=== PATIENT | female | born 1980 | race Caucasian/White ===

== ENCOUNTER 2024-02-21 19:31 | Inpatient (IN) | payer OTHER, SELFPAY ==
--- NOTE | 2024-02-21 | ECG_ITS ---
Test Reason : TACHYCARDIA Blood Pressure : / mmHG Vent. Rate : 113 BPM Atrial Rate : 113 BPM P-R Int : 142 ms QRS Dur : 086 ms QT Int : 328 ms P-R-T Axes : 050 -03 060 degrees QTc Int : 449 ms Sinus tachycardia Cannot rule out Anterior infarct , age undetermined Abnormal ECG When compared with ECG of 11-SEP-2006 12:32, No significant change was found Referred By: Generic ED Physician Electronically Signed By:OLIVA GAMBINO MD
--- NOTE | ~2024-02-21 | CT_ITS ---
EXAMINATION: CT PELVIS WITH CONTRAST CLINICAL INFORMATION: Vaginal swelling, concern for deep abscess. COMPARISON: None available. TECHNIQUE: Helical scanning was performed with submillimeter collimation through the pelvis with the use of oral contrast and during bolus intravenous injection of 85 mL of Omnipaque 350 intravenous contrast. Sagittal and coronal multiplanar 2-D reconstructions were obtained. This CT examination was performed using dose optimization techniques as appropriate, variously including the following: *Automated exposure control *Adjustment of mA and/or kV according to patient size (this includes techniques or standardized protocols for targeted exams where dose is matched to indication/reason for exam; i.e. extremities or head) *Use of iterative reconstruction technique DLP: 240 mGy-cm FINDINGS: Fat stranding is evident in the left inguinal region with extension into the left labia majora along the canal of Nuck. Small amount of fluid is also present within the left canal of Nuck with surrounding fat stranding suggesting an abscess. This measures 3 x 1.3 x 2.5 cm. No subcutaneous gas. Moderate volume of stool is present throughout the imaged portion of the colon. Small bowel and colon are normal in caliber. No intraperitoneal free fluid or free air. Uterus is unremarkable. No ovarian abnormalities are identified. Normal appearance of the bladder. No adenopathy. No acute osseous findings. Joints appear well-preserved. CT/CT pelvis w IV con IMPRESSION: Deep infection of the left labia majora with a small fluid collection within the canal of Nuck, most consistent with an abscess. No subcutaneous gas.
[2024-02-21 19:34] VITALS: BP 125/75; BP 142/88; PULSE 110; PULSE 115; RESP 20; TEMP 36.8; O2SAT 97; O2SAT 98; BMI 29.7
[2024-02-21 19:41] VITALS: BP 142/88; PULSE 115; RESP 16; TEMP 36.8; O2SAT 98
[2024-02-21 19:55] LABS: MANUAL DIFF FLAG NO
--- NOTE | 2024-02-21 19:55 | PC.NURSE ---
pt biba from home reporting multiple abscesses throughout body, main concern outer vaginal area and L. forearm. pt reports IVDA, last used cocaine 3 days ago. 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 pt denies si/hi and states she does not feel she needs detox services at this time. pt also reports frequent urination/dysuria. ua sample obtained and sent to lab. iv established to L. upper arm. labs drawn and sent to lab. pt is sinus tachy on monitor, ekg being obtained at this time. afebrile. vss. pt denies cp/sob/n/v/d. axox4. multiple abscesses to R. forearm pt reports is improving, no open wound/discharge noted. L. forearm has multiple abscesses without redness/drainage however abscess to L. wrist area appears red swollen painful. +pulses. awaiting primary eval by ed provider.
[2024-02-21 19:56] LABS: Basophils Absolute Auto 0.1 X10*3/uL (0.0-0.2); Basophils Percent Auto 0.7 % (0-2); Eosinophils Absolute Auto 0.2 X10*3/uL (0.0-0.4); Eosinophils Percent Auto 1.1 % (0-4); Hematocrit 39.3 % (37.0-47.0); Hemoglobin 13.7 g/dl (12.0-16.0); Imm Gran Abs Auto 0.59 X10*3/uL (0.00-0.03); Imm Gran Pct Auto 3.5 % (0.0-0.4); Lymphocytes Absolute Auto 3.5 X10*3/uL (1.2-4.9); Lymphocytes Percent Auto 20.6 % (20-40); Mean Corpuscular HGB Conc 34.9 g/dl (31.0-35.0); Mean Corpuscular Hemoglobin 27.6 pg (27.0-33.0); Mean Corpuscular Volume 79.1 fL (80.0-98.0); Monocytes Percent Auto 5.7 % (2-11); Neutrophils Absolute Auto 11.5 x10*3/uL (2.0-8.3); Neutrophils Percent Auto 68.4 % (45-73); Platelet Count 475 X10*3/uL (160-400); Red Blood Count 4.97 X10*6/uL (4.20-5.50); Red Cell Distribution Width 12.4 % (11.0-16.0); White Blood Count 16.8 X10*3/uL (4.8-10.8)
[2024-02-21 19:57] LABS: Appearance Urine Clear; Color Urine Yellow; Glucose Urine UA >=1000 mg/dL (Negative); Leukocyte Esterase Urine Negative (Negative); Nitrite Urine Negative (Negative); PH 6.5 (5.0-9.0); Specific Gravity - Urine >= 1.030 (1.005-1.025); UMIC TRIGGER UACC YES; Urine Blood Negative (Negative); Urine Ketones Negative (Negative); Urine Protein Negative (Neg-Trace)
[2024-02-21 20:04] LABS: Bacteria Urine None Seen (None Seen); Hyaline Casts Urine 0-2 /LPF (0-2); RBC Urine 0-2 /HPF (0-2); Squamous Epithelial Cell Urine 0-2 /HPF (0-2); UACC Culture Trigger YES
[2024-02-21 20:28] LABS: Alanine Aminotransferase 14 U/L (0-31); Albumin Level 3.5 g/dL (3.5-5.0); Alkaline Phosphatase 211 U/L (39-117); Anion Gap 20 (12-20); Aspartate Amino Transferase 12 U/L (5-31); Bilirubin Total 0.2 mg/dL (0.0-1.0); Blood Urea Nitrogen 14 mg/dL (9-16); Calcium 9.3 mg/dL (8.4-10.2); Carbon Dioxide 21 mmol/L (22-29); Chloride 93 mmol/L (96-108); Creatinine Clr Calc Pharmacy 79.5; Estimated Glomerular Filt Rate > 60; Glucose Random 685 mg/dL (60-115); Sodium 130 mmol/L (135-145); Total Protein 7.7 g/dL (6.5-8.0)
--- NOTE | 2024-02-21 20:30 | ED_ITS ---
HPI - General Adult General Chief complaint: Skin/Abscess/Foreign Body Stated complaint: OUTER VAGINAL ABCESS, USES COCAINE Time Seen by Provider: 02/21/24 20:30 Source: patient Mode of arrival: ambulatory Limitations: no limitations History of Present Illness ED Provider: Tatiana Ortiz PA-C HPI narrative: Patient is a 43 year old assigned female at with a history of DM and IV drug use presenting to the emergency department today with multiple abscesses. Patient states that her left arm and the left side of her vagina have been swollen and she has been using cocaine intravenously. Patient states that she has not been taking any of her diabetes medications. Patient denies any dizziness, lightheadedness, abdominal pain, nausea, vomiting, fever, chills, blurry vision, double vision, loss of vision, chest pain, difficulty breathing, shortness of breath, back pain, night sweats, pain with urination, increased urinary frequency, increased urinary urgency, blood in her urine or stool, syncope or a near syncopal episode, recent trauma or falls, bowel incontinence, bladder incontinence, or any other complaints at this time. Onset (ago): day(s) Relieving factors: none Exacerbating factors: none Associated symptoms: denies other symptoms Treatments prior to arrival: none Related Data Allergies Allergy/AdvReac Type Severity Reaction Status Date / Time divalproex sodium Allergy Severe ANAPHYLAXIS Unverified 05/17/20 15:04 [From Depakote] hydrocodone [HYDROCODONE] Allergy Severe HIVES Unverified 05/17/20 15:04 tramadol Allergy Unknown rash Verified 07/25/13 00:00 acetaminophen [From Vicodin] Allergy Anaphylaxis Verified 02/21/24 19:45 From Ultram Allergy Intermediate ITCHING Uncoded 05/17/20 15:04 PEANUT BUTTER Allergy Unknown ANAPHYLAXIS Uncoded 05/17/20 15:04 Review of Systems 2 Constitutional: Constitutional: Reports no additional constitutional complaints, Denies chills, Denies fever(s) and Denies night sweats Eyes: Eyes: Reports no additional eye complaints, Denies blurry vision, Denies change in vision, Denies diplopia, Denies eye discharge, Denies loss of vision and Denies eye pain ENT: Denies dizziness Cardiovascular: Cardiovascular: Reports no additional cardiovascular complaints, Denies chest pain, Denies lightheadedness, Denies Loss of Consciousness and Denies dyspnea Respiratory: Respiratory: Reports no additional respiratory complaints and Denies dyspnea Gastrointestinal: Gastrointestinal: Reports no additional gastrointestinal complaints, Denies abdominal pain, Denies melena, Denies hematochezia, Denies change in bowel habits and Denies change in stool character Genitourinary: Genitourinary: Denies hematuria, Denies urinary frequency, Denies dysuria, Denies urinary incontinence, Denies urinary hesitancy and Denies urinary urgency Comments: left sided vaginal abscess Musculoskeletal: Musculoskeletal: Reports no additional musculoskeletal complaints, Denies numbness and Denies tingling Comments: left arm abscess Neurologic: Denies dizziness, Denies loss of vision, Denies numbness and Denies tingling Psychiatric: Psychiatric: Reports no additional psychiatric complaints Endocrine: Endocrine: Reports no additional endocrine complaints Hematologic/Lymphatic: Hematologic/Lymphatic: Reports no additional hematologic/lymphatic complaints Allergic/Immunologic: Allergic/Immunologic: Reports no additional allergic/immunologic complaints PMFSH Past Medical History Attestation statement: The following information was validated with the patient. Source: old records reviewed and nursing notes reviewed Social History Social History Smoked in Last 30 Days: No Use of substances other than those prescribed or required for medical reasons: Yes Substance Use Type: Crack/Cocaine and IV Drugs Advance Directives: No Advance Directives Information Provided: No Physical Exam ED Vital Signs: Vital Signs - 24 hr 02/21/24 19:34 02/21/24 19:41 02/21/24 21:02 Temperature 98.3 F 98.3 F Pulse Rate 115 H 115 H 104 H Respiratory Rate 20 16 16 Blood Pressure 142/88 H 142/88 H 138/83 Pulse Oximetry 97 98 94 Oxygen Delivery Method Room Air Room Air 02/21/24 23:20 Temperature 98.5 F Pulse Rate 101 H Respiratory Rate 16 Blood Pressure 126/70 Pulse Oximetry 94 Oxygen Delivery Method Room Air BMI result Body Mass Index 29.7 Const General: cooperative, no acute distress, alert and awake Nutritional Appearance: well nourished Orientation/consciousness: patient oriented x3 Limitations: no limitations HENMT Head: Yes normal to inspection and Yes atraumatic Ears: hearing grossly normal bilaterally and external ears normal General nose exam: Normal external nose present, no nasal discharge noted and no epistaxis Face and sinus: Yes normal facial exam, No abrasion and No laceration Mouth: Normal oral and palatal mucosa present, no drooling and no muffled voice Eyes General: appearance normal, both eyes and all related structures Periorbital: periorbital findings normal Eyelids: Yes eyelids normal Conjunctivae: conjunctivae normal Pupils: Equal, round and reactive pupils present EOM: EOMs intact bilaterally Neck Neck: Yes normal visual inspection, Yes full ROM and Yes no lymphadenopathy Chest Chest palpation & inspection: normal inspection of the chest Resp Effort & Inspection: normal respiratory effort and able to speak in complete sentences GI Inspection: Yes normal to inspection Other: abscess present to the left labia majora with active draining of purulent discharge Skin Other: multiple abscesses present to the patient's extremities with the largest being on the left dorsal forearm Neuro General: patient oriented x3 and moves all extremities Cranial nerves: Yes Equal, round and reactive pupils present Cognition (Neuro): normal cognition Motor exam (neuro): 5/5 motor strength present throughout Sensory Exam: Normal double simultaneous stimulation for sensation Coordination: [id number] test normal Extrem General: Yes normal to inspection, Yes full ROM and Yes capillary refill normal Psych Appearance: grossly normal Mental Status: mental status grossly normal Affect: normal affect Attitude: cooperative Thought process: Normal thought process present Thought content: Normal thought content present Insight: Good insight present (Psych) Medications Administered Generic Name Dose Route Start Last Admin Trade Name Fidel PRN Reason Stop Dose Admin Insulin Human Regular 100 unit in 100 mls @ 8 mls/hr 02/21/24 20:45 02/21/24 23:01 Myxredlin IVCONT Not Given .[id number] LUIS ENRIQUE Protocol 8 UNIT/HR Discontinued Medications Generic Name Dose Route Start Last Admin Trade Name Fidel PRN Reason Stop Dose Admin Hydromorphone HCl 0.5 mg 02/21/24 20:38 02/21/24 20:54 Hydromorphone Hcl 0.5 Mg/0.5 Ml Syringe IVPUSH 02/21/24 20:39 0.5 mg ONCE ONE Administration Protocol Hydromorphone HCl 0.5 mg 02/21/24 22:24 02/21/24 22:34 Hydromorphone Hcl 0.5 Mg/0.5 Ml Syringe IVPUSH 02/21/24 22:25 0.5 mg ONCE ONE Administration Protocol Sodium Chloride 1,000 mls @ 999 mls/hr 02/21/24 20:30 02/21/24 22:35 Ns IV 02/21/24 21:30 Infused .Q1H1M LUIS ENRIQUE Infusion Piperacillin Sod/Tazobactam 50 mls @ 100 mls/hr 02/21/24 20:28 02/21/24 21:18 Sod 3.375 gm/ Sodium Chloride IV 02/21/24 20:57 Infused ONCE ONE Infusion Vancomycin HCl 2,000 mg in 500 mls @ 250 mls/hr 02/21/24 20:45 02/22/24 01:04 Vancomycin/Ns IV 02/21/24 22:44 Infused ONCE ONE Infusion Lactated Ringer's 1,000 mls @ 999 mls/hr 02/21/24 22:00 02/22/24 01:04 Lr IV 02/21/24 23:00 Infused .Q1H1M LUIS ENRIQUE Infusion Insulin Glargine 15 unit 02/21/24 23:34 02/22/24 00:21 Insulin Glargine,Hum.Rec.Anlog 100 Unit/Ml 10 Ml Vial SUBCUT 02/21/24 23:35 15 unit ONCE ONE Administration Insulin Human Regular 8 unit 02/21/24 21:00 02/21/24 21:16 Insulin Regular, Human 100 Unit/Ml 10 Ml Vial 0.1 unit/kg (8 unit) 02/21/24 21:01 8 unit IVPUSH Administration ONCE ONE Iohexol 85 ml 02/22/24 00:24 02/22/24 00:25 Iohexol 350 Mg/Ml 100 Ml Infus..Btl IV 02/22/24 00:25 85 ml ONCE ONE Administration Medical Decision Making Medical Decision Making MDM Narrative: Patient is a 43 year old assigned female at with a history of uncontrolled DM and IVDA presenting to the emergency department today with multiple abscesses and uncontrolled sugars. Patient's physical exam was as noted in the physical exam portion of this note. Patient's blood work showed an elevated WBC count of 16.8, an initial sugar of 685, gap of 20, and a beta-hydroxy of 0.28. Patient's urine showed no acute process. Patient's pelvis CT showed a deep infection of the left labia majoria with a small fluid collection within the canal of nuck most consistent with an abscess but no evidence of subcutaneous gas. Patient was given a liter of NS, a liter of LR, 8 units of insulin, and 15 units of lantus which appropriately addressed the patient's hyperglycemia. Patient's clinical presentation is consistent with cellulitis but not sepsis (@0015). I spoke to the hospitalist team who agreed to admission. I explained my physical exam findings as well as all test results to the patient. I answered all questions asked by the patient. Patient verbalized agreement and understanding with this treatment plan and admission. Differential Diagnosis Differential Diagnoses: The differential diagnosis associated with the presentation includes Cellulitis Abscesses Hyperglycemia Admission/Observation Consideration of admission/observation: Escalation of care including admission/observation considered Patient admitted Consult Healthcare Provider Management of the patient was discussed with: Hospitalist (agreed to admission as noted in the MDM Rationale portion of this note.) Lab Data [facility] Lab Attestation statement: I reviewed the patient's lab results. My interpretation of these results are in the MDM Rationale portion of this note. 02/21/24 19:50 02/21/24 19:50 Labs: Lab Results 02/21/24 02/21/24 02/21/24 Range/Units 19:50 20:42 20:47 WBC 16.8 H (4.8-10.8) X10*3/uL RBC 4.97 (4.20-5.50) X10*6/uL Hgb 13.7 (12.0-16.0) g/dl Hct 39.3 (37.0-47.0) % MCV 79.1 L (80.0-98.0) fL MCH 27.6 (27.0-33.0) pg MCHC 34.9 (31.0-35.0) g/dl RDW 12.4 (11.0-16.0) % Plt Count 475 H (160-400) X10*3/uL MPV 11.0 (9.4-12.3) fL Immature Gran % (Auto) 3.5 H (0.0-0.4) % Neut % (Auto) 68.4 (45-73) % Lymph % (Auto) 20.6 (20-40) % [place] % (Auto) 5.7 (2-11) % Eos % (Auto) 1.1 (0-4) % Baso % (Auto) 0.7 (0-2) % Lymph # (Auto) 3.5 (1.2-4.9) X10*3/uL [place] # (Auto) 1.0 (0.1-1.2) X10*3/uL Eos # (Auto) 0.2 (0.0-0.4) X10*3/uL Baso # (Auto) 0.1 (0.0-0.2) X10*3/uL Abs Immat Gran (auto) 0.59 H (0.00-0.03) X10*3/uL Absolute Neuts (auto) 11.5 H (2.0-8.3) x10*3/uL Absolute Nucleated RBC 0.000 (0.0-0.012) X10*3/uL Nucleated RBC % (auto) 0.0 (0.0-0.2) /100WBC Sodium 130 L (135-145) mmol/L Potassium 4.0 (3.3-5.1) mmol/L Chloride 93 L (96-108) mmol/L Carbon Dioxide 21 L (22-29) mmol/L Anion Gap 20 (12-20) BUN 14 (9-16) mg/dL Creatinine 0.90 (0.5-1.4) mg/dL Estim Creat Clear Calc 79.5 Estimated GFR > 60 POC Glucose 565 H* (60-115) mg/dL Random Glucose 685 H* (60-115) mg/dL Lactic Acid 1.3 (0.5-2.0) mmol/L Calcium 9.3 (8.4-10.2) mg/dL Total Bilirubin 0.2 (0.0-1.0) mg/dL AST 12 (5-31) U/L ALT 14 (0-31) U/L Alkaline Phosphatase 211 H (39-117) U/L Total Protein 7.7 (6.5-8.0) g/dL Albumin 3.5 (3.5-5.0) g/dL Beta-Hydroxybutyrate 0.28 H (0.02-0.27) mmol/L Beta HCG, Quant < 2 mIU/mL Urine Color Yellow Urine Appearance Clear Urine pH 6.5 (5.0-9.0) Ur Specific [place] >= 1.030 H (1.005-1.025) Urine Protein Negative (Neg-Trace) mg/dL Urine Glucose (UA) >=1000 H (Negative) mg/dL Urine Ketones Negative (Negative) mg/dL Urine Blood Negative (Negative) Urine Nitrite Negative (Negative) Ur Leukocyte Esterase Negative (Negative) Urine RBC 0-2 (0-2) /HPF Urine WBC 6-10 H (0-5) /HPF Ur Squamous Epith Cells 0-2 (0-2) /HPF Urine Bacteria None Seen (None Seen) Hyaline Casts 0-2 (0-2) /LPF 02/21/24 02/21/24 02/21/24 Range/Units 21:50 22:13 22:47 WBC (4.8-10.8) X10*3/uL RBC (4.20-5.50) X10*6/uL Hgb (12.0-16.0) g/dl Hct (37.0-47.0) % MCV (80.0-98.0) fL MCH (27.0-33.0) pg MCHC (31.0-35.0) g/dl RDW (11.0-16.0) % Plt Count (160-400) X10*3/uL MPV (9.4-12.3) fL Immature Gran % (Auto) (0.0-0.4) % Neut % (Auto) (45-73) % Lymph % (Auto) (20-40) % [place] % (Auto) (2-11) % Eos % (Auto) (0-4) % Baso % (Auto) (0-2) % Lymph # (Auto) (1.2-4.9) X10*3/uL [place] # (Auto) (0.1-1.2) X10*3/uL Eos # (Auto) (0.0-0.4) X10*3/uL Baso # (Auto) (0.0-0.2) X10*3/uL Abs Immat Gran (auto) (0.00-0.03) X10*3/uL Absolute Neuts (auto) (2.0-8.3) x10*3/uL Absolute Nucleated RBC (0.0-0.012) X10*3/uL Nucleated RBC % (auto) (0.0-0.2) /100WBC Sodium (135-145) mmol/L Potassium (3.3-5.1) mmol/L Chloride (96-108) mmol/L Carbon Dioxide (22-29) mmol/L Anion Gap (12-20) BUN (9-16) mg/dL Creatinine (0.5-1.4) mg/dL Estim Creat Clear Calc Estimated GFR POC Glucose 412 H* 398 H* 344 H (60-115) mg/dL Random Glucose (60-115) mg/dL Lactic Acid (0.5-2.0) mmol/L Calcium (8.4-10.2) mg/dL Total Bilirubin (0.0-1.0) mg/dL AST (5-31) U/L ALT (0-31) U/L Alkaline Phosphatase (39-117) U/L Total Protein (6.5-8.0) g/dL Albumin (3.5-5.0) g/dL Beta-Hydroxybutyrate (0.02-0.27) mmol/L Beta HCG, Quant mIU/mL Urine Color Urine Appearance Urine pH (5.0-9.0) Ur Specific [place] (1.005-1.025) Urine Protein (Neg-Trace) mg/dL Urine Glucose (UA) (Negative) mg/dL Urine Ketones (Negative) mg/dL Urine Blood (Negative) Urine Nitrite (Negative) Ur Leukocyte Esterase (Negative) Urine RBC (0-2) /HPF Urine WBC (0-5) /HPF Ur Squamous Epith Cells (0-2) /HPF Urine Bacteria (None Seen) Hyaline Casts (0-2) /LPF 02/21/24 02/21/24 02/22/24 Range/Units 23:18 23:49 00:18 WBC (4.8-10.8) X10*3/uL RBC (4.20-5.50) X10*6/uL Hgb (12.0-16.0) g/dl Hct (37.0-47.0) % MCV (80.0-98.0) fL MCH (27.0-33.0) pg MCHC (31.0-35.0) g/dl RDW (11.0-16.0) % Plt Count (160-400) X10*3/uL MPV (9.4-12.3) fL Immature Gran % (Auto) (0.0-0.4) % Neut % (Auto) (45-73) % Lymph % (Auto) (20-40) % [place] % (Auto) (2-11) % Eos % (Auto) (0-4) % Baso % (Auto) (0-2) % Lymph # (Auto) (1.2-4.9) X10*3/uL [place] # (Auto) (0.1-1.2) X10*3/uL Eos # (Auto) (0.0-0.4) X10*3/uL Baso # (Auto) (0.0-0.2) X10*3/uL Abs Immat Gran (auto) (0.00-0.03) X10*3/uL Absolute Neuts (auto) (2.0-8.3) x10*3/uL Absolute Nucleated RBC (0.0-0.012) X10*3/uL Nucleated RBC % (auto) (0.0-0.2) /100WBC Sodium (135-145) mmol/L Potassium (3.3-5.1) mmol/L Chloride (96-108) mmol/L Carbon Dioxide (22-29) mmol/L Anion Gap (12-20) BUN (9-16) mg/dL Creatinine (0.5-1.4) mg/dL Estim Creat Clear Calc Estimated GFR POC Glucose 372 H* 360 H* 307 H (60-115) mg/dL Random Glucose (60-115) mg/dL Lactic Acid (0.5-2.0) mmol/L Calcium (8.4-10.2) mg/dL Total Bilirubin (0.0-1.0) mg/dL AST (5-31) U/L ALT (0-31) U/L Alkaline Phosphatase (39-117) U/L Total Protein (6.5-8.0) g/dL Albumin (3.5-5.0) g/dL Beta-Hydroxybutyrate (0.02-0.27) mmol/L Beta HCG, Quant mIU/mL Urine Color Urine Appearance Urine pH (5.0-9.0) Ur Specific [place] (1.005-1.025) Urine Protein (Neg-Trace) mg/dL Urine Glucose (UA) (Negative) mg/dL Urine Ketones (Negative) mg/dL Urine Blood (Negative) Urine Nitrite (Negative) Ur Leukocyte Esterase (Negative) Urine RBC (0-2) /HPF Urine WBC (0-5) /HPF Ur Squamous Epith Cells (0-2) /HPF Urine Bacteria (None Seen) Hyaline Casts (0-2) /LPF Independent Interpretation I performed an independent interpretation of an: CT Scan Interpretation: My interpretation is in agreement with the radiologist's impression of this imaging study. - EXAMINATION: CT PELVIS WITH CONTRAST CLINICAL INFORMATION: Vaginal swelling, concern for deep abscess. COMPARISON: None available. TECHNIQUE: Helical scanning was performed with submillimeter collimation through the pelvis with the use of oral contrast and during bolus intravenous injection of 85 mL of Omnipaque 350 intravenous contrast. Sagittal and coronal multiplanar 2-D reconstructions were obtained. This CT examination was performed using dose optimization techniques as appropriate, variously including the following: *Automated exposure control *Adjustment of mA and/or kV according to patient size (this includes techniques or standardized protocols for targeted exams where dose is matched to indication/reason for exam; i.e. extremities or head) *Use of iterative reconstruction technique DLP: 240 mGy-cm FINDINGS: Fat stranding is evident in the left inguinal region with extension into the left labia majora along the canal of Nuck. Small amount of fluid is also present within the left canal of Nuck with surrounding fat stranding suggesting an abscess. This measures 3 x 1.3 x 2.5 cm. No subcutaneous gas. Moderate volume of stool is present throughout the imaged portion of the colon. Small bowel and colon are normal in caliber. No intraperitoneal free fluid or free air. Uterus is unremarkable. No ovarian abnormalities are identified. Normal appearance of the bladder. No adenopathy. No acute osseous findings. Joints appear well-preserved. CT/CT pelvis w IV con IMPRESSION: Deep infection of the left labia majora with a small fluid collection within the canal of Nuck, most consistent with an abscess. No subcutaneous gas. Dictated By: Gordy Mccall MD Signed By: Electronically signed by Gordy Mccall MD 02/22/24 0120 Independent Historian Clinical information obtained from an independent historian. History obtained from or confirmed by: EMS (EMS provided additional history and confirmed the history provided by the patient.) Chronic Conditions Patient?s care impacted by: Diabetes Critical Care Time Critical Care Time Critical Care Time: Yes Total Critical Care Time: 68 Attestation: I spent 68 minutes of Critical Care Time with this patient. This does not include time spent on separately reported billable procedures. Discharge Plan Discharge Clinical Impression: Cellulitis, Active intravenous drug use, Hyperglycemia Patient Disposition: Admitted As Inpatient Print Language: Macedonian
[2024-02-21 20:51] LABS: Glucose, Whole Blood 565 mg/dL (60-115)
[2024-02-21] MEDS: Piperacillin Sodium/Tazobactam 3.375 GM in 0.9 % Sodium Chloride 50 ML IV (20:54)
[2024-02-21] MEDS: 0.9 % Sodium Chloride 1,000 ML 999 ML IV (20:54)
[2024-02-21] MEDS: HYDROmorphone HCl 0.5 MG/0.5 ML SYRINGE IVPUSH ×2 (20:54→22:34)
--- NOTE | 2024-02-21 20:57 | PC.NURSE ---
Addendum entered by Danial Espinal 02/21/24 21:51: iv insulin given per mar. holding off on insulin drip at this time per PA. poc 412 at this time. Original Note: critical bgl from lab 685. poc 565 at this time. 2nd iv established. blood cultures/lactic drawn and sent to lab. ivf infusing per mar. abx infusing per mar. regular insulin not stocked in ed pyxis, pharmacy and PA aware. pt medicated per mar for pain. pt resting comfortably in stretcher at this time. call maza within reach.
[2024-02-21 21:01] LABS: Lactic Acid 1.3 mmol/L (0.5-2.0)
[2024-02-21 21:02] VITALS: BP 138/83; PULSE 104; RESP 16; O2SAT 94
[2024-02-21] MEDS: Insulin Regular, Human 100 UNIT/ML 10 ML VIAL 8 UNIT IVPUSH (21:16)
[2024-02-21 21:17] LABS: Beta-Hydroxybutyrate 0.28 mmol/L (0.02-0.27)
[2024-02-21] MEDS: vancomycin/NS 2,000 MG/500 ML PLAST..BAG 250 MG IV (21:18)
[2024-02-21 21:53] LABS: Glucose, Whole Blood 412 mg/dL (60-115)
[2024-02-21 22:16] LABS: Glucose, Whole Blood 398 mg/dL (60-115)
[2024-02-21] MEDS: Lactated Ringers 1,000 ML 999 ML IV (22:35)
[2024-02-21 22:51] LABS: Glucose, Whole Blood 344 mg/dL (60-115)
--- NOTE | 2024-02-21 23:02 | PC.NURSE ---
pt medicated per mar for pain. LR infusing per mar, to draw cmp after completion per PA. pt resting comfortably in stretcher at this time. call maza within reach.
[2024-02-21 23:20] VITALS: BP 126/70; PULSE 101; RESP 16; TEMP 36.9; O2SAT 94
[2024-02-21 23:25] LABS: Glucose, Whole Blood 372 mg/dL (60-115)
[2024-02-21 23:55] LABS: Glucose, Whole Blood 360 mg/dL (60-115)
[2024-02-21 23:59] LABS: HCG Quantitative < 2 mIU/mL
--- NOTE | 2024-02-22 00:18 | PC.NURSE ---
PA aware of poc 307, no further orders at this time. pt is requesting food. diabetic food provided per PA approval, pt tolerating po intake.
[2024-02-22] MEDS: Insulin Glargine,Hum.rec.anlog 100 UNIT/ML 10 ML VIAL 15 UNIT SUBCUT ×2 (00:21→19:59)
[2024-02-22 00:23] LABS: Glucose, Whole Blood 307 mg/dL (60-115)
[2024-02-22] MEDS: iohexoL 350 MG/ML 100 ML INFUS..BTL 85 ML IV (00:25)
--- NOTE | 2024-02-22 01:34 | PC.NURSE ---
Addendum entered by Danial Espinal 02/22/24 01:37: per next recheck poc 0330. Original Note: Dr. Tuan Jc at bedside for admission. approval for pt to eat as pt states she is hungry and does not want options offered as diabetic friendly. awaiting ct scan results for admission.
[2024-02-22 01:35] LABS: Alanine Aminotransferase 11 U/L (0-31); Alkaline Phosphatase 150 U/L (39-117); Anion Gap 14 (12-20); Aspartate Amino Transferase 11 U/L (5-31); Bilirubin Total 0.2 mg/dL (0.0-1.0); Blood Urea Nitrogen 10 mg/dL (9-16); Carbon Dioxide 21 mmol/L (22-29); Chloride 101 mmol/L (96-108); Creatinine Clr Calc Pharmacy 119.3; Estimated Glomerular Filt Rate > 60; Glucose Random 334 mg/dL (60-115); Potassium 3.7 mmol/L (3.3-5.1); Sodium 132 mmol/L (135-145); Total Protein 6.5 g/dL (6.5-8.0)
[2024-02-22 01:36] VITALS: BP 120/67; PULSE 100; RESP 16; TEMP 37.1; O2SAT 96
[2024-02-22 01:55] LABS: C Reactive Protein 5.23 mg/dL (< or = 0.50)
[2024-02-22] MEDS: 0.9 % Sodium Chloride 1,000 ML 150 ML IVCONT ×2 (02:04→09:28)
--- NOTE | 2024-02-22 02:09 | PM.IMHP ---
History of Present Illness Date of Service: 02/22/24 Attending physician on admission: Chloe Jc Chief Complaint: Left vulvar swelling November Devan is a 43 years old woman with past medical history significant for IVDU (cocaine), asthma, hyperlipidemia and type 2 diabetes mellitus (noncompliant with medications -Trulicity and metformin) presents to the emergency department complaining of one-week history of worsening left vulva swelling and pain. She also has a left arm abscess. She is ongoing IV drug user. Denies associated nausea, vomiting, dizziness, palpitation, headache or fever. Did not report pain with urination. She did not report any acute cardiopulmonary or gastrointestinal symptoms. Patient denied alcohol abuse. She said that she was recently treated for vaginal fungal infection with fluconazole. Denies history of STDs. In the ED, have mild tachycardia. There is no hypotension or fever reported. Oxygen saturation is normal on room air. Blood workup was remarkable for leukocytosis of 16.8. Hemoglobin and platelets are unremarkable. Initial blood glucose was 565 (most recent is 307) There are no electrolyte imbalances. Corrected sodium is 138. CRP is elevated at 5.23. LFTs and renal function are normal. UA showed marked glucosuria, elevated specific gravity and WBC of 6-10. There is no microscopic hematuria. Pelvis CT scan with IV contrast showed deep infection of the labia majora with a small fluid collection within the canal of Nuck, consistent with an abscess and without subcutaneous gas. ED tx: NS 1 L bolus, LR 1 L bolus, Dilaudid 0.5 mg IV, vancomycin 2 g IV, insulin R 8 units IV, IV contrast, Zosyn 3.375 g IV Review of Systems Review of Systems: All 12 systems were reviewed and normal except as noted in HPI. [facility] Medical History (Updated 02/22/24 @ 02:34 by Chloe Jc MD) Asthma Hyperlipidemia Type 2 diabetes mellitus Social History Smoked in Last 30 Days: No Use of substances other than those prescribed or required for medical reasons: Yes Substance Use Type: Crack/Cocaine and IV Drugs Advance Directives: No Advance Directives Information Provided: No Meds Allergies Allergy/AdvReac Type Severity Reaction Status Date / Time divalproex sodium Allergy Severe ANAPHYLAXIS Unverified 05/17/20 15:04 [From Depakote] hydrocodone [HYDROCODONE] Allergy Severe HIVES Unverified 05/17/20 15:04 tramadol Allergy Unknown rash Verified 07/25/13 00:00 acetaminophen [From Vicodin] Allergy Anaphylaxis Verified 02/21/24 19:45 From Ultram Allergy Intermediate ITCHING Uncoded 05/17/20 15:04 PEANUT BUTTER Allergy Unknown ANAPHYLAXIS Uncoded 05/17/20 15:04 Active Medications: Current Medications Acetaminophen (Acetaminophen 325 Mg Tablet) 650 mg PO Q6H PRN PRN Reason: Pain, Mild (Pain Scale 1-3), fever or headache Glucose (Glucose Gel 15 Gm Gel..Gram.) 15 gm PO Q15M PRN; Protocol PRN Reason: per Hypoglycemia Standing Ord. Heparin Sodium (Porcine) (Heparin Sodium,Porcine 5,000 Unit/Ml Vial) 5,000 unit SUBCUT Q8H [facility] Sodium Chloride (Ns) 1,000 mls @ 150 mls/hr IVCONT .Q6H40M [facility] Last Admin: 02/22/24 02:04 Dose: 150 mls/hr Dextrose (D10) 250 mls @ 750 mls/hr IV Q15M PRN; Protocol PRN Reason: per Hypoglycemia Standing Ord. Insulin Human Lispro (Insulin Lispro 100 Unit/Ml 3 Ml Vial) 0 unit SUBCUT QIDACHS [facility]; Protocol Ondansetron HCl (Ondansetron Hcl 4 Mg/2 Ml Vial) 4 mg IVPUSH Q8H PRN PRN Reason: Nausea and Vomiting Oxycodone HCl (Oxycodone Hcl Immed Release 5 Mg Tablet) 5 mg PO Q6H PRN PRN Reason: Pain, Severe (Pain Scale 7-10) Sodium Chloride (0.9 % Sodium Chloride Flush 3 Ml Syringe) 3 ml IVFLUSH QSHIFT [facility] Home Medications ?Medication ?Instructions ?Recorded ?Confirmed ?Last Taken ?Type albuterol sulfate 90 mcg/actuation 2 puff inhalation Q4-6H PRN 02/22/24 02/22/24 02/21/24 12:00 History aerosol inhaler Wheezing fluticasone furoate 100 1 ea inhalation DAILY 02/22/24 02/22/24 02/21/24 12:00 History mcg-vilanterol 25 mcg/dose inhalation powder (Breo Ellipta) tizanidine 4 mg tablet 4 mg PO TID PRN Back Pain 02/22/24 02/22/24 02/21/24 12:00 History Physical Exam Vital Signs and Narrative: Vital Signs: Last Vital Signs Temp 98.7 F 02/22/24 01:36 Pulse 100 02/22/24 01:36 Resp 16 02/22/24 01:36 BP 120/67 02/22/24 01:36 Pulse Ox 96 02/22/24 01:36 O2 Del Method Room Air 02/22/24 01:36 BMI result Body Mass Index 29.7 Constitutional - Awake and Alert, No apparent distress. Continuously asking for food. Afebrile. HEENT - PERRL, EOMI. Normal sclera. Heart - Tachycardia. No murmur. Lungs - Normal lung expansion, Normal respiratory effort, No respiratory distress, CTA bilaterally Abdomen - NT / ND; +BS; No rebound or guarding : Extremities - no calf tenderness bilaterally, no swelling Musculoskeletal - Normal inspection, normal ROM Skin - Warm/Dry Neurological - Alert & oriented x3. Normal speech. Psychological - Anxious affect Results Labs 02/21/24 19:50 02/22/24 01:08 Labs: Laboratory Results - last 24 hr 02/21/24 02/21/24 02/21/24 19:50 20:42 20:47 MCV 79.1 L MCH 27.6 MCHC 34.9 RDW 12.4 Plt Count 475 H MPV 11.0 Immature Gran % (Auto) 3.5 H Neut % (Auto) 68.4 Lymph % (Auto) 20.6 [place] % (Auto) 5.7 Eos % (Auto) 1.1 Baso % (Auto) 0.7 Lymph # (Auto) 3.5 [place] # (Auto) 1.0 Eos # (Auto) 0.2 Baso # (Auto) 0.1 Abs Immat Gran (auto) 0.59 H Absolute Neuts (auto) 11.5 H Absolute Nucleated RBC 0.000 Nucleated RBC % (auto) 0.0 Anion Gap 20 Estim Creat Clear Calc 79.5 Estimated GFR > 60 POC Glucose 565 H* Random Glucose 685 H* Lactic Acid 1.3 Calcium 9.3 Total Bilirubin 0.2 AST 12 ALT 14 Alkaline Phosphatase 211 H Total Creatine Kinase C-Reactive Protein Total Protein 7.7 Albumin 3.5 Beta-Hydroxybutyrate 0.28 H Beta HCG, Quant < 2 Urine Color Yellow Urine Appearance Clear Urine pH 6.5 Ur Specific [place] >= 1.030 H Urine Protein Negative Urine Glucose (UA) >=1000 H Urine Ketones Negative Urine Blood Negative Urine Nitrite Negative Ur Leukocyte Esterase Negative Urine RBC 0-2 Urine WBC 6-10 H Ur Squamous Epith Cells 0-2 Urine Bacteria None Seen Hyaline Casts 0-2 02/21/24 02/21/24 02/21/24 21:50 22:13 22:47 MCV MCH MCHC RDW Plt Count MPV Immature Gran % (Auto) Neut % (Auto) Lymph % (Auto) [place] % (Auto) Eos % (Auto) Baso % (Auto) Lymph # (Auto) [place] # (Auto) Eos # (Auto) Baso # (Auto) Abs Immat Gran (auto) Absolute Neuts (auto) Absolute Nucleated RBC Nucleated RBC % (auto) Anion Gap Estim Creat Clear Calc Estimated GFR POC Glucose 412 H* 398 H* 344 H Random Glucose Lactic Acid Calcium Total Bilirubin AST ALT Alkaline Phosphatase Total Creatine Kinase C-Reactive Protein Total Protein Albumin Beta-Hydroxybutyrate Beta HCG, Quant Urine Color Urine Appearance Urine pH Ur Specific [place] Urine Protein Urine Glucose (UA) Urine Ketones Urine Blood Urine Nitrite Ur Leukocyte Esterase Urine RBC Urine WBC Ur Squamous Epith Cells Urine Bacteria Hyaline Casts 02/21/24 02/21/24 02/22/24 23:18 23:49 00:18 MCV MCH MCHC RDW Plt Count MPV Immature Gran % (Auto) Neut % (Auto) Lymph % (Auto) [place] % (Auto) Eos % (Auto) Baso % (Auto) Lymph # (Auto) [place] # (Auto) Eos # (Auto) Baso # (Auto) Abs Immat Gran (auto) Absolute Neuts (auto) Absolute Nucleated RBC Nucleated RBC % (auto) Anion Gap Estim Creat Clear Calc Estimated GFR POC Glucose 372 H* 360 H* 307 H Random Glucose Lactic Acid Calcium Total Bilirubin AST ALT Alkaline Phosphatase Total Creatine Kinase C-Reactive Protein Total Protein Albumin Beta-Hydroxybutyrate Beta HCG, Quant Urine Color Urine Appearance Urine pH Ur Specific [place] Urine Protein Urine Glucose (UA) Urine Ketones Urine Blood Urine Nitrite Ur Leukocyte Esterase Urine RBC Urine WBC Ur Squamous Epith Cells Urine Bacteria Hyaline Casts 02/22/24 01:08 MCV MCH MCHC RDW Plt Count MPV Immature Gran % (Auto) Neut % (Auto) Lymph % (Auto) [place] % (Auto) Eos % (Auto) Baso % (Auto) Lymph # (Auto) [place] # (Auto) Eos # (Auto) Baso # (Auto) Abs Immat Gran (auto) Absolute Neuts (auto) Absolute Nucleated RBC Nucleated RBC % (auto) Anion Gap 14 Estim Creat Clear Calc 119.3 Estimated GFR > 60 POC Glucose Random Glucose 334 H Lactic Acid Calcium 8.0 L D Total Bilirubin 0.2 AST 11 ALT 11 Alkaline Phosphatase 150 H Total Creatine Kinase 22 L C-Reactive Protein 5.23 H Total Protein 6.5 Albumin 3.0 L Beta-Hydroxybutyrate Beta HCG, Quant Urine Color Urine Appearance Urine pH Ur Specific [place] Urine Protein Urine Glucose (UA) Urine Ketones Urine Blood Urine Nitrite Ur Leukocyte Esterase Urine RBC Urine WBC Ur Squamous Epith Cells Urine Bacteria Hyaline Casts Imaging Radiologist's Impressions: Impressions Pelvis CT 02/22/24 00:15 IMPRESSION: Deep infection of the left labia majora with a small fluid collection within the canal of Nuck, most consistent with an abscess. No subcutaneous gas. Assessment and Plan (1) Uncontrolled type 2 diabetes mellitus with hyperglycemia: Status: Acute (2) Abscess of labia majora: Status: Acute Plan Liss Hartman is a 43 y/o woman admitted with: Left labia majora abscess and cellulitis w/o subcutaneous gas. Admit to hospitalist service. Continue empiric IV antibiotic therapy with vancomycin and Zosyn. Blood cultures obtained -will follow results. Gynecology consult, Dr. Crowley contacted and will perform I&D in am. Left forearm abscess. Continue IV antibiotics. General surgeon consult. UTI. Continue Zosyn. UC obtained -will follow results. Uncontrolled type 2 diabetes, medical noncompliance. BG checks before meals at bedtime. Lantus 15 units subcu bedtime. Insulin sliding scale, resistant. IV fluids. Diabetic diet. Metformin on hold due to recent administration of IV contrast. Hyperlipidemia. Patient has not been taking her statin. Asthma. No in acute exacerbation. Continue Breo and albuterol inhalers. IV drug use: cocaine. Patient advised to stop using drugs. DVT prophylaxis: Heparin subcut Code status: Full Patient will need hospitalization for at least 2 midnights for vulvar infection and abscess treatment with IV antibiotics and incision and drainage by copier field service technician. Patient will also need monitoring of blood glucose and adequate control with insulin and proper diet. Quality Stroke Does the patient have a stroke diagnosis?: No VTE Prior VTE?: No VTE Risk Level:: Medical - moderate - high VTE Device Contraindication: Treatment Not Indicated VTE Drug Contraindication: N/A - Med Ordered
--- NOTE | 2024-02-22 02:11 | PC.NURSE ---
pt reports hasnt been taking diabetes medications or atorvastatin for >1 week d/t personally stopping them. pt reports takes gabapentin at home however this RN unable to verify as not on external pharmacy list, MD and pharmacy aware. pt confirms she uses inhalers and tizanidine as needed.
[2024-02-22] MEDS: oxyCODONE HCl Immed Release 5 MG TABLET PO ×3 (02:41→17:10)
[2024-02-22 03:22] LABS: Glucose, Whole Blood 395 mg/dL (60-115)
--- NOTE | 2024-02-22 03:28 | PC.NURSE ---
poc 395 notified, no further orders. to administer 10U subq lispro per mar sliding scale.
[2024-02-22] MEDS: Piperacillin Sodium/Tazobactam 3.375 GM in 0.9 % Sodium Chloride 50 ML IV ×4 (04:03→19:59)
[2024-02-22] MEDS: Insulin Lispro 100 UNIT/ML 3 ML VIAL SUBCUT ×5 (04:04→19:59)
[2024-02-22 04:42] LABS: MANUAL DIFF FLAG NO
[2024-02-22 04:43] LABS: Basophils Absolute Auto 0.1 X10*3/uL (0.0-0.2); Basophils Percent Auto 0.6 % (0-2); Eosinophils Absolute Auto 0.2 X10*3/uL (0.0-0.4); Eosinophils Percent Auto 1.1 % (0-4); Hematocrit 34.8 % (37.0-47.0); Hemoglobin 11.7 g/dl (12.0-16.0); Imm Gran Abs Auto 0.58 X10*3/uL (0.00-0.03); Imm Gran Pct Auto 3.6 % (0.0-0.4); Lymphocytes Absolute Auto 3.6 X10*3/uL (1.2-4.9); Lymphocytes Percent Auto 21.9 % (20-40); Mean Corpuscular HGB Conc 33.6 g/dl (31.0-35.0); Mean Corpuscular Hemoglobin 27.5 pg (27.0-33.0); Mean Corpuscular Volume 81.7 fL (80.0-98.0); Mean Platelet Volume 10.9 fL (9.4-12.3); Monocytes Absolute Auto 1.1 X10*3/uL (0.1-1.2); Monocytes Percent Auto 6.6 % (2-11); Neutrophils Absolute Auto 10.8 x10*3/uL (2.0-8.3); Neutrophils Percent Auto 66.2 % (45-73); Platelet Count 384 X10*3/uL (160-400); Red Blood Count 4.26 X10*6/uL (4.20-5.50); Red Cell Distribution Width 12.6 % (11.0-16.0); White Blood Count 16.3 X10*3/uL (4.8-10.8)
[2024-02-22 05:05] LABS: Anion Gap 15 (12-20); Blood Urea Nitrogen 11 mg/dL (9-16); Calcium 7.9 mg/dL (8.4-10.2); Carbon Dioxide 24 mmol/L (22-29); Chloride 97 mmol/L (96-108); Creatinine Clr Calc Pharmacy 108.5; Estimated Glomerular Filt Rate > 60; Glucose Random 414 mg/dL (60-115); Potassium 3.9 mmol/L (3.3-5.1); Sodium 132 mmol/L (135-145)
[2024-02-22 05:56] VITALS: BMI 30.7
[2024-02-22 06:04] VITALS: BP 110/67; PULSE 90; RESP 18; TEMP 36.4; O2SAT 95
[2024-02-22 06:07] LABS: Glucose, Whole Blood 286 mg/dL (60-115)
--- NOTE | 2024-02-22 06:22 | MHC.PIE ---
p; pt arrived from ed c/o pain 06/09 to abscess areas. note; prn oxy q6 given at 0240 i; dr dumont notified. give early dose oxy e; will cont to monitor
--- NOTE | 2024-02-22 06:37 | PHA.PROG ---
Admission Date/Time: February 22, 2024 02:04 Indication: skin + skin structure Weight in k.6 kg Adjusted body weight in Kg: Crane body weight in Kg: Obesity Dosing Indication % IBW: BMI 30.7 Serum Creatinine - Last 168 Hours 02/21/24 02/22/24 02/22/24 19:50 01:08 04:36 Creatinine 0.90 0.60 0.66 Estimated CrCl and GFR - Last 168 Hours 02/21/24 02/22/24 02/22/24 19:50 01:08 04:36 Estim Creat Clear Calc 79.5 119.3 108.5 Estimated GFR > 60 > 60 > 60 Vancomycin Loading Dose: 2000 x1 Current Vancomycin Dosing Regimen: 1250mg Q12H Vancomycin Monitoring using AUC goal of 400 - 600 range with trough as surrogate marker: 497 Date and Time for next Vancomycin Level to be drawn: 02/22 @0700 Pharmacist Comments on Vancomycin Plan: predicted trough 14.6 Vancomycin dosing will take advantage of [employer] as a clinical decision support tool that uses Bayesian modeling to calculate individual patient's pharmacokinetic parameters and forecast the patient's drug concentration time course with the target goal AUC 24 range of 400 - 600 mg/L/hr.
[2024-02-22 07:21] VITALS: BP 128/73; PULSE 92; RESP 16; TEMP 36; O2SAT 97
[2024-02-22 07:33] LABS: Estimated Average Glucose 346 mg/dL; Hemoglobin A1c % 13.7 % (<6.0)
[2024-02-22 07:37] LABS: Glucose, Whole Blood 263 mg/dL (60-115)
[2024-02-22] MEDS: 0.9 % Sodium Chloride Flush 3 ML SYRINGE IVFLUSH ×3 (07:49→20:00)
--- NOTE | 2024-02-22 09:00 | PM.EVENT ---
Event Note Date of Service: 02/22/24 Event Note: November Devan is a 43 y/o woman admitted with: Left labia majora and left forearm abscess with cellulitis w/o subcutaneous gas. Continue empiric IV antibiotic therapy with vancomycin and Zosyn. Blood cultures pending Gynecology consult, Dr. Crowley will perform I&D today to vulvar abscess Gen surg consult for forearm abscess UTI. Continue Zosyn. UC obtained -will follow results. Uncontrolled type 2 diabetes, medical noncompliance. ss, ada diet, Lantus Metformin on hold due to recent administration of IV contrast. Hyperlipidemia. Patient has not been taking her statin. Asthma. No in acute exacerbation. Continue Breo and albuterol inhalers. IV drug use: cocaine. Patient advised to stop using drugs. addiction team consult DVT prophylaxis: Heparin subcut Attending Dr. Knight Code status: Full Patient will need hospitalization for at least 2 midnights for vulvar infection and abscess treatment with IV antibiotics and incision and drainage by alcohol rubber. Patient will also need monitoring of blood glucose and adequate control with insulin and proper diet. Time Spent With Patient Time: Total time managing care of this patient today ____ minutes.
[2024-02-22] MEDS: vancomycin HCL 1,250 MG in 0.9 % Sodium Chloride 250 ML 166.67 MG IV ×2 (09:27→20:40)
--- NOTE | 2024-02-22 09:27 | PM.GYNCN ---
[employer] - CN: HPI Data of Consult Consult date: 02/22/24 Requesting Physician: Zulma Rao NP Primary Care Provider: Brent Vides DO, MD Consult Narrative Narrative: I was consulted on November who is a 43 year old female for left labial abscess. The patient went to urgent care a week ago with left labial tenderness and swelling was prescribed Bactrim which she started but her symptoms got worse started having more worse pain was unable to walk or sit down or lay down without any pain. The patient has history of IVDU (cocaine), asthma, hyperlipidemia and type 2 diabetes mellitus (noncompliant with medications -Trulicity and metformin) in addition the patient was diagnosed with left arm abscess. She is ongoing IV drug user. Denies associated nausea, vomiting, dizziness, palpitation, headache or fever. In the ED, have mild tachycardia. There is no hypotension or fever reported. Oxygen saturation is normal on room air. Blood workup was remarkable for leukocytosis of 16.8. Hemoglobin and platelets are unremarkable. Initial blood glucose was 565 (most recent is 307) There are no electrolyte imbalances. Corrected sodium is 138. CRP is elevated at 5.23. LFTs and renal function are normal. UA showed marked glucosuria, elevated specific gravity and WBC of 6-10. There is no microscopic hematuria. Pelvis CT scan with IV contrast showed deep infection of the labia majora with a small fluid collection within the canal of Nuck, consistent with an abscess and without subcutaneous gas. ED tx: NS 1 L bolus, LR 1 L bolus, Dilaudid 0.5 mg IV, vancomycin 2 g IV, insulin R 8 units IV, IV contrast, Zosyn 3.375 g IV The patient was admitted stays on vancomycin and piperacillin IV The patient is still complaining of left vulvar pain in addition to vulvovaginal itching since antibiotics were started cc:: CC: Zulma Rao NP [facility] Past Medical History Medical History Asthma Hyperlipidemia Type 2 diabetes mellitus Social History Social History Household Members: Family Housing: Apartment Patient Tobacco Use Status: Former Tobacco user Substance Use Type: Crack/Cocaine and IV Drugs Meds Allergies Allergy/AdvReac Type Severity Reaction Status Date / Time divalproex sodium Allergy Severe ANAPHYLAXIS Verified 02/22/24 03:28 [From Depakote] hydrocodone [HYDROCODONE] Allergy Severe HIVES Verified 02/22/24 03:28 tramadol Allergy Unknown rash Verified 02/22/24 03:28 acetaminophen [From Vicodin] Allergy Anaphylaxis Verified 02/22/24 03:28 From Ultram Allergy Intermediate ITCHING Uncoded 02/22/24 03:28 PEANUT BUTTER Allergy Unknown ANAPHYLAXIS Uncoded 02/22/24 03:28 Active Medications: Current Medications Acetaminophen (Acetaminophen 325 Mg Tablet) 650 mg PO Q6H PRN PRN Reason: Pain, Mild (Pain Scale 1-3), fever or headache Albuterol Sulfate (Albuterol Sulfate 90 Mcg 8 Gm Inhaler) 2 puff INHALE RQ4H PRN PRN Reason: Wheezing Fluticasone/Vilanterol (Fluticasone/Vilanterol 100/25 Blst.W.Dev) 1 puff INHALE RDAILY LUIS ENRIQUE Glucose (Glucose Gel 15 Gm Gel..Gram.) 15 gm PO Q15M PRN; Protocol PRN Reason: per Hypoglycemia Standing Ord. Heparin Sodium (Porcine) (Heparin Sodium,Porcine 5,000 Unit/Ml Vial) 5,000 unit SUBCUT Q8H [facility] Last Admin: 02/22/24 08:57 Dose: Not Given Sodium Chloride (Ns) 1,000 mls @ 150 mls/hr IVCONT .Q6H40M [facility] Last Infusion: 02/22/24 09:20 Dose: Infused Dextrose (D10) 250 mls @ 750 mls/hr IV Q15M PRN; Protocol PRN Reason: per Hypoglycemia Standing Ord. Piperacillin Sod/Tazobactam (Sod 3.375 gm/ Sodium Chloride) 50 mls @ 100 mls/hr IV Q6H [facility] Last Infusion: 02/22/24 08:19 Dose: Infused Vancomycin HCl 1,250 mg/ (Sodium Chloride) 250 mls @ 166.667 mls/hr IV Q12H [facility] Insulin Glargine (Insulin Glargine,Hum.Rec.Anlog 100 Unit/Ml 10 Ml Vial) 15 unit SUBCUT BEDTIME LUIS ENRIQUE Insulin Human Lispro (Insulin Lispro 100 Unit/Ml 3 Ml Vial) 0 unit SUBCUT QIDACHS [facility]; Protocol Last Admin: 02/22/24 07:48 Dose: 8 unit Ondansetron HCl (Ondansetron Hcl 4 Mg/2 Ml Vial) 4 mg IVPUSH Q8H PRN PRN Reason: Nausea and Vomiting Oxycodone HCl (Oxycodone Hcl Immed Release 5 Mg Tablet) 5 mg PO Q6H PRN PRN Reason: Pain, Severe (Pain Scale 7-10) Last Admin: 02/22/24 06:26 Dose: 5 mg Pharmacy Consult (Consult Rx Vancomycin Dosing) 1 each MISCELLANE DAILY PRN PRN Reason: Consult order Sodium Chloride (0.9 % Sodium Chloride Flush 3 Ml Syringe) 3 ml IVFLUSH QSHIFT [facility] Last Admin: 02/22/24 07:49 Dose: 3 ml Home Medications ?Medication ?Instructions ?Recorded ?Confirmed ?Last Taken ?Type albuterol sulfate 90 mcg/actuation 2 puff inhalation Q4-6H PRN 02/22/24 02/22/24 02/21/24 12:00 History aerosol inhaler Wheezing fluticasone furoate 100 1 ea inhalation DAILY 02/22/24 02/22/24 02/21/24 12:00 History mcg-vilanterol 25 mcg/dose inhalation powder (Breo Ellipta) tizanidine 4 mg tablet 4 mg PO TID PRN Back Pain 02/22/24 02/22/24 02/21/24 12:00 History [employer] Physical Exam Vitals Vital signs: Temp Pulse Resp BP Pulse Ox O2 Del Method 96.8 F 92 16 128/73 97 Room Air 02/22/24 07:21 02/22/24 07:21 02/22/24 07:21 02/22/24 07:21 02/22/24 07:21 02/22/24 07:21 BMI result Body Mass Index 30.7 Abdomen Auscultation/Inspection/Palpation: Soft and Non-distended Female Genitalia (Pelvic) Vagina: Nontender Cervix: Grossly normal Uterus: Normal size Adnexa/Parametria: Adnexal Tenderness: None, Adnexal Mass: None, Parametrial Tenderness: None and Parametrial Mass: None Additional Comments: Left labia majora abscess around 3-4 cm [employer] - Results Labs 02/22/24 04:36 02/22/24 04:36 Labs: Short CBC 06/23/24 06/24/24 Range/Units 19:50 04:36 WBC 16.8 H 16.3 H (4.8-10.8) X10*3/uL Hgb 13.7 11.7 L (12.0-16.0) g/dl Hct 39.3 34.8 L (37.0-47.0) % Plt Count 475 H 384 (160-400) X10*3/uL BMP 02/21/24 02/22/24 02/22/24 19:50 01:08 04:36 Sodium 130 L 132 L 132 L Potassium 4.0 3.7 3.9 Chloride 93 L 101 97 Carbon Dioxide 21 L 21 L 24 BUN 14 10 11 Creatinine 0.90 0.60 0.66 Calcium 9.3 8.0 L D 7.9 L Cardiac Enzymes 02/22/24 Range/Units 01:08 Total Creatine Kinase 22 L (26-140) U/L Liver Function 02/21/24 02/22/24 Range/Units 19:50 01:08 Total Bilirubin 0.2 0.2 (0.0-1.0) mg/dL AST 12 11 (5-31) U/L ALT 14 11 (0-31) U/L Alkaline Phosphatase 211 H 150 H (39-117) U/L Albumin 3.5 3.0 L (3.5-5.0) g/dL Urine 02/21/24 Range/Units 19:50 Urine Color Yellow Urine Appearance Clear Urine pH 6.5 (5.0-9.0) Ur Specific [place] >= 1.030 H (1.005-1.025) Urine Protein Negative (Neg-Trace) mg/dL Urine Glucose (UA) >=1000 H (Negative) mg/dL Assessment and Plan (1) Abscess of labia majora: Status: Acute GC/CT, BV panel and pus drainage culture sent. Discussed with the patient the finding on pelvic exam showing left labia majora abscess, recommended incision and drainage., see procedure note. Keep on IV antibiotics, check gram stain and culture and once the patient has improved clinically , consider switching to p.o. antibiotics using culture sensitivity for guidance. (2) Vulvovaginitis marcus albicans: Status: Acute GC/CT taken with BV panel, will treat with clotrimazole vaginally q.d. for 7 days. [employer] Procedures Abscess I/D Site: Labium Majus Side (if applicable): left Anesthetic: lidocaine 1% Comments: Before the procedure was started d/w patient the procedure, alternatives (do nothing, medical rx), & all the risks associated with the procedure ( bleeding , infection, vulvar scarring, painful intercourse, injury to vessels, possible need for transfusion with all its risks) then patient signed the consent. Preoperative diagnosis: Left labia majora Abscess. Operation: Left labia majora abscess I & D Post-operative diagnosis: Same Anesthesia: Lidocaine 1% 3cc used Procedure: The skin was prepped with Betadine, palpation was used for guidance, 11-blade was used to incise the skin contiguous with the abscess cavity. This yielded 10 cc of purulent fluid &substantially decompressed the swelling, a clean dressing was used at the end. The patient tolerated the procedure well. The patient was sent home in stable condition. Discharge Instructions: The patient was instructed to call if temp>100.4, abdominal pain, nausea/vomiting. This note was generated with a voice recognition program. Some errors may have been overlooked during the review of this note. Sometimes these errors may affect the content or meaning of a given sentence.
[2024-02-22] MEDS: Morphine Sulfate 2 MG/ML CARTRIDGE 1 MG IVPUSH ×2 (10:18→20:03)
--- NOTE | 2024-02-22 10:27 | PHA.MEDREC ---
Pharmacy Consult ? Medication Reconciliation Pharmacy has completed the medication reconciliation. Spoke to patient and confirmed medication list. Patient said she hasn't taken atorvastatin nor metformin in about a month, she takes trulicity 0.75 mg (due to the shortage of 1.5 mg) on thursday (last dose 02/13/24) and she takes gabapentin 300 mg daily.
[2024-02-22] MEDS: Morphine Sulfate 2 MG/ML CARTRIDGE IVPUSH (10:53)
[2024-02-22 11:14] LABS: Bacterial Vaginosis PCR NEGATIVE (Negative); Candida Group PCR NOT DETECTED (Not Detect); Candida glab krusei PCR NOT DETECTED (Not Detect); Trichomonas vaginalis PCR NOT DETECTED (Not Detect)
--- NOTE | 2024-02-22 11:15 | P.CONGS_ITS ---
History of Present Illness Consult details Consult date: 02/22/24 <Sarah Poe PA-C - Last Filed: 02/22/24 12:09> Reason for consult: other (forearm abscess) <FAISAL Obrien Last Filed: 02/22/24 12:09> Narrative: Liss Hartman is a 43 year old woman with past medical history significant for IVDU (cocaine), asthma, hyperlipidemia and type 2 diabetes mellitus, noncompliant, who presented to the ED complaining of one-week history of worsening left vulva swelling and pain. She was admitted to the medical service for further treatment of the labial abscess, hyperglycemia and uncontrolled diabetes. She was also found to have an abscess of the left arm abscess. General surgery was therefore consulted. She reports multiple areas of redness, pain and swelling at prior injection sites on both forearms. Denies associated nausea, vomiting, dizziness, palpitation, headache or fever. She reports she was clean for 9 years with a recent relapse. She stopped using 3 days ago. She just underwent an I&D of the vulvar abscess at bedside earlier today by [employer]. <FAISAL Obrien Last Filed: 02/22/24 12:09> Review of Systems 2 Constitutional: Constitutional: Denies chills and Denies fever(s) < FAISAL Obrien Last Filed: 02/22/24 12:09> ENT: Denies dizziness <FAISAL Obrien Last Filed: 02/22/24 12:09> Cardiovascular: Cardiovascular: Denies chest pain and Denies dyspnea < FAISAL Obrien Last Filed: 02/22/24 12:09> Respiratory: Respiratory: Denies dyspnea <FAISAL Obrien Last Filed: 02/22/24 12:09> Gastrointestinal: Gastrointestinal: Denies abdominal pain, Denies nausea and Denies vomiting <FAISAL Obrien Last Filed: 02/22/24 12:09> Integumentary/Breasts: Skin/Breast: Reports as per HPI, Reports erythema and Denies jaundice <FAISAL Obrien Filed: 02/22/24 12:09> Neurologic: Denies dizziness <Sarah Poe PA-C - Last Filed: 02/22/24 12:09> [facility] Past Medical History Medical History: Medical History Asthma Hyperlipidemia Type 2 diabetes mellitus <FAISAL Obrien Last Filed: 02/22/24 12:09> Social History Social History: Social History Household Members: Family Housing: Apartment Patient Tobacco Use Status: Former Tobacco user Substance Use Type: Crack/Cocaine and IV Drugs <FAISAL Obrien Last Filed: 02/22/24 12:09> Meds Allergies/Adverse reactions: Allergies Allergy/AdvReac Type Severity Reaction Status Date / Time divalproex sodium Allergy Severe ANAPHYLAXIS Verified 02/22/24 03:28 [From Depakote] hydrocodone [HYDROCODONE] Allergy Severe HIVES Verified 02/22/24 03:28 tramadol Allergy Unknown rash Verified 02/22/24 03:28 acetaminophen [From Vicodin] Allergy Anaphylaxis Verified 02/22/24 03:28 From Ultram Allergy Intermediate ITCHING Uncoded 02/22/24 03:28 PEANUT BUTTER Allergy Unknown ANAPHYLAXIS Uncoded 02/22/24 03:28 <Sarah Poe PA-C - Last Filed: 02/22/24 12:09> Active Medications: Current Medications Acetaminophen (Acetaminophen 325 Mg Tablet) 650 mg PO Q6H PRN PRN Reason: Pain, Mild (Pain Scale 1-3), fever or headache Albuterol Sulfate (Albuterol Sulfate 90 Mcg 8 Gm Inhaler) 2 puff INHALE RQ4H PRN PRN Reason: Wheezing Clotrimazole (Clotrimazole 1 % Vaginal Cream 45 Gm Tube) 1 appl VAGINAL BEDTIME [facility] Stop: 02/28/24 21:01 Fluticasone/Vilanterol (Fluticasone/Vilanterol 100/25 Blst.W.Dev) 1 puff INHALE RDAILY [facility] Glucose (Glucose Gel 15 Gm Gel..Gram.) 15 gm PO Q15M PRN; Protocol PRN Reason: per Hypoglycemia Standing Ord. Heparin Sodium (Porcine) (Heparin Sodium,Porcine 5,000 Unit/Ml Vial) 5,000 unit SUBCUT Q8H [facility] Last Admin: 02/22/24 08:57 Dose: Not Given Sodium Chloride (Ns) 1,000 mls @ 150 mls/hr IVCONT .Q6H40M [facility] Last Admin: 02/22/24 09:28 Dose: 150 mls/hr Dextrose (D10) 250 mls @ 750 mls/hr IV Q15M PRN; Protocol PRN Reason: per Hypoglycemia Standing Ord. Piperacillin Sod/Tazobactam (Sod 3.375 gm/ Sodium Chloride) 50 mls @ 100 mls/hr IV Q6H [facility] Last Infusion: 02/22/24 08:19 Dose: Infused Vancomycin HCl 1,250 mg/ (Sodium Chloride) 250 mls @ 166.667 mls/hr IV Q12H [facility] Last Admin: 02/22/24 09:27 Dose: 166.67 mls/hr Insulin Glargine (Insulin Glargine,Hum.Rec.Anlog 100 Unit/Ml 10 Ml Vial) 15 unit SUBCUT BEDTIME [facility] Insulin Human Lispro (Insulin Lispro 100 Unit/Ml 3 Ml Vial) 0 unit SUBCUT QIDACHS [facility]; Protocol Last Admin: 02/22/24 07:48 Dose: 8 unit Morphine Sulfate (Morphine Sulfate 2 Mg/Ml Cartridge) 1 mg IVPUSH Q4H PRN; Protocol PRN Reason: Pain, Severe (Pain Scale 7-10) Last Admin: 02/22/24 10:18 Dose: 1 mg Ondansetron HCl (Ondansetron Hcl 4 Mg/2 Ml Vial) 4 mg IVPUSH Q8H PRN PRN Reason: Nausea and Vomiting Oxycodone HCl (Oxycodone Hcl Immed Release 5 Mg Tablet) 5 mg PO Q6H PRN PRN Reason: Pain, Moderate(Pain Scale 4-6) Pharmacy Consult (Consult Rx Vancomycin Dosing) 1 each MISCELLANE DAILY PRN PRN Reason: Consult order Sodium Chloride (0.9 % Sodium Chloride Flush 3 Ml Syringe) 3 ml IVFLUSH QSHIFT [facility] Last Admin: 02/22/24 07:49 Dose: 3 ml <Sarah Poe PA-C - Last Filed: 02/22/24 12:09> Home medications: Home Medications ?Medication ?Instructions ?Recorded ?Confirmed ?Last Taken ?Type albuterol sulfate 90 mcg/actuation 2 puff inhalation Q4-6H PRN 02/22/24 02/22/24 02/21/24 12:00 History aerosol inhaler Wheezing doxycycline monohydrate 100 mg 100 mg PO BID 02/22/24 02/22/24 02/21/24 History capsule dulaglutide 0.75 mg/0.5 mL 0.75 mg subcut SA 02/22/24 02/22/24 02/13/24 History subcutaneous pen injector (Trulicity) fluticasone furoate 100 1 ea inhalation DAILY 02/22/24 02/22/24 02/21/24 12:00 History mcg-vilanterol 25 mcg/dose inhalation powder (Breo Ellipta) gabapentin 300 mg capsule 300 mg PO DAILY 02/22/24 02/22/24 02/21/24 History metronidazole 500 mg tablet 500 mg PO BID 02/22/24 02/22/24 02/21/24 History tizanidine 4 mg tablet 4 mg PO TID PRN Back Pain 02/22/24 02/22/24 02/21/24 12:00 History <FAISAL Obrien Last Filed: 02/22/24 12:09> Physical Exam 2 Vital Signs: Vital Signs: Last Vital Signs Temp 96.8 F 02/22/24 07:21 Pulse 92 02/22/24 07:21 Resp 16 02/22/24 07:21 BP 128/73 02/22/24 07:21 Pulse Ox 97 02/22/24 07:21 O2 Del Method Room Air 02/22/24 07:21 BMI result Body Mass Index 30.7 <FAISAL Obrien Last Filed: 02/22/24 12:09> Const: General: comfortable, no acute distress and alert <FAISAL Obrien Last Filed: 02/22/24 12:09> Nutritional Appearance: average body habitus <FAISAL Obrien Last Filed: 02/22/24 12:09> Orientation/consciousness: patient oriented x3 <FAISAL Obrien Last Filed: 02/22/24 12:09> Resp: Effort & Inspection: normal respiratory effort <FAISAL Obrien Last Filed: 02/22/24 12:09> Skin: Other: left UE, forearm with 3x3cm fluctuant area with deep erythema and warmth and smaller fluctuant, erythematous area about 2cm just distal to AC joint right UE, forearm with multiple very small erythematous areas, one at distal forearm with small area of fluctuance, more proximally there is an area of fluctuance without any overlying skin changes and area is non tender, no associated needle track, AC joint with erythema and induration at old injection sites <FAISAL Obrien Last Filed: 02/22/24 12:09> General skin exam: no jaundice <FAISAL Obrien Noel Filed: 02/22/24 12:09> Neuro: General: patient oriented x3 and moves all extremities <FAISAL Obrien Last Filed: 02/22/24 12:09> Results Labs Result diagrams: 02/22/24 04:36 02/22/24 04:36 <FAISAL Obrien Last Filed: 02/22/24 12:09> Labs: Abnormal lab results 02/21/24 02/21/24 02/21/24 Range/Units 19:50 20:47 21:50 WBC 16.8 H (4.8-10.8) X10*3/uL Hgb (12.0-16.0) g/dl Hct (37.0-47.0) % MCV 79.1 L (80.0-98.0) fL Plt Count 475 H (160-400) X10*3/uL Immature Gran % (Auto) 3.5 H (0.0-0.4) % Abs Immat Gran (auto) 0.59 H (0.00-0.03) X10*3/uL Absolute Neuts (auto) 11.5 H (2.0-8.3) x10*3/uL Sodium 130 L (135-145) mmol/L Chloride 93 L (96-108) mmol/L Carbon Dioxide 21 L (22-29) mmol/L POC Glucose 565 H* 412 H* (60-115) mg/dL Random Glucose 685 H* (60-115) mg/dL Hemoglobin A1c % (<6.0) % Calcium (8.4-10.2) mg/dL Alkaline Phosphatase 211 H (39-117) U/L Total Creatine Kinase (26-140) U/L C-Reactive Protein (< or = 0.50) mg/dL Albumin (3.5-5.0) g/dL Beta-Hydroxybutyrate 0.28 H (0.02-0.27) mmol/L Ur Specific Ashby >= 1.030 H (1.005-1.025) Urine Glucose (UA) >=1000 H (Negative) mg/dL Urine WBC 6-10 H (0-5) /HPF 02/21/24 02/21/24 02/21/24 Range/Units 22:13 22:47 23:18 WBC (4.8-10.8) X10*3/uL Hgb (12.0-16.0) g/dl Hct (37.0-47.0) % MCV (80.0-98.0) fL Plt Count (160-400) X10*3/uL Immature Gran % (Auto) (0.0-0.4) % Abs Immat Gran (auto) (0.00-0.03) X10*3/uL Absolute Neuts (auto) (2.0-8.3) x10*3/uL Sodium (135-145) mmol/L Chloride (96-108) mmol/L Carbon Dioxide (22-29) mmol/L POC Glucose 398 H* 344 H 372 H* (60-115) mg/dL Random Glucose (60-115) mg/dL Hemoglobin A1c % (<6.0) % Calcium (8.4-10.2) mg/dL Alkaline Phosphatase (39-117) U/L Total Creatine Kinase (26-140) U/L C-Reactive Protein (< or = 0.50) mg/dL Albumin (3.5-5.0) g/dL Beta-Hydroxybutyrate (0.02-0.27) mmol/L Ur Specific Ashby (1.005-1.025) Urine Glucose (UA) (Negative) mg/dL Urine WBC (0-5) /HPF 02/21/24 02/22/24 02/22/24 Range/Units 23:49 00:18 01:08 WBC (4.8-10.8) X10*3/uL Hgb (12.0-16.0) g/dl Hct (37.0-47.0) % MCV (80.0-98.0) fL Plt Count (160-400) X10*3/uL Immature Gran % (Auto) (0.0-0.4) % Abs Immat Gran (auto) (0.00-0.03) X10*3/uL Absolute Neuts (auto) (2.0-8.3) x10*3/uL Sodium 132 L (135-145) mmol/L Chloride (96-108) mmol/L Carbon Dioxide 21 L (22-29) mmol/L POC Glucose 360 H* 307 H (60-115) mg/dL Random Glucose 334 H (60-115) mg/dL Hemoglobin A1c % (<6.0) % Calcium 8.0 L D (8.4-10.2) mg/dL Alkaline Phosphatase 150 H (39-117) U/L Total Creatine Kinase 22 L (26-140) U/L C-Reactive Protein 5.23 H (< or = 0.50) mg/dL Albumin 3.0 L (3.5-5.0) g/dL Beta-Hydroxybutyrate (0.02-0.27) mmol/L Ur Specific Ashby (1.005-1.025) Urine Glucose (UA) (Negative) mg/dL Urine WBC (0-5) /HPF 02/22/24 02/22/24 02/22/24 Range/Units 03:17 04:36 05:58 WBC 16.3 H (4.8-10.8) X10*3/uL Hgb 11.7 L (12.0-16.0) g/dl Hct 34.8 L (37.0-47.0) % MCV (80.0-98.0) fL Plt Count (160-400) X10*3/uL Immature Gran % (Auto) 3.6 H (0.0-0.4) % Abs Immat Gran (auto) 0.58 H (0.00-0.03) X10*3/uL Absolute Neuts (auto) 10.8 H (2.0-8.3) x10*3/uL Sodium 132 L (135-145) mmol/L Chloride (96-108) mmol/L Carbon Dioxide (22-29) mmol/L POC Glucose 395 H* 286 H (60-115) mg/dL Random Glucose 414 H* (60-115) mg/dL Hemoglobin A1c % 13.7 H (<6.0) % Calcium 7.9 L (8.4-10.2) mg/dL Alkaline Phosphatase (39-117) U/L Total Creatine Kinase (26-140) U/L C-Reactive Protein (< or = 0.50) mg/dL Albumin (3.5-5.0) g/dL Beta-Hydroxybutyrate (0.02-0.27) mmol/L Ur Specific Ashby (1.005-1.025) Urine Glucose (UA) (Negative) mg/dL Urine WBC (0-5) /HPF 02/22/24 Range/Units 07:23 WBC (4.8-10.8) X10*3/uL Hgb (12.0-16.0) g/dl Hct (37.0-47.0) % MCV (80.0-98.0) fL Plt Count (160-400) X10*3/uL Immature Gran % (Auto) (0.0-0.4) % Abs Immat Gran (auto) (0.00-0.03) X10*3/uL Absolute Neuts (auto) (2.0-8.3) x10*3/uL Sodium (135-145) mmol/L Chloride (96-108) mmol/L Carbon Dioxide (22-29) mmol/L POC Glucose 263 H (60-115) mg/dL Random Glucose (60-115) mg/dL Hemoglobin A1c % (<6.0) % Calcium (8.4-10.2) mg/dL Alkaline Phosphatase (39-117) U/L Total Creatine Kinase (26-140) U/L C-Reactive Protein (< or = 0.50) mg/dL Albumin (3.5-5.0) g/dL Beta-Hydroxybutyrate (0.02-0.27) mmol/L Ur Specific Ashby (1.005-1.025) Urine Glucose (UA) (Negative) mg/dL Urine WBC (0-5) /HPF Short CBC 02/21/24 02/22/24 Range/Units 19:50 04:36 WBC 16.8 H 16.3 H (4.8-10.8) X10*3/uL Hgb 13.7 11.7 L (12.0-16.0) g/dl Hct 39.3 34.8 L (37.0-47.0) % Plt Count 475 H 384 (160-400) X10*3/uL BMP 02/21/24 02/22/24 02/22/24 19:50 01:08 04:36 Sodium 130 L 132 L 132 L Potassium 4.0 3.7 3.9 Chloride 93 L 101 97 Carbon Dioxide 21 L 21 L 24 BUN 14 10 11 Creatinine 0.90 0.60 0.66 Calcium 9.3 8.0 L D 7.9 L Cardiac Enzymes 02/22/24 Range/Units 01:08 Total Creatine Kinase 22 L (26-140) U/L Liver Function 02/21/24 02/22/24 Range/Units 19:50 01:08 Total Bilirubin 0.2 0.2 (0.0-1.0) mg/dL AST 12 11 (5-31) U/L ALT 14 11 (0-31) U/L Alkaline Phosphatase 211 H 150 H (39-117) U/L Albumin 3.5 3.0 L (3.5-5.0) g/dL Urine 02/21/24 Range/Units 19:50 Urine Color Yellow Urine Appearance Clear Urine pH 6.5 (5.0-9.0) Ur Specific Ashby >= 1.030 H (1.005-1.025) Urine Protein Negative (Neg-Trace) mg/dL Urine Glucose (UA) >=1000 H (Negative) mg/dL All other labs normal. <Sarah Poe PA-C - Last Filed: 02/22/24 12:09> Assessment and Plan (1) Abscess of forearm, left: Status: Acute <Sarah Poe PA-C - Last Filed: 02/22/24 12:09> (2) Abscess of forearm, right: Status: Acute <FAISAL Obrien Last Filed: 02/22/24 12:09> (3) Uncontrolled type 2 diabetes mellitus with hyperglycemia: Status: Acute <FAISAL Obrien Last Filed: 02/22/24 12:09> November Devan is a 43 year old woman with past medical history significant for IVDU (cocaine), asthma, hyperlipidemia and type 2 diabetes mellitus, noncompliant admitted for cellulitis and abscess of labia and forearms and hyperglycemia. She has multiple abscesses of both the right and left forearms. It was recommended to proceed with I&D of two on left and one abscess on the right forearm at bedside. She agreed. Patient was placed in supine position. The sites of procedure was confirmed by the patient. After assuring informed consent, the skin of all abscess sites was prepped with Betadine. 1% lidocone was then infiltrated over the central portion of the fluctuance of all three abscess sites. A large cruciate incision was made with an 11 blade at the large abscess on the left mid forearm and the right mid forearm and a small linear incisions measuring approximately 1 cm the same location where local was infiltrated. This was deepened into the subcutaneous tissue. A pocket was identified and a large amount of purulent fluid was evacuated from the left mid forearm and smaller amounts of purulence from the more proximal left abscess and right abscess. A culture was obtained. The area was then probed with a qtip to ensure any loculations were broken up and the entire collection was drained. No further fluctuance was appreciated. Pressure was held with sterile gauze until hemostasis ensured. The patient tolerated the procedure very well. <Sarah Poe PA-C - Last Filed: 02/22/24 12:09> Procedures Date of Service Date of Service: 02/22/24 <Sarah Poe PA-C - Last Filed: 02/22/24 12:09> 02/22/24 <Jorge Luis Farrell MD - Last Filed: 02/22/24 13:50> Abscess I/D Consent for Procedure: Elective - informed consent obtained <FAISAL Obrien Last Filed: 02/22/24 12:09> Site: upper extremity (left forearm x2 and right forearm x1 ) <Sarah Poe PA-C - Last Filed: 02/22/24 12:09> Side (if applicable): left and right <Sarah Poe PA-C - Last Filed: 02/22/24 12:09> Sedation/analgesia: none <FAISAL Obrien Last Filed: 02/22/24 12:09> Anesthetic used: lidocaine 1% (20cc) <FAISAL Obrien Last Filed: 02/22/24 12:09> Technique: incised with #11 blade <FAISAL Obrien Last Filed: 02/22/24 12:09> Irrigation: Yes <FAISAL Obrien Last Filed: 02/22/24 12:09> Packing used?: none <FAISAL Obrien Last Filed: 02/22/24 12:09>
[2024-02-22 11:41] LABS: Glucose, Whole Blood 289 mg/dL (60-115)
[2024-02-22 11:42] LABS: CT PCR NOT DETECTED (Not Detect.); NG PCR NOT DETECTED (Not Detect.)
--- NOTE | 2024-02-22 12:07 | PC.NURSE ---
Addendum entered by Maritza Llamas RN 02/22/24 12:21: PA at the bedside at 12:21 to redress left arm wound. Pt tolerated well. Original Note: BO Poe at bedside this AM at approximately 11:00. BO preformed I&D at the bedside to bilateral forearm abcesses, pt tolerated well with IV Morphine 1x dose. At 11:58 PA made aware via tiger text pt dressing on left arm is staining through current dressing and leaking onto bed, dressing reinforced with abd and gauze wrap, arm elevated, no new orders at this time.
--- NOTE | 2024-02-22 13:59 | HO.WOUND ---
Wound Consult: Initial 43yr old?female admitted to [facility] on 02/22/24 - See progress notes and H&P for detailed history.? Wound consult placed for Labia and Left arm wound care recommendations. Chart review reveals both wounds are treated and followed by General surgery for theleft arm s/p I&D and RN CASE MGR for the labia s/p I&D today 02/22/24. Will defer topical recommendations to covering teams. No topical recommendations needed at this time buy inpatient wound care nurse. D/C Consult provider aware. Direct care team will place new consult if topical interventions are needed if surgical teams sign off.
[2024-02-22 15:26] VITALS: BP 113/57; PULSE 83; RESP 20; TEMP 36.1; O2SAT 94
--- NOTE | 2024-02-22 16:05 | MHC.CM.PN ---
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
[2024-02-22 16:34] LABS: Glucose, Whole Blood 377 mg/dL (60-115)
[2024-02-22 17:39] LABS: Amphetamine Screen Urine Not Detected (Not Detect); Barbiturates, Urine Not Detected (Not Detect); Benzodiazepines Screen Urine Not Detected (Not Detect); Buprenorphine Scr Not Detected (Not Detect); Cannabinoid Screen Urine Not Detected (Not Detect); Cocaine Screen Urine Not Detected (Not Detect); Fentanyl, urine Not Detected (Not Detect); Methadone Screen, Urine Not Detected (Not Detect); Opiate Screen Urine Not Detected (Not Detect); Oxycodone Screen Urine Not Detected (Not Detect); Phencyclidine Screen Urine Not Detected (Not Detect)
[2024-02-22 19:22] VITALS: BP 117/63; PULSE 99; RESP 18; TEMP 36.2; O2SAT 97
[2024-02-22 19:50] LABS: Glucose, Whole Blood 375 mg/dL (60-115)
[2024-02-22] MEDS: Clotrimazole 1 % Vaginal Cream 45 GM TUBE 1 APPL VAGINAL (19:58)
[2024-02-22] MEDS: Gabapentin 300 MG CAPSULE PO (20:36)
[2024-02-22] MEDS: TiZANidine HCL 4 MG TABLET PO (20:36)
[2024-02-22] MEDS: Heparin Sodium,Porcine 5,000 UNIT/ML VIAL 5000 UNIT SUBCUT (20:37)
[2024-02-23 01:47] LABS: Glucose, Whole Blood 362 mg/dL (60-115)
[2024-02-23] MEDS: Piperacillin Sodium/Tazobactam 3.375 GM in 0.9 % Sodium Chloride 50 ML IV ×4 (03:17→22:03)
[2024-02-23 03:21] VITALS: BP 105/66; PULSE 85; RESP 18; TEMP 36.6; O2SAT 96
[2024-02-23] MEDS: Morphine Sulfate 2 MG/ML CARTRIDGE 1 MG IVPUSH ×2 (04:40→19:28)
[2024-02-23] MEDS: Heparin Sodium,Porcine 5,000 UNIT/ML VIAL 5000 UNIT SUBCUT ×3 (04:41→21:55)
--- NOTE | 2024-02-23 05:46 | PC.NURSE ---
Pt's evening blood sugar on 02/21 was 375, pt received 12 units of Lispro and 15 units of Lantus, Dr. Dickerson aware. Pt's blood sugar at 0143 on 02/[address] Tuan bullard.
--- NOTE | 2024-02-23 07:07 | HO.PM.IMPN ---
Subjective Subjective Date of Service: 02/23/24 Review of Systems Follow up vulvar and bilateral forearm abscess s/p I&D, feeling better Physical Exam Vital Signs: Vital Signs: Last Vital Signs Temp 97.8 F 02/23/24 03:21 Pulse 85 02/23/24 03:21 Resp 18 02/23/24 03:21 BP 105/66 02/23/24 03:21 Pulse Ox 96 02/23/24 03:21 O2 Del Method Room Air 02/23/24 03:21 BMI result Body Mass Index 30.7 Appearing in no acute distress lung sounds are clear to auscultation heart regular rate rhythm, clear S1, S2 positive bowel sounds, abdomen is soft, nontender neuro patient is alert x3, no focal deficits Objective Data Active Medications Acetaminophen (Acetaminophen 325 Mg Tablet) 650 mg PO Q6H PRN PRN Reason: Pain, Mild (Pain Scale 1-3), fever or headache Albuterol Sulfate (Albuterol Sulfate 90 Mcg 8 Gm Inhaler) 2 puff INHALE RQ4H PRN PRN Reason: Wheezing Clotrimazole (Clotrimazole 1 % Vaginal Cream 45 Gm Tube) 1 appl VAGINAL BEDTIME [facility] Stop: 02/28/24 21:01 Last Admin: 02/22/24 19:58 Dose: 1 appl Documented By: FABI Fluticasone/Vilanterol (Fluticasone/Vilanterol 100/25 Blst.W.Dev) 1 puff INHALE RDAILY [facility] Last Admin: 02/22/24 12:02 Dose: Not Given Documented By: JENARO Non-Admin Reason: See Note Gabapentin (Gabapentin 300 Mg Capsule) 300 mg PO DAILY [facility] Last Admin: 02/22/24 20:36 Dose: 300 mg Documented By: FABI Glucose (Glucose Gel 15 Gm Gel..Gram.) 15 gm PO Q15M PRN; Protocol PRN Reason: per Hypoglycemia Standing Ord. Heparin Sodium (Porcine) (Heparin Sodium,Porcine 5,000 Unit/Ml Vial) 5,000 unit SUBCUT Q8H [facility] Last Admin: 02/23/24 04:41 Dose: 5,000 unit Documented By: FABI Dextrose (D10) 250 mls @ 750 mls/hr IV Q15M PRN; Protocol PRN Reason: per Hypoglycemia Standing Ord. Piperacillin Sod/Tazobactam (Sod 3.375 gm/ Sodium Chloride) 50 mls @ 100 mls/hr IV Q6H [facility] Last Infusion: 02/23/24 03:50 Dose: Infused Documented By: FABI Vancomycin HCl 1,250 mg/ (Sodium Chloride) 250 mls @ 166.667 mls/hr IV Q12H [facility] Last Infusion: 02/22/24 22:16 Dose: Infused Documented By: FABI Insulin Glargine (Insulin Glargine,Hum.Rec.Anlog 100 Unit/Ml 10 Ml Vial) 15 unit SUBCUT BEDTIME [facility] Last Admin: 02/22/24 19:59 Dose: 15 unit Documented By: FABI Insulin Human Lispro (Insulin Lispro 100 Unit/Ml 3 Ml Vial) 0 unit SUBCUT QIDACHS [facility]; Protocol Last Admin: 02/22/24 19:59 Dose: 12 unit Documented By: FABI Morphine Sulfate (Morphine Sulfate 2 Mg/Ml Cartridge) 1 mg IVPUSH Q4H PRN; Protocol PRN Reason: Pain, Severe (Pain Scale 7-10) Last Admin: 02/23/24 04:40 Dose: 1 mg Documented By: FABI Ondansetron HCl (Ondansetron Hcl 4 Mg/2 Ml Vial) 4 mg IVPUSH Q8H PRN PRN Reason: Nausea and Vomiting Oxycodone HCl (Oxycodone Hcl Immed Release 5 Mg Tablet) 5 mg PO Q6H PRN PRN Reason: Pain, Moderate(Pain Scale 4-6) Last Admin: 02/22/24 17:10 Dose: 5 mg Documented By: PANTERA Pharmacy Consult (Consult Rx Vancomycin Dosing) 1 each MISCELLANE DAILY PRN PRN Reason: Consult order Sodium Chloride (0.9 % Sodium Chloride Flush 3 Ml Syringe) 3 ml IVFLUSH [facility] Last Admin: 02/22/24 20:00 Dose: 3 ml Documented By: FABI Tizanidine HCl (Tizanidine Hcl 4 Mg Tablet) 4 mg PO TID PRN PRN Reason: Back Pain Last Admin: 02/22/24 20:36 Dose: 4 mg Documented By: FABI Labs 02/22/24 04:36 02/23/24 07:04 Labs: Laboratory Results - last 24 hr 02/22/24 02/22/24 02/22/24 04:36 07:23 09:39 POC Glucose 263 H Estimat Average Glucose 346 Hemoglobin A1c % 13.7 H Urine Opiates Screen Ur Buprenorphine Scrn Ur Oxycodone Screen Urine Methadone Screen Urine Fentanyl Screen Ur Barbiturates Screen Ur Phencyclidine Scrn Ur Amphetamines Screen U Benzodiazepines Scrn Urine Cocaine Screen U Marijuana (THC) Screen Chlam trachomat DNA PCR NOT DETECTED N.gonorrhoeae DNA (PCR) NOT DETECTED T. vaginalis (PCR) NOT DETECTED Bact Vaginosis (PCR) NEGATIVE C. krusei/glabrata (PCR) NOT DETECTED Marcus group (PCR) NOT DETECTED 02/22/24 02/22/24 02/22/24 11:32 16:22 17:16 POC Glucose 289 H 377 H* Estimat Average Glucose Hemoglobin A1c % Urine Opiates Screen Not Detected Ur Buprenorphine Scrn Not Detected Ur Oxycodone Screen Not Detected Urine Methadone Screen Not Detected Urine Fentanyl Screen Not Detected Ur Barbiturates Screen Not Detected Ur Phencyclidine Scrn Not Detected Ur Amphetamines Screen Not Detected U Benzodiazepines Scrn Not Detected Urine Cocaine Screen Not Detected U Marijuana (THC) Screen Not Detected Chlam trachomat DNA PCR N.gonorrhoeae DNA (PCR) T. vaginalis (PCR) Bact Vaginosis (PCR) C. krusei/glabrata (PCR) Marcus group (PCR) 02/22/24 02/23/24 19:47 01:43 POC Glucose 375 H* 362 H* Estimat Average Glucose Hemoglobin A1c % Urine Opiates Screen Ur Buprenorphine Scrn Ur Oxycodone Screen Urine Methadone Screen Urine Fentanyl Screen Ur Barbiturates Screen Ur Phencyclidine Scrn Ur Amphetamines Screen U Benzodiazepines Scrn Urine Cocaine Screen U Marijuana (THC) Screen Chlam trachomat DNA PCR N.gonorrhoeae DNA (PCR) T. vaginalis (PCR) Bact Vaginosis (PCR) C. krusei/glabrata (PCR) Marcus group (PCR) Microbiology Microbiology Results: Microbiology 02/21/24 20:42 Blood Culture - Preliminary Blood - Venous No growth after 24 hours. 02/21/24 20:42 Blood Culture - Preliminary Blood - Venous No growth after 24 hours. 02/22/24 09:39 Gram Stain - Final Vulva 02/22/24 11:00 Gram Stain - Final Arm Right 02/21/24 19:50 Urine Culture - Preliminary Urine clean catch - Urine downs top No growth to date. Assessment and Plan (1) Abscess of forearm, right: Status: Acute (2) Abscess of forearm, left: Status: Acute (3) Vulvovaginitis marcus albicans: Status: Acute Plan November Devan is a 43 y/o woman admitted with: Left labia majora and left forearm abscess with cellulitis w/o subcutaneous gas. Continue empiric IV antibiotic therapy with vancomycin and Zosyn. Blood cultures neg after 24hrs Gynecology consult, Dr. Crowley >s/p I&D of vulvar abscess 02/22/24 Gen surg>s/p I&D of abscess to left forearm x2 and right forearm x1 cultures for both are pending warm compress to vulvar abscess UTI. UC obtained>no growth Uncontrolled type 2 diabetes, medical noncompliance. ss, ada diet, Lantus Metformin on hold due to recent administration of IV contrast. Hyperlipidemia. Patient has not been taking her statin. Asthma. No in acute exacerbation. Continue Breo and albuterol inhalers. IV drug use: cocaine. Patient advised to stop using drugs. addiction team consult DVT prophylaxis: Heparin subcut Attending Dr. Knight Code status: Full continue hospital stay for vulvar infection and abscess treatment with IV antibiotics and incision and drainage by glass sagger. Patient will also need monitoring of blood glucose and adequate control with insulin and proper diet. Quality Stroke Does the patient have a stroke diagnosis?: No VTE Prior VTE?: No VTE Risk Level:: Medical - moderate - high VTE Device Contraindication: Treatment Not Indicated VTE Drug Contraindication: N/A - Med Ordered
[2024-02-23 07:09] VITALS: BP 112/63; PULSE 82; RESP 14; TEMP 36.6; O2SAT 99
[2024-02-23 07:16] LABS: Glucose, Whole Blood 312 mg/dL (60-115)
[2024-02-23] MEDS: Gabapentin 300 MG CAPSULE PO (07:33)
[2024-02-23] MEDS: TiZANidine HCL 4 MG TABLET PO ×3 (07:33→21:54)
[2024-02-23] MEDS: Insulin Lispro 100 UNIT/ML 3 ML VIAL SUBCUT ×4 (07:33→21:56)
[2024-02-23] MEDS: oxyCODONE HCl Immed Release 5 MG TABLET PO ×2 (07:33→14:29)
[2024-02-23] MEDS: 0.9 % Sodium Chloride Flush 3 ML SYRINGE IVFLUSH ×3 (07:35→22:02)
[2024-02-23] MEDS: Fluticasone/Vilanterol 100/25 BLST.W.DEV 1 PUFF INHALE (07:51)
[2024-02-23 07:52] VITALS: PULSE 82; RESP 15; O2SAT 98
[2024-02-23 07:52] LABS: Creatinine Clr Calc Pharmacy 119.3; Estimated Glomerular Filt Rate > 60
[2024-02-23 07:54] LABS: Vancomycin Random 5.1 mcg/mL (15-20)
--- NOTE | 2024-02-23 08:12 | HE.PHANOTE ---
Re Vanco Trough on 02/22 was 5.1. Increasing dose to 1250mg q8h for a predicted AUC of 431mg/L and trough of 9.5mg/L. Next trough to be drawn on 02/23 @0700.
[2024-02-23] MEDS: vancomycin HCL 1,250 MG in 0.9 % Sodium Chloride 250 ML 166.67 MG IV ×2 (08:38→17:00)
--- NOTE | 2024-02-23 10:00 | P.PNGS_ITS ---
Subjective Subjective Date of Service: 02/23/24 Interval history: Some mild pain at left forearm but otherwise feels improved. Physical Exam 2 Vital Signs: Vital Signs: Last Vital Signs Temp 97.8 F 02/23/24 07:09 Pulse 82 02/23/24 07:52 Resp 15 02/23/24 07:52 BP 112/63 02/23/24 07:09 Pulse Ox 99 02/23/24 07:09 O2 Del Method Room Air 02/23/24 07:09 BMI result Body Mass Index 30.7 Const: General: comfortable, no acute distress and alert O rientation/consciousness: patient oriented x3 Resp: Effort & Inspection: normal respiratory effort Neuro: General: patient oriented x3 Extrem: Other: left forearm- distal I&D site with some residual erythema and edema, some purulent drainage noted this morning on expressing of wound; more proximal left I&D site and right forearm I&D site without significant drainage, very little erythema remaining; induration and erythema of right AC improved, small fluctuance of more proximal aspect of right forearm continues to be nontender without overlying skin changes Objective Data Active Medications Acetaminophen (Acetaminophen 325 Mg Tablet) 650 mg PO Q6H PRN PRN Reason: Pain, Mild (Pain Scale 1-3), fever or headache Albuterol Sulfate (Albuterol Sulfate 90 Mcg 8 Gm Inhaler) 2 puff INHALE RQ4H PRN PRN Reason: Wheezing Clotrimazole (Clotrimazole 1 % Vaginal Cream 45 Gm Tube) 1 appl VAGINAL BEDTIME [facility] Stop: 02/28/24 21:01 Last Admin: 02/22/24 19:58 Dose: 1 appl Documented By: FABI Fluticasone/Vilanterol (Fluticasone/Vilanterol 100/25 Blst.W.Dev) 1 puff INHALE RDAILY [facility] Last Admin: 02/23/24 07:51 Dose: 1 puff Documented By: JULIEN Gabapentin (Gabapentin 300 Mg Capsule) 300 mg PO DAILY [facility] Last Admin: 02/23/24 07:33 Dose: 300 mg Documented By: HOWARD Glucose (Glucose Gel 15 Gm Gel..Gram.) 15 gm PO Q15M PRN; Protocol PRN Reason: per Hypoglycemia Standing Ord. Heparin Sodium (Porcine) (Heparin Sodium,Porcine 5,000 Unit/Ml Vial) 5,000 unit SUBCUT Q8H [facility] Last Admin: 02/23/24 04:41 Dose: 5,000 unit Documented By: FABI Dextrose (D10) 250 mls @ 750 mls/hr IV Q15M PRN; Protocol PRN Reason: per Hypoglycemia Standing Ord. Piperacillin Sod/Tazobactam (Sod 3.375 gm/ Sodium Chloride) 50 mls @ 100 mls/hr IV Q6H [facility] Last Infusion: 02/23/24 08:14 Dose: Infused Documented By: HOWARD Vancomycin HCl 1,250 mg/ (Sodium Chloride) 250 mls @ 166.667 mls/hr IV Q8H [facility] Last Admin: 02/23/24 08:38 Dose: 166.67 mls/hr Documented By: IRENE Insulin Glargine (Insulin Glargine,Hum.Rec.Anlog 100 Unit/Ml 10 Ml Vial) 15 unit SUBCUT BEDTIME [facility] Last Admin: 02/22/24 19:59 Dose: 15 unit Documented By: FABI Insulin Human Lispro (Insulin Lispro 100 Unit/Ml 3 Ml Vial) 0 unit SUBCUT QIDACHS [facility]; Protocol Last Admin: 02/23/24 07:33 Dose: 10 unit Documented By: HOWARD Morphine Sulfate (Morphine Sulfate 2 Mg/Ml Cartridge) 1 mg IVPUSH Q4H PRN; Protocol PRN Reason: Pain, Severe (Pain Scale 7-10) Last Admin: 02/23/24 04:40 Dose: 1 mg Documented By: FABI Ondansetron HCl (Ondansetron Hcl 4 Mg/2 Ml Vial) 4 mg IVPUSH Q8H PRN PRN Reason: Nausea and Vomiting Oxycodone HCl (Oxycodone Hcl Immed Release 5 Mg Tablet) 5 mg PO Q6H PRN PRN Reason: Pain, Moderate(Pain Scale 4-6) Last Admin: 02/23/24 07:33 Dose: 5 mg Documented By: HOWARD Pharmacy Consult (Consult Rx Vancomycin Dosing) 1 each MISCELLANE DAILY PRN PRN Reason: Consult order Sodium Chloride (0.9 % Sodium Chloride Flush 3 Ml Syringe) 3 ml IVFLUSH QSHI Last Admin: 02/23/24 07:35 Dose: 3 ml Documented By: HOWARD Tizanidine HCl (Tizanidine Hcl 4 Mg Tablet) 4 mg PO TID PRN PRN Reason: Back Pain Last Admin: 02/23/24 07:33 Dose: 4 mg Documented By: HOWARD Labs 02/22/24 04:36 02/23/24 07:04 Labs: Laboratory Results - last 24 hr 02/22/24 02/22/24 02/22/24 09:39 11:32 16:22 Estim Creat Clear Calc Estimated GFR POC Glucose 289 H 377 H* Random Vancomycin Urine Opiates Screen Ur Buprenorphine Scrn Ur Oxycodone Screen Urine Methadone Screen Urine Fentanyl Screen Ur Barbiturates Screen Ur Phencyclidine Scrn Ur Amphetamines Screen U Benzodiazepines Scrn Urine Cocaine Screen U Marijuana (THC) Screen Chlam trachomat DNA PCR NOT DETECTED N.gonorrhoeae DNA (PCR) NOT DETECTED T. vaginalis (PCR) NOT DETECTED Bact Vaginosis (PCR) NEGATIVE C. krusei/glabrata (PCR) NOT DETECTED Jing group (PCR) NOT DETECTED 02/22/24 02/22/24 02/23/24 17:16 19:47 01:43 Estim Creat Clear Calc Estimated GFR POC Glucose 375 H* 362 H* Random Vancomycin Urine Opiates Screen Not Detected Ur Buprenorphine Scrn Not Detected Ur Oxycodone Screen Not Detected Urine Methadone Screen Not Detected Urine Fentanyl Screen Not Detected Ur Barbiturates Screen Not Detected Ur Phencyclidine Scrn Not Detected Ur Amphetamines Screen Not Detected U Benzodiazepines Scrn Not Detected Urine Cocaine Screen Not Detected U Marijuana (THC) Screen Not Detected Chlam trachomat DNA PCR N.gonorrhoeae DNA (PCR) T. vaginalis (PCR) Bact Vaginosis (PCR) C. krusei/glabrata (PCR) Jing group (PCR) 02/23/24 02/23/24 07:04 07:12 Estim Creat Clear Calc 119.3 Estimated GFR > 60 POC Glucose 312 H Random Vancomycin 5.1 L Urine Opiates Screen Ur Buprenorphine Scrn Ur Oxycodone Screen Urine Methadone Screen Urine Fentanyl Screen Ur Barbiturates Screen Ur Phencyclidine Scrn Ur Amphetamines Screen U Benzodiazepines Scrn Urine Cocaine Screen U Marijuana (THC) Screen Chlam trachomat DNA PCR N.gonorrhoeae DNA (PCR) T. vaginalis (PCR) Bact Vaginosis (PCR) C. krusei/glabrata (PCR) Jing group (PCR) Microbiology Microbiology Results: Microbiology 02/21/24 19:50 Urine Culture - Final Urine clean catch - Urine downs top Lactobacillus species 02/22/24 11:00 Gram Stain - Final Arm Right Routine Culture - Preliminary Culture in progress. 02/22/24 09:39 Gram Stain - Final Vulva Routine Culture - Preliminary Culture in progress. 02/21/24 20:42 Blood Culture - Preliminary Blood - Venous No growth after 24 hours. 02/21/24 20:42 Blood Culture - Preliminary Blood - Venous No growth after 24 hours. Procedures Date of Service Date of Service: 02/23/24 Progress Note: A&P Assessment and plan (1) Abscess of forearm, right: Status: Acute (2) Abscess of forearm, left: Status: Acute (3) Uncontrolled type 2 diabetes mellitus with hyperglycemia: Status: Acute Plan S/p I&D of b/l forearm abscesses yesterday. Surrounding cellulitis improved. Large abscess of distal left forearm still with moderate amount of erythema and edema and some remaining purulent drainage. Rec another day of IV abx. Daily dressing changes to I&D sites. Can apply warm compresses to sites of induration like right AC. She does have 1 area of fluctuance that is nontender without overlying skin changes so doubt this is an abscess, ?cyst. Can continue to observe. Time Spent With Patient Time: Total time managing care of this patient today ____ minutes. Quality Stroke Does the patient have a stroke diagnosis?: No VTE Prior VTE?: No VTE Risk Level:: Medical - moderate - high VTE Device Contraindication: Treatment Not Indicated VTE Drug Contraindication: N/A - Med Ordered
--- NOTE | 2024-02-23 10:59 | MHC.RECOVRN ---
Attempted to meet with pt after Addiction Medicine consult received for substance use. Pt had presented to the ED with multiple abscesses, including forearm and labia majora, and subsequently admitted for treatment of those as well as uncontrolled type 2 diabetes mellitus with hyperglycemia. Pt awake, alert, visiting with father and requesting t/w return at a later time. Plan to return this afternoon.
[2024-02-23 11:23] LABS: Glucose, Whole Blood 398 mg/dL (60-115)
[2024-02-23] MEDS: Docusate Sodium 100 MG CAPSULE PO ×2 (13:16→21:55)
[2024-02-23] MEDS: polyethylene glycoL 3350 17 GM POWD.PACK PO (13:17)
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
[2024-02-23 15:36] VITALS: BP 108/65; PULSE 88; RESP 20; TEMP 36.4; O2SAT 98
[2024-02-23 16:34] LABS: Glucose, Whole Blood 332 mg/dL (60-115)
[2024-02-23 19:25] VITALS: BP 101/59; PULSE 85; RESP 18; TEMP 36.2; O2SAT 96
[2024-02-23 20:52] LABS: Glucose, Whole Blood 347 mg/dL (60-115)
[2024-02-23] MEDS: Insulin Glargine,Hum.rec.anlog 100 UNIT/ML 10 ML VIAL 15 UNIT SUBCUT (21:56)
[2024-02-23] MEDS: Clotrimazole 1 % Vaginal Cream 45 GM TUBE 1 APPL VAGINAL (21:59)
[2024-02-24] MEDS: vancomycin HCL 1,250 MG in 0.9 % Sodium Chloride 250 ML 166.67 MG IV ×3 (00:38→16:22)
[2024-02-24] MEDS: oxyCODONE HCl Immed Release 5 MG TABLET PO ×3 (02:09→21:00)
[2024-02-24] MEDS: Piperacillin Sodium/Tazobactam 3.375 GM in 0.9 % Sodium Chloride 50 ML IV ×4 (03:57→21:13)
[2024-02-24 03:58] VITALS: BP 118/55; PULSE 85; RESP 16; TEMP 36.2; O2SAT 97
[2024-02-24] MEDS: Heparin Sodium,Porcine 5,000 UNIT/ML VIAL 5000 UNIT SUBCUT ×3 (06:21→21:03)
[2024-02-24] MEDS: Morphine Sulfate 2 MG/ML CARTRIDGE 1 MG IVPUSH (06:31)
[2024-02-24 07:22] VITALS: BP 115/59; PULSE 88; RESP 14; TEMP 36.1; O2SAT 95
[2024-02-24 07:32] LABS: Glucose, Whole Blood 382 mg/dL (60-115)
[2024-02-24 07:37] LABS: Vancomycin Random 12.3 mcg/mL (15-20)
[2024-02-24 07:38] LABS: Estimated Glomerular Filt Rate > 60
[2024-02-24 07:53] LABS: Hematocrit 33.9 % (37.0-47.0); Hemoglobin 11.3 g/dl (12.0-16.0); Mean Corpuscular HGB Conc 33.3 g/dl (31.0-35.0); Mean Corpuscular Hemoglobin 27.7 pg (27.0-33.0); Mean Corpuscular Volume 83.1 fL (80.0-98.0); Mean Platelet Volume 11.1 fL (9.4-12.3); Platelet Count 376 X10*3/uL (160-400); Red Blood Count 4.08 X10*6/uL (4.20-5.50); Red Cell Distribution Width 12.8 % (11.0-16.0); White Blood Count 10.1 X10*3/uL (4.8-10.8)
--- NOTE | 2024-02-24 07:53 | HE.PHANOTE ---
RE: VANCO DOSING Random came back as 12.3. Continue with dose of 1250 mg q8h, next random is scheduled for 02/25/24 @0700.
[2024-02-24 07:54] LABS: Anion Gap 12 (12-20)
[2024-02-24] MEDS: Insulin Lispro 100 UNIT/ML 3 ML VIAL SUBCUT ×8 (08:06→21:05)
[2024-02-24] MEDS: 0.9 % Sodium Chloride Flush 3 ML SYRINGE IVFLUSH ×3 (08:07→21:08)
[2024-02-24 08:08] LABS: Blood Urea Nitrogen 13 mg/dL (9-16); Calcium 8.6 mg/dL (8.4-10.2); Carbon Dioxide 24 mmol/L (22-29); Chloride 101 mmol/L (96-108); Glucose Random 438 mg/dL (60-115); Potassium 4.3 mmol/L (3.3-5.1); Sodium 133 mmol/L (135-145)
[2024-02-24] MEDS: Docusate Sodium 100 MG CAPSULE PO ×2 (08:08→20:59)
[2024-02-24] MEDS: polyethylene glycoL 3350 17 GM POWD.PACK PO (08:08)
[2024-02-24 08:18] LABS: Band Neutrophils Percent 7 % (3-5); Eosinophils Absolute Manual 0.3 X10*3/uL (0.0-0.4); Eosinophils Percent Manual 3 % (0-4); Lymphocytes Absolute Manual 3.1 X10*3/uL (1.2-4.9); Lymphocytes Percent Manual 31 % (20-40); Metamyelocytes Absolute 0.2 X10*3/uL; Metamyelocytes Percent 2 %; Monocytes Absolute Manual 0.2 X10*3/uL (0.1-1.2); Monocytes Percent Manual 2 % (2-11); Neutrophils Absolute Manual 6.3 X10*3/uL (2.0-8.3); Neutrophils Percent Manual 55 % (45-73)
[2024-02-24 08:19] LABS: Platelet Estimate NORMAL (NORMAL); Platelet Morphology Comment NORMAL; RBC Morphology NORMAL
[2024-02-24] MEDS: Fluticasone/Vilanterol 100/25 BLST.W.DEV 1 PUFF INHALE (08:34)
[2024-02-24 08:35] VITALS: PULSE 88; RESP 14; O2SAT 95
[2024-02-24] MEDS: TiZANidine HCL 4 MG TABLET PO ×2 (09:24→21:02)
--- NOTE | 2024-02-24 10:00 | PM.GYNPNOP ---
ORGANIZATIONAL CONSULTANT - Subjective Subjective Date of Service: 02/24/24 Interval history: Doing well, left labial pain has 50% improved according to the patient preop On vancomycin and piperacillin Preliminary Culture from the in incision and drainage grew lactobacillus otherwise negative Subjective Findings: Ambulating well: Reports and Ambulating w/ difficulty: Reports POLYMERIZATION SUPERVISOR Physical Exam Vitals Vital signs: Temp Pulse Resp BP Pulse Ox O2 Del Method 96.9 F 88 14 115/59 L 95 Room Air 02/24/24 07:22 02/24/24 08:35 02/24/24 08:35 02/24/24 07:22 02/24/24 07:22 02/24/24 07:22 BMI result Body Mass Index 30.7 Additional Comments: Left months pubis induration, left labia majora induration improved, no evidence of cellulitis, purulent discharge present ORGANIZATIONAL CONSULTANT - Prog Note: Results Labs 02/24/24 07:08 02/24/24 07:08 Labs: Laboratory Results - last 24 hr 02/23/24 02/23/24 02/23/24 11:19 16:06 20:30 WBC RBC Hgb Hct MCV MCH MCHC RDW Plt Count MPV Immature Gran % (Auto) Neut % (Auto) Lymph % (Auto) [place] % (Auto) Eos % (Auto) Baso % (Auto) Lymph # (Auto) [place] # (Auto) Eos # (Auto) Baso # (Auto) Abs Immat Gran (auto) Absolute Neuts (auto) Absolute Nucleated RBC Nucleated RBC % (auto) Neutrophils % (Manual) Band Neutrophils % Lymphocytes % (Manual) Monocytes % (Manual) Eosinophils % (Manual) Metamyelocytes % Abs Neuts (Manual) Lymphocytes # (Manual) Monocytes # (Manual) Eosinophils # (Manual) Metamyelocytes # Platelet Estimate Plt Morphology Comment RBC Morphology Hold Purple Top Sodium Potassium Chloride Carbon Dioxide Anion Gap BUN Creatinine Estim Creat Clear Calc Estimated GFR POC Glucose 398 H* 332 H 347 H Random Glucose Calcium Random Vancomycin 02/24/24 02/24/24 07:08 07:27 WBC 10.1 RBC 4.08 L Hgb 11.3 L Hct 33.9 L MCV 83.1 MCH 27.7 MCHC 33.3 RDW 12.8 Plt Count 376 MPV 11.1 Immature Gran % (Auto) Cancelled Neut % (Auto) Cancelled Lymph % (Auto) Cancelled [place] % (Auto) Cancelled Eos % (Auto) Cancelled Baso % (Auto) Cancelled Lymph # (Auto) Cancelled [place] # (Auto) Cancelled Eos # (Auto) Cancelled Baso # (Auto) Cancelled Abs Immat Gran (auto) Cancelled Absolute Neuts (auto) Cancelled Absolute Nucleated RBC 0.000 Nucleated RBC % (auto) 0.0 Neutrophils % (Manual) 55 Band Neutrophils % 7 H Lymphocytes % (Manual) 31 Monocytes % (Manual) 2 Eosinophils % (Manual) 3 Metamyelocytes % 2 Abs Neuts (Manual) 6.3 Lymphocytes # (Manual) 3.1 Monocytes # (Manual) 0.2 Eosinophils # (Manual) 0.3 Metamyelocytes # 0.2 Platelet Estimate NORMAL Plt Morphology Comment NORMAL RBC Morphology NORMAL Hold Purple Top SEE NOTE Sodium 133 L Potassium 4.3 Chloride 101 Carbon Dioxide 24 Anion Gap 12 BUN 13 Creatinine 0.72 Estim Creat Clear Calc 101.0 Estimated GFR > 60 POC Glucose 382 H* Random Glucose 438 H* Calcium 8.6 D Random Vancomycin 12.3 L ORGANIZATIONAL CONSULTANT - A/P (1) Abscess of labia majora: Status: Acute Assessment and Plan: Recommended to keep on p.o. antibiotics for 14 days and follow up in the office if induration persists will order perineal ultrasound to locate persistent abscess treat accordingly. Instructions given to patient to call or go to emergency room after discharge in case of worsening of the pain, fever over 100.4, discoloration of the perineal area, nausea or vomiting. Time Spent With Patient Time: Total time managing care of this patient today ____ minutes. Quality Measures - POLYMERIZATION SUPERVISOR H&P VTE Prior VTE?: No VTE Risk Level:: Medical - moderate - high VTE Device Contraindication: Treatment Not Indicated VTE Drug Contraindication: N/A - Med Ordered
--- NOTE | 2024-02-24 10:04 | P.PNGS_ITS ---
Subjective Subjective Date of Service: 02/24/24 Interval history: Feels better overall. Physical Exam 2 Vital Signs: Vital Signs: Last Vital Signs Temp 96.9 F 02/24/24 07:22 Pulse 88 02/24/24 08:35 Resp 14 02/24/24 08:35 BP 115/59 L 02/24/24 07:22 Pulse Ox 95 02/24/24 07:22 O2 Del Method Room Air 02/24/24 07:22 BMI result Body Mass Index 30.7 Const: General: comfortable, no acute distress and alert Resp: Effort & Inspection: normal respiratory effort Skin: Other: overall I&D sites with improved; left distal forearm site with some remaining erythema and induration and scant purulent drainage Objective Data Active Medications Acetaminophen (Acetaminophen 325 Mg Tablet) 650 mg PO Q6H PRN PRN Reason: Pain, Mild (Pain Scale 1-3), fever or headache Albuterol Sulfate (Albuterol Sulfate 90 Mcg 8 Gm Inhaler) 2 puff INHALE RQ4H PRN PRN Reason: Wheezing Bisacodyl (Bisacodyl 10 Mg Supp.Rect) 10 mg AL DAILY PRN PRN Reason: Constipation Clotrimazole (Clotrimazole 1 % Vaginal Cream 45 Gm Tube) 1 appl VAGINAL BEDTIME [facility] Stop: 02/28/24 21:01 Last Admin: 02/23/24 21:59 Dose: 1 appl Documented By: LAYLA Docusate Sodium (Docusate Sodium 100 Mg Capsule) 100 mg PO BID [facility] Last Admin: 02/24/24 08:08 Dose: 100 mg Documented By: HOWARD Fluticasone/Vilanterol (Fluticasone/Vilanterol 100/25 Blst.W.Dev) 1 puff INHALE RDAILY [facility] Last Admin: 02/24/24 08:34 Dose: 1 puff Documented By: GENO Gabapentin (Gabapentin 300 Mg Capsule) 300 mg PO DAILY [facility] Last Admin: 02/24/24 08:08 Dose: Not Given Documented By: HOWARD Non-Admin Reason: pt takes at night Glucose (Glucose Gel 15 Gm Gel..Gram.) 15 gm PO Q15M PRN; Protocol PRN Reason: per Hypoglycemia Standing Ord. Heparin Sodium (Porcine) (Heparin Sodium,Porcine 5,000 Unit/Ml Vial) 5,000 unit SUBCUT Q8H [facility] Last Admin: 02/24/24 06:21 Dose: 5,000 unit Documented By: LAYLA Dextrose (D10) 250 mls @ 750 mls/hr IV Q15M PRN; Protocol PRN Reason: per Hypoglycemia Standing Ord. Piperacillin Sod/Tazobactam (Sod 3.375 gm/ Sodium Chloride) 50 mls @ 100 mls/hr IV Q6H [facility] Last Infusion: 02/24/24 09:17 Dose: Infused Documented By: HOWARD Vancomycin HCl 1,250 mg/ (Sodium Chloride) 250 mls @ 166.667 mls/hr IV Q8H [facility] Last Admin: 02/24/24 09:23 Dose: 166.67 mls/hr Documented By: HOWARD Insulin Glargine (Insulin Glargine,Hum.Rec.Anlog 100 Unit/Ml 10 Ml Vial) 15 unit SUBCUT BEDTIME [facility] Last Admin: 02/23/24 21:56 Dose: 15 unit Documented By: LAYLA Insulin Human Lispro (Insulin Lispro 100 Unit/Ml 3 Ml Vial) 0 unit SUBCUT QIDACHS [facility]; Protocol Last Admin: 02/24/24 08:06 Dose: 12 unit Documented By: HOWARD Morphine Sulfate (Morphine Sulfate 2 Mg/Ml Cartridge) 1 mg IVPUSH Q4H PRN; Protocol PRN Reason: Pain, Severe (Pain Scale 7-10) Last Admin: 02/24/24 06:31 Dose: 1 mg Documented By: LAYLA Ondansetron HCl (Ondansetron Hcl 4 Mg/2 Ml Vial) 4 mg IVPUSH Q8H PRN PRN Reason: Nausea and Vomiting Oxycodone HCl (Oxycodone Hcl Immed Release 5 Mg Tablet) 5 mg PO Q6H PRN PRN Reason: Pain, Moderate(Pain Scale 4-6) Last Admin: 02/24/24 09:24 Dose: 5 mg Documented By: HOWARD Pharmacy Consult (Consult Rx Vancomycin Dosing) 1 each MISCELLANE DAILY PRN PRN Reason: Consult order Polyethylene Glycol (Polyethylene Glycol 3350 17 Gm Powd.Pack) 17 gm PO DAILY [facility] Last Admin: 02/24/24 08:08 Dose: 17 gm Documented By: HOWARD Sodium Chloride (0.9 % Sodium Chloride Flush 3 Ml Syringe) 3 ml IVFLUSH QSHIFT [facility] Last Admin: 02/24/24 08:07 Dose: 3 ml Documented By: HOWARD Tizanidine HCl (Tizanidine Hcl 4 Mg Tablet) 4 mg PO TID PRN PRN Reason: Back Pain Last Admin: 02/24/24 09:24 Dose: 4 mg Documented By: HOWARD Labs 02/24/24 07:08 02/24/24 07:08 Labs: Laboratory Results - last 24 hr 02/23/24 02/23/24 02/23/24 11:19 16:06 20:30 MCV MCH MCHC RDW Plt Count MPV Immature Gran % (Auto) Neut % (Auto) Lymph % (Auto) [place] % (Auto) Eos % (Auto) Baso % (Auto) Lymph # (Auto) [place] # (Auto) Eos # (Auto) Baso # (Auto) Abs Immat Gran (auto) Absolute Neuts (auto) Absolute Nucleated RBC Nucleated RBC % (auto) Neutrophils % (Manual) Band Neutrophils % Lymphocytes % (Manual) Monocytes % (Manual) Eosinophils % (Manual) Metamyelocytes % Abs Neuts (Manual) Lymphocytes # (Manual) Monocytes # (Manual) Eosinophils # (Manual) Metamyelocytes # Platelet Estimate Plt Morphology Comment RBC Morphology Hold Purple Top Anion Gap Estim Creat Clear Calc Estimated GFR POC Glucose 398 H* 332 H 347 H Random Glucose Calcium Random Vancomycin 02/24/24 02/24/24 07:08 07:27 MCV 83.1 MCH 27.7 MCHC 33.3 RDW 12.8 Plt Count 376 MPV 11.1 Immature Gran % (Auto) Cancelled Neut % (Auto) Cancelled Lymph % (Auto) Cancelled [place] % (Auto) Cancelled Eos % (Auto) Cancelled Baso % (Auto) Cancelled Lymph # (Auto) Cancelled [place] # (Auto) Cancelled Eos # (Auto) Cancelled Baso # (Auto) Cancelled Abs Immat Gran (auto) Cancelled Absolute Neuts (auto) Cancelled Absolute Nucleated RBC 0.000 Nucleated RBC % (auto) 0.0 Neutrophils % (Manual) 55 Band Neutrophils % 7 H Lymphocytes % (Manual) 31 Monocytes % (Manual) 2 Eosinophils % (Manual) 3 Metamyelocytes % 2 Abs Neuts (Manual) 6.3 Lymphocytes # (Manual) 3.1 Monocytes # (Manual) 0.2 Eosinophils # (Manual) 0.3 Metamyelocytes # 0.2 Platelet Estimate NORMAL Plt Morphology Comment NORMAL RBC Morphology NORMAL Hold Purple Top SEE NOTE Anion Gap 12 Estim Creat Clear Calc 101.0 Estimated GFR > 60 POC Glucose 382 H* Random Glucose 438 H* Calcium 8.6 D Random Vancomycin 12.3 L Microbiology Microbiology Results: Microbiology 02/22/24 11:00 Gram Stain - Final Arm Right Routine Culture - Final 02/22/24 09:39 Gram Stain - Final Vulva Routine Culture - Preliminary Lactobacillus species 02/21/24 20:42 Blood Culture - Preliminary Blood - Venous No growth after 48 hours. 02/21/24 20:42 Blood Culture - Preliminary Blood - Venous No growth after 48 hours. 02/21/24 19:50 Urine Culture - Final Urine clean catch - Urine downs top Lactobacillus species Procedures Date of Service Date of Service: 02/24/24 Progress Note: A&P Assessment and plan (1) Abscess of forearm, right: Status: Acute (2) Abscess of forearm, left: Status: Acute Plan S/p I&D of b/l forearm abscesses 02/21. Surrounding cellulitis significantly improved. Large abscess of distal left forearm with a little remaining erythema and induration, scant purulent drainage. Daily dressing changes to I&D sites while remain open and draining. Can apply warm compresses to sites of induration to help resolve. Stable for dc from surgical standpoint. Can f/u in office in 1 week. Time Spent With Patient Time: Total time managing care of this patient today ____ minutes. Quality Stroke Does the patient have a stroke diagnosis?: No VTE Prior VTE?: No VTE Risk Level:: Medical - moderate - high VTE Device Contraindication: Treatment Not Indicated VTE Drug Contraindication: N/A - Med Ordered
--- NOTE | 2024-02-24 10:39 | PM.DS ---
DS: Providers Provider Date of Service: 02/24/24 Date of admission: 02/22/24 02:04 Date of discharge: 02/24/24 Primary care physician: Brent Vides DO, MD Consults: 02/22/24 02:07 Consult to Obstetrics / Gynecology Routine Consulting Provider: Cortez Crowley Reason for consultation: Left labia majora abscess Has provider been notified: Yes 02/22/24 02:09 Consult to General Surgery Routine Consulting Provider: [facility] Reason for consultation: Left forearm abscess Has provider been notified: No 02/22/24 09:08 Addiction Medicine Routine Consulting Provider: Addiction Covering Reason for consultation: drug use Attending physician on discharge: Ernesto Chung Discharging clinician: Neisha Garcia DS: Diagnosis Discharge Diagnosis (1) Abscess of forearm, right: Status: Acute (2) Abscess of forearm, left: Status: Acute (3) Uncontrolled type 2 diabetes mellitus with hyperglycemia: Status: Acute DS: Summary Hospital Course Hospital Course: From H&P on the day of admission November Devan is a 43 years old woman with past medical history significant for IVDU (cocaine), asthma, hyperlipidemia and type 2 diabetes mellitus (noncompliant with medications -Trulicity and metformin) presents to the emergency department complaining of one-week history of worsening left vulva swelling and pain. She also has a left arm abscess. She is ongoing IV drug user. Denies associated nausea, vomiting, dizziness, palpitation, headache or fever. Did not report pain with urination. She did not report any acute cardiopulmonary or gastrointestinal symptoms. Patient denied alcohol abuse. She said that she was recently treated for vaginal fungal infection with fluconazole. Denies history of STDs. In the ED, have mild tachycardia. There is no hypotension or fever reported. Oxygen saturation is normal on room air. Blood workup was remarkable for leukocytosis of 16.8. Hemoglobin and platelets are unremarkable. Initial blood glucose was 565 (most recent is 307) There are no electrolyte imbalances. Corrected sodium is 138. CRP is elevated at 5.23. LFTs and renal function are normal. UA showed marked glucosuria, elevated specific gravity and WBC of 6-10. There is no microscopic hematuria. Pelvis CT scan with IV contrast showed deep infection of the labia majora with a small fluid collection within the canal of Nuck, consistent with an abscess and without subcutaneous gas. ED tx: NS 1 L bolus, LR 1 L bolus, Dilaudid 0.5 mg IV, vancomycin 2 g IV, insulin R 8 units IV, IV contrast, Zosyn 3.375 g IV Left labia majora and left forearm abscess with cellulitis w/o subcutaneous gas. Initially treated with IV vancomycin and Zosyn. Blood cultures neg to date Gynecology consult, Dr. Crowley >s/p I&D of vulvar abscess 02/22/24. Recommends a total of 2 weeks of antibiotics and she has a outpatient follow-up appointment scheduled at which time he will re-evaluate her for any further need for drainage. Gen surg>s/p I&D of abscess to left forearm x2 and right forearm x1. No further drainage needed. Outpatient follow-up with surgery in 1 week. warm compress to vulvar abscess Vulvovaginitis Jing albicans. Per mobile application tester treat with clotrimazole vaginally daily for total of 7 days UTI. UC obtained>no growth Uncontrolled type 2 diabetes, medical noncompliance. HbA1c 13.7, was treated with Lantus and sliding scale during hospitalization. Patient has been on insulin in the past. Will be discharged with Lantus and sliding scale. She feels comfortable administering insulin. Recommend close outpatient follow-up with PCP for likely titration. IV drug use Patient advised to stop using drugs. She was seen by addiction Medicine team, felt that she had good outpatient support and was motivated to stop using. Time Attestation Discharge Coordination Time (in mins): 40 Quality: Safe Use of Opioids Does Pt have an Active Cancer Diagnosis on the Problem List?: No Quality: Stroke Does the patient have a stroke diagnosis?: No Physical Exam Vital Signs: Vital Signs: Last Vital Signs Temp 96.9 F 02/24/24 07:22 Pulse 88 02/24/24 08:35 Resp 14 02/24/24 08:35 BP 115/59 L 02/24/24 07:22 Pulse Ox 95 02/24/24 07:22 O2 Del Method Room Air 02/24/24 07:22 BMI result Body Mass Index 30.7 Const: General: cooperative, comfortable, no acute distress, alert and awake Nutritional Appearance: average body habitus Orientation/consciousness: patient oriented x3 Resp: Effort & Inspection: normal respiratory effort, able to speak in complete sentences, no respiratory distress and no use of accessory muscles Cardio: Rate: regular rate GI: Inspection: No distended Palpation (GI): Soft to palpation and nontender Skin: Other: b/l forearms wrapped c/d/i bandage Neuro: General: patient oriented x3, moves all extremities and CN's II-XI intact bilaterally DS: Data Data Completed and Pending Labs on day of discharge: Laboratory Results - last 24 hr 02/23/24 02/23/24 02/23/24 11:19 16:06 20:30 WBC RBC Hgb Hct MCV MCH MCHC RDW Plt Count MPV Immature Gran % (Auto) Neut % (Auto) Lymph % (Auto) [place] % (Auto) Eos % (Auto) Baso % (Auto) Lymph # (Auto) [place] # (Auto) Eos # (Auto) Baso # (Auto) Abs Immat Gran (auto) Absolute Neuts (auto) Absolute Nucleated RBC Nucleated RBC % (auto) Neutrophils % (Manual) Band Neutrophils % Lymphocytes % (Manual) Monocytes % (Manual) Eosinophils % (Manual) Metamyelocytes % Abs Neuts (Manual) Lymphocytes # (Manual) Monocytes # (Manual) Eosinophils # (Manual) Metamyelocytes # Platelet Estimate Plt Morphology Comment RBC Morphology Hold Purple Top Sodium Potassium Chloride Carbon Dioxide Anion Gap BUN Creatinine Estim Creat Clear Calc Estimated GFR POC Glucose 398 H* 332 H 347 H Random Glucose Calcium Random Vancomycin 02/24/24 02/24/24 07:08 07:27 WBC 10.1 RBC 4.08 L Hgb 11.3 L Hct 33.9 L MCV 83.1 MCH 27.7 MCHC 33.3 RDW 12.8 Plt Count 376 MPV 11.1 Immature Gran % (Auto) Cancelled Neut % (Auto) Cancelled Lymph % (Auto) Cancelled [place] % (Auto) Cancelled Eos % (Auto) Cancelled Baso % (Auto) Cancelled Lymph # (Auto) Cancelled [place] # (Auto) Cancelled Eos # (Auto) Cancelled Baso # (Auto) Cancelled Abs Immat Gran (auto) Cancelled Absolute Neuts (auto) Cancelled Absolute Nucleated RBC 0.000 Nucleated RBC % (auto) 0.0 Neutrophils % (Manual) 55 Band Neutrophils % 7 H Lymphocytes % (Manual) 31 Monocytes % (Manual) 2 Eosinophils % (Manual) 3 Metamyelocytes % 2 Abs Neuts (Manual) 6.3 Lymphocytes # (Manual) 3.1 Monocytes # (Manual) 0.2 Eosinophils # (Manual) 0.3 Metamyelocytes # 0.2 Platelet Estimate NORMAL Plt Morphology Comment NORMAL RBC Morphology NORMAL Hold Purple Top SEE NOTE Sodium 133 L Potassium 4.3 Chloride 101 Carbon Dioxide 24 Anion Gap 12 BUN 13 Creatinine 0.72 Estim Creat Clear Calc 101.0 Estimated GFR > 60 POC Glucose 382 H* Random Glucose 438 H* Calcium 8.6 D Random Vancomycin 12.3 L Preliminary micro results at discharge 02/22/24 09:39 Routine Culture - Preliminary Vulva Lactobacillus species 02/21/24 20:42 Blood Culture - Preliminary Blood - Venous No growth after 48 hours. 02/21/24 20:42 Blood Culture - Preliminary Blood - Venous No growth after 48 hours. Discharge Plan Discharge Anticipated Discharge Date/Time: 02/24/24 10:57 Patient Disposition: Home, Self-Care Discharge Diagnosis: b/l forearm abscess uncontrolled DM Referrals: Brent Vides DO, MD [Primary Care Provider] - 1 Week Jorge Luis Farrell MD [Physician] - 1 Week Cortez Crowley MD [Physician] - 2 Weeks Discharge Medications: New oxycodone 5 mg Tablet 5 mg PO Q8H PRN (Reason: pain, severe) Qty: 15 0RF Rx Instructions: Partial Fill upon patient request. clotrimazole 1 % Cream 1 appl vaginal BEDTIME 5 Days Qty: 45 0RF doxycycline monohydrate 100 mg tablet 100 mg PO BID 12 Days Qty: 24 0RF amoxicillin-pot clavulanate 875-125 mg tablet 1 tab PO Q12H 12 Days Qty: 24 0RF (DME) FreeStyle Lite Strips Strip Qty: 100 0RF Rx Instructions: Test four times a day or as directed. (DME) blood-glucose meter [FreeStyle Lite Meter] Kit Qty: 1 0RF Rx Instructions: As Directed alcohol swabs Pads, Medicated 1 pad TOPICAL QIDACHS Qty: 100 0RF Rx Instructions: Use four times a day or as directed. insulin lispro [Humalog KwikPen Insulin] 100 unit/mL insulin pen 1 sliding scale dose SUBCUT QIDACHS MDD 40Units Qty: 15 0RF Rx Instructions: Blood Sugar: <150 - 0 units 151-200 - 2 units 201-250 - 4 units 251-300 - 6 units 301-350 - 8 units >350 - 10 units insulin glargine [Lantus Solostar U-100 Insulin] 100 unit/mL (3 mL) insulin pen 15 unit SUBCUT DAILY Qty: 15 0RF (DME) pen needle, diabetic 32 gauge x 1/4 needle Qty: 100 0RF Rx Instructions: Use four times a day or as directed. (DME) lancets [FreeStyle Lancets] 28 gauge misc Qty: 100 0RF Rx Instructions: Test four times a day or as directed. Continued tizanidine 4 mg tablet 4 mg PO TID PRN (Reason: Back Pain) albuterol sulfate 90 mcg/actuation HFA aerosol inhaler 2 puff inhalation Q4-6H PRN (Reason: Wheezing) fluticasone furoate-vilanterol [Breo Ellipta] 100-25 mcg/dose blister with device 1 ea inhalation DAILY gabapentin 300 mg capsule 300 mg PO DAILY Discontinued metronidazole 500 mg tablet 500 mg PO BID doxycycline monohydrate 100 mg capsule 100 mg PO BID Trulicity 0.75 mg/0.5 mL pen injector 0.75 mg subcut SA Discharge Orders: Discharge Order (Routine); Ordered 02/24/24 Ordered By: Neisha Garcia Activity on Discharge: As tolerated Stand Alone Forms: Patient Portal Discharge page Print Language: Czech Activity Restrictions/Additional Instructions: Ok to shower. Apply dry sterile dressing to I&D sites while they remain open and draining. Care Plan Goals: see Below Health Concerns: Bilateral forearm abscess Vulvovaginitis Abscess of labia majora Uncontrolled type 2 diabetes with hyperglycemia Plan of Treatment: Complete course of antibiotics as prescribed Dressing changes as above Outpatient follow-up with Dr. Crowley as scheduled Outpatient follow-up with General surgery in 1 week Check blood sugar before meals and at bedtime. Start taking Lantus and short-acting insulin by sliding scale. Stop taking Trulicity. Call to schedule follow-up appointment with PCP for close monitoring of blood sugar and adjustment to medications as needed call or go to emergency room after discharge in case of worsening of the pain, fever over 100.4, discoloration of the perineal area, nausea or vomiting. Assessment: See discharge summary
--- NOTE | 2024-02-24 11:05 | MHC.CM.PN ---
Addendum entered by Zeina Huber RN 02/24/24 12:06: DC CANCELLED Addendum entered by Zeina Huber RN 02/24/24 11:47: PT MEDICALLY CLEARED FOR DC HOME SELF-CARE, PT TO ARRANGE TRANSPORT Original Note: EMR REVIEWED, PT REMAINS ON IV ABX, PER HOSPITALIST ANTIC ONE MORE NIGHT AND PT WILL BE MEDICALLY CLEARED FOR DC TOMORROW 02/23, CM WILL CONT TO FOLLOW DC NEEDS.
[2024-02-24 11:19] LABS: Glucose, Whole Blood 454 mg/dL (60-115)
--- NOTE | 2024-02-24 11:50 | PC.NURSE ---
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 pt states she ate a burrito her boyfriend brought her . will cont to hector
--- NOTE | 2024-02-24 14:27 | P.PNIM_ITS ---
Subjective Subjective Date of Service: 02/24/24 Interval History: Seen and examined this morning Follow-up for bilateral forearm abscess, abscess of labia Denies fever, chills Overall improving but blood sugar continues to be uncontrolled Review of Systems Review of Systems: Yes all other systems are reviewed and are negative Constitutional Constitutional: Denies chills and Denies fever(s) Physical Exam 2 Vital Signs: Vital Signs: Last Vital Signs Temp 96.9 F 02/24/24 07:22 Pulse 88 02/24/24 08:35 Resp 14 02/24/24 08:35 BP 115/59 L 02/24/24 07:22 Pulse Ox 95 02/24/24 07:22 O2 Del Method Room Air 02/24/24 07:22 BMI result Body Mass Index 30.7 Const: General: cooperative, comfortable, no acute distress, alert and awake Nutritional Appearance: average body habitus Orientation/consciousness: p atient oriented x3 Resp: Effort & Inspection: normal respiratory effort and able to speak in complete sentences Cardio: Rate: regular rate GI: Inspection: No distended Palpation (GI): Soft to palpation : Other: left side mons pubis and left labia majora with significant induration but no erythema Skin: Other: Bilateral forearm wrapped in clean/dry/intact dressings surrounding erythema Neuro: General: patient oriented x3, moves all extremities and CN's II-XI intact bilaterally Objective Data Active Medications Acetaminophen (Acetaminophen 325 Mg Tablet) 650 mg PO Q6H PRN PRN Reason: Pain, Mild (Pain Scale 1-3), fever or headache Albuterol Sulfate (Albuterol Sulfate 90 Mcg 8 Gm Inhaler) 2 puff INHALE RQ4H PRN PRN Reason: Wheezing Bisacodyl (Bisacodyl 10 Mg Supp.Rect) 10 mg MD DAILY PRN PRN Reason: Constipation Clotrimazole (Clotrimazole 1 % Vaginal Cream 45 Gm Tube) 1 appl VAGINAL BEDTIME [facility] Stop: 02/28/24 21:01 Last Admin: 02/23/24 21:59 Dose: 1 appl Documented By: LAYLA Docusate Sodium (Docusate Sodium 100 Mg Capsule) 100 mg PO BID [facility] Last Admin: 02/24/24 08:08 Dose: 100 mg Documented By: HOWARD Fluticasone/Vilanterol (Fluticasone/Vilanterol 100/25 Blst.W.Dev) 1 puff INHALE RDAILY [facility] Last Admin: 02/24/24 08:34 Dose: 1 puff Documented By: GENO Gabapentin (Gabapentin 300 Mg Capsule) 300 mg PO DAILY [facility] Last Admin: 02/24/24 08:08 Dose: Not Given Documented By: HOWARD Non-Admin Reason: pt takes at night Glucose (Glucose Gel 15 Gm Gel..Gram.) 15 gm PO Q15M PRN; Protocol PRN Reason: per Hypoglycemia Standing Ord. Heparin Sodium (Porcine) (Heparin Sodium,Porcine 5,000 Unit/Ml Vial) 5,000 unit SUBCUT Q8H [facility] Last Admin: 02/24/24 06:21 Dose: 5,000 unit Documented By: LAYLA Dextrose (D10) 250 mls @ 750 mls/hr IV Q15M PRN; Protocol PRN Reason: per Hypoglycemia Standing Ord. Piperacillin Sod/Tazobactam (Sod 3.375 gm/ Sodium Chloride) 50 mls @ 100 mls/hr IV Q6H [facility] Last Infusion: 02/24/24 09:17 Dose: Infused Documented By: HOWARD Vancomycin HCl 1,250 mg/ (Sodium Chloride) 250 mls @ 166.667 mls/hr IV Q8H [facility] Last Infusion: 02/24/24 11:40 Dose: Infused Documented By: HOWARD Insulin Glargine (Insulin Glargine,Hum.Rec.Anlog 100 Unit/Ml 10 Ml Vial) 18 unit SUBCUT BEDTIME [facility] Insulin Human Lispro (Insulin Lispro 100 Unit/Ml 3 Ml Vial) 0 unit SUBCUT QIDACHS [facility]; Protocol Last Admin: 02/24/24 11:47 Dose: 12 unit Documented By: HOWARD Insulin Human Lispro (Insulin Lispro 100 Unit/Ml 3 Ml Vial) 5 unit SUBCUT QIDACHS [facility] Last Admin: 02/24/24 11:47 Dose: 5 unit Documented By: HOWARD Morphine Sulfate (Morphine Sulfate 2 Mg/Ml Cartridge) 1 mg IVPUSH Q4H PRN; Protocol PRN Reason: Pain, Severe (Pain Scale 7-10) Last Admin: 02/24/24 06:31 Dose: 1 mg Documented By: LAYLA Ondansetron HCl (Ondansetron Hcl 4 Mg/2 Ml Vial) 4 mg IVPUSH Q8H PRN PRN Reason: Nausea and Vomiting Oxycodone HCl (Oxycodone Hcl Immed Release 5 Mg Tablet) 5 mg PO Q6H PRN PRN Reason: Pain, Moderate(Pain Scale 4-6) Last Admin: 02/24/24 09:24 Dose: 5 mg Documented By: HOWARD Pharmacy Consult (Consult Rx Vancomycin Dosing) 1 each MISCELLANE DAILY PRN PRN Reason: Consult order Polyethylene Glycol (Polyethylene Glycol 3350 17 Gm Powd.Pack) 17 gm PO DAILY [facility] Last Admin: 02/24/24 08:08 Dose: 17 gm Documented By: HOWARD Sodium Chloride (0.9 % Sodium Chloride Flush 3 Ml Syringe) 3 ml IVFLUSH QSHIFT [facility] Last Admin: 02/24/24 08:07 Dose: 3 ml Documented By: HOWARD Tizanidine HCl (Tizanidine Hcl 4 Mg Tablet) 4 mg PO TID PRN PRN Reason: Back Pain Last Admin: 02/24/24 09:24 Dose: 4 mg Documented By: HOWARD Labs 02/24/24 07:08 02/24/24 07:08 Labs: Laboratory Results - last 24 hr 02/23/24 02/23/24 02/24/24 16:06 20:30 07:08 MCV 83.1 MCH 27.7 MCHC 33.3 RDW 12.8 Plt Count 376 MPV 11.1 Immature Gran % (Auto) Cancelled Neut % (Auto) Cancelled Lymph % (Auto) Cancelled [place] % (Auto) Cancelled Eos % (Auto) Cancelled Baso % (Auto) Cancelled Lymph # (Auto) Cancelled [place] # (Auto) Cancelled Eos # (Auto) Cancelled Baso # (Auto) Cancelled Abs Immat Gran (auto) Cancelled Absolute Neuts (auto) Cancelled Absolute Nucleated RBC 0.000 Nucleated RBC % (auto) 0.0 Neutrophils % (Manual) 55 Band Neutrophils % 7 H Lymphocytes % (Manual) 31 Monocytes % (Manual) 2 Eosinophils % (Manual) 3 Metamyelocytes % 2 Abs Neuts (Manual) 6.3 Lymphocytes # (Manual) 3.1 Monocytes # (Manual) 0.2 Eosinophils # (Manual) 0.3 Metamyelocytes # 0.2 Platelet Estimate NORMAL Plt Morphology Comment NORMAL RBC Morphology NORMAL Hold Purple Top SEE NOTE Anion Gap 12 Estim Creat Clear Calc 101.0 Estimated GFR > 60 POC Glucose 332 H 347 H Random Glucose 438 H* Calcium 8.6 D Random Vancomycin 12.3 L 02/24/24 02/24/24 07:27 11:11 MCV MCH MCHC RDW Plt Count MPV Immature Gran % (Auto) Neut % (Auto) Lymph % (Auto) [place] % (Auto) Eos % (Auto) Baso % (Auto) Lymph # (Auto) [place] # (Auto) Eos # (Auto) Baso # (Auto) Abs Immat Gran (auto) Absolute Neuts (auto) Absolute Nucleated RBC Nucleated RBC % (auto) Neutrophils % (Manual) Band Neutrophils % Lymphocytes % (Manual) Monocytes % (Manual) Eosinophils % (Manual) Metamyelocytes % Abs Neuts (Manual) Lymphocytes # (Manual) Monocytes # (Manual) Eosinophils # (Manual) Metamyelocytes # Platelet Estimate Plt Morphology Comment RBC Morphology Hold Purple Top Anion Gap Estim Creat Clear Calc Estimated GFR POC Glucose 382 H* 454 H* Random Glucose Calcium Random Vancomycin Microbiology Microbiology Results: Microbiology 02/22/24 11:00 Gram Stain - Final Arm Right Routine Culture - Final 02/22/24 09:39 Gram Stain - Final Vulva Routine Culture - Preliminary Lactobacillus species 02/21/24 20:42 Blood Culture - Preliminary Blood - Venous No growth after 48 hours. 02/21/24 20:42 Blood Culture - Preliminary Blood - Venous No growth after 48 hours. Assessment and Plan (1) Abscess of forearm, right: Status: Acute (2) Abscess of forearm, left: Status: Acute (3) Vulvovaginitis marcus albicans: Status: Acute (4) Abscess of labia majora: Status: Acute (5) Uncontrolled type 2 diabetes mellitus with hyperglycemia: Status: Acute Plan Liss Hartman is a 43 y/o woman admitted with: Left labia majora and left forearm abscess with cellulitis w/o subcutaneous gas. Continue empiric IV antibiotic therapy with vancomycin and Zosyn. Blood cultures neg to date Gynecology consult, Dr. Crowley >s/p I&D of vulvar abscess 02/22/24, recommends 2 weeks of oral antibiotics upon discharge and outpatient follow-up in the office Gen surg>s/p I&D of abscess to left forearm x2 and right forearm x1, no further inpatient surgical intervention required. Outpatient follow-up in 1 week warm compress to vulvar abscess UTI. UC obtained>no growth Uncontrolled type 2 diabetes, medical noncompliance. Hemoglobin A1c 13.7, only on Trulicity at baseline ss, ada diet Will increase Lantus. Patient has been on Lantus in the past and is comfortable with being discharged home on Lantus and sliding scale Start premeal insulin Not on metformin at baseline Pseudo hyponatremia Due to hyperglycemia Will improve as blood sugar improves Hyperlipidemia. Patient has not been taking her statin. Asthma. No in acute exacerbation. Continue Breo and albuterol inhalers. IV drug use: cocaine. Patient advised to stop using drugs. 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 Patient will also need monitoring of blood glucose and adequate control with insulin and proper diet. Quality Stroke Does the patient have a stroke diagnosis?: No VTE Prior VTE?: No VTE Risk Level:: Medical - moderate - high VTE Device Contraindication: Treatment Not Indicated VTE Drug Contraindication: N/A - Med Ordered
[2024-02-24 15:32] VITALS: BP 121/58; PULSE 93; RESP 18; TEMP 36.6; O2SAT 100
[2024-02-24 16:00] LABS: Glucose, Whole Blood 333 mg/dL (60-115)
[2024-02-24 19:06] VITALS: BP 131/79; PULSE 100; RESP 16; TEMP 36; O2SAT 98
[2024-02-24 20:28] LABS: Glucose, Whole Blood 308 mg/dL (60-115)
[2024-02-24] MEDS: Gabapentin 300 MG CAPSULE PO (21:02)
[2024-02-24] MEDS: Insulin Glargine,Hum.rec.anlog 100 UNIT/ML 10 ML VIAL 18 UNIT SUBCUT (21:04)
[2024-02-24] MEDS: Clotrimazole 1 % Vaginal Cream 45 GM TUBE 1 APPL VAGINAL (21:07)
[2024-02-25] MEDS: vancomycin HCL 1,250 MG in 0.9 % Sodium Chloride 250 ML 166.67 MG IV ×2 (00:50→09:28)
[2024-02-25] MEDS: Piperacillin Sodium/Tazobactam 3.375 GM in 0.9 % Sodium Chloride 50 ML IV ×2 (03:20→08:17)
[2024-02-25 04:00] VITALS: BP 111/57; PULSE 88; RESP 16; TEMP 36.6; O2SAT 96
[2024-02-25] MEDS: Heparin Sodium,Porcine 5,000 UNIT/ML VIAL 5000 UNIT SUBCUT (06:15)
[2024-02-25] MEDS: TiZANidine HCL 4 MG TABLET PO (06:50)
[2024-02-25] MEDS: oxyCODONE HCl Immed Release 5 MG TABLET PO (06:50)
[2024-02-25] MEDS: 0.9 % Sodium Chloride Flush 3 ML SYRINGE IVFLUSH (06:51)
[2024-02-25 07:19] VITALS: BP 126/66; PULSE 77; RESP 12; TEMP 36.5; O2SAT 96
[2024-02-25] MEDS: Insulin Lispro 100 UNIT/ML 3 ML VIAL SUBCUT ×2 (07:30→07:31)
[2024-02-25] MEDS: polyethylene glycoL 3350 17 GM POWD.PACK PO (07:31)
[2024-02-25] MEDS: Docusate Sodium 100 MG CAPSULE PO (07:31)
[2024-02-25] MEDS: Fluticasone/Vilanterol 100/25 BLST.W.DEV 1 PUFF INHALE (07:51)
[2024-02-25 07:52] VITALS: PULSE 77; RESP 12; O2SAT 96
[2024-02-25 08:38] LABS: Creatinine Clr Calc Pharmacy 106.9; Estimated Glomerular Filt Rate > 60
[2024-02-25 08:40] LABS: Vancomycin Random 10.6 mcg/mL (15-20)
--- NOTE | 2024-02-25 08:48 | HE.PHANOTE ---
Re: Fish Renal function has improved. Trough returned at 10.6, patient is therapeutic. Continue current dose of 1250 mg q8h, with predicted AUC 450 mg/L hr, and predicted trough 9.9 mg/L. Next trough to be drawn 02/25 @ 0700.
[2024-02-25 08:56] LABS: Glucose, Whole Blood 368 mg/dL (60-115)
--- NOTE | 2024-02-25 09:51 | MHC.CM.PN ---
Patient medically cleared for dc home self care. Friend at bedside to transport. Patient manages dressing changes independently and will be sent home w/ supplies per RN. IMM delivered.
== END 2024-02-25 11:38 | disposition home or self-care (01) | DRG 758 ==
LOC: HO.ED 23:38 → HO.EDOVER 02-22 02:10 → HO.S3 02-22 04:55
PROVIDERS: Nurse Practitioner Acute Care; Nurse Practitioner Psychiatric/Mental Health; Obstetrics & Gynecology; Physician Assistant Medical; Admitting Provider Internal Medicine; Emergency Provider Internal Medicine; PCP Internal Medicine; Visit Provider Physician Assistant Medical
DX: N76.4 Abscess of vulva (principal); L02.413 Cutaneous abscess of right upper limb; L02.414 Cutaneous abscess of left upper limb; L03.114 Cellulitis of left upper limb; L03.113 Cellulitis of right upper limb; B37.31 Acute candidiasis of vulva and vagina; N76.2 Acute vulvitis; E11.65 Type 2 diabetes mellitus with hyperglycemia; F14.90 Cocaine use, unspecified, uncomplicated; J45.909 Unspecified asthma, uncomplicated; E78.5 Hyperlipidemia, unspecified; Z91.148 Patient's other noncompliance with medication regimen for other reason; Z87.891 Personal history of nicotine dependence; Z79.51 Long term (current) use of inhaled steroids; Z79.899 Other long term (current) drug therapy
CPT/HCPCS: 0352U; 0353U; 36415; 72193; 80048; 80053; 80202; 80307; 81001; 82010; 82550; 82565; 82947; 83036; 83605; 84702; 85007; 85025; 85027; 86140; 87040; 87070; 87086; 87205; 93005; 94640; 99285; J1170; J1644; J2270; J2543; J3370; J3371; J7120; Q9967

== ENCOUNTER → 2024-02-21 19:53 | Outpatient (BNV) | payer OTHER, SELFPAY | PROVIDERS: Admitting Provider Internal Medicine; Emergency Provider Internal Medicine; PCP Internal Medicine; Visit Provider Internal Medicine Cardiovascular Disease | DX: R94.31 Abnormal electrocardiogram [ECG] [EKG] (principal) | CPT/HCPCS: 93010 ==

== ENCOUNTER → 2024-02-22 02:04 | Outpatient (BNV) | payer OTHER, SELFPAY | PROVIDERS: Admitting Provider Internal Medicine; Emergency Provider Internal Medicine; PCP Internal Medicine; Visit Provider Obstetrics & Gynecology | DX: N76.4 Abscess of vulva (principal) | CPT/HCPCS: 56405; 99024; 99222 ==

== ENCOUNTER → 2024-02-22 02:04 | Outpatient (BNV) | payer OTHER, SELFPAY | PROVIDERS: Admitting Provider Internal Medicine; Emergency Provider Internal Medicine; PCP Internal Medicine; Visit Provider Internal Medicine | DX: L02.413 Cutaneous abscess of right upper limb (principal); L02.414 Cutaneous abscess of left upper limb; B37.31 Acute candidiasis of vulva and vagina; N76.4 Abscess of vulva; E11.65 Type 2 diabetes mellitus with hyperglycemia | CPT/HCPCS: 99223; 99232; 99233; 99239; 99499 ==

== ENCOUNTER → 2024-02-22 02:04 | Outpatient (BNV) | payer OTHER, SELFPAY | PROVIDERS: Admitting Provider Internal Medicine; Emergency Provider Internal Medicine; PCP Internal Medicine; Visit Provider Physician Assistant Surgical | DX: L02.413 Cutaneous abscess of right upper limb (principal); L02.414 Cutaneous abscess of left upper limb | CPT/HCPCS: 10061; 99024; 99222 ==

== ENCOUNTER 2024-03-01 11:41 | Outpatient (AMB) | payer OTHER, SELFPAY ==
--- NOTE | 2024-03-01 11:50 | MHC.OFFVIS ---
Vital Signs 03/01/24 11:54 Height 5 ft 4 in Weight 173 lb BMI 29.7 BP 123/78 Blood Pressure Location Rt brachial Position Sitting Pulse 116 H Intake Visit Reasons: post op check Intake Note: Patient referred after ER visit for wound on Lt wrist. Has bandage on. Almost done with amoxicillin and doxycyline course. Patient c/o: pain, oozing yellowish discharge. States there's an infection there. ER: 02-21-2024. 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 She has marked improvement of her left forearm abscess wound symptoms. She states it is almost completely healed. [facility] Medical History Asthma Hyperlipidemia Type 2 diabetes mellitus Social History Household Members: Family Housing: Apartment Patient Tobacco Use Status: Former Tobacco user Substance Use Type: Crack/Cocaine and IV Drugs service: No Physical Exam Vital Signs: Last Vital Signs Pulse 116 H 03/01/24 11:54 BP 123/78 03/01/24 11:54 BMI result Body Mass Index 29.7 Extrem Other: Left forearm wound has granulated almost completely. No evidence of any residual infection. Dressing applied. Assessment & Plan Assessment & Plan (1) Abscess of forearm, left: Code(s): L02.414 - Cutaneous abscess of left upper limb Category: Surgical Plan Patient has been given local instructions, and will follow-up p.r.n.. All questions answered. Coding Level of Care Code Global (52718) Diagnoses Abscess of forearm, left L02.414
[2024-03-01 11:54] VITALS: BP 123/78; PULSE 116; BMI 29.7
== END 2024-03-01 11:59 | disposition home or self-care (01) ==
PROVIDERS: PCP Internal Medicine; Visit Provider Surgery
DX: L02.414 Cutaneous abscess of left upper limb (principal)
CPT/HCPCS: 99024

== ENCOUNTER → 2024-03-01 11:41 | Outpatient (BNVA) | payer OTHER, SELFPAY | PROVIDERS: PCP Internal Medicine; Visit Provider Surgery | DX: Z09 Encounter for follow-up examination after completed treatment for conditions other than malignant neoplasm (principal); L02.414 Cutaneous abscess of left upper limb | CPT/HCPCS: 99212 ==

== ENCOUNTER 2024-03-11 12:35 | Inpatient (IN) | payer OTHER, SELFPAY ==
--- NOTE | 2024-03-11 | ECG_ITS ---
Test Reason : MED CLEAR Blood Pressure : / mmHG Vent. Rate : 080 BPM Atrial Rate : 080 BPM P-R Int : 164 ms QRS Dur : 092 ms QT Int : 392 ms P-R-T Axes : 054 025 058 degrees QTc Int : 452 ms Normal sinus rhythm Normal ECG When compared with ECG of 21-FEB-2024 19:53, No significant change was found Referred By: Jadiel Hinson Electronically Signed By:Nicolas Carvajal
--- NOTE | ~2024-03-11 | CT_ITS ---
EXAMINATION: CT HEAD WITHOUT CONTRAST CLINICAL INFORMATION: Altered mental status COMPARISON: None available. TECHNIQUE: Contiguous axial imaging was performed from the skull base to vertex without intravenous administration of contrast. This CT examination was performed using dose optimization techniques as appropriate, variously including the following: *Automated exposure control *Adjustment of mA and/or kV according to patient size (this includes techniques or standardized protocols for targeted exams where dose is matched to indication/reason for exam; i.e. extremities or head) *Use of iterative reconstruction technique DLP: 694 mGy-cm FINDINGS: There is no mass hemorrhage or cerebral edema. The ventricles and basilar cisterns are normal. Osseous structures: No fracture. Scalp/soft tissues: Normal. Mastoid air cells: Clear. Sinuses: Clear. CT/CT head/brain wo IV con IMPRESSION: No acute intracranial pathology.
[2024-03-11 12:56] VITALS: BP 111/63; PULSE 97; RESP 18; TEMP 36.6; O2SAT 98; BMI 30.1
--- NOTE | 2024-03-11 13:07 | MHC.EDTECH ---
pt refusing bloodwork at this time, RN aware
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
[2024-03-11 14:27] VITALS: BP 101/63; PULSE 79; RESP 19; TEMP 36.6; O2SAT 96
--- NOTE | 2024-03-11 15:26 | PC.NURSE ---
PT HAS BEEN MOVED TO [facility] FROM [facility]. PT CONTINUES TO REFUSE TO HAVE BLOODWORK DRAWN/GIVE URINE SPECIMEN, YOU PEOPLE JUST DON'T BELIEVE ME WHEN I SAY THE PROBLEM IS THE MITES , QUITE ADVERSARIAL AND DIFFICULT TO REDIRECT OR NEGOTIATE WITH. SPEECH IS RAPID, PRESSURED. PT NOW SLEEPING SOUNDLY. CARE TEAM AWARE OF HER REFUSALS AND MANIC STATE.
--- NOTE | 2024-03-11 15:59 | MHC.CARE ---
gave patient leslie alex, informed her that she needs to provide urine/ give blood in order to be assessed. She seems to believe that she has to stay for 24 hours regardless, attempted to educate her / inform her that the sooner she can provide blood/ urine the sooner she can be seen/ a plan created that may or may not include discharge. Seemed minimally receptive but accepted leslie johnson.
--- NOTE | 2024-03-11 16:05 | MHC.EDTECH ---
Hourly rounds and vitals completed, patient refusing to give urine sample, and refused blood work at this moment.
[2024-03-11 18:49] LABS: MANUAL DIFF FLAG NO
[2024-03-11 18:57] LABS: Basophils Percent Auto 0.5 % (0-2); Eosinophils Absolute Auto 0.2 X10*3/uL (0.0-0.4); Eosinophils Percent Auto 2.4 % (0-4); Hematocrit 36.7 % (37.0-47.0); Hemoglobin 12.2 g/dl (12.0-16.0); Imm Gran Abs Auto 0.04 X10*3/uL (0.00-0.03); Imm Gran Pct Auto 0.5 % (0.0-0.4); Lymphocytes Absolute Auto 2.9 X10*3/uL (1.2-4.9); Lymphocytes Percent Auto 36.8 % (20-40); Mean Corpuscular HGB Conc 33.2 g/dl (31.0-35.0); Mean Corpuscular Hemoglobin 27.6 pg (27.0-33.0); Mean Platelet Volume 10.3 fL (9.4-12.3); Monocytes Absolute Auto 0.7 X10*3/uL (0.1-1.2); Monocytes Percent Auto 8.2 % (2-11); Neutrophils Absolute Auto 4.1 x10*3/uL (2.0-8.3); Neutrophils Percent Auto 51.6 % (45-73); Platelet Count 365 X10*3/uL (160-400); Red Blood Count 4.42 X10*6/uL (4.20-5.50); Red Cell Distribution Width 14.1 % (11.0-16.0)
[2024-03-11 19:09] LABS: Alanine Aminotransferase 15 U/L (0-31); Alkaline Phosphatase 94 U/L (39-117); Anion Gap 13 (12-20); Aspartate Amino Transferase 10 U/L (5-31); Bilirubin Total 0.3 mg/dL (0.0-1.0); Blood Urea Nitrogen 15 mg/dL (9-16); Calcium 9.7 mg/dL (8.4-10.2); Carbon Dioxide 22 mmol/L (22-29); Chloride 106 mmol/L (96-108); Creatinine Clr Calc Pharmacy 110.8; Estimated Glomerular Filt Rate > 60; Ethanol < 10 mg/dL; Glucose Random 281 mg/dL (60-115); Lipase 29 U/L (8-78); Magnesium 2.1 mg/dL (1.6-2.6); Potassium 4.3 mmol/L (3.3-5.1); Sodium 137 mmol/L (135-145); Total Protein 7.1 g/dL (6.5-8.0)
[2024-03-11 19:21] LABS: Appearance Urine Clear; Color Urine Yellow; Glucose Urine UA >=1000 mg/dL (Negative); Leukocyte Esterase Urine Negative (Negative); Nitrite Urine Negative (Negative); Specific Gravity - Urine >= 1.030 (1.005-1.025); UMIC TRIGGER UACC YES; Urine Blood Negative (Negative); Urine Ketones Negative (Negative); Urine Protein Negative (Neg-Trace)
[2024-03-11 19:30] LABS: Amphetamine Screen Urine Not Detected (Not Detect); Barbiturates, Urine Not Detected (Not Detect); Benzodiazepines Screen Urine Not Detected (Not Detect); Buprenorphine Scr Not Detected (Not Detect); Cannabinoid Screen Urine POSITIVE (Not Detect); Cocaine Screen Urine POSITIVE (Not Detect); Fentanyl, urine Not Detected (Not Detect); Methadone Screen, Urine Not Detected (Not Detect); Opiate Screen Urine Not Detected (Not Detect); Oxycodone Screen Urine Not Detected (Not Detect); Phencyclidine Screen Urine Not Detected (Not Detect)
[2024-03-11 19:38] LABS: Bacteria Urine None Seen (None Seen); Hyaline Casts Urine 0-2 /LPF (0-2); RBC Urine 0-2 /HPF (0-2); Squamous Epithelial Cell Urine 0-2 /HPF (0-2); WBC Urine 0-5 /HPF (0-5)
[2024-03-11 20:28] LABS: Glucose, Whole Blood 402 mg/dL (60-115)
[2024-03-11 20:44] LABS: Acetaminophen LAB < 3 mcg/mL (<30); Salicylate < 5.0 mg/dL (15-30)
[2024-03-11] MEDS: Insulin Lispro 100 UNIT/ML 3 ML VIAL 7 UNIT SUBCUT (22:00)
[2024-03-11 22:44] VITALS: BP 107/69; PULSE 69; RESP 16; TEMP 37; O2SAT 100
[2024-03-12 00:52] LABS: Glucose, Whole Blood 184 mg/dL (60-115)
[2024-03-12] MEDS: TiZANidine HCL 4 MG TABLET PO ×2 (03:48→12:10)
[2024-03-12 06:15] VITALS: RESP 16
--- NOTE | 2024-03-12 07:16 | PC.NURSE ---
Resumed care of pt at 0700. Pt up in bed eating breakfast, respirations even and unlabored, 1:1 sitter at bedside for safety, pt aware of ongoing plan of care, all needs met at this time.
[2024-03-12] MEDS: Insulin Glargine,Hum.rec.anlog 100 UNIT/ML 10 ML VIAL 40 UNIT SUBCUT (07:25)
[2024-03-12] MEDS: Gabapentin 300 MG CAPSULE PO ×2 (07:25→21:18)
[2024-03-12] MEDS: Insulin Lispro 100 UNIT/ML 3 ML VIAL SUBCUT ×4 (07:26→21:31)
[2024-03-12 07:28] VITALS: RESP 18
--- NOTE | 2024-03-12 08:20 | PC.NURSE ---
Late Entry- Pt requesting morning meds before scheduled time. Resting in bed quietly, call maza within reach.
[2024-03-12 09:49] LABS: Glucose, Whole Blood 283 mg/dL (60-115)
--- NOTE | 2024-03-12 11:19 | PC.NURSE ---
Patient moved from ED 18H to 6. Patient unhappy about this stating that she wants to go home, she reports there is no reason for her to be here and she is only being held for 24 hours and can go after that. This RN educated patient that she is on a Section 12a and her disposition is inpatient. Patient continues to be angry about disposition, requesting to speak with title department manager
[2024-03-12 11:51] LABS: HCG Quantitative < 2 mIU/mL
[2024-03-12] MEDS: OLANZapine 5 MG TABLET PO ×2 (12:06→21:19)
[2024-03-12] MEDS: LORazepam 1 MG TABLET PO (12:06)
--- NOTE | 2024-03-12 12:42 | MHC.CARE ---
Auth for admission, given by Amy with [facility], five days, beginning 03/12 Last covered/ concurrent review 03/16. Concurrent reviewer is Cassandra Allen [phone] fax [phone]
--- NOTE | 2024-03-12 13:20 | PC.NURSE ---
Clarifying: Patient reports having mites all over her body. Upon examination, this RN notes no bugs, there are numerous scabs along her arms that appear to be from scratching, potentially due to the tactile hallucinations. She is also noted to have numerous track upton along both arms. At this time, there is no need for patient to be isolated from others due to risk for mites.
[2024-03-12 14:23] LABS: Glucose, Whole Blood 346 mg/dL (60-115)
[2024-03-12 15:30] VITALS: BP 114/64; PULSE 76; RESP 16; TEMP 36.6; O2SAT 97
[2024-03-12 15:38] VITALS: RESP 16
[2024-03-12] MEDS: NeoMYCIN/Polymyxin/HC Otic Sus 10 ML DRPBTL 4 DROP EAR-BOTH ×2 (18:00→21:19)
[2024-03-12 18:11] LABS: Glucose, Whole Blood 348 mg/dL (60-115)
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
[2024-03-12 20:00] VITALS: RESP 16
[2024-03-12 21:25] LABS: Glucose, Whole Blood 337 mg/dL (60-115)
[2024-03-13] MEDS: traZODone HCL 50 MG TABLET PO ×2 (00:28→20:30)
[2024-03-13] MEDS: hydrOXYzine HCL 25 MG TABLET PO (00:28)
[2024-03-13] MEDS: LORazepam 1 MG TABLET PO (00:29)
[2024-03-13 08:00] VITALS: BP 117/57; PULSE 80; RESP 18; TEMP 36.7; O2SAT 97
[2024-03-13 08:10] LABS: Glucose, Whole Blood 300 mg/dL (60-115)
[2024-03-13 08:51] LABS: Alanine Aminotransferase 12 U/L (0-31); Alkaline Phosphatase 87 U/L (39-117); Anion Gap 15 (12-20); Aspartate Amino Transferase 9 U/L (5-31); Bilirubin Total 0.3 mg/dL (0.0-1.0); Blood Urea Nitrogen 15 mg/dL (9-16); Calcium 9.4 mg/dL (8.4-10.2); Carbon Dioxide 23 mmol/L (22-29); Chloride 101 mmol/L (96-108); Cholesterol 192 mg/dL (<200); Creatinine Clr Calc Pharmacy 105.8; Estimated Glomerular Filt Rate > 60; Glucose Fasting 322 mg/dL (60-99); HDL Cholesterol 54 mg/dL (>40); LDL Cholesterol Calculated 119 mg/dL (<100); Magnesium 1.8 mg/dL (1.6-2.6); Potassium 4.2 mmol/L (3.3-5.1); Sodium 135 mmol/L (135-145); Total Protein 7.3 g/dL (6.5-8.0); Triglycerides 96 mg/dL (<150)
[2024-03-13] MEDS: Insulin Glargine,Hum.rec.anlog 100 UNIT/ML 10 ML VIAL 40 UNIT SUBCUT (09:01)
[2024-03-13] MEDS: Gabapentin 300 MG CAPSULE PO ×3 (09:01→20:30)
[2024-03-13] MEDS: Insulin Lispro 100 UNIT/ML 3 ML VIAL SUBCUT ×4 (09:01→20:30)
[2024-03-13] MEDS: NeoMYCIN/Polymyxin/HC Otic Sus 10 ML DRPBTL 4 DROP EAR-BOTH ×3 (09:02→20:33)
[2024-03-13 09:07] LABS: TSH reflex Free T4 1.69 uIU/mL (0.32-4.0)
[2024-03-13] MEDS: Lidocaine 4 % Patch ADH..PATCH 1 PATCH TRANSDERMA ×2 (10:41→10:42)
[2024-03-13] MEDS: Fluticasone/Vilanterol 100/25 BLST.W.DEV 1 PUFF INHALE (10:41)
[2024-03-13] MEDS: TiZANidine HCL 4 MG TABLET PO ×2 (10:42→16:12)
[2024-03-13] MEDS: Ibuprofen 400 MG TABLET PO ×2 (10:42→16:12)
[2024-03-13 12:41] LABS: Glucose, Whole Blood 424 mg/dL (60-115)
[2024-03-13 12:44] LABS: Estimated Average Glucose 283 mg/dL; Hemoglobin A1c % 11.5 % (<6.0)
[2024-03-13] MEDS: risperiDONE 0.5 MG TABLET PO ×2 (14:59→20:30)
[2024-03-13 16:59] LABS: Glucose, Whole Blood 282 mg/dL (60-115)
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
[2024-03-13 20:00] VITALS: BP 100/54; PULSE 90; RESP 18; TEMP 36.7; O2SAT 94
[2024-03-13 20:12] LABS: Glucose, Whole Blood 345 mg/dL (60-115)
[2024-03-14 04:50] LABS: Syphilis Screen Nonreactive (Nonreactive)
[2024-03-14] MEDS: TiZANidine HCL 4 MG TABLET PO ×3 (05:39→16:43)
[2024-03-14 08:00] VITALS: BP 88/54; PULSE 84; RESP 18; TEMP 36.9; O2SAT 98
[2024-03-14] MEDS: Ibuprofen 400 MG TABLET PO ×2 (08:32→14:27)
[2024-03-14] MEDS: Fluticasone/Vilanterol 100/25 BLST.W.DEV 1 PUFF INHALE (08:32)
[2024-03-14] MEDS: Gabapentin 300 MG CAPSULE PO ×3 (08:32→20:58)
[2024-03-14] MEDS: NeoMYCIN/Polymyxin/HC Otic Sus 10 ML DRPBTL 4 DROP EAR-BOTH ×4 (08:32→20:57)
[2024-03-14] MEDS: risperiDONE 0.5 MG TABLET PO (08:32)
[2024-03-14] MEDS: Insulin Glargine,Hum.rec.anlog 100 UNIT/ML 10 ML VIAL 40 UNIT SUBCUT (08:33)
[2024-03-14] MEDS: Insulin Lispro 100 UNIT/ML 3 ML VIAL SUBCUT ×4 (08:35→20:58)
[2024-03-14 08:39] LABS: Glucose, Whole Blood 357 mg/dL (60-115)
[2024-03-14] MEDS: Lidocaine 4 % Patch ADH..PATCH 2 PATCH TRANSDERMA (09:06)
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
[2024-03-14] MEDS: LORazepam 1 MG TABLET PO ×2 (10:42→16:43)
[2024-03-14 12:50] LABS: Glucose, Whole Blood 292 mg/dL (60-115)
[2024-03-14 17:01] LABS: Glucose, Whole Blood 365 mg/dL (60-115)
[2024-03-14 20:00] VITALS: BP 142/69; PULSE 113; TEMP 36.2; O2SAT 98
[2024-03-14 20:32] LABS: Glucose, Whole Blood 284 mg/dL (60-115)
[2024-03-14] MEDS: risperiDONE 1 MG TABLET PO (20:57)
[2024-03-14] MEDS: traZODone HCL 50 MG TABLET PO (20:58)
[2024-03-14 23:19] LABS: A. Phagocytphilium DNA,RT-PCR NOT DETECTED (NOT DETECTED); Babesia Microti DNA, RT-PCR NOT DETECTED (NOT DETECTED); Borrelia Miyamotoi,DNA RT-PCR NOT DETECTED (NOT DETECTED); E.Chaffeensis DNA RT-PCR NOT DETECTED (NOT DETECTED); Lyme(Borrelia ssp)DNA RT-PCR NOT DETECTED (NOT DETECTED)
[2024-03-15] MEDS: LORazepam 1 MG TABLET PO ×3 (01:10→15:46)
[2024-03-15] MEDS: traZODone HCL 50 MG TABLET PO (01:10)
[2024-03-15] MEDS: Ibuprofen 400 MG TABLET PO ×2 (01:12→08:16)
[2024-03-15 08:00] VITALS: BP 115/71; PULSE 101; RESP 18; TEMP 36; O2SAT 99
[2024-03-15 08:13] LABS: Glucose, Whole Blood 313 mg/dL (60-115)
[2024-03-15] MEDS: Lidocaine 4 % Patch ADH..PATCH 2 PATCH TRANSDERMA (08:14)
[2024-03-15] MEDS: TiZANidine HCL 4 MG TABLET PO ×3 (08:16→19:23)
[2024-03-15] MEDS: risperiDONE 1 MG TABLET PO (08:16)
[2024-03-15] MEDS: Gabapentin 300 MG CAPSULE PO ×3 (08:16→20:27)
[2024-03-15] MEDS: Insulin Lispro 100 UNIT/ML 3 ML VIAL SUBCUT ×4 (08:17→21:39)
[2024-03-15] MEDS: Insulin Glargine,Hum.rec.anlog 100 UNIT/ML 10 ML VIAL 40 UNIT SUBCUT (08:17)
[2024-03-15] MEDS: NeoMYCIN/Polymyxin/HC Otic Sus 10 ML DRPBTL 4 DROP EAR-BOTH ×3 (08:29→20:27)
[2024-03-15] MEDS: Fluticasone/Vilanterol 100/25 BLST.W.DEV 1 PUFF INHALE (08:29)
[2024-03-15 12:31] LABS: Glucose, Whole Blood 353 mg/dL (60-115)
[2024-03-15 17:19] LABS: Glucose, Whole Blood 247 mg/dL (60-115)
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
[2024-03-15 20:00] VITALS: BP 154/90; PULSE 124; RESP 18; TEMP 36.4; O2SAT 97
[2024-03-15] MEDS: hydrOXYzine HCL 25 MG TABLET PO (20:27)
[2024-03-15] MEDS: traZODone HCL 100 MG TABLET PO (20:27)
[2024-03-15] MEDS: risperiDONE 2 MG TABLET PO (20:27)
[2024-03-15 21:30] LABS: Glucose, Whole Blood 332 mg/dL (60-115)
[2024-03-16] MEDS: LORazepam 1 MG TABLET PO (04:01)
[2024-03-16 08:00] VITALS: BP 147/76; PULSE 108; RESP 16; TEMP 36.6; O2SAT 98
[2024-03-16] MEDS: risperiDONE 1 MG TABLET PO (08:28)
[2024-03-16] MEDS: Gabapentin 300 MG CAPSULE PO (08:28)
[2024-03-16] MEDS: Fluticasone/Vilanterol 100/25 BLST.W.DEV 1 PUFF INHALE (08:28)
[2024-03-16] MEDS: Lidocaine 4 % Patch ADH..PATCH 2 PATCH TRANSDERMA (08:29)
[2024-03-16] MEDS: NeoMYCIN/Polymyxin/HC Otic Sus 10 ML DRPBTL 4 DROP EAR-BOTH (08:29)
[2024-03-16 08:32] LABS: Glucose, Whole Blood 289 mg/dL (60-115)
[2024-03-16] MEDS: TiZANidine HCL 4 MG TABLET PO (08:38)
[2024-03-16] MEDS: hydrOXYzine HCL 25 MG TABLET PO (08:38)
[2024-03-16] MEDS: Insulin Lispro 100 UNIT/ML 3 ML VIAL SUBCUT (09:05)
[2024-03-16] MEDS: Insulin Glargine,Hum.rec.anlog 100 UNIT/ML 10 ML VIAL 40 UNIT SUBCUT (09:05)
--- NOTE | 2024-03-16 09:08 | P.DS_ITS ---
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 Discharge Medications: New risperidone 1 mg Tablet 1 mg PO DAILY 30 Days Qty: 30 1RF risperidone 2 mg Tablet 2 mg PO BEDTIME 30 Days Qty: 30 1RF trazodone 100 mg Tablet 100 mg PO BEDTIME 30 Days Qty: 30 1RF sarolgcb-poudkkoev-FF 3.5-10,000-1 mg/mL-unit/mL-% Drops,Suspension 4 drp otic (ears) QID 7 Days Qty: 10 0RF Rx Instructions: both ears lidocaine [Lidocaine Pain Relief] 4 % Adhesive Patch,Medicated 2 patch transdermal DAILY PRN (Reason: musculoskeletal pain) 30 Days Qty: 60 1RF Protocol: Apply to: Apply to: back Rx Instructions: apply 1 to lower back and 1 to right shoulder daily as needed 2 boxes for 30; may substitute per insurance Continued ofloxacin 0.3 % drops 6 drp otic (ears) DAILY fluticasone furoate-vilanterol [Breo Ellipta] 100-25 mcg/dose blister with device 1 ea inhalation DAILY insulin glargine [Lantus Solostar U-100 Insulin] 100 unit/mL (3 mL) insulin pen 40 unit SUBCUT DAILY tizanidine 4 mg tablet 4 mg PO TID PRN (Reason: Back Pain) albuterol sulfate 90 mcg/actuation HFA aerosol inhaler 2 puff inhalation Q4-6H PRN (Reason: Wheezing) fluticasone furoate-vilanterol [Breo Ellipta] 100-25 mcg/dose blister with device 1 ea inhalation DAILY alcohol swabs Pads, Medicated 1 pad TOPICAL QIDACHS Qty: 100 0RF Rx Instructions: Use four times a day or as directed. insulin lispro [Humalog KwikPen Insulin] 100 unit/mL insulin pen 1 sliding scale dose SUBCUT QIDACHS MDD 40Units Qty: 15 0RF Rx Instructions: Blood Sugar: <150 - 0 units 151-200 - 2 units 201-250 - 4 units 251-300 - 6 units 301-350 - 8 units >350 - 10 units Changed gabapentin 300 mg capsule 300 mg PO TID 30 Days Qty: 90 0RF Discharge Orders: Discharge Order (Routine); Ordered 03/16/24 Ordered By: Eduardo Grider Diet: Diabetic diet Activity on Discharge: As tolerated Stand Alone Forms: Patient Portal Discharge page Print Language: Persian Care Plan Goals: Maintain mood and safe behaviors Take medications as prescribed Continue to pursue sobriety Practice coping skills Continue with outpatient providers and reach out to them as needed Health Concerns: Mood stability and behaviors Sobriety Diabetes Plan of Treatment: Follow up with your PCP, psychiatric provider and other outpatient providers regarding above concerns Take medications as prescribed Assessment: Risk assessment at time of discharge:? Patient was interviewed prior to discharge and found to be fully oriented and without any SI or HI. Patient has improved insight and judgment and wants to continue treatment. Patient is not in imminent risk of harm to self or others and has a safety plan that includes presenting to the closest ER or calling 911 if feeling unsafe.? Patient has been observed closely by nursing and unit staff throughout admission; patient has not engaged in any behaviors that suggest dangerousness to self or others and has de monstrated appropriate behaviors and impulse control
[2024-03-16] MEDS: Naloxone HCl Nasal TAKE HOME 4 MG SPRAY 8 MG NOSTRILALT (09:43)
== END 2024-03-16 10:20 | disposition home or self-care (01) | DRG 897 ==
LOC: HO.ED 03-12 11:16 → HO.PM5 03-12 14:31
PROVIDERS: Physician Assistant; Admitting Provider Psychiatry & Neurology Psychiatry; Emergency Provider Emergency Medicine; PCP Internal Medicine; Visit Provider Psychiatry & Neurology Psychiatry
DX: F14.150 Cocaine abuse with cocaine-induced psychotic disorder with delusions (principal); E11.65 Type 2 diabetes mellitus with hyperglycemia; Z71.51 Drug abuse counseling and surveillance of drug abuser; Z87.891 Personal history of nicotine dependence; Z79.4 Long term (current) use of insulin; Z79.51 Long term (current) use of inhaled steroids; Z79.899 Other long term (current) drug therapy
CPT/HCPCS: 36415; 70450; 80053; 80061; 80143; 80179; 80307; 81001; 82947; 83036; 83690; 83735; 84443; 84702; 85025; 86780; 87468; 87469; 87478; 87484; 87798; 93005; 99285; S9485

== ENCOUNTER → 2024-03-11 20:07 | Outpatient (BNV) | payer OTHER, SELFPAY | PROVIDERS: Admitting Provider Psychiatry & Neurology Psychiatry; Emergency Provider Emergency Medicine; PCP Internal Medicine; Visit Provider Internal Medicine Cardiovascular Disease | DX: Z01.818 Encounter for other preprocedural examination (principal) | CPT/HCPCS: 93010 ==

== ENCOUNTER → 2024-03-12 14:28 | Outpatient (BNV) | payer OTHER, SELFPAY | PROVIDERS: Admitting Provider Psychiatry & Neurology Psychiatry; Emergency Provider Emergency Medicine; PCP Internal Medicine; Visit Provider Psychiatry & Neurology Psychiatry | DX: F29 Unspecified psychosis not due to a substance or known physiological condition (principal); F19.10 Other psychoactive substance abuse, uncomplicated; F14.959 Cocaine use, unspecified with cocaine-induced psychotic disorder, unspecified; E11.65 Type 2 diabetes mellitus with hyperglycemia | CPT/HCPCS: 99232; 99239 ==

== ENCOUNTER → 2024-03-12 14:28 | Outpatient (BNV) | payer OTHER, SELFPAY | PROVIDERS: Admitting Provider Psychiatry & Neurology Psychiatry; Emergency Provider Emergency Medicine; PCP Internal Medicine; Visit Provider Psychiatry & Neurology Psychiatry | DX: F19.10 Other psychoactive substance abuse, uncomplicated (principal); F14.959 Cocaine use, unspecified with cocaine-induced psychotic disorder, unspecified; E11.65 Type 2 diabetes mellitus with hyperglycemia | CPT/HCPCS: 90792; 99232 ==

== ENCOUNTER 2024-10-11 14:08 | Inpatient (IN) | payer OTHER, SELFPAY ==
--- NOTE | ~2024-10-11 | XR_ITS ---
CLINICAL HISTORY: redness; Osteo? 3 views left hand Comparison: No comparison Findings: No fractures or dislocations No significant arthritic change No erosions No radiopaque foreign body Impression: Soft tissue swelling. No skeletal abnormality. 3 views left wrist Comparison: No comparison Findings: No fractures or dislocations No significant arthritic change No radiopaque foreign body Impression: Normal left wrist This document has been electronically signed by: Sharif Miramontes MD on 10/11/2024 17:51:54
--- NOTE | ~2024-10-11 | US_ITS ---
CLINICAL HISTORY: arm swelling redness. DVT? Venous duplex ultrasound left upper extremity Comparison: None Findings: No deep venous thrombosis seen within the visualized venous structures of the left upper extremity. Mildly prominent lymph nodes in the left upper extremity adjacent to the brachial veins. Forearm veins are difficult to evaluate secondary to soft tissue swelling of the forearm. IMPRESSION: 1. Negative for left upper extremity deep vein thrombosis. 2. Soft tissue edema in the left forearm. This document has been electronically signed by: Jonn Amezcua MD on 10/11/2024 22:53:15
--- NOTE | ~2024-10-11 | XR_ITS ---
CLINICAL HISTORY: redness. osteo 2 views left forearm Comparison: None Findings: No fractures or dislocations No joint effusion No significant arthritic change No radiopaque foreign body Impression: Soft tissue swelling and edema. No skeletal abnormality. Specifically no signs of osteomyelitis. This document has been electronically signed by: Sharif Miramontes MD on 10/11/2024 17:41:56
--- NOTE | ~2024-10-11 | US_ITS ---
CLINICAL HISTORY: right breast redness swelling. abscess? Ultrasound breast unilateral right limited Comparison: None Findings: Interrogation of the right breast was performed at the 1 to 2 o'clock position. In the area of concern there is an ill-defined area of hypoechoic architectural distortion measuring 2.5 x 1.6 cm. There is overlying subcutaneous edema. There is minimal surrounding vascularity. There is no discrete drainable fluid collection. IMPRESSION: Hypoechoic architectural distortion in the area of concern at 1-2 o'clock. No discrete drainable abscess. Differential includes area of phlegmon versus malignancy. Recommend short-term interval follow-up ultrasound and diagnostic mammogram at dedicated breast imaging center after completion of therapy to ensure resolution with low threshold for biopsy if resolution not obtained in 3-6 weeks. This document has been electronically signed by: Jonn Amezcua MD on 10/11/2024 22:57:53
[2024-10-11 15:52] VITALS: BP 118/73; PULSE 104; RESP 16; TEMP 36.6; O2SAT 99; BMI 32.2
--- NOTE | 2024-10-11 15:59 | ED.GENADULT ---
HPI - General Adult General Chief complaint: Wound/Laceration Stated complaint: High blood sugar, abscess Time Seen by Provider: 10/11/24 21:36 Source: patient Mode of arrival: ambulatory Limitations: no limitations History of Present Illness ED Provider: HPI narrative: Patient JANETH cocaine user, insulin dependent diabetes, mood disorder, asthma with history of multiple subcutaneous abscesses comes here with abscess in the left forearm with swelling along with chronic wound in the right breast where she shoots the cocaine sometimes patient noticed swelling of the left wrist area last 2 days that brought her to the hospital has painful to move her fingers but sensations are intact Related Data Home Medications ?Medication ?Instructions ?Recorded ?Confirmed albuterol sulfate 90 mcg/actuation 2 puff inhalation Q4-6H PRN 02/22/24 10/12/24 aerosol inhaler Wheezing tizanidine 4 mg tablet 4 mg PO TID PRN Back Pain 02/22/24 10/12/24 fluticasone furoate 100 1 ea inhalation DAILY 03/11/24 10/12/24 mcg-vilanterol 25 mcg/dose inhalation powder (Breo Ellipta) insulin glargine 100 unit/mL (3 40 unit subcut DAILY 03/11/24 10/12/24 mL) subcutaneous pen (Lantus Solostar U-100 Insulin) aripiprazole 15 mg tablet 15 mg PO DAILY 10/12/24 10/12/24 clonazepam 0.5 mg tablet 0.5 mg PO BID PRN anxiety 10/12/24 10/12/24 dulaglutide 1.5 mg/0.5 mL 1.5 mg subcut MODI 10/12/24 10/12/24 subcutaneous pen injector (Trulicity) guanfacine 2 mg tablet,extended 2 mg PO DAILY anxiety 10/12/24 10/12/24 release 24 hr miconazole nitrate 2 % vaginal 1 appful vaginal DAILY 10/12/24 10/12/24 cream (Miconazole-7) perphenazine 4 mg tablet 4 mg PO TID 10/12/24 10/12/24 sulfamethoxazole 800 2 tab PO Q12H 10/12/24 10/12/24 mg-trimethoprim 160 mg tablet Previous Rx's ?Medication ?Instructions ?Recorded insulin lispro 100 unit/mL 1 sliding scale dose subcut 02/24/24 subcutaneous pen (Humalog KwikPen QIDACHS #15 mL (U-100) Insulin) gabapentin 300 mg capsule 300 mg PO TID 30 days #90 caps 03/16/24 Allergies Allergy/AdvReac Type Severity Reaction Status Date / Time divalproex sodium Allergy Severe ANAPHYLAXIS Verified 10/11/24 15:59 [From Depakote] hydrocodone [HYDROCODONE] Allergy Severe HIVES Verified 10/11/24 15:59 tramadol Allergy Unknown rash Verified 10/11/24 15:59 acetaminophen [From Vicodin] Allergy Anaphylaxis Verified 10/11/24 15:59 From Ultram Allergy Intermediate ITCHING Uncoded 03/11/24 12:59 PEANUT BUTTER Allergy Unknown ANAPHYLAXIS Uncoded 03/11/24 12:59 Review of Systems Review of Systems: Yes all other systems are reviewed and are negative PMFSH Past Medical History Medical History Asthma Hyperlipidemia Type 2 diabetes mellitus Social History Social History Household Members: Significant Other and Friend(s) Housing: Apartment Do you presently have visiting nurse or other home services: No Unable to assess alcohol history related to: Unknown Patient Tobacco Use Status: Former Tobacco user e-Cigarette/Vaping Use: Currently Using Use of substances other than those prescribed or required for medical reasons: Yes Substance Use Type: Crack/Cocaine Substance Use Frequency: Chronic Longstanding Advance Directives: No Advance Directives Information Provided: No Do you have a plan to hurt others: No Plan Nutrition Risks: No Nutritional Risk Patient : No service: No Sexual orientation: Straight/Heterosexual Physical Exam ED Vital Signs: Vital Signs - 24 hr 10/11/24 15:52 10/11/24 21:20 Temperature 97.9 F 98.4 F Pulse Rate 104 H 95 Respiratory Rate 16 14 Blood Pressure 118/73 109/67 Pulse Oximetry 99 94 Oxygen Delivery Method Room Air Room Air BMI result Body Mass Index 32.2 Appearance: Alert. Oriented X3. No acute distress. Very argumentative asking for pain medication and food first Eyes: No pallor no icterus ENT: Pharynx normal. Oral Mucosa moist Neck: Normal inspection. Neck supple. CVS: Normal heart rate and rhythm. Pulses normal. Respiratory: No respiratory distress. Equal air entry bilateral, no wheezing/rales/rhonchi Abdomen: Soft and nontender. Bowel sounds are present, no mass palpable, no CVA tenderness Skin: Skin warm and dry. Chronic 3 x 2 cm wound in the right with surrounding cellulitis left forearm swollen with fluctuant area on the left wrist area neurovascular intact painful active movements of the fingers but passively she can were finger Extremities: Neuro: Oriented X 3. No motor deficit. No sensory deficit.No cerebellar signs , cranial nerves II-XII intact Course Course Course Narrative: RME: 44 yold female presents to the ED for left arm swelling/redness and right breast swelling redness after IV injection of cocaine into breast and arm. labs, US, and xray ordered Medications Administered Generic Name Dose Route Start Last Admin Trade Name Freq PRN Reason Stop Dose Admin Piperacillin Sod/Tazobactam 100 mls @ 200 mls/hr 10/11/24 23:00 10/12/24 12:35 Sod 4.5 gm/ Sodium Chloride IV Infused Q6H LUIS ENRIQUE Infusion Vancomycin HCl 1,500 mg/ 500 mls @ 333.333 mls/hr 10/12/24 12:00 10/12/24 12:20 Sodium Chloride IV 333.33 mls/hr Q12H LUIS ENRIQUE Administration Insulin Glargine 20 unit 10/11/24 23:15 10/11/24 23:32 Insulin Glargine,Hum.Rec.Anlog 100 Unit/Ml 10 Ml Vial SUBCUT 20 unit BEDTIME LUIS ENRIQUE Administration Insulin Glargine 10 unit 10/12/24 09:00 10/12/24 08:44 Insulin Glargine,Hum.Rec.Anlog 100 Unit/Ml 10 Ml Vial SUBCUT 10 unit DAILY LUIS ENRIQUE Administration Insulin Human Lispro 0 unit 10/12/24 07:30 10/12/24 08:40 Insulin Lispro 100 Unit/Ml 3 Ml Vial SUBCUT 10 unit QIDACHS LUIS ENRIQUE Administration Protocol Oxycodone HCl 5 mg 10/12/24 03:02 10/12/24 08:44 Oxycodone Hcl Immed Release 5 Mg Tablet PO 5 mg Q4H PRN Administration Pain, Severe (Pain Scale 7-10) Sodium Chloride 3 ml 10/12/24 00:00 10/12/24 08:41 0.9 % Sodium Chloride Flush 3 Ml Syringe IVFLUSH 3 ml QSHIFT LUIS ENRIQUE Administration Discontinued Medications Generic Name Dose Route Start Last Admin Trade Name Freq PRN Reason Stop Dose Admin Lactated Ringer's 1,000 mls @ 999 mls/hr 10/11/24 23:00 10/12/24 01:05 Lr IV 10/12/24 00:00 Infused .Q1H1M LUIS ENRIQUE Infusion Vancomycin HCl 2,000 mg in 500 mls @ 250 mls/hr 10/11/24 23:00 10/12/24 01:44 Vancomycin/Ns IV 10/12/24 00:59 Infused ONCE ONE Infusion Lactated Ringer's 1,000 mls @ 999 mls/hr 10/12/24 01:30 10/12/24 02:47 Lr IV 10/12/24 02:30 Infused .Q1H1M LUIS ENRIQUE Infusion Insulin Human Regular 10 unit 10/11/24 22:46 10/11/24 23:07 Insulin Regular, Human 100 Unit/Ml 10 Ml Vial IVPUSH 10/11/24 22:47 10 unit ONCE ONE Administration Insulin Human Regular 10 unit 10/12/24 06:40 10/12/24 06:56 Insulin Regular, Human 100 Unit/Ml 10 Ml Vial IVPUSH 10/12/24 06:41 10 unit ONCE ONE Administration Morphine Sulfate 4 mg 10/11/24 23:17 10/11/24 23:31 Morphine Sulfate 4 Mg/Ml Cartridge IVPUSH 10/11/24 23:18 4 mg ONCE ONE Administration Protocol Ondansetron HCl 4 mg 10/11/24 23:17 10/11/24 23:31 Ondansetron Hcl 4 Mg/2 Ml Vial IVPUSH 10/11/24 23:18 4 mg ONCE ONE Administration Oxycodone HCl 5 mg 10/11/24 23:15 10/11/24 23:31 Oxycodone Hcl Immed Release 5 Mg Tablet PO 10/11/24 23:16 5 mg ONCE ONE Administration Procedures Abscess I/D Site: upper extremity Side (if applicable): left Local Anesthetic: lidocaine 1% Amount of anesthesia used (mL): 8 Technique: incised with blade Amount of fluid expressed (mL): 10 Sent for culture/gram staining?: Yes Irrigation: Yes Packing used?: none Medical Decision Making Medical Decision Making MDM Narrative: Patient with IVDA user with left forearm abscess and chronic right breast wound with surrounding cellulitis no signs of necrotizing fasciitis/compartment syndrome at this time but need surgical consultation it may change any time I and D was done decrease the pressure as the left wrist and good amount of pus removed Admission/Observation Consideration of admission/observation: Escalation of care including admission/observation considered Consult Healthcare Provider Management of the patient was discussed with: Hospitalist Lab Data [facility] Lab Attestation statement: I reviewed the patient's lab results. 10/12/24 06:04 10/12/24 06:04 Labs: Lab Results 10/11/24 10/11/24 10/11/24 Range/Units 16:19 21:40 21:41 WBC 13.4 H (4.8-10.8) X10*3/uL RBC 5.03 (4.20-5.50) X10*6/uL Hgb 12.5 (12.0-16.0) g/dl Hct 38.3 (37.0-47.0) % MCV 76.1 L (80.0-98.0) fL MCH 24.9 L (27.0-33.0) pg MCHC 32.6 (31.0-35.0) g/dl RDW 14.1 (11.0-16.0) % Plt Count 415 H (160-400) X10*3/uL MPV 10.7 (9.4-12.3) fL Immature Gran % (Auto) 2.3 H (0.0-0.4) % Neut % (Auto) 69.8 (45-73) % Lymph % (Auto) 18.9 L (20-40) % [place] % (Auto) 6.6 (2-11) % Eos % (Auto) 1.8 (0-4) % Baso % (Auto) 0.6 (0-2) % Lymph # (Auto) 2.5 (1.2-4.9) X10*3/uL [place] # (Auto) 0.9 (0.1-1.2) X10*3/uL Eos # (Auto) 0.2 (0.0-0.4) X10*3/uL Baso # (Auto) 0.1 (0.0-0.2) X10*3/uL Abs Immat Gran (auto) 0.31 H (0.00-0.03) X10*3/uL Absolute Neuts (auto) 9.4 H (2.0-8.3) x10*3/uL Absolute Nucleated RBC 0.000 (0.0-0.012) X10*3/uL Nucleated RBC % (auto) 0.0 (0.0-0.2) /100WBC ESR 87 H (0-20) MM/HR PT 11.3 (10.9-12.4) SEC INR 1.0 (0.9-1.1) APTT 33.0 (26.0-36.8) SEC Sodium 131 L (135-145) mmol/L Potassium 4.3 (3.3-5.1) mmol/L Chloride 101 (96-108) mmol/L Carbon Dioxide 18 L (22-29) mmol/L Anion Gap 16 (12-20) BUN 8 L (9-16) mg/dL Creatinine 0.67 (0.5-1.4) mg/dL Estim Creat Clear Calc 110.2 Estimated GFR > 60 Random Glucose 438 H* (60-115) mg/dL Lactic Acid 1.0 (0.5-2.0) mmol/L Calcium 9.6 (8.4-10.2) mg/dL Total Bilirubin 0.2 (0.0-1.0) mg/dL AST 12 (5-31) U/L ALT < 6 (0-31) U/L Alkaline Phosphatase 114 (39-117) U/L C-Reactive Protein 15.28 H (< or = 0.50) mg/dL Total Protein 8.7 H (6.5-8.0) g/dL Albumin 3.7 (3.5-5.0) g/dL Independent Interpretation I performed an independent interpretation of an: Plain X-Ray and CT Scan Radiology Impression Discussion of test interpretation with radiology: I have reviewed the radiologist's reading. Discharge Plan Discharge Clinical Impression: Abscess of forearm, left, Cellulitis, Active intravenous drug use, Uncontrolled type 2 diabetes mellitus with hyperglycemia Patient Disposition: Admitted As Inpatient
[2024-10-11 16:47] LABS: Alanine Aminotransferase < 6 U/L (0-31); Albumin Level 3.7 g/dL (3.5-5.0); Anion Gap 16 (12-20); Aspartate Amino Transferase 12 U/L (5-31); Bilirubin Total 0.2 mg/dL (0.0-1.0); Blood Urea Nitrogen 8 mg/dL (9-16); C Reactive Protein 15.28 mg/dL (< or = 0.50); Calcium 9.6 mg/dL (8.4-10.2); Carbon Dioxide 18 mmol/L (22-29); Chloride 101 mmol/L (96-108); Creatinine Clr Calc Pharmacy 110.2; Estimated Glomerular Filt Rate > 60; Glucose Random 438 mg/dL (60-115); Potassium 4.3 mmol/L (3.3-5.1); Sodium 131 mmol/L (135-145); Total Protein 8.7 g/dL (6.5-8.0)
[2024-10-11 17:26] LABS: Alkaline Phosphatase 114 U/L (39-117)
[2024-10-11 21:20] VITALS: BP 109/67; PULSE 95; RESP 14; TEMP 36.9; O2SAT 94
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
--- OUTSIDE RECORDS SUMMARY | 2024-10-11 21:28 | XMS_ITS | Data Portability ---
Author Organization [facility], [place] in - [place] Address [address] [place] [address] Care Team Providers Care Spindle Setter Name Role Phone HIM CCA OTHER Assessment Encounter Date Assessment Date Assessment LastModified by Organization Details LastModified Time 10/06/2024 10/06/2024 Evaluation in the field was performed by my all source collection manager colleague, as noted above, I provided real-time [...] DS 800 mg-160 mg tablet 2024 025 [id number], [address] [place] [address], [id number], 17:36:44 Diflucan 150 mg tablet 2024 025 [id number], [address] [place] [address], [id number], 5 17:40:40 miconazole nitrate 2 % vaginal cream 2024 025 [id number], [address] [place] [address], [id number], 5 17:40:40 Patient TargetsNo targets recorded. Patient InstructionsNo instructions recorded. Reason for Referral None Reported. Medical Equipment None Reported. Allergies Allergen ID Allergen Name Allergen Category Reaction Reaction Severity Criticality Documentation Date Start Date Code Code System Note Provider Name and Address Organization Details Recorded Time 24202 Depakote medicatio n Not available Not available Not available 10/06/2024 23972 9 RxNorm Shakira Lynch MD [address] [facility],[address], [place], [address] , [facility] - [employer] 17:33:36 Medications Name Sig Start Date Stop [...] /min 98 % 98 % 16 /min 04443.8 56 g 106 mm[Hg] 68 mm[Hg] Not [...] SNOMED-CT Code Diagnosis ICD10 Code Diagnosis Note 16326 Shakira Lynch MD Main - [facility] [address] [place] [phone] 10/06/2024 17:26:53 10/06/2024 23:04:17 Cellulitis and abscess of breast 208851599 N61.1 fall W19.XXXA Low back pain 427894062 M54.50 Cellulitis of left upper limb [id number] L03.114 Health Concerns Section Related Observation LastModified by Organization Detai ls LastModified Time None Recorded Concern Status LastModified by Organization Details LastModified Time None Recorded Advance Directives Directive None Recorded Payers Encounter Date Sequence Insurance Name Policy Number Policy Dixon Covered Member ID Dixon Member ID Guarantor Name 10/06/2024 1 [facility] - DOS ON OR AFTER 2022 - DUAL ELIGIBLE - ASSISTED OPTIONS AND ONE CARE (MEDICARE REPLACEMENT/ADV ANTAGE - HMO) November Devan [id number] November Devan Notes Date Note Type Note Provider Name and Address Organization Details Recorded Time 10/06/2024 text/html HPI: I fell and hit my head in the door of my daughter bedroom. I have a laceration and went to [facility] and they didn? t do anything.? ? ? .................. .................. .................. .................. .................. .................. .................. ............... [facility] Nurse Triage Notes (Sowmya Michaels - RN): Reason For Request: Back pain, Fall Chief Complaints: Back pain PMH: Diabetes Mellitus Type 1 PMH Reviewed at 10/06/2024 14:10 Allergies Reviewed at 10/06/2024 - 14:10 Comments: 44 year old female who Fell and hit her head on the door with dizziness/lighthea dedness c/o back pain-unable to move/unbearable pain. Using Tylenol laceration to forehead but no treatment for this Went to [facility] and they did nothing . Phone hung up then called back member but member not giving me accurate history and seems not interested with speaking w/ this data analyst report writer. She was talking to people in the background and seems distracted with that, attempted to get medical hx/allergies but member not cooperative. Educated about response time and referral process. Leda LLOYD Cloth Shrinking Tester Organization Information for [facility] Business Legal Name: [employer].? Address: [address] [place] [address], [place] [address], Agronomy Manager: Oleg HAWLEY No.: [id number] Cloth Shrinking Tester POC Test Results from [facility] Blood Glucose Measurement (17:25:14) Blood Glucose: 445 mg/dL .................. .................. .................. .................. .................. .................. .................. ............... Cloth Shrinking Tester Note From [facility]: Dispatched to the above address for a 44 y/f with a cc of back pain. Proper ppe was worn throughout the call. Upon arrival: Pt AOx4 walking in the kitchen room. Pt greeted [employer] care crew, and gave a verbal report. Pt [...] the head strike, so she went to [facility]. Pt added that she might of hurt her lower back due to the fall. Pt stated that she was at [facility] for over 8 hours, and after waiting [...] forearm: warm to the touch/redness/ good cms [facility]: notified the pt that [...] .................. .................. .................. .................. .................. .................. ............... [facility] Consulted: Shakira Lynch .................. .................. .................. .................. .................. .................. .................. ............... Disposition: Fulfilled Shakira Lynch MD [address] [facility],[address], [place], [address], [facility] 10/06/2024 19:24:07 OBGyn Episode No OBEpisode recorded.
--- OUTSIDE RECORDS SUMMARY | 2024-10-11 21:28 | XMS_ITS | Clinical Summary ---
Author Organization [facility] ity Address [address] [place] [address] Care Team Providers Care Engraver Pantograph Name Role Phone Shaq Quinones MD Primary Care Provider [phone] Social History Tobacco Use Types Packs/Day Years Used Date Smoking Tobacco: Never Assessed Comments Unknown Sex and Gender Information Value Date Recorded Sex Assigned at Not on file Legal Sex Female 9:28 PM EST Gender Identity Not on file Sexual Orientation Not on file Plan of Treatment Health Maintenance Due Date Last Done Comments Breast Cancer Screening 1981 DTaP,Tdap,and Td Vaccines (1 - Tdap) 2000 Hepatitis B Vaccines (1 of 3 - 19+ 3-dose series) 2000 Cervical Cancer Screening: P ap Smear 2002 Cholesterol Screening (Lipid Panel) 08/02/2022 Depression Screening 08/02/2022 HIV Screening 08/02/2022 Hepatitis C Screening 08/02/2022 Social Influencers of Health Screening 08/02/2022 COVID-19 Vaccine (2023-2 5 season) 2024 Influenza Vaccine (#1) 2024 HIB Vaccines Aged Out No longer eligi ble based on patient's age to complete this topic HPV Vaccines Aged Out No longer eligi ble based on patient's age to complete this topic Hepatitis A Vaccines Aged Out No long er eligible based on patient's age to complete this topic IPV Vaccines Aged Out No longer eligi ble based on patient's age to complete this topic MMR Vaccines Aged Out No longer eligi ble based on patient's age to complete this topic Meningococcal ACWY Vaccine Aged Out N o longer eligible based on patient's age to complete this topic Pneumococcal Vaccine: Pediat rics (0 to 5 Years) and At-Risk Patients (6 to 64 Years) Aged Out No longer eligible b ased on patient's age to complete this topic RSV Immunization Patients Un guerline 20 months Aged Out No longer eligible b ased on patient's age to complete this topic Varicella Vaccines Aged Out No longer eligible based on patient's age to complete this topic Care Teams Engraver Pantograph Relationship Specialty Start Date End Date Shaq Quinones MD [address] [place] [address] Dr [address] [place] PCP - General 04/13/08
--- NOTE | 2024-10-11 21:46 | MHC.EDTECH ---
Patient brought from the waiting room,patient changed into hospital attire,vitals taken,blood cultures and labs delayed due to pt being a difficult stick, T/W was able to obtain labs and blood cultures sent to lab,call maza in reach
[2024-10-11 21:55] LABS: Basophils Absolute Auto 0.1 X10*3/uL (0.0-0.2); Basophils Percent Auto 0.6 % (0-2); Eosinophils Absolute Auto 0.2 X10*3/uL (0.0-0.4); Eosinophils Percent Auto 1.8 % (0-4); Hematocrit 38.3 % (37.0-47.0); Hemoglobin 12.5 g/dl (12.0-16.0); Imm Gran Abs Auto 0.31 X10*3/uL (0.00-0.03); Imm Gran Pct Auto 2.3 % (0.0-0.4); Lymphocytes Absolute Auto 2.5 X10*3/uL (1.2-4.9); Lymphocytes Percent Auto 18.9 % (20-40); Mean Corpuscular HGB Conc 32.6 g/dl (31.0-35.0); Mean Corpuscular Hemoglobin 24.9 pg (27.0-33.0); Mean Corpuscular Volume 76.1 fL (80.0-98.0); Mean Platelet Volume 10.7 fL (9.4-12.3); Monocytes Absolute Auto 0.9 X10*3/uL (0.1-1.2); Monocytes Percent Auto 6.6 % (2-11); Neutrophils Absolute Auto 9.4 x10*3/uL (2.0-8.3); Neutrophils Percent Auto 69.8 % (45-73); Platelet Count 415 X10*3/uL (160-400); Red Blood Count 5.03 X10*6/uL (4.20-5.50); Red Cell Distribution Width 14.1 % (11.0-16.0); White Blood Count 13.4 X10*3/uL (4.8-10.8)
[2024-10-11 22:01] LABS: Prothrombin Time 11.3 SEC (10.9-12.4)
[2024-10-11 22:02] LABS: MANUAL DIFF FLAG NO
[2024-10-11 22:32] LABS: Erythrocyte Sedimentation Rate 87 MM/HR (0-20)
[2024-10-11] MEDS: Insulin Regular, Human 100 UNIT/ML 10 ML VIAL 10 UNIT IVPUSH (23:07)
[2024-10-11] MEDS: Piperacillin Sodium/Tazobactam 4.5 GM in 0.9 % Sodium Chloride 100 ML IV (23:11)
--- NOTE | 2024-10-11 23:14 | P.HPHOSP_ITS ---
History of Present Illness Date of Service: 10/11/24 Chief Complaint: Skin infection This is a 44-year-old female with pertinent history of insulin-dependent diabetes mellitus (noncompliant with insulin), IV drug use disorder, peripheral neuropathy, mood disorder, asthma not on home oxygen who presents to the emergency department for evaluation of left forearm infection. Patient does have a history of multiple subcutaneous abscesses. She states she noticed left forearm swelling 2 days prior to presentation. It has been progressive and associated with erythema, warmth and pain. Is able to move her fingers. Does endorse injecting cocaine in her left forearm and right breast. States she had a swelling in her right breast which she tried to aspirate herself at home. She is noncompliant with home insulin home prescription medications. No fever, chills, chest pain, palpitations, shortness of breath, abdominal pain, changes in urinary or bowel habits. In the emergency department, patient with leukocytosis 13.4. I and D performed by ER physician over left forearm. Breast ultrasound with right breast phlegmon. Patient was given IV crystalloids and initiated on broad-spectrum empiric antibiotics. Review of Systems 2 Constitutional: Constitutional: Reports fatigue and Reports malaise Cardiovascular: Cardiovascular: Reports no additional cardiovascular complaints Respiratory: Respiratory: Reports no additional respiratory complaints Gastrointestinal: Gastrointestinal: Reports no additional gastrointestinal complaints Endocrine: Endocrine: Reports fatigue PMFSH Medical History Asthma Hyperlipidemia Type 2 diabetes mellitus Pertinent family history: No family history of early CAD Social History Household Members: Significant Other and Friend(s) Housing: Apartment Do you presently have visiting nurse or other home services: No Patient Tobacco Use Status: Former Tobacco user e-Cigarette/Vaping Use: Currently Using Substance Use Type: Crack/Cocaine and Marijuana Advance Directives: No Advance Directives Information Provided: No Do you have a plan to hurt others: No Plan service: No Sexual orientation: Straight/Heterosexual Meds Allergies Allergy/AdvReac Type Severity Reaction Status Date / Time divalproex sodium Allergy Severe ANAPHYLAXIS Verified 10/11/24 15:59 [From Depakote] hydrocodone [HYDROCODONE] Allergy Severe HIVES Verified 10/11/24 15:59 tramadol Allergy Unknown rash Verified 10/11/24 15:59 acetaminophen [From Vicodin] Allergy Anaphylaxis Verified 10/11/24 15:59 From Ultram Allergy Intermediate ITCHING Uncoded 03/11/24 12:59 PEANUT BUTTER Allergy Unknown ANAPHYLAXIS Uncoded 03/11/24 12:59 Active Medications: Current Medications Dextrose (Dextrose 50 % 25 Gm/50 Ml Syringe) 25 gm IVPUSH Q15M PRN; Protocol PRN Reason: per Hypoglycemia Standing Ord. Glucose (Glucose Gel 15 Gm Gel..Gram.) 15 gm PO Q15M PRN; Protocol PRN Reason: per Hypoglycemia Standing Ord. Lactated Ringer's (Lr) 1,000 mls @ 999 mls/hr IV .Q1H1M LUIS ENRIQUE Stop: 10/12/24 00:00 Piperacillin Sod/Tazobactam (Sod 4.5 gm/ Sodium Chloride) 100 mls @ 200 mls/hr IV Q6H [facility] Last Admin: 10/11/24 23:11 Dose: 200 mls/hr Vancomycin HCl (Vancomycin/Ns) 2,000 mg in 500 mls @ 250 mls/hr IV ONCE ONE Stop: 10/12/24 00:59 Insulin Glargine (Insulin Glargine,Hum.Rec.Anlog 100 Unit/Ml 10 Ml Vial) 20 unit SUBCUT BEDTIME [facility] Insulin Human Lispro (Insulin Lispro 100 Unit/Ml 3 Ml Vial) 0 unit SUBCUT QIDACHS [facility]; Protocol Pharmacy Consult (Consult Rx Vancomycin Dosing) 1 each MISCELLANE DAILY PRN PRN Reason: Consult order Home Medications ?Medication ?Instructions ?Recorded ?Confirmed ?Last Taken ?Type albuterol sulfate 90 mcg/actuation 2 puff inhalation Q4-6H PRN 02/22/24 03/11/24 02/21/24 12:00 History aerosol inhaler Wheezing fluticasone furoate 100 1 ea inhalation DAILY 02/22/24 03/11/24 02/21/24 12:00 History mcg-vilanterol 25 mcg/dose inhalation powder (Breo Ellipta) tizanidine 4 mg tablet 4 mg PO TID PRN Back Pain 02/22/24 03/11/24 02/21/24 12:00 History fluticasone furoate 100 1 ea inhalation DAILY 03/11/24 03/11/24 Unknown History mcg-vilanterol 25 mcg/dose inhalation powder (Breo Ellipta) insulin glargine 100 unit/mL (3 40 unit subcut DAILY 03/11/24 03/11/24 Unknown History mL) subcutaneous pen (Lantus Solostar U-100 Insulin) ofloxacin 0.3 % ear drops 6 drp otic (ears) DAILY 03/11/24 03/12/24 03/11/24 History Physical Exam 2 Vital Signs and Narrative: Vital Signs: Last Vital Signs Temp 98.4 F 10/11/24 21:20 Pulse 95 10/11/24 21:20 Resp 14 10/11/24 21:20 BP 109/67 10/11/24 21:20 Pulse Ox 94 10/11/24 21:20 O2 Del Method Room Air 10/11/24 21:20 BMI result Body Mass Index 32.2 Middle-aged female lying in bed in no distress Neck supple, no JVD Right breast area of swelling, erythema warmth with open wound Regular rate and rhythm, S1-S2 heard Regular breath sounds bilaterally, no wheezing or crackles appreciated Abdomen soft nontender, no guarding, no rigidity Patient is awake, alert and oriented to self, place, time and person ; no focal motor deficit Psych: Normal mood Left forearm swelling with erythema, fluctuance, warmth and tenderness ; track upton seen Skin: Other: Results Labs 10/11/24 21:41 10/11/24 16:19 Labs: Laboratory Results - last 24 hr 10/11/24 10/11/24 10/11/24 16:19 21:40 21:41 MCV 76.1 L MCH 24.9 L MCHC 32.6 RDW 14.1 Plt Count 415 H MPV 10.7 Immature Gran % (Auto) 2.3 H Neut % (Auto) 69.8 Lymph % (Auto) 18.9 L Jessamine % (Auto) 6.6 Eos % (Auto) 1.8 Baso % (Auto) 0.6 Lymph # (Auto) 2.5 Jessamine # (Auto) 0.9 Eos # (Auto) 0.2 Baso # (Auto) 0.1 Abs Immat Gran (auto) 0.31 H Absolute Neuts (auto) 9.4 H Absolute Nucleated RBC 0.000 Nucleated RBC % (auto) 0.0 ESR 87 H PT 11.3 INR 1.0 APTT 33.0 Anion Gap 16 Estim Creat Clear Calc 110.2 Estimated GFR > 60 Random Glucose 438 H* Lactic Acid 1.0 Calcium 9.6 Total Bilirubin 0.2 AST 12 ALT < 6 Alkaline Phosphatase 114 C-Reactive Protein 15.28 H Total Protein 8.7 H Albumin 3.7 Assessment and Plan (1) Abscess of forearm, left: Status: Acute Plan This is a 44-year-old female with pertinent history of insulin-dependent diabetes mellitus (noncompliant with insulin), IV drug use disorder, peripheral neuropathy, mood disorder, asthma not on home oxygen who presents to the emergency department for evaluation of left forearm infection. #. Sepsis due to left forearm abscess in a patient with IVDU: Will admit patient with IV vancomycin and Zosyn. I and D performed in the ER. Consulted General surgery. Resuscitated with IV crystalloids. Lactic acid and blood culture obtained #. Right breast phlegmon: Abscess drained by patient at home. Appreciate General surgery. #. Uncontrolled insulin-dependent diabetes mellitus due to noncompliance: Initiating basal plus insulin regimen #. Cocaine use disorder: Consulted Addiction Team. Monitor for withdrawal #. Asthma: No exacerbation during admission. Continue home inhalers #. Mood disorder: Currently not taking any mood stabilizers at home DVT prophylaxis: Lovenox Full code Med rec pending Admit as inpatient and will require two night minimum hospital stay for IV antibiotics (as above), which is not possible in a lesser acute setting. General surgery consult pending Quality Stroke Does the patient have a stroke diagnosis?: No VTE Prior VTE?: No VTE Risk Level:: Medical - moderate - high VTE Device Contraindication: Treatment Not Indicated VTE Drug Contraindication: N/A - Med Ordered
[2024-10-11] MEDS: Morphine Sulfate 4 MG/ML CARTRIDGE IVPUSH (23:31)
[2024-10-11] MEDS: oxyCODONE HCl Immed Release 5 MG TABLET PO (23:31)
[2024-10-11] MEDS: ondansetron HCL 4 MG/2 ML VIAL IVPUSH (23:31)
[2024-10-11] MEDS: Insulin Glargine,Hum.rec.anlog 100 UNIT/ML 10 ML VIAL 20 UNIT SUBCUT (23:32)
[2024-10-11] MEDS: vancomycin/NS 2,000 MG/500 ML PLAST..BAG 250 MG IV (23:43)
[2024-10-11] MEDS: Lactated Ringers 1,000 ML 999 ML IV (23:43)
--- NOTE | 2024-10-11 23:47 | MHC.EDTECH ---
This tech went into room with Sarina RN, patient allowed T/W to go thru belongings to obtain a belongings list,patient did have a used syringe,discarded in sharps container,T/W offered patient a harm reduction kit,patient stated I'm done using I don't want it patient was given two sandwiches and two cans of diet gingerale
[2024-10-11 23:57] VITALS: BP 116/65; PULSE 95; RESP 14; TEMP 37.3; O2SAT 95
--- NOTE | 2024-10-12 01:16 | PC.NURSE ---
late entry - US guided iv line placed #18g in R upper arm by MD Duffy. pt medicated per oct. Ambulatory to and from bathroom with steady gait. pt given multiple sugar free leslie ales and a sandwich. Call maza within reach. plan of care ongoing.
[2024-10-12 01:27] LABS: Appearance Urine Clear; Color Urine Yellow; Glucose Urine UA >=1000 mg/dL (Negative); Glucose, Whole Blood 380 mg/dL (60-115); Leukocyte Esterase Urine Negative (Negative); Nitrite Urine Negative (Negative); PH 6.5 (5.0-9.0); Specific Gravity - Urine >= 1.030 (1.005-1.025); UMIC TRIGGER UACC YES; Urine Blood Negative (Negative); Urine Ketones Trace mg/dL (Negative); Urine Protein Negative (Neg-Trace)
[2024-10-12 01:36] LABS: Bacteria Urine None Seen (None Seen); Hyaline Casts Urine 0-2 /LPF (0-2); RBC Urine 0-2 /HPF (0-2); Squamous Epithelial Cell Urine 0-2 /HPF (0-2); WBC Urine 0-5 /HPF (0-5)
[2024-10-12] MEDS: Lactated Ringers 1,000 ML 999 ML IV (01:41)
[2024-10-12] MEDS: oxyCODONE HCl Immed Release 5 MG TABLET PO ×4 (03:29→21:16)
[2024-10-12 04:00] VITALS: BP 105/51; PULSE 89; RESP 16; TEMP 36.2; O2SAT 96
[2024-10-12 06:02] VITALS: BP 117/72; PULSE 91; RESP 16; TEMP 36.4; O2SAT 98
[2024-10-12 06:13] LABS: MANUAL DIFF FLAG NO
[2024-10-12 06:14] LABS: Basophils Absolute Auto 0.1 X10*3/uL (0.0-0.2); Basophils Percent Auto 0.6 % (0-2); Eosinophils Absolute Auto 0.3 X10*3/uL (0.0-0.4); Eosinophils Percent Auto 1.9 % (0-4); Imm Gran Abs Auto 0.31 X10*3/uL (0.00-0.03); Imm Gran Pct Auto 2.3 % (0.0-0.4); Lymphocytes Absolute Auto 3.1 X10*3/uL (1.2-4.9); Lymphocytes Percent Auto 22.9 % (20-40); Mean Corpuscular HGB Conc 32.4 g/dl (31.0-35.0); Mean Corpuscular Hemoglobin 25.1 pg (27.0-33.0); Mean Corpuscular Volume 77.4 fL (80.0-98.0); Mean Platelet Volume 10.6 fL (9.4-12.3); Monocytes Absolute Auto 0.9 X10*3/uL (0.1-1.2); Monocytes Percent Auto 6.8 % (2-11); Neutrophils Absolute Auto 8.8 x10*3/uL (2.0-8.3); Neutrophils Percent Auto 65.5 % (45-73); Platelet Count 389 X10*3/uL (160-400); Red Blood Count 4.39 X10*6/uL (4.20-5.50); Red Cell Distribution Width 14.1 % (11.0-16.0); White Blood Count 13.5 X10*3/uL (4.8-10.8)
[2024-10-12] MEDS: Piperacillin Sodium/Tazobactam 4.5 GM in 0.9 % Sodium Chloride 100 ML IV ×4 (06:15→22:24)
[2024-10-12 06:41] LABS: Anion Gap 12 (12-20); Blood Urea Nitrogen 9 mg/dL (9-16); Calcium 8.6 mg/dL (8.4-10.2); Carbon Dioxide 22 mmol/L (22-29); Chloride 99 mmol/L (96-108); Creatinine Clr Calc Pharmacy 117.1; Estimated Glomerular Filt Rate > 60; Glucose Random 431 mg/dL (60-115); Potassium 4.3 mmol/L (3.3-5.1); Sodium 129 mmol/L (135-145)
--- NOTE | 2024-10-12 06:42 | PC.NURSE ---
pt resting comfortably on stretcher, no apparent distress noted. critical glucose received from lab ,MD Tavo bullard. pt ate toast and stephanie crackers and had sugar free leslie ales.
[2024-10-12] MEDS: Insulin Regular, Human 100 UNIT/ML 10 ML VIAL 10 UNIT IVPUSH (06:56)
[2024-10-12 07:06] LABS: Glucose, Whole Blood 383 mg/dL (60-115)
--- NOTE | 2024-10-12 07:09 | MHC.EDTECH ---
this tech assumed care of pt at 0700, POC taken (result: 383), breakfast tray given, pt eating and comfortable at this time
[2024-10-12 07:14] VITALS: BP 122/83; PULSE 92; RESP 18; TEMP 36.6; O2SAT 98
[2024-10-12] MEDS: Insulin Lispro 100 UNIT/ML 3 ML VIAL SUBCUT ×6 (08:40→22:21)
[2024-10-12] MEDS: 0.9 % Sodium Chloride Flush 3 ML SYRINGE IVFLUSH ×3 (08:41→22:24)
[2024-10-12] MEDS: Insulin Glargine,Hum.rec.anlog 100 UNIT/ML 10 ML VIAL 10 UNIT SUBCUT (08:44)
[2024-10-12 09:07] LABS: Amphetamine Screen Urine Not Detected (Not Detect); Barbiturates, Urine Not Detected (Not Detect); Benzodiazepines Screen Urine Not Detected (Not Detect); Buprenorphine Scr Not Detected (Not Detect); Cannabinoid Screen Urine POSITIVE (Not Detect); Cocaine Screen Urine POSITIVE (Not Detect); Fentanyl, urine Not Detected (Not Detect); Methadone Screen, Urine Not Detected (Not Detect); Opiate Screen Urine POSITIVE (Not Detect); Oxycodone Screen Urine Not Detected (Not Detect); Phencyclidine Screen Urine Not Detected (Not Detect)
--- NOTE | 2024-10-12 09:22 | PHA.MEDREC ---
Addendum entered by Elias Lee RPh 10/12/24 10:52: Reviewed by [facility]. Pt is on the end of Bactrim regimen. Original Note: Pharmacy Consult ? Medication Reconciliation Pharmacy has completed the medication reconciliation. Spoke to patient to confirm med list. Patient states she no longer takes Aripiprazole 10 mg ( now on 15 mg), Atorvastatin 40 mg, Hydroxyzine Hcl 25 mg, Lidocaine patch, Perphenazine 4 mg, Risperidone 2 mg, Propanolol 20 mg and Risperidone 2 mg. Patient confirmed Lantus Solostar 40 units daily, Humalog KwikPen QID per sliding scale , Trulicity 1.5 mg every Sundays , last dose 10/09/24.
--- NOTE | 2024-10-12 09:53 | MHC.CM.PN ---
IMM 10/12/24, Pt lives with family, she has [employer] services 35 hrs a week. She uses a cane and a walker. PCP is confirmed: Brent Vides. DCP: home, resume services. Pt said she can arrange transport home at DC. CM to follow for DC needs.
[2024-10-12 09:57] LABS: Glucose, Whole Blood 379 mg/dL (60-115)
--- NOTE | 2024-10-12 10:42 | P.CONGS_ITS ---
History of Present Illness Consult details Consult date: 10/12/24 Narrative: 44-year-old female admitted because of multiple abscesses. She is a known IV drug user. She says that she has been using various areas of her arms and even her breasts for access. She therefore developed areas of swelling, pain and redness on on the left forearm as well as the right breast. She says that this started over week ago She came to the ER yesterday. She says that an I&D was done in the ED last night for 1 of the abscess in the left forearm and she says that this was not successful. She wants other abscesses drained She denies any fever or chills. Review of Systems 2 Constitutional: Constitutional: Denies chills and Denies fever(s) Cardiovascular: Cardiovascular: Denies chest pain, Denies dyspnea and Denies dyspnea on exertion Respiratory: Respiratory: Denies cough, Denies dyspnea and Denies dyspnea on exertion Gastrointestinal: Gastrointestinal: Denies hematochezia and Denies change in bowel habits Genitourinary: Genitourinary: Denies hematuria Musculoskeletal: Musculoskeletal: Denies back pain and Denies limited range of motion Neurologic: Denies focal weakness and Denies convulsions Psychiatric: Psychiatric: Denies depression and Denies mood swings PMFSH Past Medical History Medical History Asthma Hyperlipidemia Type 2 diabetes mellitus Surgical History Surgical History Hx of section Social History Social History Household Members: Family Housing: Apartment Are you a primary senior resident care director to a significant other at home: No Do you presently have visiting nurse or other home services: No Unable to assess alcohol history related to: Unknown Patient Tobacco Use Status: Former Tobacco user Smoked in Last 30 Days: No e-Cigarette/Vaping Use: Currently Using Substance Use Type: Crack/Cocaine and Marijuana Advance Directives: No Advance Directives Information Provided: Yes Do you have a plan to hurt others: No Plan service: No Sexual orientation: Straight/Heterosexual Meds Allergies Allergy/AdvReac Type Severity Reaction Status Date / Time divalproex sodium Allergy Severe ANAPHYLAXIS Verified 10/16/24 19:26 [From Depakote] hydrocodone [HYDROCODONE] Allergy Severe HIVES Verified 10/16/24 19:26 tramadol Allergy Unknown rash Verified 10/16/24 19:26 acetaminophen [From Vicodin] Allergy Anaphylaxis Verified 10/16/24 19:26 From Ultram Allergy Intermediate ITCHING Uncoded 10/16/24 19:26 PEANUT BUTTER Allergy Unknown ANAPHYLAXIS Uncoded 10/16/24 19:26 Active Medications: Current Medications Acetaminophen (Acetaminophen 325 Mg Tablet) 650 mg PO Q6H PRN PRN Reason: Pain, Mild 1-3,fever,headache Calcium Carbonate (Calcium Carbonate 750 Mg Tab.Chew) 750 mg PO Q4H PRN PRN Reason: Heartburn Dextrose (Dextrose 50 % 25 Gm/50 Ml Syringe) 25 gm IVPUSH Q15M PRN; Protocol PRN Reason: per Hypoglycemia Standing Ord. Enoxaparin Sodium (Enoxaparin Sodium 40 Mg/0.4 Ml Syringe) 40 mg SUBCUT Q24H LUIS ENRIQUE Glucose (Glucose Gel 15 Gm Gel..Gram.) 15 gm PO Q15M PRN; Protocol PRN Reason: per Hypoglycemia Standing Ord. Piperacillin Sod/Tazobactam (Sod 4.5 gm/ Sodium Chloride) 100 mls @ 200 mls/hr IV Q6H [facility] Last Infusion: 10/12/24 06:46 Dose: Infused Insulin Glargine (Insulin Glargine,Hum.Rec.Anlog 100 Unit/Ml 10 Ml Vial) 20 unit SUBCUT BEDTIME [facility] Last Admin: 10/11/24 23:32 Dose: 20 unit Insulin Glargine (Insulin Glargine,Hum.Rec.Anlog 100 Unit/Ml 10 Ml Vial) 10 unit SUBCUT DAILY [facility] Last Admin: 10/12/24 08:44 Dose: 10 unit Insulin Human Lispro (Insulin Lispro 100 Unit/Ml 3 Ml Vial) 0 unit SUBCUT QIDACHS [facility]; Protocol Last Admin: 10/12/24 08:40 Dose: 10 unit Magnesium Hydroxide (Milk Of Magnesia 30 Ml Oral.Susp) 30 ml PO DAILY PRN PRN Reason: Constipation Melatonin (Melatonin 3 Mg Tablet) 6 mg PO BEDTIME PRN PRN Reason: Insomnia Ondansetron HCl (Ondansetron Hcl 4 Mg/2 Ml Vial) 4 mg IVPUSH Q8H PRN PRN Reason: Nausea and Vomiting Oxycodone HCl (Oxycodone Hcl Immed Release 5 Mg Tablet) 5 mg PO Q4H PRN PRN Reason: Pain, Severe (Pain Scale 7-10) Last Admin: 10/12/24 08:44 Dose: 5 mg Pharmacy Consult (Consult Rx Vancomycin Dosing) 1 each MISCELLANE DAILY PRN PRN Reason: Consult order Sodium Chloride (0.9 % Sodium Chloride Flush 3 Ml Syringe) 3 ml IVFLUSH [place] Last Admin: 10/12/24 08:41 Dose: 3 ml Home Medications ?Medication ?Instructions ?Recorded ?Confirmed ?Last Taken ?Type albuterol sulfate 90 mcg/actuation 2 puff inhalation Q4-6H PRN 02/22/24 10/12/24 02/21/24 12:00 History aerosol inhaler Wheezing tizanidine 4 mg tablet 4 mg PO TID PRN Back Pain 02/22/24 10/12/24 02/21/24 12:00 History fluticasone furoate 100 1 ea inhalation DAILY 03/11/24 10/12/24 10/11/24 History mcg-vilanterol 25 mcg/dose inhalation powder (Breo Ellipta) insulin glargine 100 unit/mL (3 40 unit subcut DAILY 03/11/24 10/12/24 10/11/24 History mL) subcutaneous pen (Lantus Solostar U-100 Insulin) aripiprazole 15 mg tablet 15 mg PO DAILY 10/12/24 10/12/24 10/11/24 History clonazepam 0.5 mg tablet 0.5 mg PO BID PRN anxiety 10/12/24 10/12/24 Unknown History dulaglutide 1.5 mg/0.5 mL 1.5 mg subcut MODI 10/12/24 10/12/24 10/02/24 History subcutaneous pen injector (Trulicity) guanfacine 2 mg tablet,extended 2 mg PO DAILY anxiety 10/12/24 10/12/24 10/11/24 History release 24 hr miconazole nitrate 2 % vaginal 1 appful vaginal DAILY 10/12/24 10/12/24 10/11/24 History cream (Miconazole-7) perphenazine 4 mg tablet 4 mg PO TID 10/12/24 10/12/24 10/11/24 History Physical Exam 2 Vital Signs: Vital Signs: Last Vital Signs Temp 97.8 F 10/12/24 07:14 Pulse 92 10/12/24 07:14 Resp 18 10/12/24 07:14 BP 122/83 10/12/24 07:14 Pulse Ox 98 10/12/24 07:14 O2 Del Method Room Air 10/12/24 07:14 BMI result Body Mass Index 32.2 Const: General: comfortable and no acute distress O rientation/consciousness: patient oriented x3 Neck: Neck: Yes no lymphadenopathy Chest: Other: On the right breast is note of an area of redness with a superficial eschar, about 2 x 3 cm in diameter Resp: Auscultation: clear to auscultation bilaterally Cardio: Rhythm: regular rhythm GI: Palpation (GI): Soft to palpation, nontender and no guarding Neuro: General: patient oriented x3 Extrem: Other: Left forearm with multiple areas of induration, fluctuance and redness consistent with skin abscesses; areas 1 I&D site on the distal forearm but there was note of significant residual induration as well. Results Labs 10/14/24 07:41 10/14/24 07:41 Labs: Abnormal lab results 10/11/24 10/11/24 10/12/24 Range/Units 16:19 21:41 01:22 WBC 13.4 H (4.8-10.8) X10*3/uL Hgb (12.0-16.0) g/dl Hct (37.0-47.0) % MCV 76.1 L (80.0-98.0) fL MCH 24.9 L (27.0-33.0) pg Plt Count 415 H (160-400) X10*3/uL Immature Gran % (Auto) 2.3 H (0.0-0.4) % Lymph % (Auto) 18.9 L (20-40) % Abs Immat Gran (auto) 0.31 H (0.00-0.03) X10*3/uL Absolute Neuts (auto) 9.4 H (2.0-8.3) x10*3/uL ESR 87 H (0-20) MM/HR Sodium 131 L (135-145) mmol/L Carbon Dioxide 18 L (22-29) mmol/L BUN 8 L (9-16) mg/dL POC Glucose 380 H* (60-115) mg/dL Random Glucose 438 H* (60-115) mg/dL C-Reactive Protein 15.28 H (< or = 0.50) mg/dL Total Protein 8.7 H (6.5-8.0) g/dL Ur Specific [place] Level >= 1.030 H (1.005-1.025) Urine Glucose (UA) >=1000 H (Negative) mg/dL Urine Opiates Screen POSITIVE H (Not Detect) Urine Cocaine Screen POSITIVE H (Not Detect) U Marijuana (THC) Screen POSITIVE H (Not Detect) 10/12/24 10/12/24 10/12/24 Range/Units 06:04 07:03 09:53 WBC 13.5 H (4.8-10.8) X10*3/uL Hgb 11.0 L (12.0-16.0) g/dl Hct 34.0 L (37.0-47.0) % MCV 77.4 L (80.0-98.0) fL MCH 25.1 L (27.0-33.0) pg Plt Count (160-400) X10*3/uL Immature Gran % (Auto) 2.3 H (0.0-0.4) % Lymph % (Auto) (20-40) % Abs Immat Gran (auto) 0.31 H (0.00-0.03) X10*3/uL Absolute Neuts (auto) 8.8 H (2.0-8.3) x10*3/uL ESR (0-20) MM/HR Sodium 129 L (135-145) mmol/L Carbon Dioxide (22-29) mmol/L BUN (9-16) mg/dL POC Glucose 383 H* 379 H* (60-115) mg/dL Random Glucose 431 H* (60-115) mg/dL C-Reactive Protein (< or = 0.50) mg/dL Total Protein (6.5-8.0) g/dL Ur Specific [place] Level (1.005-1.025) Urine Glucose (UA) (Negative) mg/dL Urine Opiates Screen (Not Detect) Urine Cocaine Screen (Not Detect) U Marijuana (THC) Screen (Not Detect) Short CBC 10/11/24 10/12/24 Range/Units 21:41 06:04 WBC 13.4 H 13.5 H (4.8-10.8) X10*3/uL Hgb 12.5 11.0 L (12.0-16.0) g/dl Hct 38.3 34.0 L (37.0-47.0) % Plt Count 415 H 389 (160-400) X10*3/uL BMP 10/11/24 10/12/24 16:19 06:04 Sodium 131 L 129 L Potassium 4.3 4.3 Chloride 101 99 Carbon Dioxide 18 L 22 BUN 8 L 9 Creatinine 0.67 0.63 Calcium 9.6 8.6 D Liver Function 10/11/24 Range/Units 16:19 Total Bilirubin 0.2 (0.0-1.0) mg/dL AST 12 (5-31) U/L ALT < 6 (0-31) U/L Alkaline Phosphatase 114 (39-117) U/L Albumin 3.7 (3.5-5.0) g/dL Urine 10/12/24 Range/Units 01:22 Urine Color Yellow Urine Appearance Clear Urine pH 6.5 (5.0-9.0) Ur Specific [place] Level >= 1.030 H (1.005-1.025) Urine Protein Negative (Neg-Trace) mg/dL Urine Glucose (UA) >=1000 H (Negative) mg/dL All other labs normal. Assessment and Plan (1) Abscess of forearm, left: Status: Acute She has multiple abscesses on the left forearm as described above. An I&D was attempted last night under local anesthesia in the ER for 1 of the larger abscess but this was deemed unsuccessful as there was note of residual induration I had a long discussion with her about the technique of I and D and this may be best done under anesthesia in view of her significant tenderness and the number of abscesses. I explained the risks including but not limited to bleeding, infections and poor healing, as well as the benefits and alternatives. She understands what to expect postoperatively She has been eating all morning so we will schedule her for an I&D for tomorrow. I instructed her to stay NPO after midnight tonight. Procedures Date of Service Date of Service: 10/17/24
--- NOTE | 2024-10-12 10:47 | PHA.PROG ---
Admission Date/Time: October 11, 2024 23:13 Indication: SEPSIS Weight in k.554 kg Adjusted body weight in Kg: [place] body weight in Kg: Obesity Dosing Indication % IBW: Serum Creatinine - Last 168 Hours 10/11/24 10/12/24 16:19 06:04 Creatinine 0.67 0.63 Estimated CrCl and GFR - Last 168 Hours 10/11/24 10/12/24 16:19 06:04 Estim Creat Clear Calc 110.2 117.1 Estimated GFR > 60 > 60 Vancomycin Loading Dose: 2000 MG Current Vancomycin Dosing Regimen: 1500 MG Q12H Vancomycin Monitoring using AUC goal of 400 - 600 range with trough as surrogate marker: GNT=452 TROUGH=16.1 Date and Time for next Vancomycin Level to be drawn: 10/13/24 @1000 Pharmacist Comments on Vancomycin Plan: Vancomycin dosing will take advantage of [employer] as a clinical decision support tool that uses Bayesian modeling to calculate individual patient's pharmacokinetic parameters and forecast the patient's drug concentration time course with the target goal AUC 24 range of 400 - 600 mg/L/hr.
[2024-10-12 11:54] VITALS: BP 107/62; PULSE 98; RESP 18; TEMP 36.7; O2SAT 95
--- NOTE | 2024-10-12 12:18 | P.PNIM_ITS ---
Subjective Subjective Date of Service: 10/12/24 Interval History: arm pain, hungry Physical Exam 2 Vital Signs: Vital Signs: Last Vital Signs Temp 98.1 F 10/12/24 11:54 Pulse 98 10/12/24 11:54 Resp 18 10/12/24 11:54 BP 107/62 10/12/24 11:54 Pulse Ox 95 10/12/24 11:54 O2 Del Method Room Air 10/12/24 11:54 BMI result Body Mass Index 32.2 Const: General: comfortable and no acute distress O rientation/consciousness: patient oriented x3 Neck: Neck: Yes no lymphadenopathy Chest: Other: On the right breast is note of an area of redness with a superficial eschar, about 2 x 3 cm in diameter Resp: Auscultation: clear to auscultation bilaterally Cardio: Rhythm: regular rhythm GI: Palpation (GI): Soft to palpation, nontender and no guarding Neuro: General: patient oriented x3 Extrem: Other: Left forearm with multiple areas of induration, fluctuance and redness consistent with skin abscesses; areas 1 I&D site on the distal forearm but there was note of significant residual induration as well. Objective Data Active Medications Acetaminophen (Acetaminophen 325 Mg Tablet) 650 mg PO Q6H PRN PRN Reason: Pain, Mild 1-3,fever,headache Aripiprazole (Aripiprazole 15 Mg Tablet) 15 mg PO DAILY LUIS ENRIQUE Calcium Carbonate (Calcium Carbonate 750 Mg Tab.Chew) 750 mg PO Q4H PRN PRN Reason: Heartburn Clonazepam (Clonazepam 0.5 Mg Tablet) 0.5 mg PO BID PRN PRN Reason: anxiety Dextrose (Dextrose 50 % 25 Gm/50 Ml Syringe) 25 gm IVPUSH Q15M PRN; Protocol PRN Reason: per Hypoglycemia Standing Ord. Enoxaparin Sodium (Enoxaparin Sodium 40 Mg/0.4 Ml Syringe) 40 mg SUBCUT Q24H [facility] Fluticasone/Vilanterol (Fluticasone/Vilanterol 100/25 Blst.W.Dev) puff INHALE DAILY [facility] Gabapentin (Gabapentin 300 Mg Capsule) 300 mg PO TID [facility] Glucose (Glucose Gel 15 Gm Gel..Gram.) 15 gm PO Q15M PRN; Protocol PRN Reason: per Hypoglycemia Standing Ord. Guanfacine HCl (Guanfacine Hcl Er 2 Mg Tab.Er.24h) 2 mg PO DAILY [facility] Piperacillin Sod/Tazobactam (Sod 4.5 gm/ Sodium Chloride) 100 mls @ 200 mls/hr IV Q6H [facility] Last Admin: 10/12/24 11:09 Dose: 200 mls/hr Documented By: TRISTAN Vancomycin HCl 1,500 mg/ (Sodium Chloride) 500 mls @ 333.333 mls/hr IV Q12H [facility] Insulin Glargine (Insulin Glargine,Hum.Rec.Anlog 100 Unit/Ml 10 Ml Vial) 20 unit SUBCUT BEDTIME [facility] Last Admin: 10/11/24 23:32 Dose: 20 unit Documented By: MARY-ROWAN Insulin Glargine (Insulin Glargine,Hum.Rec.Anlog 100 Unit/Ml 10 Ml Vial) 10 unit SUBCUT DAILY [facility] Last Admin: 10/12/24 08:44 Dose: 10 unit Documented By: TRISTAN Insulin Human Lispro (Insulin Lispro 100 Unit/Ml 3 Ml Vial) 0 unit SUBCUT QIDACHS [facility]; Protocol Last Admin: 10/12/24 08:40 Dose: 10 unit Documented By: TRISTAN Insulin Human Lispro (Insulin Lispro 100 Unit/Ml 3 Ml Vial) 5 unit SUBCUT QIDACHS [facility] Magnesium Hydroxide (Milk Of Magnesia 30 Ml Oral.Susp) 30 ml PO DAILY PRN PRN Reason: Constipation Melatonin (Melatonin 3 Mg Tablet) 6 mg PO BEDTIME PRN PRN Reason: Insomnia Ondansetron HCl (Ondansetron Hcl 4 Mg/2 Ml Vial) 4 mg IVPUSH Q8H PRN PRN Reason: Nausea and Vomiting Oxycodone HCl (Oxycodone Hcl Immed Release 5 Mg Tablet) 5 mg PO Q4H PRN PRN Reason: Pain, Severe (Pain Scale 7-10) Last Admin: 10/12/24 08:44 Dose: 5 mg Documented By: TRISTAN Perphenazine (Perphenazine 4 Mg Tablet) 4 mg PO TID [facility] Pharmacy Consult (Consult Rx Vancomycin Dosing) 1 each MISCELLANE DAILY PRN PRN Reason: Consult order Sodium Chloride (0.9 % Sodium Chloride Flush 3 Ml Syringe) 3 ml IVFLUSH QSHIFT [facility] Last Admin: 10/12/24 08:41 Dose: 3 ml Documented By: TRISTAN Tizanidine HCl (Tizanidine Hcl 4 Mg Tablet) 4 mg PO TID PRN PRN Reason: Back Pain Labs 10/12/24 06:04 10/12/24 06:04 Labs: Laboratory Results - last 24 hr 10/11/24 10/11/24 10/11/24 16:19 21:40 21:41 MCV 76.1 L MCH 24.9 L MCHC 32.6 RDW 14.1 Plt Count 415 H MPV 10.7 Immature Gran % (Auto) 2.3 H Neut % (Auto) 69.8 Lymph % (Auto) 18.9 L [place] % (Auto) 6.6 Eos % (Auto) 1.8 Baso % (Auto) 0.6 Lymph # (Auto) 2.5 [place] # (Auto) 0.9 Eos # (Auto) 0.2 Baso # (Auto) 0.1 Abs Immat Gran (auto) 0.31 H Absolute Neuts (auto) 9.4 H Absolute Nucleated RBC 0.000 Nucleated RBC % (auto) 0.0 ESR 87 H PT 11.3 INR 1.0 APTT 33.0 Anion Gap 16 Estim Creat Clear Calc 110.2 Estimated GFR > 60 POC Glucose Random Glucose 438 H* Lactic Acid 1.0 Calcium 9.6 Total Bilirubin 0.2 AST 12 ALT < 6 Alkaline Phosphatase 114 C-Reactive Protein 15.28 H Total Protein 8.7 H Albumin 3.7 Urine Color Urine Appearance Urine pH Ur Specific [place] Urine Protein Urine Glucose (UA) Urine Ketones Urine Blood Urine Nitrite Ur Leukocyte Esterase Urine RBC Urine WBC Ur Squamous Epith Cells Urine Bacteria Hyaline Casts Urine Opiates Screen Ur Buprenorphine Scrn Ur Oxycodone Screen Urine Methadone Screen Urine Fentanyl Screen Ur Barbiturates Screen Ur Phencyclidine Scrn Ur Amphetamines Screen U Benzodiazepines Scrn Urine Cocaine Screen U Marijuana (THC) Screen 10/12/24 10/12/24 10/12/24 01:22 06:04 07:03 MCV 77.4 L MCH 25.1 L MCHC 32.4 RDW 14.1 Plt Count 389 MPV 10.6 Immature Gran % (Auto) 2.3 H Neut % (Auto) 65.5 Lymph % (Auto) 22.9 [place] % (Auto) 6.8 Eos % (Auto) 1.9 Baso % (Auto) 0.6 Lymph # (Auto) 3.1 [place] # (Auto) 0.9 Eos # (Auto) 0.3 Baso # (Auto) 0.1 Abs Immat Gran (auto) 0.31 H Absolute Neuts (auto) 8.8 H Absolute Nucleated RBC 0.000 Nucleated RBC % (auto) 0.0 ESR PT INR APTT Anion Gap 12 Estim Creat Clear Calc 117.1 Estimated GFR > 60 POC Glucose 380 H* 383 H* Random Glucose 431 H* Lactic Acid Calcium 8.6 D Total Bilirubin AST ALT Alkaline Phosphatase C-Reactive Protein Total Protein Albumin Urine Color Yellow Urine Appearance Clear Urine pH 6.5 Ur Specific [place] >= 1.030 H Urine Protein Negative Urine Glucose (UA) >=1000 H Urine Ketones Trace Urine Blood Negative Urine Nitrite Negative Ur Leukocyte Esterase Negative Urine RBC 0-2 Urine WBC 0-5 Ur Squamous Epith Cells 0-2 Urine Bacteria None Seen Hyaline Casts 0-2 Urine Opiates Screen POSITIVE H Ur Buprenorphine Scrn Not Detected Ur Oxycodone Screen Not Detected Urine Methadone Screen Not Detected Urine Fentanyl Screen Not Detected Ur Barbiturates Screen Not Detected Ur Phencyclidine Scrn Not Detected Ur Amphetamines Screen Not Detected U Benzodiazepines Scrn Not Detected Urine Cocaine Screen POSITIVE H U Marijuana (THC) Screen POSITIVE H 10/12/24 09:53 MCV MCH MCHC RDW Plt Count MPV Immature Gran % (Auto) Neut % (Auto) Lymph % (Auto) [place] % (Auto) Eos % (Auto) Baso % (Auto) Lymph # (Auto) [place] # (Auto) Eos # (Auto) Baso # (Auto) Abs Immat Gran (auto) Absolute Neuts (auto) Absolute Nucleated RBC Nucleated RBC % (auto) ESR PT INR APTT Anion Gap Estim Creat Clear Calc Estimated GFR POC Glucose 379 H* Random Glucose Lactic Acid Calcium Total Bilirubin AST ALT Alkaline Phosphatase C-Reactive Protein Total Protein Albumin Urine Color Urine Appearance Urine pH Ur Specific [place] Urine Protein Urine Glucose (UA) Urine Ketones Urine Blood Urine Nitrite Ur Leukocyte Esterase Urine RBC Urine WBC Ur Squamous Epith Cells Urine Bacteria Hyaline Casts Urine Opiates Screen Ur Buprenorphine Scrn Ur Oxycodone Screen Urine Methadone Screen Urine Fentanyl Screen Ur Barbiturates Screen Ur Phencyclidine Scrn Ur Amphetamines Screen U Benzodiazepines Scrn Urine Cocaine Screen U Marijuana (THC) Screen Assessment and Plan (1) Hyperglycemia: Status: Acute Plan 44F PMH diabetes, IVDA, peripheral neuropathy, mood disorder, unspecified asthma, obesity presented with left arm pain, swelling, erythema Sepsis due to left forearm abscesses in a patient who uses IV drugs Continue IV vanco and Zosyn, plan for incision and drainage in the OR 10/13/2024 Follow up cultures Right breast phlegmon Abscess drained Follow up cultures Continue IV antibiotics as above Diabetes with hyperglycemia and obesity Continue basal bolus insulin, weight loss Polysubstance dependence Follow up Addiction team DVT prophylaxis with Lovenox Full Code reason for continued hospitalization:plan for surgery Quality Stroke Does the patient have a stroke diagnosis?: No VTE Prior VTE?: No VTE Risk Level:: Medical - moderate - high VTE Device Contraindication: Treatment Not Indicated VTE Drug Contraindication: N/A - Med Ordered
[2024-10-12] MEDS: vancomycin HCL 1,500 MG in 0.9 % Sodium Chloride 500 ML 333.33 MG IV (12:20)
--- NOTE | 2024-10-12 13:12 | P.CDIM_ITS ---
PROVIDER RESPONSE TEXT: To clarify, the appropriate diagnosis supported by the clinical indicators: Other (explain): pseudohypnatremia from hyperglycemia QUERY TEXT: PHYSICIAN'S DOCUMENTATION REQUEST Date of Query: 10/12/2024 12:55 PM EST Patient Name: Devan November Admit Date: 10/12/2024 Dear Khris Hart MD, A review of the medical record indicates additional documentation may be needed. Please review below and update the documentation accordingly. Clinical Indicators: LABS: sodium 129 L Fluids Based on the above, is there a diagnosis that correlates with these lab findings: Hyponatremia resolved, possible, probable etc. Labs indicate a diagnosis of (please specify) Other (explain) Clinically unable to determine (explain) Thank you, Donna Ojeda, CCS, CDIS Use of terms such as suspected, likely, concern for, or probable (associated with a specific diagnosi s that is being evaluated, monitored, or treated as if it exists) are acceptable and can be coded in the inpatient se tting, when documented at the time of discharge. Please use your independent medical judgment in providing your response. THIS QUERY IS PART OF THE PERMANENT MEDICAL RECORD
[2024-10-12 13:40] LABS: Glucose, Whole Blood 363 mg/dL (60-115)
--- NOTE | 2024-10-12 13:48 | MHC.EDTECH ---
POC taken (result: 363) RN aware, lunch tray provided to pt
[2024-10-12] MEDS: clonazePAM 0.5 MG TABLET PO (13:52)
[2024-10-12] MEDS: Gabapentin 300 MG CAPSULE PO ×2 (16:59→21:16)
[2024-10-12] MEDS: Perphenazine 4 MG TABLET PO ×2 (17:06→21:17)
[2024-10-12 19:04] LABS: Glucose, Whole Blood 301 mg/dL (60-115)
[2024-10-12 21:15] VITALS: BP 104/59; PULSE 90; RESP 20; TEMP 37.1; O2SAT 96
[2024-10-12 21:15] LABS: Glucose, Whole Blood 297 mg/dL (60-115)
[2024-10-12] MEDS: Enoxaparin Sodium 40 MG/0.4 ML SYRINGE SUBCUT (21:17)
[2024-10-12] MEDS: Insulin Glargine,Hum.rec.anlog 100 UNIT/ML 10 ML VIAL 20 UNIT SUBCUT (22:22)
[2024-10-13] VITALS (13 sets, daily range): BP systolic 103–134; BP diastolic 56–79; PULSE 80–96; RESP 16–18; TEMP 35.9–37.4; O2SAT 92–100
[2024-10-13] MEDS: vancomycin HCL 1,500 MG in 0.9 % Sodium Chloride 500 ML 333.33 MG IV ×3 (01:05→20:04)
[2024-10-13] MEDS: Piperacillin Sodium/Tazobactam 4.5 GM in 0.9 % Sodium Chloride 100 ML IV ×4 (04:00→23:28)
[2024-10-13] MEDS: oxyCODONE HCl Immed Release 5 MG TABLET PO ×3 (05:05→14:01)
[2024-10-13 07:52] LABS: Hematocrit 33.9 % (37.0-47.0); Hemoglobin 11.1 g/dl (12.0-16.0); Mean Corpuscular HGB Conc 32.7 g/dl (31.0-35.0); Mean Corpuscular Hemoglobin 25.2 pg (27.0-33.0); Mean Corpuscular Volume 76.9 fL (80.0-98.0); Platelet Count 361 X10*3/uL (160-400); Red Blood Count 4.41 X10*6/uL (4.20-5.50); White Blood Count 11.3 X10*3/uL (4.8-10.8)
[2024-10-13 08:03] LABS: Anion Gap 15 (12-20); Blood Urea Nitrogen 15 mg/dL (9-16); Calcium 8.6 mg/dL (8.4-10.2); Carbon Dioxide 22 mmol/L (22-29); Chloride 103 mmol/L (96-108); Estimated Glomerular Filt Rate > 60; Glucose Random 392 mg/dL (60-115); Magnesium 1.8 mg/dL (1.6-2.6); Potassium 4.5 mmol/L (3.3-5.1); Sodium 135 mmol/L (135-145)
[2024-10-13 08:11] LABS: Glucose, Whole Blood 339 mg/dL (60-115)
--- NOTE | 2024-10-13 09:04 | HO.PM.IMPN ---
Subjective Subjective Date of Service: 10/13/24 Interval History: arm pain, hungry Physical Exam Vital Signs: Vital Signs: Last Vital Signs Temp 97.2 F 10/13/24 07:56 Pulse 82 10/13/24 07:56 Resp 18 10/13/24 07:56 BP 109/56 L 10/13/24 07:56 Pulse Ox 98 10/13/24 07:56 O2 Del Method Room Air 10/13/24 07:56 BMI result Body Mass Index 32.2 Const: General: comfortable and no acute distress Orientation/consciousness: patient oriented x3 Neck: Neck: Yes no lymphadenopathy Chest: Other: On the right breast is note of an area of redness with a superficial eschar, about 2 x 3 cm in diameter Resp: Auscultation: clear to auscultation bilaterally Cardio: Rhythm: regular rhythm GI: Palpation (GI): Soft to palpation, nontender and no guarding Neuro: General: patient oriented x3 Extrem: Other: Left forearm with multiple areas of induration, fluctuance and redness consistent with skin abscesses; areas 1 I&D site on the distal forearm but there was note of significant residual induration as well. Objective Data Active Medications Acetaminophen (Acetaminophen 325 Mg Tablet) 650 mg PO Q6H PRN PRN Reason: Pain, Mild 1-3,fever,headache Aripiprazole (Aripiprazole 15 Mg Tablet) 15 mg PO DAILY LUIS ENRIQUE Calcium Carbonate (Calcium Carbonate 750 Mg Tab.Chew) 750 mg PO Q4H PRN PRN Reason: Heartburn Clonazepam (Clonazepam 0.5 Mg Tablet) 0.5 mg PO BID PRN PRN Reason: anxiety Last Admin: 10/12/24 13:52 Dose: 0.5 mg Documented By: TRISTAN Dextrose (Dextrose 50 % 25 Gm/50 Ml Syringe) 25 gm IVPUSH Q15M PRN; Protocol PRN Reason: per Hypoglycemia Standing Ord. Enoxaparin Sodium (Enoxaparin Sodium 40 Mg/0.4 Ml Syringe) 40 mg SUBCUT Q24H [facility] Last Admin: 10/12/24 21:17 Dose: 40 mg Documented By: AIDA Fluticasone/Vilanterol (Fluticasone/Vilanterol 100/25 Blst.W.Dev) 1 puff INHALE RDAILY [facility] Gabapentin (Gabapentin 300 Mg Capsule) 300 mg PO TID [facility] Last Admin: 10/12/24 21:16 Dose: 300 mg Documented By: AIDA Glucose (Glucose Gel 15 Gm Gel..Gram.) 15 gm PO Q15M PRN; Protocol PRN Reason: per Hypoglycemia Standing Ord. Guanfacine HCl (Guanfacine Hcl Er 2 Mg Tab.Er.24h) 2 mg PO DAILY [facility] Piperacillin Sod/Tazobactam (Sod 4.5 gm/ Sodium Chloride) 100 mls @ 200 mls/hr IV Q6H [facility] Last Infusion: 10/13/24 06:13 Dose: Infused Documented By: AIDA Vancomycin HCl 1,500 mg/ (Sodium Chloride) 500 mls @ 333.333 mls/hr IV Q12H [facility] Last Infusion: 10/13/24 02:42 Dose: Infused Documented By: AIDA Insulin Glargine (Insulin Glargine,Hum.Rec.Anlog 100 Unit/Ml 10 Ml Vial) 20 unit SUBCUT BEDTIME [facility] Last Admin: 10/12/24 22:22 Dose: 20 unit Documented By: AIDA Insulin Glargine (Insulin Glargine,Hum.Rec.Anlog 100 Unit/Ml 10 Ml Vial) 10 unit SUBCUT DAILY [facility] Last Admin: 10/12/24 08:44 Dose: 10 unit Documented By: TRISTAN Insulin Human Lispro (Insulin Lispro 100 Unit/Ml 3 Ml Vial) 0 unit SUBCUT QIDACHS [facility]; Protocol Last Admin: 10/12/24 22:21 Dose: 6 unit Documented By: AIDA Insulin Human Lispro (Insulin Lispro 100 Unit/Ml 3 Ml Vial) 5 unit SUBCUT QIDACHS [facility] Last Admin: 10/12/24 22:21 Dose: 5 unit Documented By: AIDA Magnesium Hydroxide (Milk Of Magnesia 30 Ml Oral.Susp) 30 ml PO DAILY PRN PRN Reason: Constipation Melatonin (Melatonin 3 Mg Tablet) 6 mg PO BEDTIME PRN PRN Reason: Insomnia Ondansetron HCl (Ondansetron Hcl 4 Mg/2 Ml Vial) 4 mg IVPUSH Q8H PRN PRN Reason: Nausea and Vomiting Oxycodone HCl (Oxycodone Hcl Immed Release 5 Mg Tablet) 5 mg PO Q4H PRN PRN Reason: Pain, Severe (Pain Scale 7-10) Last Admin: 10/13/24 05:05 Dose: 5 mg Documented By: AIDA Perphenazine (Perphenazine 4 Mg Tablet) 4 mg PO TID [facility] Last Admin: 10/12/24 21:17 Dose: 4 mg Documented By: AIDA Pharmacy Consult (Consult Rx Vancomycin Dosing) 1 each MISCELLANE DAILY PRN PRN Reason: Consult order Sodium Chloride (0.9 % Sodium Chloride Flush 3 Ml Syringe) 3 ml IVFLUSH QSOHFT [facility] Last Admin: 10/12/24 22:24 Dose: 3 ml Documented By: AIDA Tizanidine HCl (Tizanidine Hcl 4 Mg Tablet) 4 mg PO TID PRN PRN Reason: Back Pain Labs 10/13/24 07:09 10/13/24 07:09 Labs: Laboratory Results - last 24 hr 10/12/24 10/12/24 10/12/24 01:22 09:53 13:38 MCV MCH MCHC RDW Plt Count MPV Absolute Nucleated RBC Nucleated RBC % (auto) Anion Gap Estim Creat Clear Calc Estimated GFR POC Glucose 379 H* 363 H* Random Glucose Calcium Magnesium Urine Opiates Screen POSITIVE H Ur Buprenorphine Scrn Not Detected Ur Oxycodone Screen Not Detected Urine Methadone Screen Not Detected Urine Fentanyl Screen Not Detected Ur Barbiturates Screen Not Detected Ur Phencyclidine Scrn Not Detected Ur Amphetamines Screen Not Detected U Benzodiazepines Scrn Not Detected Urine Cocaine Screen POSITIVE H U Marijuana (THC) Screen POSITIVE H 10/12/24 10/12/24 10/13/24 19:00 21:03 07:09 MCV 76.9 L MCH 25.2 L MCHC 32.7 RDW 14.0 Plt Count 361 MPV 11.0 Absolute Nucleated RBC 0.000 Nucleated RBC % (auto) 0.0 Anion Gap 15 Estim Creat Clear Calc 125.0 Estimated GFR > 60 POC Glucose 301 H 297 H Random Glucose 392 H* Calcium 8.6 Magnesium 1.8 Urine Opiates Screen Ur Buprenorphine Scrn Ur Oxycodone Screen Urine Methadone Screen Urine Fentanyl Screen Ur Barbiturates Screen Ur Phencyclidine Scrn Ur Amphetamines Screen U Benzodiazepines Scrn Urine Cocaine Screen U Marijuana (THC) Screen 10/13/24 07:55 MCV MCH MCHC RDW Plt Count MPV Absolute Nucleated RBC Nucleated RBC % (auto) Anion Gap Estim Creat Clear Calc Estimated GFR POC Glucose 339 H Random Glucose Calcium Magnesium Urine Opiates Screen Ur Buprenorphine Scrn Ur Oxycodone Screen Urine Methadone Screen Urine Fentanyl Screen Ur Barbiturates Screen Ur Phencyclidine Scrn Ur Amphetamines Screen U Benzodiazepines Scrn Urine Cocaine Screen U Marijuana (THC) Screen Microbiology Microbiology Results: Microbiology 10/11/24 21:40 Blood Culture - Preliminary Blood - Venous No growth after 24 hours. 10/11/24 21:40 Blood Culture - Preliminary Blood - Venous No growth after 24 hours. 10/11/24 23:56 Gram Stain - Final Forearm Left Assessment and Plan (1) Hyperglycemia: Status: Acute Plan 44F PMH diabetes, IVDA, peripheral neuropathy, mood disorder, unspecified asthma, obesity presented with left arm pain, swelling, erythema Sepsis due to left forearm abscesses in a patient who uses IV drugs Continue IV vanco and Zosyn, plan for incision and drainage bedisde today 10/13/2024 Follow up cultures Right breast phlegmon Abscess drained Follow up cultures Continue IV antibiotics as above Diabetes with hyperglycemia and obesity Continue basal bolus insulin, weight loss Polysubstance dependence Follow up Addiction team DVT prophylaxis with Lovenox Full Code reason for continued hospitalization:plan for surgery Quality Stroke Does the patient have a stroke diagnosis?: No VTE Prior VTE?: No VTE Risk Level:: Medical - moderate - high VTE Device Contraindication: Treatment Not Indicated VTE Drug Contraindication: N/A - Med Ordered
[2024-10-13] MEDS: ARIPiprazole 15 MG TABLET PO (09:16)
[2024-10-13] MEDS: guanFACINE HCl ER 2 MG TAB.ER.24H PO (09:16)
[2024-10-13] MEDS: Gabapentin 300 MG CAPSULE PO ×3 (09:17→21:37)
[2024-10-13] MEDS: Perphenazine 4 MG TABLET PO ×3 (09:17→21:37)
[2024-10-13] MEDS: Insulin Lispro 100 UNIT/ML 3 ML VIAL SUBCUT ×8 (09:17→21:36)
[2024-10-13] MEDS: Insulin Glargine,Hum.rec.anlog 100 UNIT/ML 10 ML VIAL 10 UNIT SUBCUT (09:18)
[2024-10-13] MEDS: 0.9 % Sodium Chloride Flush 3 ML SYRINGE IVFLUSH ×3 (09:18→21:38)
[2024-10-13] MEDS: clonazePAM 0.5 MG TABLET PO (09:19)
[2024-10-13 10:56] LABS: Glucose, Whole Blood 269 mg/dL (60-115)
[2024-10-13 11:11] LABS: Vancomycin Random 5.5 mcg/mL (15-20)
--- NOTE | 2024-10-13 11:23 | HE.PHANOTE ---
VANCO DOSE ADJUSTMENT BASED ON SCR AND TROUGH OF 5.5 DOSE INCREASED TO 1500 Q 8H. NEXT LEVEL 10/14 @ 1000
[2024-10-13 11:33] LABS: Glucose, Whole Blood 244 mg/dL (60-115)
[2024-10-13] MEDS: Fluticasone/Vilanterol 100/25 BLST.W.DEV 1 PUFF INHALE (11:38)
[2024-10-13 12:08] LABS: UPreg QC Valid YES; Urine Pregnancy NEGATIVE (NEGATIVE)
--- NOTE | 2024-10-13 12:34 | HO.ANESPROP2 ---
[facility] Active Problems Active Problems: All Active Problems Psychotic disorder (Acute) Paranoia (Acute) Abscess of forearm, right (Acute) Abscess of forearm, left (Acute) Vulvovaginitis marcus albicans (Acute) Abscess of labia majora (Acute) Uncontrolled type 2 diabetes mellitus with hyperglycemia (Acute) Hyperglycemia (Acute) Active intravenous drug use (Acute) Cellulitis (Acute) Past Medical History Medical History Asthma Hyperlipidemia Type 2 diabetes mellitus Family History Family history of problems with anesthesia: No Surgical History Surgical History (Updated 10/13/24 @ 12:10 by Jennifer Reynoso RN) Hx of section History of Problems with Anesthesia: No Social History Social History Household Members: Family Housing: Apartment Are you a primary manager wound care to a significant other at home: No Do you presently have visiting nurse or other home services: No Unable to assess alcohol history related to: Unknown Patient Tobacco Use Status: Former Tobacco user e-Cigarette/Vaping Use: Currently Using Substance Use Type: Crack/Cocaine and Opiates service: No Sexual orientation: Straight/Heterosexual Meds Allergies Allergy/AdvReac Type Severity Reaction Status Date / Time divalproex sodium Allergy Severe ANAPHYLAXIS Verified 10/13/24 11:56 [From Depakote] hydrocodone [HYDROCODONE] Allergy Severe HIVES Verified 10/13/24 11:56 tramadol Allergy Unknown rash Verified 10/13/24 11:56 acetaminophen [From Vicodin] Allergy Anaphylaxis Verified 10/13/24 11:56 From Ultram Allergy Intermediate ITCHING Uncoded 10/13/24 11:56 PEANUT BUTTER Allergy Unknown ANAPHYLAXIS Uncoded 10/13/24 11:56 Active Medications: Current Medications Acetaminophen (Acetaminophen 325 Mg Tablet) 650 mg PO Q6H PRN PRN Reason: Pain, Mild 1-3,fever,headache Aripiprazole (Aripiprazole 15 Mg Tablet) 15 mg PO DAILY LUIS ENRIQUE Last Admin: 10/13/24 09:16 Dose: 15 mg Calcium Carbonate (Calcium Carbonate 750 Mg Tab.Chew) 750 mg PO Q4H PRN PRN Reason: Heartburn Clonazepam (Clonazepam 0.5 Mg Tablet) 0.5 mg PO BID PRN PRN Reason: anxiety Last Admin: 10/13/24 09:19 Dose: 0.5 mg Dextrose (Dextrose 50 % 25 Gm/50 Ml Syringe) 25 gm IVPUSH Q15M PRN; Protocol PRN Reason: per Hypoglycemia Standing Ord. Enoxaparin Sodium (Enoxaparin Sodium 40 Mg/0.4 Ml Syringe) 40 mg SUBCUT Q24H [facility] Last Admin: 10/12/24 21:17 Dose: 40 mg Fluticasone/Vilanterol (Fluticasone/Vilanterol 100/25 Blst.W.Dev) 1 puff INHALE RDAILY [facility] Last Admin: 10/13/24 11:38 Dose: 1 puff Gabapentin (Gabapentin 300 Mg Capsule) 300 mg PO TID [facility] Last Admin: 10/13/24 09:17 Dose: 300 mg Glucose (Glucose Gel 15 Gm Gel..Gram.) 15 gm PO Q15M PRN; Protocol PRN Reason: per Hypoglycemia Standing Ord. Guanfacine HCl (Guanfacine Hcl Er 2 Mg Tab.Er.24h) 2 mg PO DAILY [facility] Last Admin: 10/13/24 09:16 Dose: 2 mg Piperacillin Sod/Tazobactam (Sod 4.5 gm/ Sodium Chloride) 100 mls @ 200 mls/hr IV Q6H [facility] Last Infusion: 10/13/24 10:01 Dose: Infused Vancomycin HCl 1,500 mg/ (Sodium Chloride) 500 mls @ 333.333 mls/hr IV Q8H [facility] Insulin Glargine (Insulin Glargine,Hum.Rec.Anlog 100 Unit/Ml 10 Ml Vial) 20 unit SUBCUT BEDTIME [facility] Last Admin: 10/12/24 22:22 Dose: 20 unit Insulin Glargine (Insulin Glargine,Hum.Rec.Anlog 100 Unit/Ml 10 Ml Vial) 10 unit SUBCUT DAILY [facility] Last Admin: 10/13/24 09:18 Dose: 10 unit Insulin Human Lispro (Insulin Lispro 100 Unit/Ml 3 Ml Vial) 0 unit SUBCUT QIDACHS [facility]; Protocol Last Admin: 10/13/24 11:40 Dose: 4 unit Insulin Human Lispro (Insulin Lispro 100 Unit/Ml 3 Ml Vial) 5 unit SUBCUT QIDACHS [facility] Last Admin: 10/13/24 11:41 Dose: 5 unit Magnesium Hydroxide (Milk Of Magnesia 30 Ml Oral.Susp) 30 ml PO DAILY PRN PRN Reason: Constipation Melatonin (Melatonin 3 Mg Tablet) 6 mg PO BEDTIME PRN PRN Reason: Insomnia Ondansetron HCl (Ondansetron Hcl 4 Mg/2 Ml Vial) 4 mg IVPUSH Q8H PRN PRN Reason: Nausea and Vomiting Oxycodone HCl (Oxycodone Hcl Immed Release 5 Mg Tablet) 5 mg PO Q4H PRN PRN Reason: Pain, Severe (Pain Scale 7-10) Last Admin: 10/13/24 09:16 Dose: 5 mg Perphenazine (Perphenazine 4 Mg Tablet) 4 mg PO TID [facility] Last Admin: 10/13/24 09:17 Dose: 4 mg Pharmacy Consult (Consult Rx Vancomycin Dosing) 1 each MISCELLANE DAILY PRN PRN Reason: Consult order Sodium Chloride (0.9 % Sodium Chloride Flush 3 Ml Syringe) 3 ml IVFLUSH [facility] Last Admin: 10/13/24 09:18 Dose: 3 ml Tizanidine HCl (Tizanidine Hcl 4 Mg Tablet) 4 mg PO TID PRN PRN Reason: Back Pain Home Medications ?Medication ?Instructions ?Recorded ?Confirmed ?Last Taken ?Type albuterol sulfate 90 mcg/actuation 2 puff inhalation Q4-6H PRN 02/22/24 10/12/24 02/21/24 12:00 History aerosol inhaler Wheezing tizanidine 4 mg tablet 4 mg PO TID PRN Back Pain 02/22/24 10/12/24 02/21/24 12:00 History fluticasone furoate 100 1 ea inhalation DAILY 03/11/24 10/12/24 10/11/24 History mcg-vilanterol 25 mcg/dose inhalation powder (Breo Ellipta) insulin glargine 100 unit/mL (3 40 unit subcut DAILY 03/11/24 10/12/24 10/11/24 History mL) subcutaneous pen (Lantus Solostar U-100 Insulin) aripiprazole 15 mg tablet 15 mg PO DAILY 10/12/24 10/12/24 10/11/24 History clonazepam 0.5 mg tablet 0.5 mg PO BID PRN anxiety 10/12/24 10/12/24 Unknown History dulaglutide 1.5 mg/0.5 mL 1.5 mg subcut MODI 10/12/24 10/12/2425 History subcutaneous pen injector (Trulicity) guanfacine 2 mg tablet,extended 2 mg PO DAILY anxiety 10/12/24 10/12/24 10/11/24 History release 24 hr miconazole nitrate 2 % vaginal 1 appful vaginal DAILY 10/12/24 10/12/24 10/11/24 History cream (Miconazole-7) perphenazine 4 mg tablet 4 mg PO TID 10/12/24 10/12/24 10/11/24 History sulfamethoxazole 800 2 tab PO Q12H 10/12/24 10/12/24 10/11/24 History mg-trimethoprim 160 mg tablet Exam Height,Weight and Vital Signs: Height 5 ft 3 in Weight 82.554 kg Last Vital Signs Temp 97.8 F 10/13/24 12:16 Pulse 84 10/13/24 12:16 Resp 18 10/13/24 12:16 BP 118/72 10/13/24 12:16 Pulse Ox 96 10/13/24 12:16 O2 Del Method Room Air 10/13/24 12:16 Pertinent Lab Results Pertinent Lab Results: Laboratory Tests 10/11/24 10/11/24 10/11/24 16:19 21:40 21:41 WBC 13.4 H RBC 5.03 Hgb 12.5 Hct 38.3 MCV 76.1 L MCH 24.9 L MCHC 32.6 RDW 14.1 Plt Count 415 H MPV 10.7 Immature Gran % (Auto) 2.3 H Neut % (Auto) 69.8 Lymph % (Auto) 18.9 L Howard % (Auto) 6.6 Eos % (Auto) 1.8 Baso % (Auto) 0.6 Lymph # (Auto) 2.5 Howard # (Auto) 0.9 Eos # (Auto) 0.2 Baso # (Auto) 0.1 Abs Immat Gran (auto) 0.31 H Absolute Neuts (auto) 9.4 H Absolute Nucleated RBC 0.000 Nucleated RBC % (auto) 0.0 ESR 87 H PT 11.3 INR 1.0 APTT 33.0 Sodium 131 L Potassium 4.3 Chloride 101 Carbon Dioxide 18 L Anion Gap 16 BUN 8 L Creatinine 0.67 Estim Creat Clear Calc 110.2 Estimated GFR > 60 POC Glucose Random Glucose 438 H* Lactic Acid 1.0 Calcium 9.6 Magnesium Total Bilirubin 0.2 AST 12 ALT < 6 Alkaline Phosphatase 114 C-Reactive Protein 15.28 H Total Protein 8.7 H Albumin 3.7 Urine Color Urine Appearance Urine pH Ur Specific [place] Urine Protein Urine Glucose (UA) Urine Ketones Urine Blood Urine Nitrite Ur Leukocyte Esterase Urine RBC Urine WBC Ur Squamous Epith Cells Urine Bacteria Hyaline Casts Urine Test Random Vancomycin Urine Opiates Screen Ur Buprenorphine Scrn Ur Oxycodone Screen Urine Methadone Screen Urine Fentanyl Screen Ur Barbiturates Screen Ur Phencyclidine Scrn Ur Amphetamines Screen U Benzodiazepines Scrn Urine Cocaine Screen U Marijuana (THC) Screen 10/12/24 10/12/24 10/12/24 01:22 06:04 07:03 WBC 13.5 H RBC 4.39 Hgb 11.0 L Hct 34.0 L MCV 77.4 L MCH 25.1 L MCHC 32.4 RDW 14.1 Plt Count 389 MPV 10.6 Immature Gran % (Auto) 2.3 H Neut % (Auto) 65.5 Lymph % (Auto) 22.9 Howard % (Auto) 6.8 Eos % (Auto) 1.9 Baso % (Auto) 0.6 Lymph # (Auto) 3.1 Howard # (Auto) 0.9 Eos # (Auto) 0.3 Baso # (Auto) 0.1 Abs Immat Gran (auto) 0.31 H Absolute Neuts (auto) 8.8 H Absolute Nucleated RBC 0.000 Nucleated RBC % (auto) 0.0 ESR PT INR APTT Sodium 129 L Potassium 4.3 Chloride 99 Carbon Dioxide 22 Anion Gap 12 BUN 9 Creatinine 0.63 Estim Creat Clear Calc 117.1 Estimated GFR > 60 POC Glucose 380 H* 383 H* Random Glucose 431 H* Lactic Acid Calcium 8.6 D Magnesium Total Bilirubin AST ALT Alkaline Phosphatase C-Reactive Protein Total Protein Albumin Urine Color Yellow Urine Appearance Clear Urine pH 6.5 Ur Specific [place] >= 1.030 H Urine Protein Negative Urine Glucose (UA) >=1000 H Urine Ketones Trace Urine Blood Negative Urine Nitrite Negative Ur Leukocyte Esterase Negative Urine RBC 0-2 Urine WBC 0-5 Ur Squamous Epith Cells 0-2 Urine Bacteria None Seen Hyaline Casts 0-2 Urine Test NEGATIVE Random Vancomycin Urine Opiates Screen POSITIVE H Ur Buprenorphine Scrn Not Detected Ur Oxycodone Screen Not Detected Urine Methadone Screen Not Detected Urine Fentanyl Screen Not Detected Ur Barbiturates Screen Not Detected Ur Phencyclidine Scrn Not Detected Ur Amphetamines Screen Not Detected U Benzodiazepines Scrn Not Detected Urine Cocaine Screen POSITIVE H U Marijuana (THC) Screen POSITIVE H 10/12/24 10/12/24 10/12/24 09:53 13:38 19:00 WBC RBC Hgb Hct MCV MCH MCHC RDW Plt Count MPV Immature Gran % (Auto) Neut % (Auto) Lymph % (Auto) Howard % (Auto) Eos % (Auto) Baso % (Auto) Lymph # (Auto) Howard # (Auto) Eos # (Auto) Baso # (Auto) Abs Immat Gran (auto) Absolute Neuts (auto) Absolute Nucleated RBC Nucleated RBC % (auto) ESR PT INR APTT Sodium Potassium Chloride Carbon Dioxide Anion Gap BUN Creatinine Estim Creat Clear Calc Estimated GFR POC Glucose 379 H* 363 H* 301 H Random Glucose Lactic Acid Calcium Magnesium Total Bilirubin AST ALT Alkaline Phosphatase C-Reactive Protein Total Protein Albumin Urine Color Urine Appearance Urine pH Ur Specific [place] Urine Protein Urine Glucose (UA) Urine Ketones Urine Blood Urine Nitrite Ur Leukocyte Esterase Urine RBC Urine WBC Ur Squamous Epith Cells Urine Bacteria Hyaline Casts Urine Test Random Vancomycin Urine Opiates Screen Ur Buprenorphine Scrn Ur Oxycodone Screen Urine Methadone Screen Urine Fentanyl Screen Ur Barbiturates Screen Ur Phencyclidine Scrn Ur Amphetamines Screen U Benzodiazepines Scrn Urine Cocaine Screen U Marijuana (THC) Screen 10/12/24 10/13/24 10/13/24 21:03 07:09 07:55 WBC 11.3 H RBC 4.41 Hgb 11.1 L Hct 33.9 L MCV 76.9 L MCH 25.2 L MCHC 32.7 RDW 14.0 Plt Count 361 MPV 11.0 Immature Gran % (Auto) Neut % (Auto) Lymph % (Auto) Howard % (Auto) Eos % (Auto) Baso % (Auto) Lymph # (Auto) Howard # (Auto) Eos # (Auto) Baso # (Auto) Abs Immat Gran (auto) Absolute Neuts (auto) Absolute Nucleated RBC 0.000 Nucleated RBC % (auto) 0.0 ESR PT INR APTT Sodium 135 Potassium 4.5 Chloride 103 Carbon Dioxide 22 Anion Gap 15 BUN 15 Creatinine 0.59 Estim Creat Clear Calc 125.0 Estimated GFR > 60 POC Glucose 297 H 339 H Random Glucose 392 H* Lactic Acid Calcium 8.6 Magnesium 1.8 Total Bilirubin AST ALT Alkaline Phosphatase C-Reactive Protein Total Protein Albumin Urine Color Urine Appearance Urine pH Ur Specific [place] Urine Protein Urine Glucose (UA) Urine Ketones Urine Blood Urine Nitrite Ur Leukocyte Esterase Urine RBC Urine WBC Ur Squamous Epith Cells Urine Bacteria Hyaline Casts Urine Test Random Vancomycin Urine Opiates Screen Ur Buprenorphine Scrn Ur Oxycodone Screen Urine Methadone Screen Urine Fentanyl Screen Ur Barbiturates Screen Ur Phencyclidine Scrn Ur Amphetamines Screen U Benzodiazepines Scrn Urine Cocaine Screen U Marijuana (THC) Screen 10/13/24 10/13/24 10/13/24 10:22 10:37 11:20 WBC RBC Hgb Hct MCV MCH MCHC RDW Plt Count MPV Immature Gran % (Auto) Neut % (Auto) Lymph % (Auto) Howard % (Auto) Eos % (Auto) Baso % (Auto) Lymph # (Auto) Howard # (Auto) Eos # (Auto) Baso # (Auto) Abs Immat Gran (auto) Absolute Neuts (auto) Absolute Nucleated RBC Nucleated RBC % (auto) ESR PT INR APTT Sodium Potassium Chloride Carbon Dioxide Anion Gap BUN Creatinine Estim Creat Clear Calc Estimated GFR POC Glucose 269 H 244 H Random Glucose Lactic Acid Calcium Magnesium Total Bilirubin AST ALT Alkaline Phosphatase C-Reactive Protein Total Protein Albumin Urine Color Urine Appearance Urine pH Ur Specific [place] Urine Protein Urine Glucose (UA) Urine Ketones Urine Blood Urine Nitrite Ur Leukocyte Esterase Urine RBC Urine WBC Ur Squamous Epith Cells Urine Bacteria Hyaline Casts Urine Test Random Vancomycin 5.5 L Urine Opiates Screen Ur Buprenorphine Scrn Ur Oxycodone Screen Urine Methadone Screen Urine Fentanyl Screen Ur Barbiturates Screen Ur Phencyclidine Scrn Ur Amphetamines Screen U Benzodiazepines Scrn Urine Cocaine Screen U Marijuana (THC) Screen Airway Mallampati Class: III TM Dist: >3cm Neck ROM: Full Assessment and Plan Assessment Anesthesia Assessment: Anesthesia Plan Discussed and Chart Reviewed Final Anesthetic Review Family History of Problems with Anesthesia: No History of Problems with Anesthesia: No NPO: Yes ASA Class: III and Emergency Final Preanesthetic Review: No Changes in Pt Med Stat, Meds/Allgs Chart Reviewed, Consent Obtained/Reviewed, Anes Risks/Benef Reviewed and DNR Form (If Appl.) Patient Risk: Intermediate Procedure Risk: Low Anesthetic Plan Anesthetic Plan: GA Disposition: Standard PACU
--- NOTE | 2024-10-13 13:01 | PM.EVENT ---
Event Note Date of Service: 10/13/24 Event Note: She has multiple abscesses on the left forearm she has an abscess on the right breast will need to do I and D, possible debridement areas under anesthesia She is positive for cocaine on her urine tox screen We will need to do the procedure today in view of the risks of sepsis She has given consent She understand that technique of the planned procedure as well as the risks, benefits, and alternatives. Time Spent With Patient Time: Total time managing care of this patient today ____ minutes.
--- NOTE | 2024-10-13 13:38 | W.PM.OPN ---
Operative Note Operative Note Date of Service: 10/13/24 Narrative: Preop diagnosis: Multiple abscesses, left arm, right breast Postop diagnosis: The same Procedure: I and D of multiple abscesses x7 on the left arm, sharp excisional debridement of an eschar on the right breast Surgeon: Satinder Solomon MD administrative assistant coordinator: BO Poe The patient is a 44 year female who has developed multiple abscesses on the left arm as well as on the right breast because of skin popping with IV drug abuse. She understood the technique of I and D and debridement and was aware of the risks, benefits, and alternatives She was brought to the operating room. She was placed supine under general anesthesia via endotracheal tube. The left arm as well as the right breasts were prepped and draped usual sterile fashion. A surgical time-out was done. The patient was receiving scheduled IV antibiotics. Multiple areas of induration were noted in the left arm all the way to the elbow. I&D was done using a blade 11 on 7 different areas. Purulent material had been drained, and the largest abscess collections were the ones closer to the elbow I probed all I&D sites and abscess cavities to make sure that there were no other residual collections I applied packing on these I&D sites. I applied thick dressings and wrapped the arm with Christophe roll. Cultures had been taken I then proceeded to examine the abscess site on the right breast. There was note of an eschar in this area. I did sharp excisional debridement of the area about 2 x 2 cm down to healthy tissue. This involved full-thickness of the skin and part of the subcutaneous layer. Wet-to-dry dressings were then applied. The procedure was then completed The patient tolerated the procedure well. There were no immediate complications. Initial and final counts of sponges and instruments were correct. Estimated blood loss was minimal. The patient was extubated without difficulty and transferred to recovery room with stable vital signs.
[2024-10-13] MEDS: Morphine Sulfate 4 MG/ML CARTRIDGE IVPUSH (15:48)
[2024-10-13 16:24] LABS: Glucose, Whole Blood 176 mg/dL (60-115)
[2024-10-13 21:00] LABS: Glucose, Whole Blood 572 mg/dL (60-115)
[2024-10-13] MEDS: Insulin Glargine,Hum.rec.anlog 100 UNIT/ML 10 ML VIAL 25 UNIT SUBCUT (21:35)
[2024-10-13] MEDS: Docusate Sodium 100 MG CAPSULE PO (21:37)
[2024-10-13] MEDS: Enoxaparin Sodium 40 MG/0.4 ML SYRINGE SUBCUT (21:37)
[2024-10-13] MEDS: Insulin Regular, Human 100 UNIT/ML 10 ML VIAL 10 UNIT IVPUSH (21:43)
[2024-10-13] MEDS: Lactated Ringers 1,000 ML 999 ML IV (21:48)
[2024-10-13 23:06] LABS: Glucose, Whole Blood 415 mg/dL (60-115)
[2024-10-14] VITALS (8 sets, daily range): BP systolic 101–124; BP diastolic 55–68; PULSE 71–97; RESP 16–20; TEMP 36.1–37.1; O2SAT 94–98
[2024-10-14] MEDS: vancomycin HCL 1,500 MG in 0.9 % Sodium Chloride 500 ML 333.33 MG IV ×3 (03:04→20:38)
[2024-10-14] MEDS: Piperacillin Sodium/Tazobactam 4.5 GM in 0.9 % Sodium Chloride 100 ML IV ×4 (05:41→22:58)
[2024-10-14] MEDS: Fluticasone/Vilanterol 100/25 BLST.W.DEV 1 PUFF INHALE (07:39)
[2024-10-14] MEDS: ARIPiprazole 15 MG TABLET PO (07:51)
[2024-10-14] MEDS: oxyCODONE HCl Immed Release 5 MG TABLET PO ×3 (07:51→16:04)
[2024-10-14] MEDS: Perphenazine 4 MG TABLET PO ×3 (07:52→20:31)
[2024-10-14] MEDS: Gabapentin 300 MG CAPSULE PO ×3 (07:52→20:31)
[2024-10-14] MEDS: guanFACINE HCl ER 2 MG TAB.ER.24H PO (07:52)
[2024-10-14] MEDS: Docusate Sodium 100 MG CAPSULE PO ×2 (07:52→20:31)
[2024-10-14 07:57] LABS: Glucose, Whole Blood 286 mg/dL (60-115)
[2024-10-14] MEDS: Insulin Lispro 100 UNIT/ML 3 ML VIAL SUBCUT ×8 (07:59→20:32)
[2024-10-14] MEDS: 0.9 % Sodium Chloride Flush 3 ML SYRINGE IVFLUSH ×2 (08:00→16:19)
[2024-10-14] MEDS: Insulin Glargine,Hum.rec.anlog 100 UNIT/ML 10 ML VIAL 10 UNIT SUBCUT (08:00)
[2024-10-14 08:31] LABS: Hematocrit 33.4 % (37.0-47.0); Hemoglobin 10.8 g/dl (12.0-16.0); Mean Corpuscular HGB Conc 32.3 g/dl (31.0-35.0); Mean Corpuscular Hemoglobin 24.8 pg (27.0-33.0); Mean Corpuscular Volume 76.8 fL (80.0-98.0); Mean Platelet Volume 11.1 fL (9.4-12.3); NRBC Pct Auto 0.1 /100WBC (0.0-0.2); Platelet Count 383 X10*3/uL (160-400); Red Blood Count 4.35 X10*6/uL (4.20-5.50); Red Cell Distribution Width 14.1 % (11.0-16.0); White Blood Count 14.7 X10*3/uL (4.8-10.8)
[2024-10-14 08:34] LABS: Anion Gap 13 (12-20); Blood Urea Nitrogen 12 mg/dL (9-16); Calcium 8.4 mg/dL (8.4-10.2); Carbon Dioxide 22 mmol/L (22-29); Chloride 104 mmol/L (96-108); Estimated Glomerular Filt Rate > 60; Glucose Random 278 mg/dL (60-115); Potassium 3.7 mmol/L (3.3-5.1); Sodium 135 mmol/L (135-145)
--- NOTE | 2024-10-14 09:29 | P.PNIM_ITS ---
Subjective Subjective Date of Service: 10/14/24 Interval History: No complaints Physical Exam 2 Vital Signs: Vital Signs: Last Vital Signs Temp 97.1 F 10/14/24 07:43 Pulse 86 10/14/24 07:43 Resp 18 10/14/24 07:43 BP 120/63 10/14/24 07:43 Pulse Ox 97 10/14/24 07:43 O2 Del Method Room Air 10/14/24 07:43 O2 Flow Rate 6 10/13/24 14:02 BMI result Body Mass Index 32.2 General: AO X 3, no acute distress Resp: CTA bilateral, no accessory muscles used CVS: S1,S2,RRR GI: soft, non tender, non distended Neuro: motor grossly intact, alert Psych: appropriate affect, appropriate insight Objective Data Active Medications Aripiprazole (Aripiprazole 15 Mg Tablet) 15 mg PO DAILY [facility] Last Admin: 10/14/24 07:51 Dose: 15 mg Documented By: VIJAYA Calcium Carbonate (Calcium Carbonate 750 Mg Tab.Chew) 750 mg PO Q4H PRN PRN Reason: Heartburn Clonazepam (Clonazepam 0.5 Mg Tablet) 0.5 mg PO BID PRN PRN Reason: anxiety Last Admin: 10/13/24 09:19 Dose: 0.5 mg Documented By: RAMON Dextrose (Dextrose 50 % 25 Gm/50 Ml Syringe) 25 gm IVPUSH Q15M PRN; Protocol PRN Reason: per Hypoglycemia Standing Ord. Docusate Sodium (Docusate Sodium 100 Mg Capsule) 100 mg PO BID [facility] Last Admin: 10/14/24 07:52 Dose: 100 mg Documented By: VIJAYA Enoxaparin Sodium (Enoxaparin Sodium 40 Mg/0.4 Ml Syringe) 40 mg SUBCUT Q24H [facility] Last Admin: 10/13/24 21:37 Dose: 40 mg Documented By: AIDA Fluticasone/Vilanterol (Fluticasone/Vilanterol 100/25 Blst.W.Dev) 1 puff INHALE RDAILY [facility] Last Admin: 10/14/24 07:39 Dose: 1 puff Documented By: JACY Gabapentin (Gabapentin 300 Mg Capsule) 300 mg PO TID [facility] Last Admin: 10/14/24 07:52 Dose: 300 mg Documented By: VIJAYA Glucose (Glucose Gel 15 Gm Gel..Gram.) 15 gm PO Q15M PRN; Protocol PRN Reason: per Hypoglycemia Standing Ord. Guanfacine HCl (Guanfacine Hcl Er 2 Mg Tab.Er.24h) 2 mg PO DAILY [facility] Last Admin: 10/14/24 07:52 Dose: 2 mg Documented By: VIJAYA Piperacillin Sod/Tazobactam (Sod 4.5 gm/ Sodium Chloride) 100 mls @ 200 mls/hr IV Q6H [facility] Last Infusion: 10/14/24 06:57 Dose: Infused Documented By: AIDA Vancomycin HCl 1,500 mg/ (Sodium Chloride) 500 mls @ 333.333 mls/hr IV Q8H [facility] Last Infusion: 10/14/24 04:57 Dose: Infused Documented By: AIDA Insulin Glargine (Insulin Glargine,Hum.Rec.Anlog 100 Unit/Ml 10 Ml Vial) 10 unit SUBCUT DAILY [facility] Last Admin: 10/14/24 08:00 Dose: 10 unit Documented By: VIJAYA Insulin Glargine (Insulin Glargine,Hum.Rec.Anlog 100 Unit/Ml 10 Ml Vial) 25 unit SUBCUT BEDTIME [facility] Last Admin: 10/13/24 21:35 Dose: 25 unit Documented By: AIDA Insulin Human Lispro (Insulin Lispro 100 Unit/Ml 3 Ml Vial) 0 unit SUBCUT QIDACHS [facility]; Protocol Last Admin: 10/14/24 07:59 Dose: 6 unit Documented By: VIJAYA Insulin Human Lispro (Insulin Lispro 100 Unit/Ml 3 Ml Vial) 5 unit SUBCUT QIDACHS [facility] Last Admin: 10/14/24 07:59 Dose: 5 unit Documented By: VIJAYA Magnesium Hydroxide (Milk Of Magnesia 30 Ml Oral.Susp) 30 ml PO DAILY PRN PRN Reason: Constipation Melatonin (Melatonin 3 Mg Tablet) 6 mg PO BEDTIME PRN PRN Reason: Insomnia Morphine Sulfate (Morphine Sulfate 4 Mg/Ml Cartridge) 4 mg IVPUSH Q3H PRN; Protocol PRN Reason: Pain, Severe (Pain Scale 7-10) Last Admin: 10/13/24 15:48 Dose: 4 mg Documented By: RAMON Ondansetron HCl (Ondansetron Hcl 4 Mg/2 Ml Vial) 4 mg IVPUSH Q8H PRN PRN Reason: Nausea and Vomiting Oxycodone HCl (Oxycodone Hcl Immed Release 5 Mg Tablet) 5 mg PO Q4H PRN PRN Reason: Pain, Severe (Pain Scale 7-10) Last Admin: 10/14/24 07:51 Dose: 5 mg Documented By: VIJAYA Perphenazine (Perphenazine 4 Mg Tablet) 4 mg PO TID [facility] Last Admin: 10/14/24 07:52 Dose: 4 mg Documented By: VIJAYA Pharmacy Consult (Consult Rx Vancomycin Dosing) 1 each MISCELLANE DAILY PRN PRN Reason: Consult order Sodium Chloride (0.9 % Sodium Chloride Flush 3 Ml Syringe) 3 ml IVFLUSH QSNVFT [facility] Last Admin: 10/14/24 08:00 Dose: 3 ml Documented By: VIJAYA Tizanidine HCl (Tizanidine Hcl 4 Mg Tablet) 4 mg PO TID PRN PRN Reason: Back Pain Labs 10/14/24 07:41 10/14/24 07:41 Labs: Laboratory Results - last 24 hr 10/12/24 10/13/24 10/13/24 01:22 10:22 10:37 MCV MCH MCHC RDW Plt Count MPV Absolute Nucleated RBC Nucleated RBC % (auto) Anion Gap Estim Creat Clear Calc Estimated GFR POC Glucose 269 H Random Glucose Calcium Urine Test NEGATIVE Random Vancomycin 5.5 L 10/13/24 10/13/24 10/13/24 11:20 16:00 20:52 MCV MCH MCHC RDW Plt Count MPV Absolute Nucleated RBC Nucleated RBC % (auto) Anion Gap Estim Creat Clear Calc Estimated GFR POC Glucose 244 H 176 H 572 H* Random Glucose Calcium Urine Test Random Vancomycin 10/13/24 10/14/24 10/14/24 23:01 07:41 07:41 MCV 76.8 L MCH 24.8 L MCHC 32.3 RDW 14.1 Plt Count 383 MPV 11.1 Absolute Nucleated RBC 0.020 H Nucleated RBC % (auto) 0.1 Anion Gap 13 Estim Creat Clear Calc 123.0 Cancelled Estimated GFR > 60 POC Glucose 415 H* Random Glucose Calcium Urine Test Random Vancomycin 10/14/24 10/14/24 07:41 07:46 MCV MCH MCHC RDW Plt Count MPV Absolute Nucleated RBC Nucleated RBC % (auto) Anion Gap Estim Creat Clear Calc Estimated GFR Cancelled POC Glucose 286 H Random Glucose 278 H Calcium 8.4 Urine Test Random Vancomycin Microbiology Microbiology Results: Microbiology 10/11/24 23:56 Gram Stain - Final Forearm Left Routine Culture - Final Staphylococcus aureus 10/11/24 21:40 Blood Culture - Preliminary Blood - Venous No growth after 48 hours. 10/11/24 21:40 Blood Culture - Preliminary Blood - Venous No growth after 48 hours. 10/13/24 Unknown Gram Stain - Final Arm Left Assessment and Plan (1) Hyperglycemia: Status: Acute Plan 44F PMH diabetes, IVDA, peripheral neuropathy, mood disorder, unspecified asthma, obesity presented with left arm pain, swelling, erythema Sepsis due to left forearm abscesses in a patient who uses IV drugs Continue IV vanco and Zosyn, plan for incision and drainage 10/13/2024 Follow up cultures - prelim Staph aureus in wound, blood negative Right breast phlegmon Abscess drained Continue IV antibiotics as above Diabetes with hyperglycemia and obesity Continue basal bolus insulin, weight loss Polysubstance dependence Follow up Addiction team DVT prophylaxis with Lovenox Full Code reason for continued hospitalization: Awaiting cultures Quality Stroke Does the patient have a stroke diagnosis?: No VTE Prior VTE?: No VTE Risk Level:: Medical - moderate - high VTE Device Contraindication: Treatment Not Indicated VTE Drug Contraindication: N/A - Med Ordered
--- NOTE | 2024-10-14 10:31 | MHC.CM.PN ---
Per ROUNDS discussion, Patient is not yet medically cleared for dc (cultures pending); home/resume services is the goal and CM will continue to follow.
--- NOTE | 2024-10-14 10:35 | MHC.RECOVRN ---
Met with pt to follow up and provide support. Pt sitting in bed, awake, alert, easily engages in conversation. Reports surgery went well, has had relief in left arm. Reports pain is being managed adequately. Denies questions or concerns for t/w.
--- NOTE | 2024-10-14 10:46 | HO.POSTANES ---
Post Anesthesia Evaluation Post Anesthesia Evaluation Date of Service: 10/14/24 Vital Signs: Vital Signs Temp Pulse Resp BP Pulse Ox O2 Del Method 10/14/24 07:43 97.1 F 86 18 120/63 97 Room Air 10/14/24 07:42 93 18 10/14/24 03:56 98.8 F 73 16 101/55 L 96 Room Air 10/14/24 00:00 96.9 F 97 16 103/57 L 95 Room Air Anesthesia: General LMA Mental Status: Awake Pain Control: Satisfactory Nausea/Vomiting: None Hydration: Adequate Anesthesia-Related Issues: No Anes. Related Issues
[2024-10-14 10:53] LABS: Vancomycin Trough 10.7 mcg/mL (10.0-20.0)
--- NOTE | 2024-10-14 10:57 | HE.PHANOTE ---
Re: Vanco Stable and good renal function.Trough returned at 10.7. Continue dose at 1500mg q8h, with predicted AUC 480, predicted trough 13.8. Next trough 10/15 @ 1000.
[2024-10-14 11:23] LABS: Glucose, Whole Blood 392 mg/dL (60-115)
[2024-10-14] MEDS: clonazePAM 0.5 MG TABLET PO (11:36)
--- NOTE | 2024-10-14 13:22 | P.PNGS_ITS ---
Subjective Subjective Date of Service: 10/14/24 Interval history: Feels better Much less pain on left No events reported Physical Exam 2 Vital Signs: Vital Signs: Last Vital Signs Temp 98.1 F 10/14/24 11:27 Pulse 90 10/14/24 11:27 Resp 16 10/14/24 11:27 BP 119/59 L 10/14/24 11:27 Pulse Ox 97 10/14/24 11:27 O2 Del Method Room Air 10/14/24 11:27 O2 Flow Rate 6 10/13/24 14:02 BMI result Body Mass Index 32.2 Const: General: comfortable and no acute distress Chest: Other: Debridement site on the right breast also clean with good healthy granulation Resp: Effort & Inspection: normal respiratory effort Cardio: Rate: regular rate Extrem: Other: Left arm with much less edema, all I&D sites are clean, no residual fluctuance, much improved induration Objective Data Active Medications Aripiprazole (Aripiprazole 15 Mg Tablet) 15 mg PO DAILY [facility] Last Admin: 10/14/24 07:51 Dose: 15 mg Documented By: VIJAYA Calcium Carbonate (Calcium Carbonate 750 Mg Tab.Chew) 750 mg PO Q4H PRN PRN Reason: Heartburn Clonazepam (Clonazepam 0.5 Mg Tablet) 0.5 mg PO BID PRN PRN Reason: anxiety Last Admin: 10/14/24 11:36 Dose: 0.5 mg Documented By: VIJAYA Dextrose (Dextrose 50 % 25 Gm/50 Ml Syringe) 25 gm IVPUSH Q15M PRN; Protocol PRN Reason: per Hypoglycemia Standing Ord. Docusate Sodium (Docusate Sodium 100 Mg Capsule) 100 mg PO BID [facility] Last Admin: 10/14/24 07:52 Dose: 100 mg Documented By: VIJAYA Enoxaparin Sodium (Enoxaparin Sodium 40 Mg/0.4 Ml Syringe) 40 mg SUBCUT Q24H [facility] Last Admin: 10/13/24 21:37 Dose: 40 mg Documented By: AIDA Fluticasone/Vilanterol (Fluticasone/Vilanterol 100/25 Blst.W.Dev) 1 puff INHALE RDAILY [facility] Last Admin: 10/14/24 07:39 Dose: 1 puff Documented By: JACY Gabapentin (Gabapentin 300 Mg Capsule) 300 mg PO TID [facility] Last Admin: 10/14/24 07:52 Dose: 300 mg Documented By: VIJAYA Glucose (Glucose Gel 15 Gm Gel..Gram.) 15 gm PO Q15M PRN; Protocol PRN Reason: per Hypoglycemia Standing Ord. Guanfacine HCl (Guanfacine Hcl Er 2 Mg Tab.Er.24h) 2 mg PO DAILY [facility] Last Admin: 10/14/24 07:52 Dose: 2 mg Documented By: VIJAYA Piperacillin Sod/Tazobactam (Sod 4.5 gm/ Sodium Chloride) 100 mls @ 200 mls/hr IV Q6H [facility] Last Infusion: 10/14/24 12:13 Dose: Infused Documented By: IVJAYA Vancomycin HCl 1,500 mg/ (Sodium Chloride) 500 mls @ 333.333 mls/hr IV Q8H [facility] Last Admin: 10/14/24 12:17 Dose: 333.33 mls/hr Documented By: VIJAYA Insulin Glargine (Insulin Glargine,Hum.Rec.Anlog 100 Unit/Ml 10 Ml Vial) 10 unit SUBCUT DAILY [facility] Last Admin: 10/14/24 08:00 Dose: 10 unit Documented By: VIJAYA Insulin Glargine (Insulin Glargine,Hum.Rec.Anlog 100 Unit/Ml 10 Ml Vial) 25 unit SUBCUT BEDTIME [facility] Last Admin: 10/13/24 21:35 Dose: 25 unit Documented By: AIDA Insulin Human Lispro (Insulin Lispro 100 Unit/Ml 3 Ml Vial) 0 unit SUBCUT QIDACHS [facility]; Protocol Last Admin: 10/14/24 11:43 Dose: 10 unit Documented By: VIJAYA Insulin Human Lispro (Insulin Lispro 100 Unit/Ml 3 Ml Vial) 5 unit SUBCUT QIDACHS [facility] Last Admin: 10/14/24 11:44 Dose: 5 unit Documented By: VIJAYA Magnesium Hydroxide (Milk Of Magnesia 30 Ml Oral.Susp) 30 ml PO DAILY PRN PRN Reason: Constipation Melatonin (Melatonin 3 Mg Tablet) 6 mg PO BEDTIME PRN PRN Reason: Insomnia Morphine Sulfate (Morphine Sulfate 4 Mg/Ml Cartridge) 4 mg IVPUSH Q3H PRN; Protocol PRN Reason: Pain, Severe (Pain Scale 7-10) Last Admin: 10/13/24 15:48 Dose: 4 mg Documented By: RAMON Ondansetron HCl (Ondansetron Hcl 4 Mg/2 Ml Vial) 4 mg IVPUSH Q8H PRN PRN Reason: Nausea and Vomiting Oxycodone HCl (Oxycodone Hcl Immed Release 5 Mg Tablet) 5 mg PO Q4H PRN PRN Reason: Pain, Severe (Pain Scale 7-10) Last Admin: 10/14/24 11:36 Dose: 5 mg Documented By: VIJAYA Perphenazine (Perphenazine 4 Mg Tablet) 4 mg PO TID [facility] Last Admin: 10/14/24 07:52 Dose: 4 mg Documented By: VIJAYA Pharmacy Consult (Consult Rx Vancomycin Dosing) 1 each MISCELLANE DAILY PRN PRN Reason: Consult order Sodium Chloride (0.9 % Sodium Chloride Flush 3 Ml Syringe) 3 ml IVFLUSH [facility] Last Admin: 10/14/24 08:00 Dose: 3 ml Documented By: VIJAYA Tizanidine HCl (Tizanidine Hcl 4 Mg Tablet) 4 mg PO TID PRN PRN Reason: Back Pain Labs 10/14/24 07:41 10/14/24 07:41 Labs: Laboratory Results - last 24 hr 10/13/24 10/13/24 10/13/24 16:00 20:52 23:01 MCV MCH MCHC RDW Plt Count MPV Absolute Nucleated RBC Nucleated RBC % (auto) Anion Gap Estim Creat Clear Calc Estimated GFR POC Glucose 176 H 572 H* 415 H* Random Glucose Calcium Vancomycin Trough 10/14/24 10/14/24 10/14/24 07:41 07:41 07:41 MCV 76.8 L MCH 24.8 L MCHC 32.3 RDW 14.1 Plt Count 383 MPV 11.1 Absolute Nucleated RBC 0.020 H Nucleated RBC % (auto) 0.1 Anion Gap 13 Estim Creat Clear Calc 123.0 Cancelled Estimated GFR > 60 Cancelled POC Glucose Random Glucose 278 H Calcium 8.4 Vancomycin Trough 10/14/24 10/14/24 10/14/24 07:46 10:23 11:15 MCV MCH MCHC RDW Plt Count MPV Absolute Nucleated RBC Nucleated RBC % (auto) Anion Gap Estim Creat Clear Calc Estimated GFR POC Glucose 286 H 392 H* Random Glucose Calcium Vancomycin Trough 10.7 Microbiology Microbiology Results: Microbiology 10/13/24 Unknown Gram Stain - Final Arm Left Routine Culture - Preliminary Gram positive cocci 10/11/24 23:56 Gram Stain - Final Forearm Left Routine Culture - Final Staphylococcus aureus 10/11/24 21:40 Blood Culture - Preliminary Blood - Venous No growth after 48 hours. 10/11/24 21:40 Blood Culture - Preliminary Blood - Venous No growth after 48 hours. Procedures Date of Service Date of Service: 10/14/24 Progress Note: A&P Assessment and plan (1) Abscess of forearm, left: Status: Acute Assessment and Plan: All I&D sites are clean and dry I removed all packings Much improved with regards to induration and redness I have changed her dressings I wrapped the left forearm with a Christophe roll I changed his dressings on the right breast debridement site as well Continue wound care daily Time Spent With Patient Time: Total time managing care of this patient today ____ minutes. Quality Stroke Does the patient have a stroke diagnosis?: No VTE Prior VTE?: No VTE Risk Level:: Medical - moderate - high VTE Device Contraindication: Treatment Not Indicated VTE Drug Contraindication: N/A - Med Ordered
[2024-10-14] MEDS: Morphine Sulfate 4 MG/ML CARTRIDGE IVPUSH ×2 (14:36→22:52)
[2024-10-14] MEDS: TiZANidine HCL 4 MG TABLET PO (17:32)
[2024-10-14 18:11] LABS: Glucose, Whole Blood 246 mg/dL (60-115)
[2024-10-14] MEDS: Melatonin 3 MG TABLET 6 MG PO (20:31)
[2024-10-14] MEDS: Enoxaparin Sodium 40 MG/0.4 ML SYRINGE SUBCUT (20:31)
[2024-10-14 20:32] LABS: Glucose, Whole Blood 264 mg/dL (60-115)
[2024-10-14] MEDS: Insulin Glargine,Hum.rec.anlog 100 UNIT/ML 10 ML VIAL 25 UNIT SUBCUT (20:32)
[2024-10-15] VITALS: BP 122/58; PULSE 73; RESP 20; TEMP 36.6; O2SAT 97
[2024-10-15] MEDS: vancomycin HCL 1,500 MG in 0.9 % Sodium Chloride 500 ML 333.33 MG IV (03:48)
[2024-10-15] MEDS: oxyCODONE HCl Immed Release 5 MG TABLET PO (03:56)
[2024-10-15 04:00] VITALS: BP 130/61; PULSE 66; RESP 16; TEMP 36.5; O2SAT 98
[2024-10-15 04:56] VITALS: RESP 16
[2024-10-15] MEDS: Piperacillin Sodium/Tazobactam 4.5 GM in 0.9 % Sodium Chloride 100 ML IV (05:35)
[2024-10-15 07:30] LABS: Glucose, Whole Blood 209 mg/dL (60-115)
[2024-10-15 07:35] VITALS: PULSE 66; RESP 16; O2SAT 97
[2024-10-15] MEDS: Fluticasone/Vilanterol 100/25 BLST.W.DEV 1 PUFF INHALE (07:35)
[2024-10-15] MEDS: Morphine Sulfate 4 MG/ML CARTRIDGE IVPUSH (07:37)
[2024-10-15] MEDS: Insulin Lispro 100 UNIT/ML 3 ML VIAL SUBCUT ×2 (07:38)
[2024-10-15] MEDS: ARIPiprazole 15 MG TABLET PO (07:38)
[2024-10-15] MEDS: Gabapentin 300 MG CAPSULE PO (07:38)
[2024-10-15] MEDS: Docusate Sodium 100 MG CAPSULE PO (07:38)
[2024-10-15] MEDS: guanFACINE HCl ER 2 MG TAB.ER.24H PO (07:38)
[2024-10-15] MEDS: Perphenazine 4 MG TABLET PO (07:38)
[2024-10-15] MEDS: Insulin Glargine,Hum.rec.anlog 100 UNIT/ML 10 ML VIAL 10 UNIT SUBCUT (07:39)
[2024-10-15 07:46] VITALS: BP 102/62; PULSE 67; RESP 20; TEMP 36.4; O2SAT 97
--- NOTE | 2024-10-15 09:05 | P.DS_ITS ---
DS: Providers Provider Date of Service: 10/15/24 Date of admission: 10/11/24 23:13 Date of discharge: 10/15/24 Primary care physician: Brent Vides DO, MD Consults: 10/11/24 22:48 Addiction Medicine Routine Consulting Provider: Addiction Covering Reason for consultation: cocaine use disorder 10/11/24 23:12 Consult to General Surgery Routine Consulting Provider: [facility] Reason for consultation: left foreram abscess; right breast phlegmon DS: Diagnosis Discharge Diagnosis (1) Abscess of forearm, left: Status: Acute DS: Summary Hospital Course Hospital Course: from initial hpi: 44-year-old female with pertinent history of insulin-dependent diabetes mellitus (noncompliant with insulin), IV drug use disorder, peripheral neuropathy, mood disorder, asthma not on home oxygen who presents to the emergency department for evaluation of left forearm infection. Patient does have a history of multiple subcutaneous abscesses. She states she noticed left forearm swelling 2 days prior to presentation. It has been progressive and associated with erythema, warmth and pain. Is able to move her fingers. Does endorse injecting cocaine in her left forearm and right breast. States she had a swelling in her right breast which she tried to aspirate herself at home. She is noncompliant with home insulin home prescription medications. No fever, chills, chest pain, palpitations, shortness of breath, abdominal pain, changes in urinary or bowel habits. In the emergency department, patient with leukocytosis 13.4. I and D performed by ER physician over left forearm. Breast ultrasound with right breast phlegmon. Patient was given IV crystalloids and initiated on broad-spectrum empiric antibiotics. hospital course: Patient was admitted for sepsis due to left forearm abscess due to IV drug use. Was treated with IV vancomycin and Zosyn underwent incision and drainage 10/13/2024, culture grew MSSA. We will be discharged on 5 more days of Augmentin and follow up with surgery. For right breast phlegmon also had drained and treated same as above. For diabetes with hyperglycemia was continued on basal bolus insulin, for obesity weight loss recommended. Time Attestation Discharge Coordination Time (in mins): 32 Quality: Safe Use of Opioids Does Pt have an Active Cancer Diagnosis on the Problem List?: No Quality: Stroke Does the patient have a stroke diagnosis?: No Physical Exam Vital Signs: Vital Signs: Last Vital Signs Temp 97.6 F 10/15/24 07:46 Pulse 67 10/15/24 07:46 Resp 20 10/15/24 07:46 BP 102/62 10/15/24 07:46 Pulse Ox 97 10/15/24 07:46 O2 Del Method Room Air 10/15/24 07:46 O2 Flow Rate 6 10/13/24 14:02 BMI result Body Mass Index 32.2 Const: General: comfortable and no acute distress Chest: Other: Debridement site on the right breast also clean with good healthy granulation Resp: Effort & Inspection: normal respiratory effort Cardio: Rate: regular rate Extrem: Other: Left arm with much less edema, all I&D sites are clean, no residual fluctuance, much improved induration DS: Data Data Completed and Pending Completed studies during hospitalization [Text1]: Pending at discharge 10/13/24 13:54 Surgical [PTH] Routine Procedures Drainage of Inguinal Skin, External Approach (02/22/24) Drainage of Left Lower Arm Subcutaneous Tissue and Fascia, Open Approach (02/22/24) Drainage of Right Lower Arm Subcutaneous Tissue and Fascia, Open Approach (02/22/24) Labs on day of discharge: Laboratory Results - last 24 hr 10/14/24 10/14/24 10/14/24 10:23 11:15 16:04 POC Glucose 392 H* 246 H Vancomycin Trough 10.7 10/14/24 10/15/24 20:21 07:25 POC Glucose 264 H 209 H Vancomycin Trough Preliminary micro results at discharge 10/13/24 Unknown Routine Culture - Preliminary Arm Left Enterococcus faecalis Staphylococcus aureus 10/11/24 21:40 Blood Culture - Preliminary Blood - Venous No growth after 48 hours. 10/11/24 21:40 Blood Culture - Preliminary Blood - Venous No growth after 48 hours. Discharge Plan Discharge Anticipated Discharge Date/Time: 10/15/24 09:03 Patient Disposition: Home, Self-Care Discharge Diagnosis: abscess, cellulitis Referrals: Sarah Poe PA-C [Physician [facility]ating [facility]il[facility]] - 1 Week Brent Vides DO, MD [Primary Care Provider] - 1 Week Discharge Medications: New amoxicillin-pot clavulanate 875-125 mg tablet 1 tab PO BID Qty: 10 0RF Continued fluticasone furoate-vilanterol [Breo Ellipta] 100-25 mcg/dose blister with device 1 ea inhalation DAILY insulin glargine [Lantus Solostar U-100 Insulin] 100 unit/mL (3 mL) insulin pen 40 unit SUBCUT DAILY gabapentin 300 mg capsule 300 mg PO TID 30 Days Qty: 90 0RF clonazepam 0.5 mg tablet 0.5 mg PO BID PRN (Reason: anxiety) miconazole nitrate [Miconazole-7] 2 % cream 1 appful vaginal DAILY perphenazine 4 mg tablet 4 mg PO TID aripiprazole 15 mg tablet 15 mg PO DAILY guanfacine 2 mg tablet extended release 24 hr 2 mg PO DAILY Trulicity 1.5 mg/0.5 mL pen injector 1.5 mg subcut MODI tizanidine 4 mg tablet 4 mg PO TID PRN (Reason: Back Pain) albuterol sulfate 90 mcg/actuation HFA aerosol inhaler 2 puff inhalation Q4-6H PRN (Reason: Wheezing) insulin lispro [Humalog KwikPen Insulin] 100 unit/mL insulin pen 1 sliding scale dose SUBCUT QIDACHS MDD 40Units Qty: 15 0RF Rx Instructions: Blood Sugar: <150 - 0 units 151-200 - 2 units 201-250 - 4 units 251-300 - 6 units 301-350 - 8 units >350 - 10 units Discontinued sulfamethoxazole-trimethoprim 800-160 mg tablet 2 tab PO Q12H Discharge Orders: Discharge Order (Routine); Ordered 10/15/24 Ordered By: Khris Hart Diet: Diabetic diet Activity on Discharge: As tolerated Stand Alone Forms: Patient Portal Discharge page Print Language: Uzbek Care Plan Goals: Recovering Health Concerns: IV drug use, cellulitis with abscesses Plan of Treatment: Avoid IV drugs, continue local dressings, follow up with surgery, 5 more days of Augmentin Assessment: See above
--- NOTE | 2024-10-15 09:10 | MHC.CM.PN ---
PT TO DC HOME TODAY WITH NO NEW SERVICES VIA PRIVATE TRANSPORT
== END 2024-10-15 11:13 | disposition home or self-care (01) | DRG 854 ==
LOC: HO.ED 21:36 → HO.EDOVER 23:27 → HO.IMC 10-12 18:08
PROVIDERS: Anesthesiology; Physician Assistant; Surgery; Admitting Provider Student in an Organized Health Care Education/Training Program; Emergency Provider Internal Medicine; PCP Internal Medicine; Visit Provider Internal Medicine
PROC: 0HBT0ZZ Excision of Right Breast, Open Approach (ICD-10-PCS; principal; 2024-10-13 13:00)
DX: A41.9 Sepsis, unspecified organism (principal); F19.20 Other psychoactive substance dependence, uncomplicated; L02.414 Cutaneous abscess of left upper limb; E11.65 Type 2 diabetes mellitus with hyperglycemia; E11.42 Type 2 diabetes mellitus with diabetic polyneuropathy; J45.909 Unspecified asthma, uncomplicated; Z91.148 Patient's other noncompliance with medication regimen for other reason; E66.9 Obesity, unspecified; B95.61 Methicillin susceptible Staphylococcus aureus infection as the cause of diseases classified elsewhere; Z68.32 Body mass index [BMI] 32.0-32.9, adult; Z87.891 Personal history of nicotine dependence; Z79.4 Long term (current) use of insulin; Z79.51 Long term (current) use of inhaled steroids; Z79.899 Other long term (current) drug therapy
CPT/HCPCS: 36415; 73090; 73110; 73130; 76642; 80048; 80053; 80202; 80307; 81001; 81025; 82947; 83605; 83735; 85025; 85027; 85610; 85652; 85730; 86140; 87040; 87070; 87077; 87186; 87205; 88304; 93971; 94640; 99285; J1100; J1650; J2003; J2250; J2270; J2405; J2543; J2704; J2795; J3010; J3370; J3371; J7120; S9485

== ENCOUNTER → 2024-10-11 15:56 | Outpatient (BNV) | payer OTHER, SELFPAY | PROVIDERS: PCP Internal Medicine; Visit Provider Radiology Diagnostic Radiology | DX: N63.12 Unspecified lump in the right breast, upper inner quadrant (principal); R22.32 Localized swelling, mass and lump, left upper limb | CPT/HCPCS: 73090; 73110; 73130; 76642; 93971 ==

== ENCOUNTER → 2024-10-11 23:13 | Outpatient (BNV) | payer OTHER, SELFPAY | PROVIDERS: Admitting Provider Student in an Organized Health Care Education/Training Program; Emergency Provider Internal Medicine; PCP Internal Medicine; Visit Provider Student in an Organized Health Care Education/Training Program | DX: L02.414 Cutaneous abscess of left upper limb (principal); R73.9 Hyperglycemia, unspecified | CPT/HCPCS: 99223; 99232; 99233; 99239 ==

== ENCOUNTER → 2024-10-11 23:13 | Outpatient (BNV) | payer OTHER, SELFPAY | PROVIDERS: Admitting Provider Student in an Organized Health Care Education/Training Program; Emergency Provider Internal Medicine; PCP Internal Medicine; Visit Provider Surgery | DX: L02.414 Cutaneous abscess of left upper limb (principal) | CPT/HCPCS: 10061; 11042; 99024; 99222; 99499 ==

== ENCOUNTER 2024-10-16 18:38 | Emergency (ER) | payer OTHER, SELFPAY ==
[2024-10-16 18:51] VITALS: BP 140/90; PULSE 128; O2SAT 98
--- NOTE | 2024-10-16 19:02 | ED.SKABFB ---
HPI - Skin/Abscess/Foreign Bdy General Chief complaint: Skin/Abscess/Foreign Body Stated complaint: Abscess on L arm and under L breast Time Seen by Provider: 10/16/24 18:59 Source: patient and EMS Mode of arrival: EMS Limitations: no limitations History of Present Illness ED Provider: BENNIE GRACE PA-C HPI narrative: 44 year old female with pmhx significant for insulin-dependent diabetes mellitus (noncompliant with insulin), IV drug use disorder, peripheral neuropathy, mood disorder, asthma not on home oxygen presents to the ED today via EMS for evaluation of left forearm pain x today. Patient states she was recently admitted to our facility for I and D of multiple abscesses to left forearm along with debridement of right breast wound. She was discharged yesterday with a prescription for Augmentin which she has been taking as prescribed. She states that she was not discharged home with any pain medication. She was advised to take Tylenol and Motrin as needed for pain however this is not covering her pain. She states that she was being treated with morphine while admitted which was controlling her pain. She states her pain is similar to when she was discharged from our facility. Denies any worsening pain. She reports calling the hospitalist today and was told to follow up with her PCP for pain meds however their office is closed today. Reports calling EMS for transport to ED. Denies fever, chills. She states her wounds are healing well. She has not appreciated any discharge or increasing erythema. She denies any ilicit substance use since discharge from our facility yesterday. She last used cocaine prior to admission (1 wk ago). On review of patient's chart, she presented to the ED for evaluation of left forearm abscess and chronic right breast wound on 10/11/2024. Patient was admitted for sepsis. She had surgical I and D of multiple abscesses to left forearm along with debridement of right breast phlegmon. Cultures obtained on 10/13/2024 were positive for MSSA. She received IV Zosyn and vanc while admitted. Discharged on a 5 day course of Augmentin yesterday with PCP and general surgery follow up. Related Data Home Medications ?Medication ?Instructions ?Recorded ?Confirmed albuterol sulfate 90 mcg/actuation 2 puff inhalation Q4-6H PRN 02/22/24 10/12/24 aerosol inhaler Wheezing tizanidine 4 mg tablet 4 mg PO TID PRN Back Pain 02/22/24 10/12/24 fluticasone furoate 100 1 ea inhalation DAILY 03/11/24 10/12/24 mcg-vilanterol 25 mcg/dose inhalation powder (Breo Ellipta) insulin glargine 100 unit/mL (3 40 unit subcut DAILY 03/11/24 10/12/24 mL) subcutaneous pen (Lantus Solostar U-100 Insulin) aripiprazole 15 mg tablet 15 mg PO DAILY 10/12/24 10/12/24 clonazepam 0.5 mg tablet 0.5 mg PO BID PRN anxiety 10/12/24 10/12/24 dulaglutide 1.5 mg/0.5 mL 1.5 mg subcut MODI 10/12/24 10/12/24 subcutaneous pen injector (Trulicity) guanfacine 2 mg tablet,extended 2 mg PO DAILY anxiety 10/12/24 10/12/24 release 24 hr miconazole nitrate 2 % vaginal 1 appful vaginal DAILY 10/12/24 10/12/24 cream (Miconazole-7) perphenazine 4 mg tablet 4 mg PO TID 10/12/24 10/12/24 Previous Rx's ?Medication ?Instructions ?Recorded insulin lispro 100 unit/mL 1 sliding scale dose subcut 02/24/24 subcutaneous pen (Humalog ElderJulio EDWARD #15 mL (U-100) Insulin) gabapentin 300 mg capsule 300 mg PO TID 30 days #90 caps 03/16/24 amoxicillin 875 mg-potassium 1 tab PO BID #10 tabs 10/15/24 clavulanate 125 mg tablet morphine 15 mg immediate release 15 mg PO Q4H PRN pain #12 tabs 10/17/24 tablet Allergies Allergy/AdvReac Type Severity Reaction Status Date / Time divalproex sodium Allergy Severe ANAPHYLAXIS Verified 10/16/24 19:26 [From Depakote] hydrocodone [HYDROCODONE] Allergy Severe HIVES Verified 10/16/24 19:26 tramadol Allergy Unknown rash Verified 10/16/24 19:26 acetaminophen [From Vicodin] Allergy Anaphylaxis Verified 10/16/24 19:26 From Ultram Allergy Intermediate ITCHING Uncoded 10/16/24 19:26 PEANUT BUTTER Allergy Unknown ANAPHYLAXIS Uncoded 10/16/24 19:26 Review of Systems Review of Systems: Yes all other systems are reviewed and are negative [facility] Past Medical History Attestation statement: The following information was validated with the patient. Source: old records reviewed and nursing notes reviewed Medical History Asthma Hyperlipidemia Type 2 diabetes mellitus Surgical History Hx of section Social History Social History Household Members: Family Housing: Apartment Are you a primary interior plant caretaker to a significant other at home: No Do you presently have visiting nurse or other home services: No Unable to assess alcohol history related to: Unknown Patient Tobacco Use Status: Former Tobacco user Smoked in Last 30 Days: No e-Cigarette/Vaping Use: Currently Using Substance Use Type: Crack/Cocaine and Marijuana Advance Directives: No Advance Directives Information Provided: Yes Do you have a plan to hurt others: No Plan service: No Sexual orientation: Straight/Heterosexual Physical Exam Vital Signs: Vital Signs: Last Vital Signs Temp 98.0 F 10/17/24 00:46 Pulse 98 10/17/24 00:46 Resp 22 H 10/17/24 00:46 BP 102/55 L 10/17/24 00:46 Pulse Ox 93 10/17/24 00:46 O2 Del Method Room Air 10/17/24 00:46 BMI result Body Mass Index 34.5 tachycardic, afebrile General: NAD Skin: +see below Head: Normocephalic, atraumatic. EENT: Hearing is intact b/l. Conjunctiva clear. PERRLA. EOM intact. Moist mucous membranes.? Neck: Supple without LAD Cardiac: Chest wall symmetric. RRR Lungs: Normal respiratory effort without accessory muscle use. CTA bilaterally Abdomen: Soft, non-tender, non-distended. No rebound tenderness or guarding. Positive BS x4. Back: No midline spinous or paraspinal tenderness. No step off deformity. Ext: +see below of left forearm. incision sites x7 healing well, no surrounding erythema/ warmth. ttp without palpable fluctuance or crepitus. no purulent discharge. 2+radial/ulnar pulse intact. sensation intact. Neuro: AOx3. Normal speech. Strength 5/5 intact throughout. Sensation intact to light touch. NV intact distally. Ambulating with steady gait. Course Course Course Narrative: 2109 -- cbc with leukocytosis to 14. No left shift. No anemia. H&H stable. Chemistry without acute electrolyte abnormality requiring intervention. BUN slightly elevated 17 with normal creatinine. No OXANA. Random glucose 324. Patient was noncompliant with her insulin. Will order 1 L of IV fluids and 5 the insulin with re-evaluation. Inflammatory markers elevated. Liver function WNL. Urine negative for infection and . Urine toxicology positive for THC, otherwise negative. Given white count and tachycardia, will add on lactic and blood cultures however I have low suspicion for sepsis at this time. morphine ordered for pain control. > patient stable at the end of my shift. Sign-out given to Deangelo MALONE pending above. Reevaluation(s) Reevaluation #1: Patient received in sign-out at change of shift pending labs, re-evaluation. The patient does have a continued leukocytosis though she has no left shift her inflammatory markers are elevated but decreasing. When I reviewed her wounds in the left upper extremity, I do not see any obvious active infection. The patient's vital signs are stable. She was given morphine IV. She may continue with her home antibiotics she was able to tolerate p.o.. She is not septic. I will give her a short course of morphine for the next couple of days until she can follow up with her PCP Time: 00:33 Medications Administered Discontinued Medications Generic Name Dose Route Start Last Admin Trade Name Freq PRN Reason Stop Dose Admin Sodium Chloride 1,000 mls @ 999 mls/hr 10/16/24 20:15 10/16/24 21:46 Ns IV 10/16/24 21:15 999 mls/hr .Q1H1M LUIS ENRIQUE Administration Insulin Human Regular 5 unit 10/16/24 20:06 10/16/24 21:51 Insulin Regular, Human 100 Unit/Ml 10 Ml Vial IVPUSH 10/16/24 20:07 5 unit ONCE ONE Administration Morphine Sulfate 4 mg 10/16/24 19:45 10/16/24 21:53 Morphine Sulfate 4 Mg/Ml Cartridge IVPUSH 10/16/24 19:46 4 mg ONCE ONE Administration Protocol Morphine Sulfate 4 mg 10/17/24 00:33 10/17/24 00:41 Morphine Sulfate 4 Mg/Ml Cartridge IVPUSH 10/17/24 00:34 4 mg ONCE ONE Administration Protocol Medical Decision Making Medical Decision Making [facility] Narrative: 44 year old female with pmhx significant for insulin-dependent diabetes mellitus (noncompliant with insulin), IV drug use disorder, peripheral neuropathy, mood disorder, asthma not on home oxygen presents to the ED today via EMS for evaluation of left forearm pain x today. she is tachycardic, vitals are otherwise wnl. she is in no acute distress. please refer to exam section for findings. on exam of LUE, incision sites x7 healing well, no surrounding erythema/ warmth. ttp without palpable fluctuance or crepitus. no purulent discharge. 2+radial/ulnar pulse intact. sensation intact. Differential diagnosis includes post-op pain, cellulitis, abscess. Low suspicion for DVT. Plan for labs, pain control, re-evaluation. Differential Diagnosis Differential Diagnoses: The differential diagnosis associated with the presentation includes as above. Admission/Observation not indicated. Lab Data [facility] Lab Attestation statement: I reviewed the patient's lab results. as above. 10/16/24 19:43 10/16/24 19:44 Labs: Lab Results 10/16/24 10/16/24 10/16/24 Range/Units 19:43 19:44 20:58 WBC 14.0 H (4.8-10.8) X10*3/uL RBC 4.87 (4.20-5.50) X10*6/uL Hgb 12.3 (12.0-16.0) g/dl Hct 37.3 (37.0-47.0) % MCV 76.6 L (80.0-98.0) fL MCH 25.3 L (27.0-33.0) pg MCHC 33.0 (31.0-35.0) g/dl RDW 14.6 (11.0-16.0) % Plt Count 500 H D (160-400) X10*3/uL MPV 10.0 (9.4-12.3) fL Immature Gran % (Auto) Cancelled Neut % (Auto) Cancelled Lymph % (Auto) Cancelled Coosa % (Auto) Cancelled Eos % (Auto) Cancelled Baso % (Auto) Cancelled Lymph # (Auto) Cancelled Coosa # (Auto) Cancelled Eos # (Auto) Cancelled Baso # (Auto) Cancelled Abs Immat Gran (auto) Cancelled Absolute Neuts (auto) Cancelled Absolute Nucleated RBC 0.000 (0.0-0.012) X10*3/uL Nucleated RBC % (auto) 0.0 (0.0-0.2) /100WBC Neutrophils % (Manual) 55 (45-73) % Band Neutrophils % 3 (3-5) % Lymphocytes % (Manual) 20 (20-40) % Atypical Lymphs % (Man) 8 H (0-6) % Monocytes % (Manual) 5 (2-11) % Eosinophils % (Manual) 3 (0-4) % Basophils % (Manual) 2 (0-2) % Metamyelocytes % 2 % Myelocytes % 2 % Abs Neuts (Manual) 8.1 (2.0-8.3) X10*3/uL Lymphocytes # (Manual) 2.8 (1.2-4.9) X10*3/uL Atyp Lymphs # (Manual) 1.1 x10*3/uL Monocytes # (Manual) 0.7 (0.1-1.2) X10*3/uL Eosinophils # (Manual) 0.4 (0.0-0.4) X10*3/uL Basophils # (Manual) 0.3 H (0.0-0.2) X10*3/uL Metamyelocytes # 0.3 X10*3/uL Myelocytes # 0.3 X10*/uL Platelet Estimate INCREASED (NORMAL) Large Platelets PRESENT Plt Morphology Comment NOTED RBC Morphology NOTED Polychromasia 2+ (3-5) /OIF ESR 77 H (0-20) MM/HR Sodium 136 (135-145) mmol/L Potassium 4.5 D (3.3-5.1) mmol/L Chloride 100 (96-108) mmol/L Carbon Dioxide 22 (22-29) mmol/L Anion Gap 19 (12-20) BUN 17 H (9-16) mg/dL Creatinine 0.73 (0.5-1.4) mg/dL Estim Creat Clear Calc 104.7 Estimated GFR > 60 Random Glucose 324 H (60-115) mg/dL Lactic Acid 1.9 (0.5-2.0) mmol/L Calcium 9.7 D (8.4-10.2) mg/dL Magnesium 1.8 (1.6-2.6) mg/dL Total Bilirubin 0.1 (0.0-1.0) mg/dL AST 15 (5-31) U/L ALT 14 (0-31) U/L Alkaline Phosphatase 97 (39-117) U/L C-Reactive Protein 1.46 H (< or = 0.50) mg/dL Total Protein 8.3 H (6.5-8.0) g/dL Albumin 3.9 (3.5-5.0) g/dL Urine Color Yellow Urine Appearance Clear Urine pH 7.5 (5.0-9.0) Ur Specific Warnock >= 1.030 H (1.005-1.025) Urine Protein Negative (Neg-Trace) mg/dL Urine Glucose (UA) >=1000 H (Negative) mg/dL Urine Ketones Negative (Negative) mg/dL Urine Blood Negative (Negative) Urine Nitrite Negative (Negative) Ur Leukocyte Esterase Negative (Negative) Urine RBC 0-2 (0-2) /HPF Urine WBC 0-5 (0-5) /HPF Ur Squamous Epith Cells 3-5 (0-2) /HPF Urine Bacteria None Seen (None Seen) Hyaline Casts 0-2 (0-2) /LPF Urine Test NEGATIVE (NEGATIVE) Urine Opiates Screen Not Detected (Not Detect) Ur Buprenorphine Scrn Not Detected (Not Detect) ng/mL Ur Oxycodone Screen Not Detected (Not Detect) ng/mL Urine Methadone Screen Not Detected (Not Detect) ng/mL Urine Fentanyl Screen Not Detected (Not Detect) Ur Barbiturates Screen Not Detected (Not Detect) Ur Phencyclidine Scrn Not Detected (Not Detect) Ur Amphetamines Screen Not Detected (Not Detect) U Benzodiazepines Scrn Not Detected (Not Detect) Urine Cocaine Screen Not Detected (Not Detect) U Marijuana (THC) Screen POSITIVE H (Not Detect) Independent Historian Clinical information obtained from an independent historian. History obtained from or confirmed by: EMS External Record Review External record reviewed: Inpatient record Prescription Management I considered prescription management with: Pain Medication Chronic Conditions Patient?s care impacted by: Other (IVDU) Social Determinants Patient?s care significantly limited by Social Determinants of Health including: Other Social Determinant of Health Critical Care Time Critical Care Time Critical Care Time: No Discharge Plan Discharge Clinical Impression: Abscess of forearm, left Patient Disposition: Home, Self-Care Instructions: Abscess Follow-up (ED) Additional Instructions: Your workup in the emergency room today was reassuring. This includes your labs and your physical exam does not appear to show an acute infection Continue your antibiotics. Use ibuprofen as needed for pain. Use morphine as needed for severe breakthrough pain This may make you drowsy, do not drink alcohol or drive after taking it Follow-up with your primary doctor, return for new or worsening symptom Prescriptions: New morphine 15 mg tablet 15 mg PO Q4H PRN (Reason: pain) Qty: 12 0RF Rx Instructions: Partial Fill upon patient request. No Action fluticasone furoate-vilanterol [Breo Ellipta] 100-25 mcg/dose blister with device 1 ea inhalation DAILY insulin glargine [Lantus Solostar U-100 Insulin] 100 unit/mL (3 mL) insulin pen 40 unit SUBCUT DAILY gabapentin 300 mg capsule 300 mg PO TID 30 Days Qty: 90 0RF clonazepam 0.5 mg tablet 0.5 mg PO BID PRN (Reason: anxiety) miconazole nitrate [Miconazole-7] 2 % cream 1 appful vaginal DAILY perphenazine 4 mg tablet 4 mg PO TID aripiprazole 15 mg tablet 15 mg PO DAILY guanfacine 2 mg tablet extended release 24 hr 2 mg PO DAILY Trulicity 1.5 mg/0.5 mL pen injector 1.5 mg subcut OMDI amoxicillin-pot clavulanate 875-125 mg tablet 1 tab PO BID Qty: 10 0RF tizanidine 4 mg tablet 4 mg PO TID PRN (Reason: Back Pain) albuterol sulfate 90 mcg/actuation HFA aerosol inhaler 2 puff inhalation Q4-6H PRN (Reason: Wheezing) insulin lispro [Humalog KwikPen Insulin] 100 unit/mL insulin pen 1 sliding scale dose SUBCUT QIDACHS MDD 40Units Qty: 15 0RF Rx Instructions: Blood Sugar: <150 - 0 units 151-200 - 2 units 201-250 - 4 units 251-300 - 6 units 301-350 - 8 units >350 - 10 units Interventions: ED Discharge Assessment Last Done: 10/17/24 00:46 Discharge Date/Time: 10/17/24 00:48 Print Language: Macanese
[2024-10-16 19:19] VITALS: BP 121/76; PULSE 107; RESP 16; TEMP 37.2; O2SAT 93
[2024-10-16 19:23] VITALS: BP 121/79; PULSE 110; RESP 16; TEMP 36.7; O2SAT 95; BMI 34.5
--- NOTE | 2024-10-16 19:25 | MHC.EDTECH ---
This tech took over care of patient at 1900,pt SHAD,changed into hospital attire,placed on the desk monitor, vitals taken,labs drawn and urine obtained and sent to lab.
[2024-10-16 19:52] LABS: Hematocrit 37.3 % (37.0-47.0); Hemoglobin 12.3 g/dl (12.0-16.0); Mean Corpuscular Hemoglobin 25.3 pg (27.0-33.0); Mean Corpuscular Volume 76.6 fL (80.0-98.0); Platelet Count 500 X10*3/uL (160-400); Red Blood Count 4.87 X10*6/uL (4.20-5.50); Red Cell Distribution Width 14.6 % (11.0-16.0)
[2024-10-16 19:53] LABS: Appearance Urine Clear; Color Urine Yellow; Glucose Urine UA >=1000 mg/dL (Negative); Leukocyte Esterase Urine Negative (Negative); Nitrite Urine Negative (Negative); PH 7.5 (5.0-9.0); Specific Gravity - Urine >= 1.030 (1.005-1.025); UMIC TRIGGER UACC YES; Urine Blood Negative (Negative); Urine Ketones Negative (Negative); Urine Protein Negative (Neg-Trace)
[2024-10-16 19:54] LABS: UPreg QC Valid YES; Urine Pregnancy NEGATIVE (NEGATIVE)
[2024-10-16 19:58] LABS: Bacteria Urine None Seen (None Seen); Hyaline Casts Urine 0-2 /LPF (0-2); RBC Urine 0-2 /HPF (0-2); WBC Urine 0-5 /HPF (0-5)
--- OUTSIDE RECORDS SUMMARY | 2024-10-16 20:03 | XMS_ITS | Clinical Summary ---
Author Organization [facility] ity Address [address] [place] [address] Care Team Providers Care Community Program Assistant Name Role Phone Shaq Quinones MD Primary Care Provider Social History Tobacco Use Types Packs/Day Years [...] patient's age to complete this topic Meningococcal B Vacine Aged Out No lo nger eligible based on patient's age to complete [...] age to complete this topic Care Teams Community Program Assistant Relationship Specialty Start Date End Date Shaq Quinones MD [address] [place] [address] Dr [address] [place] PCP - General 04/13/08
--- OUTSIDE RECORDS SUMMARY | 2024-10-16 20:03 | XMS_ITS | Data Portability ---
Author Organization [facility] [place] [facility] [employer] Address [address] [place] [address] Care Team Providers Care Demonstrator [employer] Name Role Phone HIM CCA OTHER DEDRICK KEN Primary Care Provider Assessment Encounter Date Assessment Date Assessment LastModified by Organization Details LastModified Time 10/06/2024 10/06/2024 Evaluation in the field was performed by my premises technician colleague, as noted above, I provided real-time [...] Organization Details Last Modified Time Details Appointments Urgent Care 2024 06:06P Carmen Hartley MD Not available Not available Not available Lab None recorded. Referral None recorded. Procedures None recorded. Surgeries None recorded. Imaging None recorded. Medication Orders Bactrim DS 800 mg-160 mg tablet 2024 025 [facility][id number], [address] [place] [address], [id number], 10/06/2024 17:36:44 Diflucan 150 mg tablet 2024 025 [id number], [address] [place] [address], [id number], 10/06/2024 17:40:40 miconazol e nitrate 2 % vaginal cream 2024 025 [id number], [address] [place] [address], [id number], 10/06/2024 17:40:40 Patient TargetsNo targets recorded. Patient InstructionsNo instructions recorded. Reason for Referral None Reported. Medical Equipment None Reported. Allergies Allergen ID Allergen Name Allergen Category Reaction Reaction Severity Criticality Documentation Date Start Date Code Code System Note Provider Name and Address Organization Details Recorded Time [facility] Not available Not available Not available 10/06/2024 55681 9 RxNorm Shakira Lynch MD [address] [place] [address],[address], [place], [phone] [employer] 17:33:36 Medications Name Sig Start Date Stop [...] /min 98 % 98 % 16 /min 95194.8 56 g 106 mm[Hg] 68 mm[Hg] Not Available [employer] 17:26:55 Date Recorded Heart rate Oxygen saturation Oxygen saturation in Arterial blood by Pulse oximetry Respiratory rate Body temperature Systolic blood pressure Diastolic blood pressure Provider Name and Address Organization Details Last Updated DateTime 5 128 /min 97 % 97 % 18 /min 100 [degF] 143 mm[Hg] 102 mm[Hg] Not Available [employer] 18:06:46 Social History None recorded. Functional Status None recorded. Mental Status None recorded. Family History Nothing Reported. Medical History No medical history recorded. Gynecological HistoryNo gynecological history recorded. Obstetrics History GPAL:G 0 P 0 0 0 0 Past Encounters Encounter ID Performer Location Encounter Start Date Encounter Closed Date Diagnosis/Indication Diagnosis SNOMED-CT Code Diagnosis ICD10 Code Diagnosis Note [id number] Shakira Lynch MD Main - [employer] [address] [place] [phone] 10/06/2024 17:26:53 10/06/2024 23:04:17 Cellulitis and abscess of breast 863339826 N61.1 Fall W19.XXXA Low back pain 040237376 M54.50 Cellulitis of left upper limb 1350043309 3681143 L03.114 Health Concerns Section Related Observation LastModified by Organization Detai ls LastModified Time None Recorded Concern Status LastModified by Organization Details LastModified Time None Recorded Advance Directives Directive None Recorded Payers Encounter Date Sequence Insurance Name Policy Number Policy [place] Covered Member ID [place] Member ID Guarantor Name 10/06/2024 1 [facility] - DOS ON OR AFTER 2022 - DUAL ELIGIBLE - [facility] [employer] AND ONE CARE (MEDICARE REPLACEMENT/ADV ANTAGE - HMO) November Devan [id number] November Devan Notes Date Note Type Note Provider Name and Address Organization Details Recorded Time 10/06/2024 text/html HPI: I fell and hit my head in the door of my daughter bedroom. I have a laceration and went to [facility] and they didn? t do anything.? ? ? .................. .................. .................. .................. .................. .................. .................. ............... [facility] Nurse Triage Notes (Sowmya Michaels - PRE[facility]): Reason For Request: Back pain, Fall Chief Complaints: Back pain PMH: Diabetes Mellitus Type 1 PMH Reviewed at 10/06/2024 - 14:10 Allergies Reviewed at 10/06/2024 - 14:10 Comments: 44 year old female who Fell and hit her head on the door with dizziness/lighthea dedness c/o back pain-unable to move/unbearable pain. Using Tylenol laceration to forehead but no treatment for this Went to [facility] and they did nothing . Phone hung up then called back member but member not giving me accurate history and seems not interested with speaking w/ this board writer. She was talking to people in the background and seems distracted with that, attempted to get medical hx/allergies but member not cooperative. Educated about response time and referral process. Leda RN [employer] Organization Information for [facility] Business Legal Name: [employer]? Address: [address] [place] [address] [place] [address], Highway Inspector: Oleg HAWLEY No.: [id number] [employer] POC Test Results from [facility] Blood Glucose Measurement (17:25:14) Blood Glucose: 445 mg/dL .................. .................. .................. .................. .................. .................. .................. ............... [employer] Developer Note From [facility]: Dispatched to the above address for a 44 y/f with a cc of back pain. Proper ppe was worn throughout the call. Upon arrival: Pt AOx4 walking in the kitchen room. Pt greeted [employer] crew, and gave a verbal report. Pt [...] the head strike, so she went to [facility]. Pt added that she might of hurt her lower back due to the fall. Pt stated that she was at [facility] for over 8 hours, and after waiting [...] forearm: warm to the touch/redness/ good cms [facility] notified the pt that she needs to go back to ER to get more care/labs/xray done (to which pt refused and stated that she will meet with her PCP). MD prescribed antibiotics for the Pt to her pharmacy. After pt spoke with MD, pt stated that she was all set. Pt did self administer insulin upon Smart care leave. Smart care cleared from call. All times approximate, .................. .................. .................. .................. .................. .................. .................. ............... [facility] Consulted: Shakira Lynch .................. .................. .................. .................. .................. .................. .................. ............... Disposition: Yisel Lynch MD [address] [place] [address],[address], [place], [phone], [facility] [employer] 10/06/2024 19:24:07 OBGyn Episode No OBEpisode recorded.
[2024-10-16 20:04] LABS: Amphetamine Screen Urine Not Detected (Not Detect); Barbiturates, Urine Not Detected (Not Detect); Benzodiazepines Screen Urine Not Detected (Not Detect); Buprenorphine Scr Not Detected (Not Detect); Cannabinoid Screen Urine POSITIVE (Not Detect); Cocaine Screen Urine Not Detected (Not Detect); Fentanyl, urine Not Detected (Not Detect); Methadone Screen, Urine Not Detected (Not Detect); Opiate Screen Urine Not Detected (Not Detect); Oxycodone Screen Urine Not Detected (Not Detect); Phencyclidine Screen Urine Not Detected (Not Detect)
--- OUTSIDE RECORDS SUMMARY | 2024-10-16 20:04 | XMS_ITS | Continuity of Care Document ---
Author Organization [employer] [place] [facility] [employer] Address [address] [place] [address] Care Team Providers Care Round Cutter Operator Name Role Phone HIM CCA OTHER KEN TSE Primary Care Provider [phone] Assessment Encounter Date Assessment Date Assessment LastModified by Organization Details LastModified Time 10/06/2024 10/06/2024 Evaluation in the field was performed by my application services manager colleague, as noted above, I provided [...] DS 800 mg-160 mg tablet 2024 025 [facility][id number], [address] [place] [address], [id number], 10/06/2024 17:36:44 Diflucan 150 mg tablet 2024 025 [facility][id number], [address] [place] [address], [id number], 10/06/2024 17:40:40 miconazol e nitrate 2 % vaginal cream 2024 025 [facility] #[id number], [address] [place] [address], [id number], 10/06/2024 17:40:40 Patient TargetsNo targets recorded. Patient InstructionsNo instructions recorded. Reason for Referral None Reported. Medical Equipment None Reported. Allergies Allergen ID Allergen Name Allergen Category Reaction Reaction Severity Criticality Documentation Date Start Date Code Code System Note Provider Name and Address Organization Details Recorded Time 75349 Depakote medicatio n Not available Not available Not available 10/06/2024 [id number] RxNorm Shakira Lynch MD [address] [place] [address],[address], [place], [phone] [facility] [employer] [facility] 17:33:36 Medications Name Sig Start Date Stop [...] /min 98 % 98 % 16 /min 56300.8 56 g 106 mm[Hg] 68 mm[Hg] Not [...] SNOMED-CT Code Diagnosis ICD10 Code Diagnosis Note [id number] Shakira Lynch MD [facility] [address] [place] [phone] 10/06/2024 17:26:53 10/06/2024 23:04:17 Cellulitis and abscess of breast 829941563 N61.1 Fall W19.XXXA Low back pain 673547537 M54.50 Cellulitis of left upper limb [id number] L03.114 Health Concerns Section Related Observation LastModified by Organization Detai ls LastModified Time None Recorded Concern Status LastModified by Organization Details LastModified Time None Recorded Payers Encounter Date Sequence Insurance Name Policy Number Policy Dixon Covered Member ID Dixon Member ID Guarantor Name 10/06/2024 1 [facility] - DOS ON OR AFTER 2022 - DUAL ELIGIBLE - [facility] OPTIONS AND ONE CARE (MEDICARE REPLACEMENT/ADV ANTAGE - HMO) November Devan [id number] November Devan Notes Date Note Type Note Provider Name and Address Organization Details Recorded Time 10/06/2024 text/html HPI: I fell and hit my head in the door of my daughter bedroom. I have a laceration and went to [facility] and they didn? t do anything.? ? [...] but no treatment for this Went to [facility] and they did nothing . Phone hung up then called back member but member not giving me accurate history and seems not interested with speaking w/ this commercial underwriter. She was talking to people in the background and seems distracted with that, attempted to get medical hx/allergies but member not cooperative. Educated about response time and referral process. Leda LLOYD Head Of Digital Advertising & Integration Organization Information for KrystalFlorentinoRamón Jennifer [employer] Legal Name: [employer].? Address: [address] [place] [address], Gyroscopic Instrument Tester: Oleg Vega MD ROSA ISELA No.: [id number] Head Of Digital Advertising & Integration POC Test Results from Ramón Rice - [facility] Blood Glucose Measurement (17:25:14) Blood Glucose: 445 mg/dL .................. .................. .................. .................. .................. .................. .................. ............... Head Of Digital Advertising & Integration Note From Ramón Rice: Dispatched to the above address for a 44 y/f with a cc of back pain. Proper ppe was worn throughout the call. Upon arrival: Pt AOx4 walking in the kitchen room. Pt [facility], and gave a verbal report. Pt [...] the head strike, so she went to [facility]. Pt added that she might of hurt her lower back due to the fall. Pt stated that she was at [facility] for over 8 hours, and after waiting [...] forearm: warm to the touch/redness/ good cms [facility]: notified the pt that she needs to [...] .................. .................. .................. .................. .................. .................. ............... [facility] Consulted: Shakira Lynch .................. .................. .................. .................. .................. .................. .................. ............... Disposition: Fulfilled Shakira Lynch MD [address] [facility],[address], [place], [address], OROS - 4meee 10/06/2024 19:24:07 OBGyn Episode No OBEpisode recorded.
[2024-10-16 20:05] LABS: Alanine Aminotransferase 14 U/L (0-31); Albumin Level 3.9 g/dL (3.5-5.0); Alkaline Phosphatase 97 U/L (39-117); Anion Gap 19 (12-20); Aspartate Amino Transferase 15 U/L (5-31); Bilirubin Total 0.1 mg/dL (0.0-1.0); Blood Urea Nitrogen 17 mg/dL (9-16); C Reactive Protein 1.46 mg/dL (< or = 0.50); Calcium 9.7 mg/dL (8.4-10.2); Carbon Dioxide 22 mmol/L (22-29); Chloride 100 mmol/L (96-108); Creatinine Clr Calc Pharmacy 104.7; Estimated Glomerular Filt Rate > 60; Glucose Random 324 mg/dL (60-115); Magnesium 1.8 mg/dL (1.6-2.6); Potassium 4.5 mmol/L (3.3-5.1); Sodium 136 mmol/L (135-145); Total Protein 8.3 g/dL (6.5-8.0)
[2024-10-16 20:22] LABS: Atypical Lymph Absolute Manual 1.1 x10*3/uL; Atypical Lymphs Percent Manual 8 % (0-6); Band Neutrophils Percent 3 % (3-5); Basophils Abs Manual 0.3 X10*3/uL (0.0-0.2); Basophils Percent Manual 2 % (0-2); Eosinophils Absolute Manual 0.4 X10*3/uL (0.0-0.4); Eosinophils Percent Manual 3 % (0-4); Lymphocytes Absolute Manual 2.8 X10*3/uL (1.2-4.9); Lymphocytes Percent Manual 20 % (20-40); Metamyelocytes Absolute 0.3 X10*3/uL; Metamyelocytes Percent 2 %; Monocytes Absolute Manual 0.7 X10*3/uL (0.1-1.2); Monocytes Percent Manual 5 % (2-11); Myelocytes Absolute 0.3 X10*/uL; Myelocytes Percent 2 %; Neutrophils Absolute Manual 8.1 X10*3/uL (2.0-8.3); Neutrophils Percent Manual 55 % (45-73); Polychromasia 2+ (3-5) /OIF; RBC Morphology NOTED
[2024-10-16 20:23] LABS: Large Platelet PRESENT; Platelet Estimate INCREASED (NORMAL); Platelet Morphology Comment NOTED
[2024-10-16 20:32] LABS: Erythrocyte Sedimentation Rate 77 MM/HR (0-20)
[2024-10-16 21:02] VITALS: BP 106/53; PULSE 109; RESP 18; TEMP 36.9; O2SAT 93
--- NOTE | 2024-10-16 21:07 | MHC.EDTECH ---
Blood cultures and lactic drawn and sent to lab,vitals taken,call maza in reach
[2024-10-16 21:17] LABS: Lactic Acid 1.9 mmol/L (0.5-2.0)
[2024-10-16 21:45] VITALS: BP 113/63; PULSE 104; RESP 20; TEMP 36.6; O2SAT 96
[2024-10-16] MEDS: 0.9 % Sodium Chloride 1,000 ML 999 ML IV (21:46)
[2024-10-16] MEDS: Insulin Regular, Human 100 UNIT/ML 10 ML VIAL IVPUSH (21:51)
[2024-10-16] MEDS: Morphine Sulfate 4 MG/ML CARTRIDGE IVPUSH (21:53)
[2024-10-16 23:33] VITALS: BP 102/55; PULSE 98; RESP 22; TEMP 36.7; O2SAT 93
[2024-10-17] MEDS: Morphine Sulfate 4 MG/ML CARTRIDGE IVPUSH (00:41)
[2024-10-17 00:46] VITALS: BP 102/55; PULSE 98; RESP 22; TEMP 36.7; O2SAT 93
== END 2024-10-17 00:48 | disposition home or self-care (01) ==
PROVIDERS: Physician Assistant Medical; Emergency Provider Emergency Medicine Emergency Medical Services; PCP Internal Medicine
DX: L02.414 Cutaneous abscess of left upper limb (principal); F14.10 Cocaine abuse, uncomplicated; F12.90 Cannabis use, unspecified, uncomplicated; E11.9 Type 2 diabetes mellitus without complications; R00.0 Tachycardia, unspecified; Z51.81 Encounter for therapeutic drug level monitoring; Z79.899 Other long term (current) drug therapy; Z87.891 Personal history of nicotine dependence; Z91.199 Patient's noncompliance with other medical treatment and regimen due to unspecified reason
CPT/HCPCS: 36415; 80053; 80307; 81001; 81025; 83605; 83735; 85007; 85027; 85652; 86140; 87040; 96374; 96375; 96376; 99284; J2270

== ENCOUNTER 2025-05-19 14:31 | Inpatient (IN) | payer OTHER, SELFPAY ==
[2025-05-19] VITALS (7 sets, daily range): BP systolic 110–136; BP diastolic 58–100; PULSE 85–99; RESP 12–18; TEMP 36.8–37.9; O2SAT 93–98; BMI 33.7
--- NOTE | 2025-05-19 | ECG_ITS ---
Test Reason : ABSCESS Blood Pressure : */* mmHG Vent. Rate : 86 BPM Atrial Rate : 86 BPM P-R Int : 166 ms QRS Dur : 94 ms QT Int : 398 ms P-R-T Axes : 55 17 51 degrees QTcB Int : 476 ms Normal sinus rhythm Normal ECG When compared with ECG of 11-Mar-2024 20:07, No significant change was found Referred By: Susan Khan Electronically Signed By: RAMYA CURTIS
--- NOTE | ~2025-05-19 | CT_ITS ---
CLINICAL HISTORY: IVDA ABscess r o nec fascitis CT of the right humerus with IV contrast. Comparison: Radiographs from the same day. Findings: No fracture or acute osseous abnormality. Alignment is satisfactory. Regional proximal soft tissues are within normal limits subcutaneous fat stranding and cellulitic changes are apparent near the antecubital fossa. Dependent changes are noted in the right lung. Impression: Unremarkable CT of the right humerus. Cellulitic changes noted near the antecubital fossa, described on CT of the forearm. This document has been electronically signed by: Evan Neal MD, PHD on 05/20/2025 02:54:26
--- NOTE | ~2025-05-19 | CT_ITS ---
CLINICAL HISTORY: IVDA ABscess r o nec fascitis CT of the left forearm with IV contrast Comparison: Radiographs from the same day Findings: Subcutaneous edema and skin thickening or cellulitic changes are present throughout the forearm. No drainable or organized fluid collection identified. No soft tissue gas. No acute osseous abnormality. Impression: Extensive subcutaneous fat stranding and skin thickening or cellulitic change. No organized or drainable fluid collection identified. No soft tissue gas seen. This document has been electronically signed by: Evan Neal MD, PHD on 05/20/2025 02:50:25
--- NOTE | ~2025-05-19 | XR_ITS ---
CLINICAL HISTORY: Soft tissue x-rays for foreign bodies --- Additional Notes or Special Instructions: Retained and needles for injecting cocaine 1 view right humerus 1 view left humerus Comparison: None provided Findings: No fractures or dislocations. No significant arthritic change. No radiopaque foreign body. IMPRESSION: 1. Probable subcutaneous edema bilaterally. 2. No radiopaque foreign body. 3. No acute fracture. This document has been electronically signed by: Denia Vasquez DO on 05/19/2025 19:15:20
--- NOTE | ~2025-05-19 | IR_ITS ---
PROCEDURE: IR INSERTION OF TUNNEL HENRY CATHETER CLINICAL INFORMATION: Needs long-term IV antibiotics for sepsis COMPARISON: None available. TECHNIQUE: Following explaining ultrasound-guided fluoroscopy-guided placement of tunneled permacatheter procedure, benefits and risk, a written consent was obtained. Patient was placed supine on fluoroscopy table and an Angio-Seal and preliminary ultrasound imaging through the neck was obtained. Images were obtained for documentation. An optimal site was selected along the right neck and marked. The marked site was cleaned and draped in usual sterile manner. 1% lidocaine was administered at puncture site. Under sterile ultrasound guidance a single wall needle was advanced and right jugular vein was punctured above the right clavicle. After observing venous return a thin guidewire was advanced into the SVC and needle withdrawn. A 5 German dilator sheath was inserted over the guidewire wire and the entire unit was anchored to the drape with hemostat. Approximately 1 gauze length from the right neck incision 1% lidocaine was then inserted along the right anterior upper chest cruz and subcutaneously from the right anterior chest wall to the right neck incision. A small skin incision was performed at right anterior chest wall. A tunneler attached to the catheter was then bluntly tunneled from the right anterior chest wall incision to the right neck incision and the entire catheter was pulled out. The catheter was then cut to the appropriate size. At the right neck incision and the 5 German dilator and the wire was removed. The Henry catheter was then advanced through the peel-away sheath. The peel-away sheath was removed while or catheter was held in position. A single image was obtained documenting position of the Henry catheter in the distal SVC. Absorbable sutures were placed along the right neck and right Henry catheter. Sterile dressing applied post procedure. The catheter was flushed with heparinized saline. Patient tolerated procedure well. All elements of maximal sterile barrier technique followed including use of cap, mask, sterile gown, sterile gloves, a sterile full body drape and hand hygiene. Also followed skin preparation with 2% chlorhexidine for cutaneous antisepsis, and sterile ultrasound preparation with sterile gel and probe cover when applicable. Conscious sedation was utilized during the exam and patient monitored by IR nursing and IR physician. FINDINGS: On preliminary ultrasound imaging there is widely patent right jugular vein. Approximately 24 cm 5 German tunneled Henry catheter was placed with its tip in the distal IVC. The catheter is ready for use. IR/IR us guide venous access IMPRESSION: Successful fluoroscopy and ultrasound-guided placement of a right Henry catheter with its tip in distal SVC. Fluoroscopy time: 0.5 minutes. Total dose: 5.1 mGy. Conscious sedation: 30 minutes. Electronically signed by: Abhinav George MD 05/31/2025 10:10 AM EDT
--- NOTE | ~2025-05-19 | CT_ITS ---
CLINICAL HISTORY: IVDA ABscess r o nec fascitis CT of the right forearm with IV contrast. Comparison: Radiographs from the same day Findings: Extensive subcutaneous fat stranding and skin thickening or cellulitic changes are present. Subcutaneous gas is noted near the antecubital fossa as well as distal forearm near the wrist. No drainable or organized fluid collection. No acute osseous abnormality. Impression: Extensive subcutaneous fat stranding and skin thickening or cellulitic change. No drainable or organized fluid collection. Subcutaneous gas in the region of the antecubital fossa as well as near the wrist. This document has been electronically signed by: Evan Neal MD, PHD on 05/20/2025 02:53:56
--- NOTE | ~2025-05-19 | CT_ITS ---
CLINICAL HISTORY: IVDA ABscess r o nec fascitis CT of the left humerus with IV contrast. Comparison: Radiographs from the same day. Findings: No fracture or acute osseous abnormality. Alignment is satisfactory. Regional proximal soft tissues are within normal. In the distal soft tissues near the antecubital fossa there is extensive subcutaneous fat stranding or cellulitic change. Small skin defect is noted of the lateral elbow with adjacent subcutaneous gas. Impression: Subcutaneous gas and skin thickening or cellulitic changes in the distal soft tissues near the elbow. Superficial subcutaneous soft tissue defect of the lateral elbow with mild adjacent subcutaneous gas This document has been electronically signed by: Evan Neal MD, PHD on 05/20/2025 02:57:44
--- NOTE | ~2025-05-19 | XR_ITS ---
CLINICAL HISTORY: Soft tissue x-rays to evaluate for foreign bodies --- Additional Notes or Special Instructions: Retained needles secondary to cocaine injection 2 view right forearm 2 view left forearm Comparison: CR/TN - XR FOREARM LT 2V - 10/11/2024 05:03 PM EST Findings: No fractures or dislocations. No significant arthritic change. No radiopaque foreign body. IMPRESSION: 1. Diffuse soft tissue swelling and subcutaneous edema bilaterally. Multifocal subcutaneous gas locules on the right. 2. No radiopaque foreign body. 3. No acute fracture. This document has been electronically signed by: Denia Vasquez DO on 05/19/2025 19:21:09
--- NOTE | 2025-05-19 15:15 | ED.SKABFB ---
HPI - Skin/Abscess/Foreign Bdy General Chief complaint: Skin/Abscess/Foreign Body Stated complaint: HYPERGLYCEMIA 421,ABSCESSES TO ARMS,IVDU PER EMS Time Seen by Provider: 05/19/25 14:40 Source: patient Mode of arrival: EMS Limitations: no limitations History of Present Illness ED Provider: Dr. Gabe Mejia HPI narrative: 44-year-old female with pertinent history of insulin-dependent diabetes mellitus (noncompliant with insulin), cocaine IV drug use disorder, peripheral neuropathy, mood disorder, asthma who presents to the emergency department for evaluation multiple abscesses on her left and right arm. The patient states she has been injecting cocaine into her arms and she has had several incidents where the needles have broken off after injection. She states that yesterday she developed a fever of 102 degrees F. she states that today she was having severe pain in the areas of her abscesses. She states that she has tried to drain the abscess on her right wrist and left arm by sticking it with a needle multiple times. Related Data Home Medications ?Medication ?Instructions ?Recorded ?Confirmed albuterol sulfate 90 mcg/actuation 2 puff inhalation Q4-6H PRN 02/22/24 10/12/24 aerosol inhaler Wheezing tizanidine 4 mg tablet 4 mg PO TID PRN Back Pain 02/22/24 10/12/24 fluticasone furoate 100 1 ea inhalation DAILY 03/11/24 10/12/24 mcg-vilanterol 25 mcg/dose inhalation powder (Breo Ellipta) insulin glargine 100 unit/mL (3 40 unit subcut DAILY 03/11/24 10/12/24 mL) subcutaneous pen (Lantus Solostar U-100 Insulin) aripiprazole 15 mg tablet 15 mg PO DAILY 10/12/24 10/12/24 clonazepam 0.5 mg tablet 0.5 mg PO BID PRN anxiety 10/12/24 10/12/24 dulaglutide 1.5 mg/0.5 mL 1.5 mg subcut MODI 10/12/24 10/12/24 subcutaneous pen injector (Trulicity) guanfacine 2 mg tablet,extended 2 mg PO DAILY anxiety 10/12/24 10/12/24 release 24 hr miconazole nitrate 2 % vaginal 1 appful vaginal DAILY 10/12/24 10/12/24 cream (Miconazole-7) perphenazine 4 mg tablet 4 mg PO TID 10/12/24 10/12/24 Previous Rx's ?Medication ?Instructions ?Recorded insulin lispro 100 unit/mL 1 sliding scale dose subcut 02/24/24 subcutaneous pen (Humalog Purvi EDWARD #15 mL (U-100) Insulin) gabapentin 300 mg capsule 300 mg PO TID 30 days #90 caps 03/16/24 amoxicillin 875 mg-potassium 1 tab PO BID #10 tabs 10/15/24 clavulanate 125 mg tablet morphine 15 mg immediate release 15 mg PO Q4H PRN pain #12 tabs 10/17/24 tablet Allergies Allergy/AdvReac Type Severity Reaction Status Date / Time divalproex sodium (From Allergy Severe ANAPHYLAXIS Verified 05/19/25 15:06 Depakote) hydrocodone (HYDROCODONE) Allergy Severe HIVES Verified 05/19/25 15:06 tramadol Allergy Unknown rash Verified 05/19/25 15:06 acetaminophen (From Vicodin) Allergy Anaphylaxis Verified 05/19/25 15:06 From Ultram Allergy Intermediate ITCHING Uncoded 05/19/25 15:06 PEANUT BUTTER Allergy Unknown ANAPHYLAXIS Uncoded 05/19/25 15:06 Review of Systems Review of Systems: Yes all other systems are reviewed and are negative [facility] Past Medical History Medical History Asthma Hyperlipidemia Type 2 diabetes mellitus Surgical History Hx of section Social History Social History Household Members: Family Housing: Apartment Are you a primary laboratory animal care veterinarian to a significant other at home: No Do you presently have visiting nurse or other home services: No Unable to assess alcohol history related to: Unknown Patient Tobacco Use Status: Former Tobacco user Smoked in Last 30 Days: Yes e-Cigarette/Vaping Use: Currently Using Use of substances other than those prescribed or required for medical reasons: Yes Substance Use Type: Crack/Cocaine Advance Directives: No Advance Directives Information Provided: Yes Do you have a plan to hurt others: No Plan Patient : No service: No Sexual orientation: Straight/Heterosexual Physical Exam Vital Signs: Vital Signs: Last Vital Signs Temp 99.2 F 05/19/25 17:01 Pulse 95 05/19/25 17:01 Resp 15 05/19/25 17:01 BP 120/98 H 05/19/25 17:01 Pulse Ox 96 05/19/25 17:01 O2 Del Method Room Air 05/19/25 17:01 BMI result Body Mass Index 33.7 Vital signs were normal Exam: General: Awake, alert in no distress Head: Normocephalic, atraumatic EENT: PERRL, sclera and conjunctiva are normal, mouth with no erythema or exudates Neck: Supple, no adenopathy Lung: breath sounds symmetric, no wheezing, no rales and no rhonchi Chest: symmetric movement, nontender Heart: regular rate and rhythm, normal S1, S2 no murmurs or rubs Abdomen: soft, non-tender, nondistended, normal bowel sounds Back: no vertebral tenderness, no CVAT Extremities: Patient has 2 large abscesses in the antecubital fossa of both arms measuring a proximally 4 x 6 cm by. She also has a 2 x 3 cm abscess to the right ventral aspect of wrist. She has significant erythema surrounding these abscesses total body with increased warmth over the abscess area. Neuro: Awake, alert, oriented, normal speech, cranial nerves 2-12 intact, moves all extremities symmetrically Psych: Pleasant, cooperative Medications Administered Generic Name Dose Route Start Last Admin Trade Name Freq PRN Reason Stop Dose Admin Sodium Chloride 1,000 mls @ 999 mls/hr 05/19/25 16:34 05/19/25 17:02 Ns IV 05/19/25 17:34 999 mls/hr .Q1H1M STA Administration Discontinued Medications Generic Name Dose Route Start Last Admin Trade Name Freq PRN Reason Stop Dose Admin Hydromorphone HCl 1 mg 05/19/25 16:59 05/19/25 17:05 Hydromorphone Hcl 1 Mg/Ml Syringe IVPUSH 05/19/25 17:00 1 mg ONCE STA Administration Protocol Piperacillin Sod/Tazobactam 100 mls @ 200 mls/hr 05/19/25 16:37 05/19/25 17:02 Sod 4.5 gm/ Sodium Chloride IV 05/19/25 17:06 200 mls/hr ONCE ONE Administration Lidocaine HCl 5 ml 05/19/25 16:34 05/19/25 17:03 Lidocaine Hcl 1 % Mpf 5 Ml Vial INFILTRATI 05/19/25 16:35 Not Given ONCE STA Lidocaine HCl 5 ml 05/19/25 16:34 05/19/25 17:03 Lidocaine Hcl 1 % Mpf 5 Ml Vial INFILTRATI 05/19/25 16:35 Not Given ONCE ONE Lidocaine HCl 5 ml 05/19/25 16:34 05/19/25 17:03 Lidocaine Hcl 1 % Mpf 5 Ml Vial EPIDURAL 05/19/25 16:35 Not Given ONCE ONE Ondansetron HCl 4 mg 05/19/25 16:34 05/19/25 17:02 Ondansetron Hcl 4 Mg/2 Ml Vial IVPUSH 05/19/25 16:35 4 mg ONCE ONE Administration Ondansetron HCl 4 mg 05/19/25 16:58 05/19/25 17:02 Ondansetron Hcl 4 Mg/2 Ml Vial IVPUSH 05/19/25 16:59 Not Given ONCE ONE Medical Decision Making Medical Decision Making MDM Narrative: 44-year-old female with pertinent history of insulin-dependent diabetes mellitus (noncompliant with insulin), cocaine IV drug use disorder, peripheral neuropathy, mood disorder, asthma who presents to the emergency department for evaluation multiple abscesses on her left and right arm. The patient states she has been injecting cocaine into her arms and she has had several incidents where the needles have broken off after injection. She states that yesterday she developed a fever of 102 degrees F. she states that today she was having severe pain in the areas of her abscesses. She states that she has tried to drain the abscess on her right wrist and left arm by sticking it with a needle multiple times. Vital signs were normal. Physical examination revealed an abscess to the right and left antecubital fossa and an abscess to the right ventral aspect of the wrist. Patient also has significant erythema surrounding these abscesses. Differential diagnosis: ?Includes but is not limited to abscesses, cellulitis, bacteremia, electrolyte abnormalities, anemia Course: 18:00 Patient was ordered to get Zosyn 4.5 g IV. My interpretation patient's laboratory evaluation is as follows: WBC elevated 16,400. Chronic microcytic anemia with an H&H of 11.0 and 31.3 with an MCV of 76.2. Normal platelet count 383,000. Sodium low 128 secondary to an elevated glucose of 529. Chloride low 92. BUN and creatinine were normal. AST and ALT elevated 38 and 37. CRP elevated 24.64. ESR elevated 102. Lactic acid normal 1.4. The patient has 3 abscesses were incised, drained and packed by me. These were then covered with bulky sterile dressings held in place with Kerlix. Wound cultures were obtained from all 3 sites. I did discuss admission over tiger connect with the covering hospitalist, physician materials assistant Neisha Garcia. After this discussion, I did order soft tissue x-rays of the upper extremities to evaluate for foreign bodies/retained needles from injecting cocaine. The patient will be admitted to the hospitalist service for further treatment. Differential Diagnosis Differential Diagnoses: The differential diagnosis associated with the presentation includes (See above) Admission/Observation Consideration of admission/observation: Escalation of care including admission/observation considered (Yes) Consult Healthcare Provider Management of the patient was discussed with: Hospitalist (Physician materials assistant, Neisha Garcia) Lab Data MDM Lab Attestation statement: I reviewed the patient's lab results. 05/19/25 16:52 05/19/25 16:52 Labs: Lab Results 05/19/25 Range/Units 16:52 WBC 16.4 H (4.8-10.8) X10*3/uL RBC 4.11 L (4.20-5.50) X10*6/uL Hgb 11.0 L (12.0-16.0) g/dl Hct 31.3 L (37.0-47.0) % MCV 76.2 L (80.0-98.0) fL MCH 26.8 L (27.0-33.0) pg MCHC 35.1 H (31.0-35.0) g/dl RDW 12.5 (11.0-16.0) % Plt Count 383 (160-400) X10*3/uL MPV 10.6 (9.4-12.3) fL Immature Gran % (Auto) 1.2 H (0.0-0.4) % Neut % (Auto) 77.6 H (45-73) % Lymph % (Auto) 12.5 L (20-40) % Mcclain % (Auto) 7.6 (2-11) % Eos % (Auto) 0.8 (0-4) % Baso % (Auto) 0.3 (0-2) % Lymph # (Auto) 2.1 (1.2-4.9) X10*3/uL Mcclain # (Auto) 1.3 H (0.1-1.2) X10*3/uL Eos # (Auto) 0.1 (0.0-0.4) X10*3/uL Baso # (Auto) 0.1 (0.0-0.2) X10*3/uL Abs Immat Gran (auto) 0.20 H (0.00-0.03) X10*3/uL Absolute Neuts (auto) 12.7 H (2.0-8.3) x10*3/uL Absolute Nucleated RBC 0.000 (0.0-0.012) X10*3/uL Nucleated RBC % (auto) 0.0 (0.0-0.2) /100WBC External Record Review External record reviewed: Inpatient record Chronic Conditions Patient?s care impacted by: Diabetes Social Determinants Patient?s care significantly limited by Social Determinants of Health including: Other Social Determinant of Health (Injection cocaine use disorder) Procedures Procedure Narrative Procedure Narrative: Left proximal forearm abscess incision, drainage and packing procedure: Patient gave me informed verbal consent to proceed. The skin was prepped with Betadine, anesthetized with 1% lidocaine times 3 cc. Wound was incised with a #11 scalpel blade. About 30 cc of purulent material only was expressed from the incision site, the abscess cavity was on but further drain using suction and adhesions within the cavity were broken up using hemostats. Wound was packed with tube gauze. Bulky sterile gauze dressing was applied over the wound. Patient tolerated the procedure well. Right proximal forearm abscess incision, drainage and packing procedure: Patient gave me informed verbal consent to proceed. The skin was prepped with Betadine, anesthetized with 1% lidocaine times 3 cc. Wound was incised with a #11 scalpel blade. About 45 cc of purulent material only was expressed from the incision site, the abscess cavity was on but further drain using suction and adhesions within the cavity were broken up using hemostats. Wound was packed with tube gauze. Bulky sterile gauze dressing was applied over the wound. Patient tolerated the procedure well. Right distal forearm /wrist abscess incision, drainage and packing procedure: Patient gave me informed verbal consent to proceed. The skin was prepped with Betadine, anesthetized with 1% lidocaine times 3 cc. Wound was incised with a #11 scalpel blade. About 30 cc of purulent material only was expressed from the incision site, the abscess cavity was on but further drain using suction and adhesions within the cavity were broken up using hemostats. Wound was packed with tube gauze. Bulky sterile gauze dressing was applied over the wound. Patient tolerated the procedure well. Wound cultures were obtained from all 3 sites. EJ/Peripheral Line Neck L: Time Out Performed: No Skin Cleansed in Sterile Fashion: Yes Size (gauge): 18 IV Secured and Dressing Applied: Yes Patient Tolerated Procedure: well Critical Care Time Critical Care Time Critical Care Time: Yes Total Critical Care Time: 35 Attestation: Critical Care: The patient was critically ill with a high probability of imminent or life threatening deterioration. I spent greater than 30 minutes of discontinuous time evaluating the patient,delivering critical care at the bedside, discussing and evaluating pertinent data with consultants. Critical care time does not include time spent performing separately billable procedures or teaching. Total time spent performing critical care was 35 minutes. Discharge Plan Discharge Prescriptions: No Action fluticasone furoate-vilanterol [Breo Ellipta] 100-25 mcg/dose blister with device 1 ea inhalation DAILY insulin glargine [Lantus Solostar U-100 Insulin] 100 unit/mL (3 mL) insulin pen 40 unit SUBCUT DAILY gabapentin 300 mg capsule 300 mg PO TID 30 Days Qty: 90 0RF clonazepam 0.5 mg tablet 0.5 mg PO BID PRN (Reason: anxiety) miconazole nitrate [Miconazole-7] 2 % cream 1 appful vaginal DAILY perphenazine 4 mg tablet 4 mg PO TID aripiprazole 15 mg tablet 15 mg PO DAILY guanfacine 2 mg tablet extended release 24 hr 2 mg PO DAILY Trulicity 1.5 mg/0.5 mL pen injector 1.5 mg subcut MODI amoxicillin-pot clavulanate 875-125 mg tablet 1 tab PO BID Qty: 10 0RF morphine 15 mg tablet 15 mg PO Q4H PRN (Reason: pain) Qty: 12 0RF Rx Instructions: Partial Fill upon patient request. tizanidine 4 mg tablet 4 mg PO TID PRN (Reason: Back Pain) albuterol sulfate 90 mcg/actuation HFA aerosol inhaler 2 puff inhalation Q4-6H PRN (Reason: Wheezing) insulin lispro [Humalog KwikPen Insulin] 100 unit/mL insulin pen 1 sliding scale dose SUBCUT QIDACHS MDD 40Units Qty: 15 0RF Rx Instructions: Blood Sugar: <150 - 0 units 151-200 - 2 units 201-250 - 4 units 251-300 - 6 units 301-350 - 8 units >350 - 10 units Print Language: Yakut
--- OUTSIDE RECORDS SUMMARY | 2025-05-19 15:33 | XMS_ITS | Clinical Summary ---
Author Organization [facility] Address [address] [place] [address] Care Team Providers Care Counter Server Name Role Phone Shaq Quinones MD Primary [...] Cervical Cancer Screening: P ap Smear 2002 HIV Screening 08/02/2022 Hepatitis C Screening 08/02/2022 Social Influencers of Health Screening 08/02/2022 Depression Screening 08/31/2024 COVID-19 Vaccine (2023-2 5 season) 2025 Influenza Vaccine (#1) 2025 HIB Vaccines Aged Out No longer eligi [...] age to complete this topic Meningococcal B Vaccine Aged Out No l onger eligible based on patient's age to complete this topic Pneumococcal Vaccine: Pediat rics (0 to 5 Years) and At-Risk Patients (6 to 49 Years) Aged Out No longer eligible b ased on patient's age to complete this topic RSV Immunization Patients Un guerline 20 months Aged Out No longer eligible b ased on patient's age to complete this topic Varicella Vaccines Aged Out No longer eligible based on patient's age to complete this topic Care Teams Counter Server Relationship Specialty Start Date End Date Shaq Quinones MD [address] [place] [address] Dr [address] [place], [place] PCP - General 04/13/08
--- OUTSIDE RECORDS SUMMARY | 2025-05-19 15:33 | XMS_ITS | Clinical Summary ---
Author Organization [facility] Address [address] [facility] [facility] [address] [place] [phone] Phone Care Team Providers Care Paper Machine Backtender Name Role Phone Brent Vides DO Primary Care Provider [phone] Allergies Active Allergy Reactions Criticality Noted Date Comments Divalproex 10/11/2022 Peanut 01/21/2024 Medications cyclobenzaprine (FLEXERIL) 10 MG tablet Take 1 tablet (10 mg total) by mouth 3 (three) times a day as needed. 12 tablet 10/11/2022 Active Social History Tobacco Use Types Packs/Day Years Used Date Smoking Tobacco: Former Cigarettes Smokeless Tobacco: Current Tobacco Cessation:Ready to Q uit: No; Counseling Given: Not Answered Alcohol Use Standard Drinks/Week Comments Not Currently 0 (1 standard drink = 0.6 oz pur e alcohol) Education Answer Date Recorded Are you interested in more education? Not on wilmer e 12/26/2022 Are you concerned about learning? Not on file 12/26/2022 No 12/26/2022 No 12/26/2022 Digital Access Answer Date Recorded No 01/26/2023 No 01/26/2023 Reliable internet access at home? Not on file 01/26/2023 Device with a working camera? Not on file Intimate Partner Violence Answer Date R ecorded Are you denied basic needs s uch as food, clothing, or medical care? No 10/11/2022 In the past 12 months have y ou been in a relationship with a person who hurts, threatens, or tries to control you? No 10/11/2022 Are you denied basic needs s uch as food, clothing, or medical care? No 10/11/2022 In the past 12 months have y ou been in a relationship with a person who hurts, threatens, or tries to control you? No 10/11/2022 Comments Unknown Sex and Gender Information Value Date Recorded Sex Assigned at Female 10/11/2022 12:00 PM EST Legal Sex Female 9:20 PM EDT Gender Identity Female 10/11/2022 12:00 PM EST Sexual Orientation Not on file Last Filed Vital Signs Vital Sign Reading Time Taken Comments Blood Pressure 120/79 01/21/2024 10:49 AM EDT Pulse 111 01/21/2024 10:49 AM EDT Temperature 36.2 C (97.2 F) 01/21/2024 10:49 AM EDT Respiratory Rate 18 01/21/2024 10:49 AM EDT Oxygen Saturation 98% 01/21/2024 10:49 AM EDT Inhaled Oxygen Concentration - - Weight 78.5 kg (173 lb) 01/21/2024 10:49 AM EDT Height 160 cm (5' 3 ) 01/21/2024 10:49 AM EDT Body Mass Index 30.65 01/21/2024 10:49 AM EDT Plan of Treatment Health Maintenance Due Date Last Done Comments DEPRESSION SCREENING 1993 SMOKING Hx and SMOKELESS TOB ACCO SCREENING 1994 HEPATITIS C SCREENING 1999 HIV ONE-TIME SCREENING (18-6 5 YEARS) 1999 PAP SMEAR 2002 SCREENING FOR DIABETES 2016 MAMMOGRAM 2021 Adult Td,Tdap Booster 03/29/2023 03/29/2013 INFLUENZA VACCINE (#1) 2025 COVID-19 VACCINE ( - 2023-2 5 season) 2025 HEPATITIS A VACCINES Aged Out No long er eligible based on patient's age to complete this topic HIB VACCINES Aged Out No longer eligi ble based on patient's age to complete this topic MENINGOCOCCAL VACCINES (ACWY) Aged Out No longer eligible based on patient's age to complete this topic MENINGOCOCCAL VACCINES (B) Aged Out N o longer eligible based on patient's age to complete this topic PNEUMOCOCCAL VACCINES (0-49 years) Aged Out No longer eligible based on patient's age to complete this topic Medical Devices Not on file [id number] [id number] Care Teams Paper Machine Backtender Relationship Specialty Start Date End Date Brent Vides DO [address] [place] [phone] PCP - General Internal Medicine 01/21/24 Additional Source Comments The information contained in this document represents components of the legal health record. It is not the complete legal health record.[facility]
[2025-05-19 17:04] LABS: MANUAL DIFF FLAG NO
[2025-05-19 17:06] LABS: Hematocrit 31.3 % (37.0-47.0); Hemoglobin 11.0 g/dl (12.0-16.0); Imm Gran Abs Auto 0.20 X10*3/uL (0.00-0.03); Imm Gran Pct Auto 1.2 % (0.0-0.4); Lymphocytes Absolute Auto 2.1 X10*3/uL (1.2-4.9); Mean Corpuscular HGB Conc 35.1 g/dl (31.0-35.0); Mean Corpuscular Hemoglobin 26.8 pg (27.0-33.0); Mean Corpuscular Volume 76.2 fL (80.0-98.0); NRBC Abs Auto 0.000 X10*3/uL (0.0-0.012); NRBC Pct Auto 0.0 /100WBC (0.0-0.2); Platelet Count 383 X10*3/uL (160-400); Red Blood Count 4.11 X10*6/uL (4.20-5.50); White Blood Count 16.4 X10*3/uL (4.8-10.8)
--- NOTE | 2025-05-19 17:10 | PC.NURSE ---
18g EJ placed to the left side of patient's jugular by MD Mejia. per MD, both sets of blood cultures approved to draw from the same site d/t pt having limited access. labs obtained/sent to lab. IVF/abx/medication infusing per provider order. effectiveness pending. pt pending abscess drainage/packing by MD at this time. otherwise vss and up to date. nsr on the crew director. on RA w/o difficulty. no sob/wob noted. respirations even/unlabored. plan of care ongoing. call maza placed within reach.
[2025-05-19 17:15] LABS: Partial Thromboplastin Time 29.7 SEC (26.7-34.1)
[2025-05-19 17:22] LABS: Alanine Aminotransferase 37 U/L (0-31); Albumin Level 3.7 g/dL (3.5-5.0); Alkaline Phosphatase 104 U/L (39-117); Anion Gap 10 (12-20); Aspartate Amino Transferase 38 U/L (5-31); Blood Urea Nitrogen 5 mg/dL (9-16); Calcium 8.5 mg/dL (8.4-10.2); Carbon Dioxide 29 mmol/L (22-29); Chloride 92 mmol/L (96-108); Creatinine Clr Calc Pharmacy 130.1; Estimated Glomerular Filt Rate > 60; Lipase 15 U/L (8-78); Potassium 3.4 mmol/L (3.3-5.1); Sodium 128 mmol/L (135-145); Total Protein 7.2 g/dL (6.5-8.0)
--- NOTE | 2025-05-19 18:12 | PC.NURSE ---
abscesses drained/packed by MD. large amounts of copious drainage noted from abscess sites. culture swabs obtained/sent to lab.
[2025-05-19 18:23] LABS: Glucose, Whole Blood 416 mg/dL (60-115)
--- NOTE | 2025-05-19 18:30 | PC.NURSE ---
pt noted to be borderline febrile as well as hyperglycemic. POC obtained prior to IVP insulin administration displaying 416mg/dL. medication administered per provider order. effectiveness pending. IVF continues to - will reassess s/p IVF bolus. plan of care ongoing. call maza placed within reach.
--- NOTE | 2025-05-19 19:14 | PC.NURSE ---
pt continues to awaken to verbal stimuli but falls back asleep while conversating. nsr on the registered nurse cardiac telemetry. IVF placed on a pressure bag d/t pt being continuously restless/IVF not infusing correctly via EJ in left side of neck. otherwise in no apparent distress. scan results pending at this time. on RA w/o difficulty. no sob/wob noted. respirations even/unlabored. pending admission. plan of care ongoing. call maza placed within reach.
--- NOTE | 2025-05-19 19:15 | PM.IMHP ---
History of Present Illness Date of Service: 05/19/25 Attending physician on admission: Chloe Jc Chief Complaint: wound abscesses Pt is a 44 yo female with PMH IVDA last use 3 days ago, IDDM on Trulicity, Obesity, Biopolar D/O, schizophrenia, KEATON started methadone 2 weeks ago, A/V hallucinations, yeast infections, presents to ED with complaints of fever X2 days, highest 102, chills, nausea and intermittent vomting with abscesses noted on BUE's from IVDA. Pt also states she has been incontinent of urine and stool at times. Pt denies any diarrhea today. Pt beleives that fragments from needles may have broken off in her arms. Pt told ED provder she tried to drain the abscess on her right wrist and left arm by sticking it with a needle multiple times.Pt reporting she is hungry. Pt appears anxious, unable to sit still but is alert and orientated X3, able to protect her airway. Hemodynamics stable, temp down to 100 F. Pt currently denies any chest pain, SOB at rest, abd pain or lower leg pain. Pt started methadone 13 mgs 2 weeks ago with clinic on [facility]. Pt injected cocaine, last time was this past Thursday. Pt was not sure if the cocaine was laced with something else. Pt denies hx of endocarditis, surgical intervention for abscess or wounds related to IVDA int he past. Pt has been clean for 9 years but due to stress with her daughter's father, pt began using again. Pt lives with psychiatric issues and overall is requesting help with detox, inpatient care for drug use. Pt is not suicidal today. Pt denies A/V hallucinations today. Pt does state she has not been compliant with her medication regimen for diabetes and mental health. Pt is not sure when she last took Trulicity but denies any issues with constipation or bowel problems. Work up in ED included I and D of B abscesses with cultures pending, 2 on the right and one on the left. All abscesses are packed currently with guaze. Xrays of B arms note subcutaneous gas R arm only. CT scan pending of both arms to rule out necrotizing fascitis. BC X2 pending. UA pending. Echo pending. HCG pending. Pt started on Zosyn and Vancomycin and CLindamycin added.Pt has leukocytosis of 16.4, ESR 104, CRP 24.64, LA 1.4 and mildly elevated LFTs AST 38, ALT 37, H/H stable .3. Pt also received 10 u Reg insulin and IVF for hyperglycemia without evidence of DKA/ HHS as AG is closed and Biarcb is WNL. Pt has Valium for COWS. Review of Systems Review of Systems: Pt denies chest pain, SOB at rest or with exertion, abd pain, N/V, diarrhea or constipation. Pt is not feeling suicidal or homicidal and denies A/V hallucinatons. Pt is having pain in B arms. Pt denies any further chills. [facility] Medical History Obesity Anxiety Bipolar 1 disorder with moderate morenita Schizophrenia Paranoia Asthma Hyperlipidemia Type 2 diabetes mellitus Cognitive capacity: A/O X3, manic Functional capacity: independent ambulation Surgical History Hx of section Social History (Updated 05/19/25 @ 20:09 by IGNACIA Leggett) Household Members: None Housing: House Are you a primary health care facilities inspector to a significant other at home: No Do you presently have visiting nurse or other home services: No Alcohol intake: former Comment: pt deneis use currently Patient Tobacco Use Status: Former Tobacco user Smoked in Last 30 Days: Yes e-Cigarette/Vaping Use: Currently Using Use of substances other than those prescribed or required for medical reasons: Yes Substance Use Type: Crack/Cocaine and Marijuana Do you feel safe in your current relationship?: No Current Relationship Is there a partner from a previous relationship who is making you feel unsafe now?: No Are you made to feel afraid or neglected: No Advance Directives: No Advance Directives Information Provided: Yes Do you have a plan to hurt others: No Plan Recently lost weight without trying: No How much weight loss: Not applicable Eating poorly because of decreased appetite: No Nutrition screen score: 0 Nutrition Risks: Diabetes new onset/Uncontrolled Patient : No : No Poor oral hygiene: No service: No Sexual orientation: Straight/Heterosexual Ebola Risk: Travel/Contact With Anyone From Affected Area/s: No Has Patient Experienced Ebola Symptoms: No Meds Allergies Allergy/AdvReac Type Severity Reaction Status Date / Time divalproex sodium (From Allergy Severe ANAPHYLAXIS Verified 05/19/25 15:06 Depakote) hydrocodone (HYDROCODONE) Allergy Severe HIVES Verified 05/19/25 15:06 tramadol Allergy Unknown rash Verified 05/19/25 15:06 acetaminophen (From Vicodin) Allergy Anaphylaxis Verified 05/19/25 15:06 From Ultram Allergy Intermediate ITCHING Uncoded 05/19/25 15:06 PEANUT BUTTER Allergy Unknown ANAPHYLAXIS Uncoded 05/19/25 15:06 Home Medications ?Medication ?Instructions ?Recorded ?Confirmed ?Last Taken ?Type albuterol sulfate 90 mcg/actuation 1 puff inhalation TID PRN Wheezing 02/22/24 05/19/25 02/21/24 12:00 History aerosol inhaler tizanidine 4 mg tablet 4 mg PO TID PRN Back Pain 02/22/24 05/19/25 02/21/24 12:00 History fluticasone furoate 100 1 ea inhalation DAILY 03/11/24 05/19/25 10/11/24 History mcg-vilanterol 25 mcg/dose inhalation powder (Breo Ellipta) insulin glargine 100 unit/mL (3 40 unit subcut BEDTIME 03/11/24 05/19/25 10/11/24 History mL) subcutaneous pen (Lantus Solostar U-100 Insulin) dulaglutide 1.5 mg/0.5 mL 1.5 mg subcut SA 10/12/24 05/19/25 10/02/24 History subcutaneous pen injector (Trulicity) aripiprazole 20 mg tablet 20 mg PO DAILY 05/19/25 05/19/25 Unknown History atorvastatin 40 mg tablet 40 mg PO DAILY 05/19/25 05/19/25 Unknown History clonazepam 1 mg tablet 1 mg PO BID PRN Anxiety 05/19/25 05/19/25 Unknown History gabapentin 300 mg capsule 300 mg PO BID 05/19/25 05/19/25 Unknown History methadone 10 mg/mL oral 13 mg PO DAILY 05/19/25 Unknown History concentrate (Methadone Intensol) oxcarbazepine 150 mg tablet 150 mg PO BID 05/19/25 05/19/25 Unknown History Physical Exam Vital Signs and Narrative: Vital Signs: Last Vital Signs Temp 100.3 F 05/19/25 18:17 Pulse 90 05/19/25 18:17 Resp 18 05/19/25 18:17 BP 115/58 L 05/19/25 18:17 Pulse Ox 98 05/19/25 18:17 O2 Del Method Room Air 05/19/25 18:17 BMI result Body Mass Index 33.7 Alert and orientated X3, able to give good history, emotional hypomanic Neuro: CN II-X11 intact, no deficits, visual acuity intact EYES: PERRLA, EOM intact, sclerae nonicteric, conjunctiva pink ENT: hearing intact, no issues with swallowing, uvula midline, lips moist, nares patent no epistaxis, dentition in fair repair, no abscess noted Cardiac: S1 S2 RRR, no murmur, no JVD, no edema in Lower ext Pulmonary: lungs diminished B Abdominal: BS active in all 4 quadrants, no guarding, tenderness, rebounding MSK: strength 5/5 upper and lower extremities : no CVA tenderness no bladder distension Extremities: B abscesses with dressing and bloody drainage, redness and warmth B wrists, R>L, redness R thigh no abscess, no edema in lower extremities, PT and DP pulses palpable +2 Psych: mood anxious, judgement and insight fair Skin: B abscesses upper ext, IVDA Results Labs 05/19/25 16:52 05/19/25 16:52 Labs: Laboratory Results - last 24 hr 05/19/25 05/19/25 16:52 18:18 MCV 76.2 L MCH 26.8 L MCHC 35.1 H RDW 12.5 Plt Count 383 MPV 10.6 Immature Gran % (Auto) 1.2 H Neut % (Auto) 77.6 H Lymph % (Auto) 12.5 L [place] % (Auto) 7.6 Eos % (Auto) 0.8 Baso % (Auto) 0.3 Lymph # (Auto) 2.1 [place] # (Auto) 1.3 H Eos # (Auto) 0.1 Baso # (Auto) 0.1 Abs Immat Gran (auto) 0.20 H Absolute Neuts (auto) 12.7 H Absolute Nucleated RBC 0.000 Nucleated RBC % (auto) 0.0 ESR 102 H APTT 29.7 Anion Gap 10 L Estim Creat Clear Calc 130.1 Estimated GFR > 60 POC Glucose 416 H* Random Glucose 529 H* Lactic Acid 1.4 Calcium 8.5 D Total Bilirubin 0.5 AST 38 H ALT 37 H Alkaline Phosphatase 104 Total Creatine Kinase 35 C-Reactive Protein 24.64 H Total Protein 7.2 Albumin 3.7 Lipase 15 ECG Prior ECG tracings: not available for review Imaging Radiologist's Impressions: R and L upper ext xrays Findings: No fractures or dislocations. No significant arthritic change. No radiopaque foreign body. IMPRESSION: 1. Diffuse soft tissue swelling and subcutaneous edema bilaterally. Multifocal subcutaneous gas locules on the right. 2. No radiopaque foreign body. 3. No acute fracture. Assessment and Plan (1) IVDU (intravenous drug user): Status: Acute (2) Abscess of forearm, left: Status: Acute (3) Abscess of forearm, right: Status: Acute Plan Pt is a 44 yo female with PMH IVDA last use 3 days ago, IDDM on Trulicity, Obesity, Bipolar D/O, schizophrenia, KEATON started methadone 2 weeks ago, A/V hallucinations, yeast infections, presents to ED with complaints of fever X2 days, highest 102, chills, nausea and intermittent vomiting with abscesses found on BUE's from IVDA. Pt is being admitted for IV ABX to treat BUE abscesses, rule out necrotizing fascitis and endocarditis. Pt also seeking help with drug use and psychiatric needs. Pt does not meet criteria for Sepsis at time of admission. L and R arm abscess secondary to KEATON/IVDA with cocaine I/D done in ED, 2 abscesses on RUE, 1 LUE, all packed with guaze, wound cultures pending Pt started on Zosyn and Vancomycin, Clindamycin added for suspicion for necrotizing fascitis Xrays negative for foreign bodies, R arm xray notes subcutaneous gas, CT BUE pending General Surgery notified via [employer] and consulted ID consulted IVF continues, LA 1.4, CRP and ESR elevated BC X2 pending Echo pending to rule out endocarditis NPO after midnight per General Surgery COWS started, valium prn Methasone 13 mgs ordered per pt request(able to give 30 mg max), confirmation of dos pending Pain mgmt non narcotics if possible Addictions consulted CT scans of BUE positive for subcutaneous gas, surgery updated 0620 AM (read from radiology delayed?) Hyponatremia No AMS noted on admission Trend NA, avoid rapid correction On 0.9 NS at hourly rate Urine studies ordered Hyperglycemia, IDDM/ noncompliance and current infection No evidence of DKA, HHS Received 10 U Regular insulin in ED Lantus 40 U HS SSI Diabetic diet Hold Trulicity Bipolar Depression/ Schizophrenia/ Anxiety/ Auditory and visual Hallucinations Psychiatry consulted Pt denies suicidal or homicidal ideations, A/V hallucinations - presents manic/ anxious No 1:1 indicated currently Pt is homeless officially, can no longer live with father of her daughter MED REC completed, normally on Abilify, clonazepam, oxcarbazepine - await recommendations from psychiatry CM consulted HLD Continue statin COPD/ Asthma Duo nebs prn No issues with hypoxia POX Q4H Anemia Iron panel and B12 pending Trend CBC H/H table, no indication for transfusion Obesity Pt unable to have conversation regarding wt loss at time of admission Consider nutritional consultation DVT prophylaxis: lovenox held due to possible procedure needed and I and D done in ED MED REC COMPLETED FULL CODE STATUS Quality Stroke Does the patient have a stroke diagnosis?: No Reason for No Anti-thrombotic by Day Two: Contraindicated VTE Prior VTE?: No VTE Risk Level:: Medical - moderate - high VTE Device Contraindication: N/A - Device Ordered VTE Drug Contraindication: Treatment Not Indicated
[2025-05-19] MEDS: methADONE HCl 20 MG/2 ML ORAL.CONC 13 MG PO (20:03)
[2025-05-19] MEDS: Insulin Glargine,Hum.rec.anlog 100 UNIT/ML 10 ML VIAL 40 UNIT SUBCUT (20:06)
[2025-05-19] MEDS: diazePAM 10 MG/2 ML CARTRIDGE IVPUSH (20:06)
--- NOTE | 2025-05-19 20:06 | PHA.MEDREC ---
Pharmacy Consult ? Medication Reconciliation Pharmacy has completed the medication reconciliation.Med rec complete, spoke to patient and compared with pharmacy claim history. Patient has likely not been compliant, unsure of last time took medications.
[2025-05-19 20:39] LABS: Magnesium 1.9 mg/dL (1.6-2.6)
[2025-05-19 20:39] LABS: Appearance Urine Clear; Glucose Urine UA >=1000 mg/dL (Negative); PH 6.5 (5.0-9.0); Specific Gravity - Urine >= 1.030 (1.005-1.025); UMIC TRIGGER UA YES
[2025-05-19 20:40] LABS: UPreg QC Valid YES
[2025-05-19 20:51] LABS: Cannabinoid Screen Urine POSITIVE (Not Detect)
--- NOTE | 2025-05-19 21:24 | PC.NURSE ---
ekg sent to [facility]
[2025-05-19 21:28] LABS: Glucose, Whole Blood 304 mg/dL (60-115)
[2025-05-19] MEDS: vancomycin/NS 2,000 MG/500 ML PLAST..BAG 250 MG IV (21:49)
[2025-05-19 21:59] LABS: Glucose, Whole Blood 315 mg/dL (60-115)
[2025-05-19] MEDS: iohexoL 350 MG/ML 100 ML INFUS..BTL 85 ML IV (23:28)
[2025-05-20] VITALS (8 sets, daily range): BP systolic 105–142; BP diastolic 45–63; PULSE 79–88; RESP 16–18; TEMP 36.3–37.6; O2SAT 92–97; BMI 33.7
[2025-05-20 07:38] LABS: Glucose, Whole Blood 331 mg/dL (60-115)
[2025-05-20] MEDS: 0.9 % Sodium Chloride Flush 3 ML SYRINGE IVFLUSH (07:55)
[2025-05-20] MEDS: Fluticasone/Vilanterol 100/25 BLST.W.DEV 1 PUFF INHALE (08:45)
[2025-05-20 09:05] LABS: Hematocrit 31.3 % (37.0-47.0); Hemoglobin 10.4 g/dl (12.0-16.0); Imm Gran Abs Auto 0.25 X10*3/uL (0.00-0.03); Imm Gran Pct Auto 2.0 % (0.0-0.4); Lymphocytes Absolute Auto 1.9 X10*3/uL (1.2-4.9); Mean Corpuscular HGB Conc 33.2 g/dl (31.0-35.0); Mean Corpuscular Hemoglobin 26.3 pg (27.0-33.0); Mean Corpuscular Volume 79.2 fL (80.0-98.0); NRBC Abs Auto 0.040 X10*3/uL (0.0-0.012); NRBC Pct Auto 0.3 /100WBC (0.0-0.2); Platelet Count 346 X10*3/uL (160-400); Red Blood Count 3.95 X10*6/uL (4.20-5.50); White Blood Count 12.6 X10*3/uL (4.8-10.8)
[2025-05-20 09:24] LABS: Alanine Aminotransferase 32 U/L (0-31); Albumin Level 3.2 g/dL (3.5-5.0); Alkaline Phosphatase 98 U/L (39-117); Anion Gap 12 (12-20); Aspartate Amino Transferase 29 U/L (5-31); Blood Urea Nitrogen 8 mg/dL (9-16); Calcium 8.4 mg/dL (8.4-10.2); Carbon Dioxide 25 mmol/L (22-29); Chloride 103 mmol/L (96-108); Creatinine Clr Calc Pharmacy 142.4; Estimated Glomerular Filt Rate > 60; Hemoglobin A1C 511.9766 umol/L; Iron 21 mcg/dL (30-160); Percent Iron Saturation 12 % (15-50); Potassium 3.6 mmol/L (3.3-5.1); Sodium 136 mmol/L (135-145); Total Hemoglobin (HGBA1C) 4818.2887 umol/L; Total Iron Binding Capacity 181 mcg/dL (228-428); Total Protein 6.8 g/dL (6.5-8.0); Unsaturated Iron Binding 160 ug/dL
--- NOTE | 2025-05-20 09:29 | MHC.RECOVRN ---
spoke to EMELINA Euceda @ [facility] who reports pt was last dosed at [facility] 05/19/25 @ 0727am and given 3 take home doses. Information relayed to primary RN and documentation given to pharmacy.
--- NOTE | 2025-05-20 09:31 | MHC.CM.PN ---
Addendum entered by Shakira Bell 05/20/25 12:17: Patient was able to approve CM speaking with her Visitor/Music Journalist/Black. Patient lives in a house with Black, she receives her Methadone from [facility], and she uses a cane to assist with mobility. DC Plan is TBD; Patient appears not able to fully participate at this time with planning. CM has initiated and will follow for dc planning. Black did not know the name of her PCP ; he will transport to home at time of dc. IMM was left at bedside with Patient for her review at a later time and a copy has been placed on the chart. Original Note: CM attempted to meet with Patient at bedside. Patient was unable to stay awake nor respond to questions; CM will try again later.
--- NOTE | 2025-05-20 09:48 | HE.PHANOTE ---
RE: METHADONE DOSING Last dose of methadone 13 mg was given at [facility] on 05/19/25 @0727 with 3 take home doses per EMELINA Euceda.
--- NOTE | 2025-05-20 09:50 | P.PNIM_ITS ---
Subjective Subjective Date of Service: 05/20/25 Interval History: Sleeping easily aroused, offered no complaint Physical Exam 2 Vital Signs: Vital Signs: Last Vital Signs Temp 98.4 F 05/20/25 07:45 Pulse 82 05/20/25 08:46 Resp 16 05/20/25 08:46 BP 105/45 L 05/20/25 07:45 Pulse Ox 94 05/20/25 07:45 O2 Del Method Nasal Cannula 05/20/25 07:45 O2 Flow Rate 2 05/20/25 07:45 BMI result Body Mass Index 33.7 Objective Data Active Medications Acetaminophen (Acetaminophen 325 Mg Tablet) 650 mg PO Q6H PRN PRN Reason: Pain, Mild 1-3,fever,headache Albuterol/Ipratropium (Albuterol/Iprat 2.5/0.5mg 3 Ml Ampul.Neb) 3 ml INHALE Q4H PRN PRN Reason: Shortness of Breath/Wheezing Aripiprazole (Aripiprazole 20 Mg Tablet) 20 mg PO DAILY [facility] Last Admin: 05/20/25 07:54 Dose: 20 mg Documented By: PANTERA Atorvastatin Calcium (Atorvastatin Calcium 40 Mg Tablet) 40 mg PO DAILY [facility] Last Admin: 05/20/25 07:54 Dose: 40 mg Documented By: PANTERA Calcium Carbonate (Calcium Carbonate 750 Mg Tab.Chew) 750 mg PO Q4H PRN PRN Reason: Heartburn Clonazepam (Clonazepam 1 Mg Tablet) 1 mg PO BID PRN PRN Reason: Anxiety Last Admin: 05/19/25 23:55 Dose: 1 mg Documented By: KEVIN Dextrose (Dextrose 50 % 25 Gm/50 Ml Syringe) 25 gm IVPUSH Q15M PRN; Protocol PRN Reason: per Hypoglycemia Standing Ord. Diazepam (Diazepam 10 Mg/2 Ml Cartridge) 10 mg IVPUSH Q6H PRN PRN Reason: Opiate Withdrawal Last Admin: 05/19/25 20:06 Dose: 10 mg Documented By: KEVIN Fluticasone/Vilanterol (Fluticasone/Vilanterol 100/25 Blst.W.Dev) 1 puff INHALE RDAILY [facility] Last Admin: 05/20/25 08:45 Dose: 1 puff Documented By: LAZARUS Gabapentin (Gabapentin 300 Mg Capsule) 300 mg PO BID [facility] Last Admin: 05/20/25 07:54 Dose: 300 mg Documented By: PANTERA Glucose (Glucose Gel 15 Gm Gel..Gram.) 15 gm PO Q15M PRN; Protocol PRN Reason: per Hypoglycemia Standing Ord. Sodium Chloride (Ns) 1,000 mls @ 125 mls/hr IVCONT .Q8H [facility] Last Admin: 05/20/25 07:59 Dose: 125 mls/hr Documented By: PANTERA Piperacillin Sod/Tazobactam (Sod 4.5 gm/ Sodium Chloride) 100 mls @ 200 mls/hr IV Q6H [facility] Last Infusion: 05/20/25 07:25 Dose: Infused Documented By: PANTERA Clindamycin Phosphate (Cleocin) 600 mg in 50 mls @ 100 mls/hr IV Q8H [facility] Last Infusion: 05/20/25 06:35 Dose: Infused Documented By: FERNANDA Vancomycin HCl 1,250 mg/ (Sodium Chloride) 250 mls @ 166.667 mls/hr IV Q12H [facility] Insulin Glargine (Insulin Glargine,Hum.Rec.Anlog 100 Unit/Ml 10 Ml Vial) 40 unit SUBCUT BEDTIME [facility] Insulin Human Lispro (Insulin Lispro 100 Unit/Ml 3 Ml Vial) 0 unit SUBCUT QIDACHS [facility]; Protocol Last Admin: 05/20/25 07:54 Dose: 8 unit Documented By: PANTERA Magnesium Hydroxide (Milk Of Magnesia 30 Ml Oral.Susp) 30 ml PO DAILY PRN PRN Reason: Constipation Melatonin (Melatonin 3 Mg Tablet) 6 mg PO BEDTIME PRN PRN Reason: Insomnia Ondansetron HCl (Ondansetron Hcl 4 Mg/2 Ml Vial) 4 mg IVPUSH Q8H PRN PRN Reason: Nausea and Vomiting Oxcarbazepine (Oxcarbazepine 150 Mg Tablet) 150 mg PO BID [facility] Last Admin: 05/20/25 07:54 Dose: 150 mg Documented By: PANTERA Pharmacy Consult (Consult Rx Vancomycin Dosing) 1 each MISCELLANE DAILY PRN PRN Reason: Consult order Polyethylene Glycol (Polyethylene Glycol 3350 17 Gm Powd.Pack) 17 gm PO DAILY PRN PRN Reason: Constipation Senna (Sennosides 8.6 Mg Tablet) 17.2 mg PO BEDTIME [facility] Last Admin: 05/19/25 23:33 Dose: 17.2 mg Documented By: KEVIN Sodium Chloride (0.9 % Sodium Chloride Flush 3 Ml Syringe) 3 ml IVFLUSH QSHIFT [facility] Last Admin: 05/20/25 07:55 Dose: 3 ml Documented By: PANTERA Labs 05/21/25 06:17 05/21/25 06:17 Labs: Laboratory Results - last 24 hr 05/19/25 05/19/25 05/19/25 16:52 18:18 20:28 MCV 76.2 L MCH 26.8 L MCHC 35.1 H RDW 12.5 Plt Count 383 MPV 10.6 Immature Gran % (Auto) 1.2 H Neut % (Auto) 77.6 H Lymph % (Auto) 12.5 L [place] % (Auto) 7.6 Eos % (Auto) 0.8 Baso % (Auto) 0.3 Lymph # (Auto) 2.1 [place] # (Auto) 1.3 H Eos # (Auto) 0.1 Baso # (Auto) 0.1 Abs Immat Gran (auto) 0.20 H Absolute Neuts (auto) 12.7 H Absolute Nucleated RBC 0.000 Nucleated RBC % (auto) 0.0 ESR 102 H APTT 29.7 Anion Gap 10 L Estim Creat Clear Calc 130.1 Estimated GFR > 60 POC Glucose 416 H* Random Glucose 529 H* Estimat Average Glucose Hemoglobin A1c % Lactic Acid 1.4 Calcium 8.5 D Magnesium 1.9 Iron TIBC % Saturation Unsat Iron Binding Total Bilirubin 0.5 AST 38 H ALT 37 H Alkaline Phosphatase 104 Total Creatine Kinase 35 C-Reactive Protein 24.64 H Total Protein 7.2 Albumin 3.7 Lipase 15 Beta HCG, Quant Cancelled Urine Color Yellow Urine Appearance Clear Urine pH 6.5 Ur Specific Lindsay >= 1.030 H Urine Protein Negative Urine Glucose (UA) >=1000 H Urine Ketones Negative Urine Blood Negative Urine Nitrite Negative Ur Leukocyte Esterase Negative Urine RBC 0-2 Urine WBC 0-5 Ur Squamous Epith Cells 3-5 Urine Bacteria None Seen Hyaline Casts 0-2 Urine Test NEGATIVE Urine Opiates Screen Not Detected Ur Buprenorphine Scrn Not Detected Ur Oxycodone Screen Not Detected Urine Methadone Screen Positive H Urine Fentanyl Screen Not Detected Ur Barbiturates Screen Not Detected Ur Phencyclidine Scrn Not Detected Ur Amphetamines Screen Not Detected U Benzodiazepines Scrn Not Detected Urine Cocaine Screen POSITIVE H U Marijuana (THC) Screen POSITIVE H 05/19/25 05/19/25 05/20/25 21:16 21:55 07:34 MCV MCH MCHC RDW Plt Count MPV Immature Gran % (Auto) Neut % (Auto) Lymph % (Auto) [place] % (Auto) Eos % (Auto) Baso % (Auto) Lymph # (Auto) [place] # (Auto) Eos # (Auto) Baso # (Auto) Abs Immat Gran (auto) Absolute Neuts (auto) Absolute Nucleated RBC Nucleated RBC % (auto) ESR APTT Anion Gap Estim Creat Clear Calc Estimated GFR POC Glucose 304 H 315 H 331 H Random Glucose Estimat Average Glucose Hemoglobin A1c % Lactic Acid Calcium Magnesium Iron TIBC % Saturation Unsat Iron Binding Total Bilirubin AST ALT Alkaline Phosphatase Total Creatine Kinase C-Reactive Protein Total Protein Albumin Lipase Beta HCG, Quant Urine Color Urine Appearance Urine pH Ur Specific [place] Urine Protein Urine Glucose (UA) Urine Ketones Urine Blood Urine Nitrite Ur Leukocyte Esterase Urine RBC Urine WBC Ur Squamous Epith Cells Urine Bacteria Hyaline Casts Urine Test Urine Opiates Screen Ur Buprenorphine Scrn Ur Oxycodone Screen Urine Methadone Screen Urine Fentanyl Screen Ur Barbiturates Screen Ur Phencyclidine Scrn Ur Amphetamines Screen U Benzodiazepines Scrn Urine Cocaine Screen U Marijuana (THC) Screen 05/20/25 08:38 MCV 79.2 L MCH 26.3 L MCHC 33.2 RDW 12.8 Plt Count 346 MPV 11.8 Immature Gran % (Auto) 2.0 H Neut % (Auto) 72.4 Lymph % (Auto) 14.9 L [place] % (Auto) 7.6 Eos % (Auto) 2.5 Baso % (Auto) 0.6 Lymph # (Auto) 1.9 [place] # (Auto) 1.0 Eos # (Auto) 0.3 Baso # (Auto) 0.1 Abs Immat Gran (auto) 0.25 H Absolute Neuts (auto) 9.1 H Absolute Nucleated RBC 0.040 H Nucleated RBC % (auto) 0.3 H ESR APTT Anion Gap 12 Estim Creat Clear Calc 142.4 Estimated GFR > 60 POC Glucose Random Glucose 320 H Estimat Average Glucose 295 Hemoglobin A1c % 11.9 H Lactic Acid Calcium 8.4 Magnesium Iron 21 L TIBC 181 L % Saturation 12 L Unsat Iron Binding 160 Total Bilirubin 0.2 AST 29 ALT 32 H Alkaline Phosphatase 98 Total Creatine Kinase C-Reactive Protein Total Protein 6.8 Albumin 3.2 L Lipase Beta HCG, Quant Urine Color Urine Appearance Urine pH Ur Specific [place] Urine Protein Urine Glucose (UA) Urine Ketones Urine Blood Urine Nitrite Ur Leukocyte Esterase Urine RBC Urine WBC Ur Squamous Epith Cells Urine Bacteria Hyaline Casts Urine Test Urine Opiates Screen Ur Buprenorphine Scrn Ur Oxycodone Screen Urine Methadone Screen Urine Fentanyl Screen Ur Barbiturates Screen Ur Phencyclidine Scrn Ur Amphetamines Screen U Benzodiazepines Scrn Urine Cocaine Screen U Marijuana (THC) Screen Microbiology Microbiology Results: Microbiology 05/19/25 18:12 Gram Stain - Final Arm Routine Culture - Preliminary Culture in progress. 05/19/25 18:12 Gram Stain - Final Arm Routine Culture - Preliminary Culture in progress. 05/19/25 18:12 Gram Stain - Final Arm Left Routine Culture - Preliminary Culture in progress. 05/19/25 16:54 Blood Culture - Preliminary Blood - Venous Prelim: GPC Gram Stain only 05/19/25 16:54 Blood Culture - Preliminary Blood - Venous Prelim: GPC Gram Stain only Assessment and Plan (1) Cellulitis: Status: Acute (2) Abscess of forearm, left: Status: Acute (3) Abscess of forearm, right: Status: Acute (4) Active intravenous drug use: Status: Acute (5) IVDU (intravenous drug user): Status: Acute Plan Pt is a 44 yo female with PMH IVDA last use 3 days ago, IDDM on Trulicity, Obesity, Bipolar D/O, schizophrenia, KEATON started methadone 2 weeks ago, A/V hallucinations, yeast infections, presents to ED with complaints of fever X2 days, highest 102, chills, nausea and intermittent vomiting with abscesses found on BUE's from IVDA. Admittd for bacteremia and abscesses of upper extremities L and R arm abscess with subcutaneous gas secondary IV drug use Gram positive cocci bacteremia -IV Vanco and add Kefzol for synergy -echo to rule IE -ID consult -Surgery consult to assess for debridment. Hyponatremia, resolved. Diabetes with Hyperglycemia, non compliant with meds, A1C =11 continue Lantus and humalgo, diabetic diet, education Bipolar Depression/ Schizophrenia/ Anxiety/ Auditory and visual Hallucinations Psychiatry consulted Pt denies suicidal or homicidal ideations, A/V hallucinations - presents manic/ anxious No 1:1 indicated currently Pt is homeless officially, can no longer live with father of her daughter MED REC completed, normally on Abilify, clonazepam, oxcarbazepine - await recommendations from psychiatry CM consulted Substance use disoerder Addiction med consult HLD Continue statin COPD/ Asthma Duo nebs prn No issues with hypoxia POX Q4H Anemia Iron panel and B12 pending Trend CBC H/H table, no indication for transfusion Obesity weight loss advised DVT prophylaxis: lovenox held due to possible procedure needed and I and D done in ED MED REC COMPLETED FULL CODE STATUS Quality Stroke Does the patient have a stroke diagnosis?: No Reason for No Anti-thrombotic by Day Two: Contraindicated VTE Prior VTE?: No VTE Risk Level:: Medical - moderate - high VTE Device Contraindication: N/A - Device Ordered VTE Drug Contraindication: Treatment Not Indicated
[2025-05-20 09:52] LABS: Vitamin B12 766 pg/mL (200-900)
[2025-05-20 10:04] LABS: Osmolality, Serum 294 mosm/kg (281-305)
--- NOTE | 2025-05-20 10:46 | MHC.RECOVRN ---
Tw attempted to meet with pt in 445-1 after consult placed to Addiction Medicine for cocaine use. On approach pt was laying in bed, eyes closed, respirations even and unlabored, in no apparent distress. Pt would open eyes to name being called but would immediately close them again, unable to participate in conversation. TW to return later today/tomorrow and is available as needed for recovery support and resources.
[2025-05-20 11:30] LABS: Glucose, Whole Blood 263 mg/dL (60-115)
--- NOTE | 2025-05-20 13:45 | PM.CNGS ---
History of Present Illness Consult details Consult date: 05/21/25 Requesting physician: Siomara Bower Narrative: 44 year old female iv drug abuser comes in with abscess in the right arm at wrist and the antecubital area and on the left antecubital area. She was avoiding coming in - admits to iv drug abuse. in the ER she had the areas opened up and drained PMFSH Past Medical History Medical History (Updated 05/21/25 @ 00:09 by Ayana Davenport MD) MSSA bacteremia Sepsis Obesity Anxiety Bipolar 1 disorder with moderate morenita Schizophrenia Paranoia Asthma Hyperlipidemia Type 2 diabetes mellitus Surgical History Surgical History Hx of section Social History Social History Household Members: None Housing: House Are you a primary direct support professional caregiver to a significant other at home: No Do you presently have visiting nurse or other home services: No Alcohol intake: former Comment: pt deneis use currently Patient Tobacco Use Status: Former Tobacco user Smoked in Last 30 Days: Yes e-Cigarette/Vaping Use: Currently Using Use of substances other than those prescribed or required for medical reasons: Yes Substance Use Type: Crack/Cocaine and Marijuana Currently Displaying Signs/Symptoms of Drug Intoxication Withdrawal: No Do you feel safe in your current relationship?: No Current Relationship Is there a partner from a previous relationship who is making you feel unsafe now?: No Are you made to feel afraid or neglected: No Advance Directives: No Advance Directives Information Provided: Yes Do you have a plan to hurt others: No Plan Recently lost weight without trying: No How much weight loss: Not applicable Eating poorly because of decreased appetite: No Nutrition screen score: 0 Nutrition Risks: Diabetes new onset/Uncontrolled Patient : No : No Poor oral hygiene: No service: No Sexual orientation: Straight/Heterosexual Travel History Ebola Risk: Travel/Contact With Anyone From Affected Area/s: No Has Patient Experienced Ebola Symptoms: No Meds Allergies Allergy/AdvReac Type Severity Reaction Status Date / Time divalproex sodium (From Allergy Severe ANAPHYLAXIS Verified 05/19/25 15:06 Depakote) hydrocodone (HYDROCODONE) Allergy Severe HIVES Verified 05/19/25 15:06 tramadol Allergy Unknown rash Verified 05/19/25 15:06 acetaminophen (From Vicodin) Allergy Anaphylaxis Verified 05/19/25 15:06 From Ultram Allergy Intermediate ITCHING Uncoded 05/19/25 15:06 PEANUT BUTTER Allergy Unknown ANAPHYLAXIS Uncoded 05/19/25 15:06 Active Medications: Current Medications Acetaminophen (Acetaminophen 325 Mg Tablet) 650 mg PO Q6H PRN PRN Reason: Pain, Mild 1-3,fever,headache Albuterol/Ipratropium (Albuterol/Iprat 2.5/0.5mg 3 Ml Ampul.Neb) 3 ml INHALE Q4H PRN PRN Reason: Shortness of Breath/Wheezing Aripiprazole (Aripiprazole 20 Mg Tablet) 20 mg PO DAILY [facility] Last Admin: 05/20/25 07:54 Dose: 20 mg Atorvastatin Calcium (Atorvastatin Calcium 40 Mg Tablet) 40 mg PO DAILY [facility] Last Admin: 05/20/25 07:54 Dose: 40 mg Calcium Carbonate (Calcium Carbonate 750 Mg Tab.Chew) 750 mg PO Q4H PRN PRN Reason: Heartburn Clonazepam (Clonazepam 1 Mg Tablet) 1 mg PO BID PRN PRN Reason: Anxiety Last Admin: 05/19/25 23:55 Dose: 1 mg Dextrose (Dextrose 50 % 25 Gm/50 Ml Syringe) 25 gm IVPUSH Q15M PRN; Protocol PRN Reason: per Hypoglycemia Standing Ord. Diazepam (Diazepam 10 Mg/2 Ml Cartridge) 10 mg IVPUSH Q6H PRN PRN Reason: Opiate Withdrawal Last Admin: 05/19/25 20:06 Dose: 10 mg Fluticasone/Vilanterol (Fluticasone/Vilanterol 100/25 Blst.W.Dev) 1 puff INHALE RDAILY [facility] Last Admin: 05/20/25 08:45 Dose: 1 puff Gabapentin (Gabapentin 300 Mg Capsule) 300 mg PO BID [facility] Last Admin: 05/20/25 07:54 Dose: 300 mg Glucose (Glucose Gel 15 Gm Gel..Gram.) 15 gm PO Q15M PRN; Protocol PRN Reason: per Hypoglycemia Standing Ord. Sodium Chloride (Ns) 1,000 mls @ 125 mls/hr IVCONT .Q8H [facility] Last Admin: 05/20/25 07:59 Dose: 125 mls/hr Clindamycin Phosphate (Cleocin) 600 mg in 50 mls @ 100 mls/hr IV Q8H [facility] Last Infusion: 05/20/25 06:35 Dose: Infused Vancomycin HCl 1,250 mg/ (Sodium Chloride) 250 mls @ 166.667 mls/hr IV Q12H [facility] Last Infusion: 05/20/25 12:40 Dose: Infused Cefazolin Sodium/Dextrose (Ancef) 2 gm in 50 mls @ 100 mls/hr IV Q8H [facility] Last Infusion: 05/20/25 10:58 Dose: Infused Insulin Glargine (Insulin Glargine,Hum.Rec.Anlog 100 Unit/Ml 10 Ml Vial) 40 unit SUBCUT BEDTIME LUIS ENRIQUE Insulin Human Lispro (Insulin Lispro 100 Unit/Ml 3 Ml Vial) 0 unit SUBCUT QIDACHS [facility]; Protocol Last Admin: 05/20/25 12:07 Dose: 6 unit Magnesium Hydroxide (Milk Of Magnesia 30 Ml Oral.Susp) 30 ml PO DAILY PRN PRN Reason: Constipation Melatonin (Melatonin 3 Mg Tablet) 6 mg PO BEDTIME PRN PRN Reason: Insomnia Ondansetron HCl (Ondansetron Hcl 4 Mg/2 Ml Vial) 4 mg IVPUSH Q8H PRN PRN Reason: Nausea and Vomiting Oxcarbazepine (Oxcarbazepine 150 Mg Tablet) 150 mg PO BID [facility] Last Admin: 05/20/25 07:54 Dose: 150 mg Pharmacy Consult (Consult Rx Vancomycin Dosing) 1 each MISCELLANE DAILY PRN PRN Reason: Consult order Polyethylene Glycol (Polyethylene Glycol 3350 17 Gm Powd.Pack) 17 gm PO DAILY PRN PRN Reason: Constipation Senna (Sennosides 8.6 Mg Tablet) 17.2 mg PO BEDTIME [facility] Last Admin: 05/19/25 23:33 Dose: 17.2 mg Sodium Chloride (0.9 % Sodium Chloride Flush 3 Ml Syringe) [facility] Last Admin: 05/20/25 07:55 Dose: 3 ml Home Medications ?Medication ?Instructions ?Recorded ?Confirmed ?Last Taken ?Type albuterol sulfate 90 mcg/actuation 1 puff inhalation TID PRN Wheezing 02/22/24 05/19/25 02/21/24 12:00 History aerosol inhaler tizanidine 4 mg tablet 4 mg PO TID PRN Back Pain 02/22/24 05/19/25 02/21/24 12:00 History fluticasone furoate 100 1 ea inhalation DAILY 03/11/24 05/19/25 10/11/24 History mcg-vilanterol 25 mcg/dose inhalation powder (Breo Ellipta) insulin glargine 100 unit/mL (3 40 unit subcut BEDTIME 03/11/24 05/19/25 10/11/24 History mL) subcutaneous pen (Lantus Solostar U-100 Insulin) dulaglutide 1.5 mg/0.5 mL 1.5 mg subcut SA 10/12/24 05/19/25 10/02/24 History subcutaneous pen injector (Trulicity) aripiprazole 20 mg tablet 20 mg PO DAILY 05/19/25 05/19/25 Unknown History atorvastatin 40 mg tablet 40 mg PO DAILY 05/19/25 05/19/25 Unknown History clonazepam 1 mg tablet 1 mg PO BID PRN Anxiety 05/19/25 05/19/25 Unknown History gabapentin 300 mg capsule 300 mg PO BID 05/19/25 05/19/25 Unknown History methadone 10 mg/mL oral 13 mg PO DAILY 05/19/25 05/20/25 05/19/25 07:27 History concentrate (Methadone Intensol) oxcarbazepine 150 mg tablet 150 mg PO BID 05/19/25 05/19/25 Unknown History Physical Exam Vital Signs: Vital Signs: Last Vital Signs Temp 98.4 F 05/20/25 11:31 Pulse 85 05/20/25 11:31 Resp 18 05/20/25 11:31 BP 118/55 L 05/20/25 11:31 Pulse Ox 96 05/20/25 11:31 O2 Del Method Nasal Cannula 05/20/25 11:31 O2 Flow Rate 2 05/20/25 11:31 BMI result Body Mass Index 33.7 Const: General: cooperative, no acute distress and poor hygiene Skin: Other: right wrist and right antecubital area with one and two areas open - small incisions and probe into bigger space - some purulent drainage and blood surrouning erythema and indurated soft tissue the left arm upper area lateral with erythema to elbow and opening draining purulent and blood material no areas of induration not opened Results Labs 05/21/25 06:17 05/21/25 06:17 Labs: Abnormal lab results 09/05/19/25 05/19/25 Range/Units 16:52 18:18 20:28 WBC 16.4 H (4.8-10.8) X10*3/uL RBC 4.11 L (4.20-5.50) X10*6/uL Hgb 11.0 L (12.0-16.0) g/dl Hct 31.3 L (37.0-47.0) % MCV 76.2 L (80.0-98.0) fL MCH 26.8 L (27.0-33.0) pg MCHC 35.1 H (31.0-35.0) g/dl Immature Gran % (Auto) 1.2 H (0.0-0.4) % Neut % (Auto) 77.6 H (45-73) % Lymph % (Auto) 12.5 L (20-40) % [place] # (Auto) 1.3 H (0.1-1.2) X10*3/uL Abs Immat Gran (auto) 0.20 H (0.00-0.03) X10*3/uL Absolute Neuts (auto) 12.7 H (2.0-8.3) x10*3/uL Absolute Nucleated RBC (0.0-0.012) X10*3/uL Nucleated RBC % (auto) (0.0-0.2) /100WBC ESR 102 H (0-20) MM/HR Sodium 128 L (135-145) mmol/L Chloride 92 L (96-108) mmol/L Anion Gap 10 L (12-20) BUN 5 L (9-16) mg/dL POC Glucose 416 H* (60-115) mg/dL Random Glucose 529 H* (60-115) mg/dL Hemoglobin A1c % (<6.0) % Iron (30-160) mcg/dL TIBC (228-428) mcg/dL % Saturation (15-50) % AST 38 H (5-31) U/L ALT 37 H (0-31) U/L C-Reactive Protein 24.64 H (< or = 0.50) mg/dL Albumin (3.5-5.0) g/dL Ur Specific [place] >= 1.030 H (1.005-1.025) Urine Glucose (UA) >=1000 H (Negative) mg/dL Urine Methadone Screen Positive H (Not Detect) ng/mL Urine Cocaine Screen POSITIVE H (Not Detect) U Marijuana (THC) Screen POSITIVE H (Not Detect) 05/19/25 05/19/25 05/20/25 Range/Units 21:16 21:55 07:34 WBC (4.8-10.8) X10*3/uL RBC (4.20-5.50) X10*6/uL Hgb (12.0-16.0) g/dl Hct (37.0-47.0) % MCV (80.0-98.0) fL MCH (27.0-33.0) pg MCHC (31.0-35.0) g/dl Immature Gran % (Auto) (0.0-0.4) % Neut % (Auto) (45-73) % Lymph % (Auto) (20-40) % [place] # (Auto) (0.1-1.2) X10*3/uL Abs Immat Gran (auto) (0.00-0.03) X10*3/uL Absolute Neuts (auto) (2.0-8.3) x10*3/uL Absolute Nucleated RBC (0.0-0.012) X10*3/uL Nucleated RBC % (auto) (0.0-0.2) /100WBC ESR (0-20) MM/HR Sodium (135-145) mmol/L Chloride (96-108) mmol/L Anion Gap (12-20) BUN (9-16) mg/dL POC Glucose 304 H 315 H 331 H (60-115) mg/dL Random Glucose (60-115) mg/dL Hemoglobin A1c % (<6.0) % Iron (30-160) mcg/dL TIBC (228-428) mcg/dL % Saturation (15-50) % AST (5-31) U/L ALT (0-31) U/L C-Reactive Protein (< or = 0.50) mg/dL Albumin (3.5-5.0) g/dL Ur Specific [place] (1.005-1.025) Urine Glucose (UA) (Negative) mg/dL Urine Methadone Screen (Not Detect) ng/mL Urine Cocaine Screen (Not Detect) U Marijuana (THC) Screen (Not Detect) 05/20/25 05/20/25 Range/Units 08:38 11:24 WBC 12.6 H (4.8-10.8) X10*3/uL RBC 3.95 L (4.20-5.50) X10*6/uL Hgb 10.4 L (12.0-16.0) g/dl Hct 31.3 L (37.0-47.0) % MCV 79.2 L (80.0-98.0) fL MCH 26.3 L (27.0-33.0) pg MCHC (31.0-35.0) g/dl Immature Gran % (Auto) 2.0 H (0.0-0.4) % Neut % (Auto) (45-73) % Lymph % (Auto) 14.9 L (20-40) % [place] # (Auto) (0.1-1.2) X10*3/uL Abs Immat Gran (auto) 0.25 H (0.00-0.03) X10*3/uL Absolute Neuts (auto) 9.1 H (2.0-8.3) x10*3/uL Absolute Nucleated RBC 0.040 H (0.0-0.012) X10*3/uL Nucleated RBC % (auto) 0.3 H (0.0-0.2) /100WBC ESR (0-20) MM/HR Sodium (135-145) mmol/L Chloride (96-108) mmol/L Anion Gap (12-20) BUN 8 L (9-16) mg/dL POC Glucose 263 H (60-115) mg/dL Random Glucose 320 H (60-115) mg/dL Hemoglobin A1c % 11.9 H (<6.0) % Iron 21 L (30-160) mcg/dL TIBC 181 L (228-428) mcg/dL % Saturation 12 L (15-50) % AST (5-31) U/L ALT 32 H (0-31) U/L C-Reactive Protein (< or = 0.50) mg/dL Albumin 3.2 L (3.5-5.0) g/dL Ur Specific [place] (1.005-1.025) Urine Glucose (UA) (Negative) mg/dL Urine Methadone Screen (Not Detect) ng/mL Urine Cocaine Screen (Not Detect) U Marijuana (THC) Screen (Not Detect) Short CBC 05/19/25 05/20/25 Range/Units 16:52 08:38 WBC 16.4 H 12.6 H (4.8-10.8) X10*3/uL Hgb 11.0 L 10.4 L (12.0-16.0) g/dl Hct 31.3 L 31.3 L (37.0-47.0) % Plt Count 383 346 (160-400) X10*3/uL BMP 05/19/25 05/20/25 16:52 08:38 Sodium 128 L 136 Potassium 3.4 D 3.6 Chloride 92 L 103 Carbon Dioxide 29 25 BUN 5 L 8 L Creatinine 0.58 0.53 Calcium 8.5 D 8.4 Cardiac Enzymes 05/19/25 Range/Units 16:52 Total Creatine Kinase 35 (26-140) U/L Liver Function 05/19/25 05/20/25 Range/Units 16:52 08:38 Total Bilirubin 0.5 0.2 (0.0-1.0) mg/dL AST 38 H 29 (5-31) U/L ALT 37 H 32 H (0-31) U/L Alkaline Phosphatase 104 98 (39-117) U/L Albumin 3.7 3.2 L (3.5-5.0) g/dL Urine 05/19/25 Range/Units 20:28 Urine Color Yellow Urine Appearance Clear Urine pH 6.5 (5.0-9.0) Ur Specific [place] >= 1.030 H (1.005-1.025) Urine Protein Negative (Neg-Trace) mg/dL Urine Glucose (UA) >=1000 H (Negative) mg/dL Urine Test NEGATIVE (NEGATIVE) All other labs normal. Imaging Additional studies: [address] [address] [address] Scan Report Signed Patient: Olive Hua MR#: [id number] : 02/23/1934 Acct:[id number] Age/Sex: 89 / F ADM Date: 05/19/25 Loc: HO.ED Attending Dr: Ordering Physician: Melony Carias MD Date of Service: 05/19/25 Procedure(s): CT abdomen pelvis wo IV con Accession Number(s): [id number] cc: Melony Carias MD; Sahara Orosco~ Report Number: [id number]: Total DLP = 0.00 mGy-cm Reason for Exam: llq abd pain CLINICAL HISTORY: llq abd pain CT abdomen and pelvis without contrast Comparison: CT/SR - CT CHEST WO IV CON - 02/25/25 09:14 EDT Findings: There is severe thickening of the visualized right pleural surfaces compatible with the patient's clinical history of mesothelioma. No acute abnormality at the lung bases. There is infiltration of fat adjacent to the bilateral kidneys. There is no calculus or hydronephrosis. There is an 18 mm cyst within the lateral segment of the liver. There is moderate pancreatic volume loss. The spleen is normal in size. The adrenal glands are unremarkable. There has been a prior cholecystectomy. There is severe colonic diverticulosis. There is very mild infiltration of mesenteric fat adjacent to the proximal sigmoid colon which could indicate a mild degree of diverticulitis. There is no bowel obstruction. There are severe atherosclerotic changes. There is a 2.7 x 3.1 cm aneurysm of the suprarenal abdominal aorta. There is a 2.4 cm aneurysm of the infrarenal abdominal aorta. 3.1 cm aneurysm of the suprarenal abdominal aorta. 2.4 cm aneurysm of the infrarenal abdominal aorta. There are vascular calcifications within the uterus. There is an 18 mm cyst within the left ovary. Pelvic contents are otherwise unremarkable. There is possible visualization of a normal appendix. There are no secondary findings to suggest appendicitis. Status post right hip replacement. No acute fracture. IMPRESSION: 1. Severe colonic diverticulosis. There may be a mild degree of diverticulitis at the level of the sigmoid colon. 2. Severe thickening of right pleural surfaces compatible with known mesothelioma. This document has been electronically signed by: Lissette Dickey MD on 05/19/2025 19:38:15 Dictated By: Lissette Dickey MD Signed By: <Electronically signed by Lissette Dickey MD in [place]> 05/19/251938 DD/ 37 TD/TT: 05/19/251937 Globe Mounter: Signed Patient: DevanNovember MR#: [id number] : 1980 Acct:[id number] Age/Sex: 44 / F ADM Date: 05/19/25 Loc: .[facility] 445-[address]: Chloe Jc MD Ordering Physician: Susan Khan Date of Service: 05/19/25 Procedure(s): CT humerus RT w IV con Accession Number(s): [id number] cc: Susan Khan; Physician,None ~ Report Number: [id number]: Total DLP = 158.00 mGy-cm Reason for Exam: IVDA ABscess r/o nec fascitis CLINICAL HISTORY: IVDA ABscess r o nec fascitis CT of the right humerus with IV contrast. Comparison: Radiographs from the same day. Findings: No fracture or acute osseous abnormality. Alignment is satisfactory. Regional proximal soft tissues are within normal limits subcutaneous fat stranding and cellulitic changes are apparent near the antecubital fossa. Dependent changes are noted in the right lung. Impression: Unremarkable CT of the right humerus. Cellulitic changes noted near the antecubital fossa, described on CT of the forearm. This document has been electronically signed by: Evan Neal MD, PHD on 05/20/2025 02:54:26 Dictated By: Evan Neal MD Signed By: <Electronically signed by Evan Neal MD in [place]> 05/20/25254 DD/ 3 TD/TT: 05/20/25253 Globe Mounter: Assessment and Plan (1) Abscess of arm, left: Status: Acute (2) Abscess of arm, right: Status: Acute Plan 44 year old feamle with bilateral arm abscess due to ivdrug abuse - areas looked drained once irrigated and no undrained loculated area - dress area with nugauze packing and readress tomorrow. cultures need to fu on and ocnt with iv antibiotics Procedures Date of Service Date of Service: 05/22/25
--- NOTE | 2025-05-20 15:30 | P.CNPS_ITS ---
History of Present Illness Date of Service: 05/20/25 Chief Complaint: wound abscesses Requesting physician: Rajinder Knight Sources of Information: patient interviewed, chart reviewed and crisis/core team assessment reviewed HPI Narrative: HPI: Pt is a 44 yo female with PMH schizophrenia, IVDA last use 3 days ago, IDDM on Trulicity, Obesity, KEATON started methadone 2 weeks ago, yeast infections, presents to ED with complaints of fever X2 days, highest 102, chills, nausea and intermittent vomting with abscesses noted on BUE's from IVDA. Pt also states she has been incontinent of urine and stool at times. Pt denies any diarrhea today. Pt beleives that fragments from needles may have broken off in her arms. Pt told ED provder she tried to drain the abscess on her right wrist and left arm by sticking it with a needle multiple times. Pt started methadone 13 mgs 2 weeks ago with clinic on [facility]. Pt injected cocaine, last time was this past Thursday. Pt was not sure if the cocaine was laced with something else. Pt has been clean for 9 years but due to stress with her daughter's father, pt began using again (pt using IV drugs prior to 02/2024 psychiatric admission to ). Pt lives with psychiatric issues and overall is requesting help with detox, inpatient care for drug use. Pt is not suicidal today. Pt denies A/V hallucinations today. Pt does state she has not been compliant with her medication regimen for diabetes and mental health. Psychiatry consulted to psychiatric symptoms. Patient tired on approach and thus, somewhat a limited historian. She concurs that her outpatient provider currently is prescribing her Trileptal and Abilify. Patient however says that she only takes these medications sometimes but says that when she does take them she feels they are helpful. Patient denies any AVH; denies any SI. Patient does not appear to want any medication changes . Past Psychiatric History: Current medication regimen: Trileptal 150 mg b.i.d. Abilify 20 mg daily Patient psychiatrically admitted in 02/2024 to and diagnosed with a psychotic disorder At that time patient seemed to stabilize on Risperdal 1 mg b.i.d. Other medication trials include: perphenazine 4 mg t.i.d. Patient admits to cycling mood but has not wanted treatment. Has had past hospitalization at [facility] past treatment with Depakote which she has an allergy past treatment with Abilify many years ago. The patient did have treatment in the past with [facility] not for number of years. She was in [facility] as an adolescent there was a chins petition when she was an adolescent Medical Evaluation Reviewed: Yes FORMERLY [facility], [facility] Medical History Obesity Anxiety Bipolar 1 disorder with moderate morenita Schizophrenia Paranoia Asthma Hyperlipidemia Type 2 diabetes mellitus Surgical History Hx of section Social History: Patient living with the father of her daughter. She has a son who is living with her parents she states her 20-year-old son is currently in snf she has living with the father for daughter and her daughter. Patient not working her daughter is 10 years old Trauma History: History of foster care Diagnostics Vital Signs (24Hr): Vital Signs - 24 hr 05/19/25 17:01 05/19/25 18:17 05/19/25 20:29 Temperature 99.2 F 100.3 F Pulse Rate 95 90 85 Respiratory Rate 15 18 12 Blood Pressure 120/98 H 115/58 L 110/62 Pulse Oximetry 96 98 93 Oxygen Delivery Method Room Air Room Air Room Air Oxygen Flow Rate 05/19/25 23:48 05/20/25 00:58 05/20/25 03:29 Temperature 98.2 F 98.8 F 99.6 F Pulse Rate 85 88 83 Respiratory Rate 18 16 Blood Pressure 126/80 127/58 L 114/59 L Pulse Oximetry 94 97 97 Oxygen Delivery Method Room Air Nasal Cannula Nasal Cannula Oxygen Flow Rate 2 2 05/20/25 07:45 05/20/25 08:46 05/20/25 11:31 Temperature 98.4 F 98.4 F Pulse Rate 83 82 85 Respiratory Rate 18 16 18 Blood Pressure 105/45 L 118/55 L Pulse Oximetry 94 96 Oxygen Delivery Method Nasal Cannula Nasal Cannula Oxygen Flow Rate 2 2 BMI result Body Mass Index 33.7 Labs 05/20/25 08:38 05/20/25 08:38 Labs: Laboratory Results - last 48 hr 05/19/25 05/19/25 05/19/25 16:52 18:18 20:28 WBC 16.4 H RBC 4.11 L Hgb 11.0 L Hct 31.3 L MCV 76.2 L MCH 26.8 L MCHC 35.1 H RDW 12.5 Plt Count 383 MPV 10.6 Immature Gran % (Auto) 1.2 H Neut % (Auto) 77.6 H Lymph % (Auto) 12.5 L [place] % (Auto) 7.6 Eos % (Auto) 0.8 Baso % (Auto) 0.3 Lymph # (Auto) 2.1 [place] # (Auto) 1.3 H Eos # (Auto) 0.1 Baso # (Auto) 0.1 Abs Immat Gran (auto) 0.20 H Absolute Neuts (auto) 12.7 H Absolute Nucleated RBC 0.000 Nucleated RBC % (auto) 0.0 ESR 102 H APTT 29.7 Sodium 128 L Potassium 3.4 D Chloride 92 L Carbon Dioxide 29 Anion Gap 10 L BUN 5 L Creatinine 0.58 Estim Creat Clear Calc 130.1 Estimated GFR > 60 POC Glucose 416 H* Random Glucose 529 H* Estimat Average Glucose Hemoglobin A1c % Osmolality Lactic Acid 1.4 Calcium 8.5 D Magnesium 1.9 Iron TIBC % Saturation Unsat Iron Binding Total Bilirubin 0.5 AST 38 H ALT 37 H Alkaline Phosphatase 104 Total Creatine Kinase 35 C-Reactive Protein 24.64 H Total Protein 7.2 Albumin 3.7 Lipase 15 Vitamin B12 Beta HCG, Quant Cancelled Urine Color Yellow Urine Appearance Clear Urine pH 6.5 Ur Specific Melvin >= 1.030 H Urine Protein Negative Urine Glucose (UA) >=1000 H Urine Ketones Negative Urine Blood Negative Urine Nitrite Negative Ur Leukocyte Esterase Negative Urine RBC 0-2 Urine WBC 0-5 Ur Squamous Epith Cells 3-5 Urine Bacteria None Seen Hyaline Casts 0-2 Urine Test NEGATIVE Urine Opiates Screen Not Detected Ur Buprenorphine Scrn Not Detected Ur Oxycodone Screen Not Detected Urine Methadone Screen Positive H Urine Fentanyl Screen Not Detected Ur Barbiturates Screen Not Detected Ur Phencyclidine Scrn Not Detected Ur Amphetamines Screen Not Detected U Benzodiazepines Scrn Not Detected Urine Cocaine Screen POSITIVE H U Marijuana (THC) Screen POSITIVE H 05/19/25 05/19/25 05/20/25 21:16 21:55 07:34 WBC RBC Hgb Hct MCV MCH MCHC RDW Plt Count MPV Immature Gran % (Auto) Neut % (Auto) Lymph % (Auto) [place] % (Auto) Eos % (Auto) Baso % (Auto) Lymph # (Auto) [place] # (Auto) Eos # (Auto) Baso # (Auto) Abs Immat Gran (auto) Absolute Neuts (auto) Absolute Nucleated RBC Nucleated RBC % (auto) ESR APTT Sodium Potassium Chloride Carbon Dioxide Anion Gap BUN Creatinine Estim Creat Clear Calc Estimated GFR POC Glucose 304 H 315 H 331 H Random Glucose Estimat Average Glucose Hemoglobin A1c % Osmolality Lactic Acid Calcium Magnesium Iron TIBC % Saturation Unsat Iron Binding Total Bilirubin AST ALT Alkaline Phosphatase Total Creatine Kinase C-Reactive Protein Total Protein Albumin Lipase Vitamin B12 Beta HCG, Quant Urine Color Urine Appearance Urine pH Ur Specific Melvin Urine Protein Urine Glucose (UA) Urine Ketones Urine Blood Urine Nitrite Ur Leukocyte Esterase Urine RBC Urine WBC Ur Squamous Epith Cells Urine Bacteria Hyaline Casts Urine Test Urine Opiates Screen Ur Buprenorphine Scrn Ur Oxycodone Screen Urine Methadone Screen Urine Fentanyl Screen Ur Barbiturates Screen Ur Phencyclidine Scrn Ur Amphetamines Screen U Benzodiazepines Scrn Urine Cocaine Screen U Marijuana (THC) Screen 05/20/25 05/20/25 08:38 11:24 WBC 12.6 H RBC 3.95 L Hgb 10.4 L Hct 31.3 L MCV 79.2 L MCH 26.3 L MCHC 33.2 RDW 12.8 Plt Count 346 MPV 11.8 Immature Gran % (Auto) 2.0 H Neut % (Auto) 72.4 Lymph % (Auto) 14.9 L [place] % (Auto) 7.6 Eos % (Auto) 2.5 Baso % (Auto) 0.6 Lymph # (Auto) 1.9 [place] # (Auto) 1.0 Eos # (Auto) 0.3 Baso # (Auto) 0.1 Abs Immat Gran (auto) 0.25 H Absolute Neuts (auto) 9.1 H Absolute Nucleated RBC 0.040 H Nucleated RBC % (auto) 0.3 H ESR APTT Sodium 136 Potassium 3.6 Chloride 103 Carbon Dioxide 25 Anion Gap 12 BUN 8 L Creatinine 0.53 Estim Creat Clear Calc 142.4 Estimated GFR > 60 POC Glucose 263 H Random Glucose 320 H Estimat Average Glucose 295 Hemoglobin A1c % 11.9 H Osmolality 294 Lactic Acid Calcium 8.4 Magnesium Iron 21 L TIBC 181 L % Saturation 12 L Unsat Iron Binding 160 Total Bilirubin 0.2 AST 29 ALT 32 H Alkaline Phosphatase 98 Total Creatine Kinase C-Reactive Protein Total Protein 6.8 Albumin 3.2 L Lipase Vitamin B12 766 Beta HCG, Quant Urine Color Urine Appearance Urine pH Ur Specific Melvin Urine Protein Urine Glucose (UA) Urine Ketones Urine Blood Urine Nitrite Ur Leukocyte Esterase Urine RBC Urine WBC Ur Squamous Epith Cells Urine Bacteria Hyaline Casts Urine Test Urine Opiates Screen Ur Buprenorphine Scrn Ur Oxycodone Screen Urine Methadone Screen Urine Fentanyl Screen Ur Barbiturates Screen Ur Phencyclidine Scrn Ur Amphetamines Screen U Benzodiazepines Scrn Urine Cocaine Screen U Marijuana (THC) Screen Mental Status Exam Mental Status Exam Patient Appearance: Disheveled Level of Consciousness: Drowsy Behavior Comments: Calm Mood Description: Withdrawn Affect Description: Withdrawn Speech Pattern: Clear Hallucinations: None (Denies) Delusions: Not Present (None expressed to hand sign writer) Thought Process: Goal Oriented Thought Content: positive for Suicidal Ideation (Denies) Medications Medications Current Medications Acetaminophen (Acetaminophen 325 Mg Tablet) 650 mg PO Q6H PRN PRN Reason: Pain, Mild 1-3,fever,headache Albuterol/Ipratropium (Albuterol/Iprat 2.5/0.5mg 3 Ml Ampul.Neb) 3 ml INHALE Q4H PRN PRN Reason: Shortness of Breath/Wheezing Aripiprazole (Aripiprazole 20 Mg Tablet) 20 mg PO DAILY [facility] Last Admin: 05/20/25 07:54 Dose: 20 mg Atorvastatin Calcium (Atorvastatin Calcium 40 Mg Tablet) 40 mg PO DAILY [facility] Last Admin: 05/20/25 07:54 Dose: 40 mg Calcium Carbonate (Calcium Carbonate 750 Mg Tab.Chew) 750 mg PO Q4H PRN PRN Reason: Heartburn Clonazepam (Clonazepam 1 Mg Tablet) 1 mg PO BID PRN PRN Reason: Anxiety Last Admin: 05/19/25 23:55 Dose: 1 mg Dextrose (Dextrose 50 % 25 Gm/50 Ml Syringe) 25 gm IVPUSH Q15M PRN; Protocol PRN Reason: per Hypoglycemia Standing Ord. Diazepam (Diazepam 10 Mg/2 Ml Cartridge) 10 mg IVPUSH Q6H PRN PRN Reason: Opiate Withdrawal Last Admin: 05/19/25 20:06 Dose: 10 mg Fluticasone/Vilanterol (Fluticasone/Vilanterol 100/25 Blst.W.Dev) 1 puff INHALE RDAILY [facility] Last Admin: 05/20/25 08:45 Dose: 1 puff Gabapentin (Gabapentin 300 Mg Capsule) 300 mg PO BID [facility] Last Admin: 05/20/25 07:54 Dose: 300 mg Glucose (Glucose Gel 15 Gm Gel..Gram.) 15 gm PO Q15M PRN; Protocol PRN Reason: per Hypoglycemia Standing Ord. Sodium Chloride (Ns) 1,000 mls @ 125 mls/hr IVCONT .Q8H [facility] Last Admin: 05/20/25 07:59 Dose: 125 mls/hr Clindamycin Phosphate (Cleocin) 600 mg in 50 mls @ 100 mls/hr IV Q8H [facility] Last Infusion: 05/20/25 14:43 Dose: Infused Vancomycin HCl 1,250 mg/ (Sodium Chloride) 250 mls @ 166.667 mls/hr IV Q12H [facility] Last Infusion: 05/20/25 12:40 Dose: Infused Cefazolin Sodium/Dextrose (Ancef) 2 gm in 50 mls @ 100 mls/hr IV Q8H [facility] Last Infusion: 05/20/25 10:58 Dose: Infused Insulin Glargine (Insulin Glargine,Hum.Rec.Anlog 100 Unit/Ml 10 Ml Vial) 40 unit SUBCUT BEDTIME [facility] Insulin Human Lispro (Insulin Lispro 100 Unit/Ml 3 Ml Vial) 0 unit SUBCUT QIDACHS [facility]; Protocol Last Admin: 05/20/25 12:07 Dose: 6 unit Magnesium Hydroxide (Milk Of Magnesia 30 Ml Oral.Susp) 30 ml PO DAILY PRN PRN Reason: Constipation Melatonin (Melatonin 3 Mg Tablet) 6 mg PO BEDTIME PRN PRN Reason: Insomnia Ondansetron HCl (Ondansetron Hcl 4 Mg/2 Ml Vial) 4 mg IVPUSH Q8H PRN PRN Reason: Nausea and Vomiting Oxcarbazepine (Oxcarbazepine 150 Mg Tablet) 150 mg PO BID [facility] Last Admin: 05/20/25 07:54 Dose: 150 mg Pharmacy Consult (Consult Rx Vancomycin Dosing) 1 each MISCELLANE DAILY PRN PRN Reason: Consult order Polyethylene Glycol (Polyethylene Glycol 3350 17 Gm Powd.Pack) 17 gm PO DAILY PRN PRN Reason: Constipation Senna (Sennosides 8.6 Mg Tablet) 17.2 mg PO BEDTIME [facility] Last Admin: 05/19/25 23:33 Dose: 17.2 mg Sodium Chloride (0.9 % Sodium Chloride Flush 3 Ml Syringe) 3 ml IVFLUSH QSHIFT [facility] Last Admin: 05/20/25 07:55 Dose: 3 ml Allergies Allergies Allergy/AdvReac Type Severity Reaction Status Date / Time divalproex sodium (From Allergy Severe ANAPHYLAXIS Verified 05/19/25 15:06 Depakote) hydrocodone (HYDROCODONE) Allergy Severe HIVES Verified 05/19/25 15:06 tramadol Allergy Unknown rash Verified 05/19/25 15:06 acetaminophen (From Vicodin) Allergy Anaphylaxis Verified 05/19/25 15:06 From Ultram Allergy Intermediate ITCHING Uncoded 05/19/25 15:06 PEANUT BUTTER Allergy Unknown ANAPHYLAXIS Uncoded 05/19/25 15:06 Assessment & Plan Assessment & Plan (1) Schizophrenia: Status: Acute Code(s): F20.9 - Schizophrenia, unspecified (2) IVDU (intravenous drug user): Status: Acute Code(s): F19.90 - Other psychoactive substance use, unspecified, uncomplicated Plan HPI: Pt is a 44 yo female with PMH schizophrenia, IVDA last use 3 days ago, IDDM on Trulicity, Obesity, KEATON started methadone 2 weeks ago, yeast infections, presents to ED with complaints of fever X2 days, highest 102, chills, nausea and intermittent vomting with abscesses noted on BUE's from IVDA. Pt also states she has been incontinent of urine and stool at times. Pt denies any diarrhea today. Pt beleives that fragments from needles may have broken off in her arms. Pt told ED provder she tried to drain the abscess on her right wrist and left arm by sticking it with a needle multiple times. Pt started methadone 13 mgs 2 weeks ago with clinic on [facility]. Pt injected cocaine, last time was this past Thursday. Pt was not sure if the cocaine was laced with something else. Pt has been clean for 9 years but due to stress with her daughter's father, pt began using again (pt using IV drugs prior to 02/2024 psychiatric admission to ). . Pt lives with psychiatric issues and overall is requesting help with detox, inpatient care for drug use. Pt is not suicidal today. Pt denies A/V hallucinations today. Pt does state she has not been compliant with her medication regimen for diabetes and mental health. Psychiatry consulted to psychiatric symptoms and recommend management. Patient tired on approach and thus, somewhat a limited historian. She concurs that her outpatient provider currently is prescribing her Trileptal and Abilify. Patient however says that she only takes these medications sometimes but says that when she does take them she feels they are helpful. Patient denies any AVH; denies any SI. Patient does not appear to want any medication changes Impression: Patient has a history of psychotic illness and diagnosed with schizophrenia. She only intermittently takes medications and is embroiled in substance abuse which certainly exacerbate her psychiatric symptoms. Despite this, it seems that patient rarely requires inpatient psychiatric level of care. Patient says that she only sometimes takes her psychiatric medications. At this time, there is no need for further medication management as patient says that her current prescriptions of Trileptal and Abilify are helpful when she takes them; thus any current psychotic symptoms can be attributed to non adherence with outpatient medication regimen. Her medications have been restarted now.. Plan: Continue outpatient regimen of Trileptal 150 mg b.i.d. and Abilify 20 mg daily Patient might benefit from a [address], court-ordered admission for substance abuse treatment Total time managing care of this patient today ____ minutes. Patient educated on: diagnosis and medication risk/benefits Informed Consent: understands
[2025-05-20 16:35] LABS: Glucose, Whole Blood 269 mg/dL (60-115)
[2025-05-20 20:37] LABS: Glucose, Whole Blood 265 mg/dL (60-115)
[2025-05-20 21:14] LABS: Glucose, Whole Blood 284 mg/dL (60-115)
[2025-05-20] MEDS: Insulin Glargine,Hum.rec.anlog 100 UNIT/ML 10 ML VIAL 40 UNIT SUBCUT (22:06)
[2025-05-20] MEDS: diazePAM 10 MG/2 ML CARTRIDGE IVPUSH (22:11)
[2025-05-21] VITALS (8 sets, daily range): BP systolic 114–152; BP diastolic 54–70; PULSE 70–95; RESP 16–18; TEMP 36.3–36.8; O2SAT 92–95
--- NOTE | 2025-05-21 00:03 | W.PM.IDCN ---
History of Present Illness Data of Consult Service Date: 05/20/25 Requesting physician: Rajinder Knight Primary Care Provider: None Physician HPI Reason for consult: sepsis,MSSA,tachycardia and leukocytosis She presents with pain and redness in arms for last several days and drained in ER. She injects cocaine in arms and had presented in October with similar complaint. She has started Methadone. There is no record of HIV or Hepatitis C status. Review of Systems Review of Systems: Yes all other systems are reviewed and are negative [facility] Past Medical History Medical History (Updated 05/21/25 @ 00:09 by Ayana Davenport MD) MSSA bacteremia Sepsis Obesity Anxiety Bipolar 1 disorder with moderate morenita Schizophrenia Paranoia Asthma Hyperlipidemia Type 2 diabetes mellitus Family History Family history: reviewed and not pertinent Surgical History Surgical History Hx of section Social History Social History Household Members: None Housing: House Are you a primary laboratory animal caretaker to a significant other at home: No Do you presently have visiting nurse or other home services: No Alcohol intake: former Comment: pt deneis use currently Patient Tobacco Use Status: Former Tobacco user Smoked in Last 30 Days: Yes e-Cigarette/Vaping Use: Currently Using Use of substances other than those prescribed or required for medical reasons: Yes Substance Use Type: Crack/Cocaine and Marijuana Currently Displaying Signs/Symptoms of Drug Intoxication Withdrawal: No Do you feel safe in your current relationship?: No Current Relationship Is there a partner from a previous relationship who is making you feel unsafe now?: No Are you made to feel afraid or neglected: No Advance Directives: No Advance Directives Information Provided: Yes Do you have a plan to hurt others: No Plan Recently lost weight without trying: No How much weight loss: Not applicable Eating poorly because of decreased appetite: No Nutrition screen score: 0 Nutrition Risks: Diabetes new onset/Uncontrolled Patient : No : No Poor oral hygiene: No service: No Sexual orientation: Straight/Heterosexual Travel History Ebola Risk: Travel/Contact With Anyone From Affected Area/s: No Has Patient Experienced Ebola Symptoms: No Meds Allergies Allergy/AdvReac Type Severity Reaction Status Date / Time divalproex sodium (From Allergy Severe ANAPHYLAXIS Verified 05/19/25 15:06 Depakote) hydrocodone (HYDROCODONE) Allergy Severe HIVES Verified 05/19/25 15:06 tramadol Allergy Unknown rash Verified 05/19/25 15:06 acetaminophen (From Vicodin) Allergy Anaphylaxis Verified 05/19/25 15:06 From Ultram Allergy Intermediate ITCHING Uncoded 05/19/25 15:06 PEANUT BUTTER Allergy Unknown ANAPHYLAXIS Uncoded 05/19/25 15:06 Active Medications: Current Medications Acetaminophen (Acetaminophen 325 Mg Tablet) 650 mg PO Q6H PRN PRN Reason: Pain, Mild 1-3,fever,headache Albuterol/Ipratropium (Albuterol/Iprat 2.5/0.5mg 3 Ml Ampul.Neb) 3 ml INHALE Q4H PRN PRN Reason: Shortness of Breath/Wheezing Aripiprazole (Aripiprazole 20 Mg Tablet) 20 mg PO DAILY [facility] Last Admin: 05/20/25 07:54 Dose: 20 mg Atorvastatin Calcium (Atorvastatin Calcium 40 Mg Tablet) 40 mg PO DAILY [facility] Last Admin: 05/20/25 07:54 Dose: 40 mg Calcium Carbonate (Calcium Carbonate 750 Mg Tab.Chew) 750 mg PO Q4H PRN PRN Reason: Heartburn Clonazepam (Clonazepam 1 Mg Tablet) 1 mg PO BID PRN PRN Reason: Anxiety Last Admin: 05/19/25 23:55 Dose: 1 mg Dextrose (Dextrose 50 % 25 Gm/50 Ml Syringe) 25 gm IVPUSH Q15M PRN; Protocol PRN Reason: per Hypoglycemia Standing Ord. Diazepam (Diazepam 10 Mg/2 Ml Cartridge) 10 mg IVPUSH Q6H PRN PRN Reason: Opiate Withdrawal Last Admin: 05/20/25 22:11 Dose: 10 mg Fluticasone/Vilanterol (Fluticasone/Vilanterol 100/25 Blst.W.Dev) 1 puff INHALE RDAILY [facility] Last Admin: 05/20/25 08:45 Dose: 1 puff Gabapentin (Gabapentin 300 Mg Capsule) 300 mg PO BID [facility] Last Admin: 05/20/25 21:59 Dose: 300 mg Glucose (Glucose Gel 15 Gm Gel..Gram.) 15 gm PO Q15M PRN; Protocol PRN Reason: per Hypoglycemia Standing Ord. Sodium Chloride (Ns) 1,000 mls @ 125 mls/hr IVCONT .Q8H [facility] Last Admin: 05/20/25 18:19 Dose: 125 mls/hr Clindamycin Phosphate (Cleocin) 600 mg in 50 mls @ 100 mls/hr IV Q8H [facility] Last Infusion: 05/20/25 22:31 Dose: Infused Cefazolin Sodium/Dextrose (Ancef) 2 gm in 50 mls @ 100 mls/hr IV Q8H [facility] Last Infusion: 05/20/25 18:54 Dose: Infused Vancomycin HCl 1,250 mg/ (Sodium Chloride) 250 mls @ 166.667 mls/hr IV Q8H [facility] Last Infusion: 05/20/25 23:39 Dose: Infused Insulin Glargine (Insulin Glargine,Hum.Rec.Anlog 100 Unit/Ml 10 Ml Vial) 40 unit SUBCUT BEDTIME [facility] Last Admin: 05/20/25 22:06 Dose: 40 unit Insulin Human Lispro (Insulin Lispro 100 Unit/Ml 3 Ml Vial) 0 unit SUBCUT QIDACHS [facility]; Protocol Last Admin: 05/20/25 22:06 Dose: 6 unit Magnesium Hydroxide (Milk Of Magnesia 30 Ml Oral.Susp) 30 ml PO DAILY PRN PRN Reason: Constipation Melatonin (Melatonin 3 Mg Tablet) 6 mg PO BEDTIME PRN PRN Reason: Insomnia Ondansetron HCl (Ondansetron Hcl 4 Mg/2 Ml Vial) 4 mg IVPUSH Q8H PRN PRN Reason: Nausea and Vomiting Oxcarbazepine (Oxcarbazepine 150 Mg Tablet) 150 mg PO BID [facility] Last Admin: 05/20/25 21:59 Dose: 150 mg Pharmacy Consult (Consult Rx Vancomycin Dosing) 1 each MISCELLANE DAILY PRN PRN Reason: Consult order Polyethylene Glycol (Polyethylene Glycol 3350 17 Gm Powd.Pack) 17 gm PO DAILY PRN PRN Reason: Constipation Senna (Sennosides 8.6 Mg Tablet) 17.2 mg PO BEDTIME [facility] Last Admin: 05/20/25 21:59 Dose: 17.2 mg Sodium Chloride (0.9 % Sodium Chloride Flush 3 Ml Syringe) 3 ml IVFLUSH QSHIFT [facility] Last Admin: 05/20/25 23:43 Dose: Not Given Home Medications ?Medication ?Instructions ?Recorded ?Confirmed ?Last Taken ?Type albuterol sulfate 90 mcg/actuation 1 puff inhalation TID PRN Wheezing 02/22/24 05/19/25 02/21/24 12:00 History aerosol inhaler tizanidine 4 mg tablet 4 mg PO TID PRN Back Pain 02/22/24 05/19/25 02/21/24 12:00 History fluticasone furoate 100 1 ea inhalation DAILY 03/11/24 05/19/25 10/11/24 History mcg-vilanterol 25 mcg/dose inhalation powder (Breo Ellipta) insulin glargine 100 unit/mL (3 40 unit subcut BEDTIME 03/11/24 05/19/25 10/11/24 History mL) subcutaneous pen (Lantus Solostar U-100 Insulin) dulaglutide 1.5 mg/0.5 mL 1.5 mg subcut SA 10/12/24 05/19/25 10/02/24 History subcutaneous pen injector (Trulicity) aripiprazole 20 mg tablet 20 mg PO DAILY 05/19/25 05/19/25 Unknown History atorvastatin 40 mg tablet 40 mg PO DAILY 05/19/25 05/19/25 Unknown History clonazepam 1 mg tablet 1 mg PO BID PRN Anxiety 05/19/25 05/19/25 Unknown History gabapentin 300 mg capsule 300 mg PO BID 05/19/25 05/19/25 Unknown History methadone 10 mg/mL oral 13 mg PO DAILY 05/19/25 05/20/25 05/19/25 07:27 History concentrate (Methadone Intensol) oxcarbazepine 150 mg tablet 150 mg PO BID 05/19/25 05/19/25 Unknown History Physical Exam Vital Signs: Vital Signs: Last Vital Signs Temp 97.4 F 05/20/25 19:59 Pulse 79 05/20/25 19:59 Resp 18 05/20/25 19:59 BP 142/63 H 05/20/25 19:59 Pulse Ox 96 05/20/25 19:59 O2 Del Method Nasal Cannula 05/20/25 19:59 O2 Flow Rate 2 05/20/25 19:59 BMI result Body Mass Index 33.7 Const: General: cooperative HEENT: Head: Yes normal to inspection Face and sinus: Yes normal facial exam Mouth: Normal oral and palatal mucosa present Teeth and gingiva: dentition normal Eyes: General: appearance normal, both eyes and all related structures Pupils: Equal, round and reactive pupils present Resp: Effort & Inspection: normal respiratory effort Cardio: Rate: regular rate Rhythm: regular rhythm GI: Palpation (GI): Soft to palpation and nontender : General: Yes no CVA tenderness Back/Spine/Pelvis: Back: no CVA tenderness Skin: Other: arm bilateral erythema and swelling c/w abscesses Neuro: General: moves all extremities Cranial nerves: Yes Equal, round and reactive pupils present Extrem: General: Yes normal to inspection Psych: Appearance: grossly normal Results Labs 05/20/25 08:38 05/20/25 08:38 Labs: Short CBC 05/20/25 Range/Units 08:38 WBC 12.6 H (4.8-10.8) X10*3/uL Hgb 10.4 L (12.0-16.0) g/dl Hct 31.3 L (37.0-47.0) % Plt Count 346 (160-400) X10*3/uL BMP 05/20/25 08:38 Sodium 136 Potassium 3.6 Chloride 103 Carbon Dioxide 25 BUN 8 L Creatinine 0.53 Calcium 8.4 Liver Function 05/20/25 Range/Units 08:38 Total Bilirubin 0.2 (0.0-1.0) mg/dL AST 29 (5-31) U/L ALT 32 H (0-31) U/L Alkaline Phosphatase 98 (39-117) U/L Albumin 3.2 L (3.5-5.0) g/dL Microbiology Microbiology Results: Microbiology 05/19/25 16:54 Blood - Venous Blood Culture - Preliminary Prelim: GPC Gram Stain only 05/19/25 16:54 Blood - Venous Blood Culture - Preliminary Prelim: GPC Gram Stain only 05/19/25 18:12 Arm Gram Stain - Final 05/19/25 18:12 Arm Routine Culture - Preliminary Culture in progress. 05/19/25 18:12 Arm Gram Stain - Final 05/19/25 18:12 Arm Routine Culture - Preliminary Culture in progress. 05/19/25 18:12 Arm Left Gram Stain - Final 05/19/25 18:12 Arm Left Routine Culture - Preliminary Culture in progress. Assessment and Plan (1) Sepsis: Status: Acute (2) MSSA bacteremia: Status: Acute Plan Stop Clindamycin and Vancomycin. Kefzol for four weeks likely as apparently no OM, no oral alternative. Would check TTE Surgery to follow abscesses. Check HIV and Hepatitis /c
[2025-05-21] MEDS: Fluticasone/Vilanterol 100/25 BLST.W.DEV 1 PUFF INHALE (07:19)
[2025-05-21 07:26] LABS: Glucose, Whole Blood 160 mg/dL (60-115)
[2025-05-21 07:35] LABS: Creatinine Clr Calc Pharmacy 137.2; Estimated Glomerular Filt Rate > 60
[2025-05-21 07:40] LABS: Hematocrit 30.1 % (37.0-47.0); Hemoglobin 9.8 g/dl (12.0-16.0); Mean Corpuscular HGB Conc 32.6 g/dl (31.0-35.0); Mean Corpuscular Hemoglobin 26.4 pg (27.0-33.0); Mean Corpuscular Volume 81.1 fL (80.0-98.0); NRBC Abs Auto 0.000 X10*3/uL (0.0-0.012); NRBC Pct Auto 0.0 /100WBC (0.0-0.2); Platelet Count 373 X10*3/uL (160-400); Red Blood Count 3.71 X10*6/uL (4.20-5.50); White Blood Count 11.9 X10*3/uL (4.8-10.8)
--- NOTE | 2025-05-21 10:18 | P.PNIM_ITS ---
Subjective Subjective Date of Service: 05/21/25 Interval History: She is more alert today confirmed by son pitting in a.m. Blood cultures showing staph aureus not MRSA Physical Exam 2 Vital Signs: Vital Signs: Last Vital Signs Temp 97.6 F 05/21/25 07:53 Pulse 70 05/21/25 07:53 Resp 18 05/21/25 07:53 BP 133/62 05/21/25 07:53 Pulse Ox 95 05/21/25 07:53 O2 Del Method Nasal Cannula 05/21/25 07:53 O2 Flow Rate 2 05/21/25 07:53 BMI result Body Mass Index 33.7 General: AO X 3, no acute distress Resp: CTA bilateral CVS: S1,S2,RRR GI: +BS, NT, no distention Skin: See pictures Neuro: motor grossly intact Psych: appropriate affect Objective Data Active Medications Acetaminophen (Acetaminophen 325 Mg Tablet) 650 mg PO Q6H PRN PRN Reason: Pain, Mild 1-3,fever,headache Albuterol/Ipratropium (Albuterol/Iprat 2.5/0.5mg 3 Ml Ampul.Neb) 3 ml INHALE Q4H PRN PRN Reason: Shortness of Breath/Wheezing Aripiprazole (Aripiprazole 20 Mg Tablet) 20 mg PO DAILY [facility] Last Admin: 05/21/25 08:55 Dose: 20 mg Documented By: LESLEE Atorvastatin Calcium (Atorvastatin Calcium 40 Mg Tablet) 40 mg PO DAILY [facility] Last Admin: 05/21/25 08:55 Dose: 40 mg Documented By: LESLEE Calcium Carbonate (Calcium Carbonate 750 Mg Tab.Chew) 750 mg PO Q4H PRN PRN Reason: Heartburn Clonazepam (Clonazepam 1 Mg Tablet) 1 mg PO BID PRN PRN Reason: Anxiety Last Admin: 05/19/25 23:55 Dose: 1 mg Documented By: LAFLAMJonnathan Dextrose (Dextrose 50 % 25 Gm/50 Ml Syringe) 25 gm IVPUSH Q15M PRN; Protocol PRN Reason: per Hypoglycemia Standing Ord. Diazepam (Diazepam 10 Mg/2 Ml Cartridge) 10 mg IVPUSH Q6H PRN PRN Reason: Opiate Withdrawal Last Admin: 05/20/25 22:11 Dose: 10 mg Documented By: BUSSIEL Fluticasone/Vilanterol (Fluticasone/Vilanterol 100/ Blst.W.Dev) 1 puff INHALE RDAILY [facility] Last Admin: 05/21/25 07:19 Dose: 1 puff Documented By: LAZARUS Gabapentin (Gabapentin 300 Mg Capsule) 300 mg PO BID [facility] Last Admin: 05/21/25 08:55 Dose: 300 mg Documented By: LESLEE Glucose (Glucose Gel 15 Gm Gel..Gram.) 15 gm PO Q15M PRN; Protocol PRN Reason: per Hypoglycemia Standing Ord. Sodium Chloride (Ns) 1,000 mls @ 125 mls/hr IVCONT .Q8H [facility] Last Admin: 05/21/25 02:21 Dose: 125 mls/hr Documented By: TACO Cefazolin Sodium/Dextrose (Ancef) 2 gm in 50 mls @ 100 mls/hr IV Q8H [facility] Last Infusion: 05/21/25 02:49 Dose: Infused Documented By: TACO Insulin Glargine (Insulin Glargine,Hum.Rec.Anlog 100 Unit/Ml 10 Ml Vial) 40 unit SUBCUT BEDTIME [facility] Last Admin: 05/20/25 22:06 Dose: 40 unit Documented By: TACO Insulin Human Lispro (Insulin Lispro 100 Unit/Ml 3 Ml Vial) 0 unit SUBCUT QIDACHS [facility]; Protocol Last Admin: 05/21/25 08:54 Dose: 2 unit Documented By: LESLEE Magnesium Hydroxide (Milk Of Magnesia 30 Ml Oral.Susp) 30 ml PO DAILY PRN PRN Reason: Constipation Melatonin (Melatonin 3 Mg Tablet) 6 mg PO BEDTIME PRN PRN Reason: Insomnia Methadone HCl (Methadone Hcl 20 Mg/2 Ml Oral.Conc) 13 mg PO DAILY [facility] Ondansetron HCl (Ondansetron Hcl 4 Mg/2 Ml Vial) 4 mg IVPUSH Q8H PRN PRN Reason: Nausea and Vomiting Oxcarbazepine (Oxcarbazepine 150 Mg Tablet) 150 mg PO BID [facility] Last Admin: 05/21/25 08:55 Dose: 150 mg Documented By: LESLEE Polyethylene Glycol (Polyethylene Glycol 3350 17 Gm Powd.Pack) 17 gm PO DAILY PRN PRN Reason: Constipation Senna (Sennosides 8.6 Mg Tablet) 17.2 mg PO BEDTIME [facility] Last Admin: 05/20/25 21:59 Dose: 17.2 mg Documented By: TACO Sodium Chloride (0.9 % Sodium Chloride Flush 3 Ml Syringe) 3 ml IVFLUSH QSHIFT [facility] Last Admin: 05/21/25 09:00 Dose: Not Given Documented By: LESLEE Non-Admin Reason: IV Running Labs 05/21/25 06:17 05/21/25 06:17 Labs: Laboratory Results - last 24 hr 05/20/25 05/20/25 05/20/25 11:24 15:00 16:31 MCV MCH MCHC RDW Plt Count MPV Absolute Nucleated RBC Nucleated RBC % (auto) Estim Creat Clear Calc Estimated GFR POC Glucose 263 H 269 H Urine Osmolality 571 Ur Random Sodium < 20.0 Random Vancomycin 05/20/25 05/20/25 05/20/25 20:03 20:32 21:07 MCV MCH MCHC RDW Plt Count MPV Absolute Nucleated RBC Nucleated RBC % (auto) Estim Creat Clear Calc Estimated GFR POC Glucose 265 H 284 H Urine Osmolality Ur Random Sodium Random Vancomycin 6.5 L 05/21/25 05/21/25 06:17 07:14 MCV 81.1 MCH 26.4 L MCHC 32.6 RDW 13.2 Plt Count 373 MPV 11.8 Absolute Nucleated RBC 0.000 Nucleated RBC % (auto) 0.0 Estim Creat Clear Calc 137.2 Estimated GFR > 60 POC Glucose 160 H Urine Osmolality Ur Random Sodium Random Vancomycin Microbiology Microbiology Results: Microbiology 05/19/25 16:54 Blood Culture - Preliminary Blood - Venous Staphylococcus aureus 05/19/25 16:54 Blood Culture - Preliminary Blood - Venous Staphylococcus aureus 05/19/25 18:12 Gram Stain - Final Arm Routine Culture - Preliminary Culture in progress. 05/19/25 18:12 Gram Stain - Final Arm Routine Culture - Preliminary Culture in progress. 05/19/25 18:12 Gram Stain - Final Arm Left Routine Culture - Preliminary Culture in progress. Assessment and Plan (1) Cellulitis: Status: Acute (2) Abscess of forearm, left: Status: Acute (3) Abscess of forearm, right: Status: Acute (4) Active intravenous drug use: Status: Acute (5) IVDU (intravenous drug user): Status: Acute Plan Pt is a 44 yo female with PMH IVDA last use 3 days ago, IDDM on Trulicity, Obesity, Bipolar D/O, schizophrenia, KEATON started methadone 2 weeks ago, A/V hallucinations, yeast infections, presents to ED with complaints of fever X2 days, highest 102, chills, nausea and intermittent vomiting with abscesses found on BUE's from IVDA. Admittd for bacteremia and abscesses of upper extremities L and R arm abscess with subcutaneous gas secondary IV drug use Staph aureus bacteremia -stop vancomycin and continue Kefzol alone -echo to rule IE -ID consult -Surgery consult to assess for debridment. Hyponatremia, resolved. Diabetes with Hyperglycemia, non compliant with meds, A1C =11 continue Lantus and humalgo, diabetic diet, education Bipolar Depression/ Schizophrenia/ Anxiety/ Auditory and visual Hallucinations Psychiatry consulted Pt denies suicidal or homicidal ideations, A/V hallucinations - presents manic/ anxious No 1:1 indicated currently Pt is homeless officially, can no longer live with father of her daughter MED REC completed, normally on Abilify, clonazepam, oxcarbazepine - await recommendations from psychiatry CM consulted Substance use disoerder Addiction med consult HLD Continue statin COPD/ Asthma Duo nebs prn No issues with hypoxia POX Q4H Anemia Iron panel and B12 pending Trend CBC H/H table, no indication for transfusion Obesity weight loss advised DVT prophylaxis: lovenox held due to possible procedure needed and I and D done in ED MED REC COMPLETED FULL CODE STATUS Quality Stroke Does the patient have a stroke diagnosis?: No Reason for No Anti-thrombotic by Day Two: Contraindicated VTE Prior VTE?: No VTE Risk Level:: Medical - moderate - high VTE Device Contraindication: N/A - Device Ordered VTE Drug Contraindication: Treatment Not Indicated
[2025-05-21] MEDS: methADONE HCl 20 MG/2 ML ORAL.CONC 13 MG PO (11:23)
[2025-05-21 11:42] LABS: Glucose, Whole Blood 350 mg/dL (60-115)
[2025-05-21 16:18] LABS: Glucose, Whole Blood 326 mg/dL (60-115)
--- NOTE | 2025-05-21 16:27 | PM.PNGS ---
Subjective Subjective Date of Service: 05/21/25 Interval history: Patient is feeling better today complaining of more pain wants pain meds not just increasing on her methadone. She is afebrile Physical Exam Vital Signs: Vital Signs: Last Vital Signs Temp 97.4 F 05/21/25 15:32 Pulse 81 05/21/25 15:32 Resp 18 05/21/25 15:32 BP 130/60 05/21/25 15:32 Pulse Ox 92 05/21/25 15:32 O2 Del Method Nasal Cannula 05/21/25 15:32 O2 Flow Rate 2 05/21/25 15:32 BMI result Body Mass Index 33.7 Extrem: Other: The right wrist area and the antecubital area are much less indurated softer less tender and there is no significant purulent drainage or even any drainage. The left upper arm opening is much improved and the lateral elbow area where there was more erythema and induration is significantly improved 2. Overall less tenderness. Objective Data Active Medications Acetaminophen (Acetaminophen 325 Mg Tablet) 650 mg PO Q6H PRN PRN Reason: Pain, Mild 1-3,fever,headache Albuterol/Ipratropium (Albuterol/Iprat 2.5/0.5mg 3 Ml Ampul.Neb) 3 ml INHALE Q4H PRN PRN Reason: Shortness of Breath/Wheezing Aripiprazole (Aripiprazole 20 Mg Tablet) 20 mg PO DAILY [facility] Last Admin: 05/21/25 08:55 Dose: 20 mg Documented By: LESLEE Atorvastatin Calcium (Atorvastatin Calcium 40 Mg Tablet) 40 mg PO DAILY [facility] Last Admin: 05/21/25 08:55 Dose: 40 mg Documented By: LESLEE Calcium Carbonate (Calcium Carbonate 750 Mg Tab.Chew) 750 mg PO Q4H PRN PRN Reason: Heartburn Clonazepam (Clonazepam 1 Mg Tablet) 1 mg PO BID PRN PRN Reason: Anxiety Last Admin: 05/19/25 23:55 Dose: 1 mg Documented By: KEVIN Dextrose (Dextrose 50 % 25 Gm/50 Ml Syringe) 25 gm IVPUSH Q15M PRN; Protocol PRN Reason: per Hypoglycemia Standing Ord. Diazepam (Diazepam 10 Mg/2 Ml Cartridge) 10 mg IVPUSH Q6H PRN PRN Reason: Opiate Withdrawal Last Admin: 05/20/25 22:11 Dose: 10 mg Documented By: TACO Fluticasone/Vilanterol (Fluticasone/Vilanterol 100/25 Blst.W.Dev) 1 puff INHALE RDAILY [facility] Last Admin: 05/21/25 07:19 Dose: 1 puff Documented By: LAZARUS Gabapentin (Gabapentin 300 Mg Capsule) 300 mg PO BID [facility] Last Admin: 05/21/25 08:55 Dose: 300 mg Documented By: LESLEE Glucose (Glucose Gel 15 Gm Gel..Gram.) 15 gm PO Q15M PRN; Protocol PRN Reason: per Hypoglycemia Standing Ord. Sodium Chloride (Ns) 1,000 mls @ 125 mls/hr IVCONT .Q8H [facility] Last Admin: 05/21/25 11:30 Dose: 125 mls/hr Documented By: LESLEE Cefazolin Sodium/Dextrose (Ancef) 2 gm in 50 mls @ 100 mls/hr IV Q8H [facility] Last Infusion: 05/21/25 12:52 Dose: Infused Documented By: LESLEE Insulin Glargine (Insulin Glargine,Hum.Rec.Anlog 100 Unit/Ml 10 Ml Vial) 40 unit SUBCUT BEDTIME [facility] Last Admin: 05/20/25 22:06 Dose: 40 unit Documented By: TACO Insulin Human Lispro (Insulin Lispro 100 Unit/Ml 3 Ml Vial) 0 unit SUBCUT QIDACHS [facility]; Protocol Last Admin: 05/21/25 11:22 Dose: 8 unit Documented By: LESLEE Magnesium Hydroxide (Milk Of Magnesia 30 Ml Oral.Susp) 30 ml PO DAILY PRN PRN Reason: Constipation Melatonin (Melatonin 3 Mg Tablet) 6 mg PO BEDTIME PRN PRN Reason: Insomnia Methadone HCl (Methadone Hcl 20 Mg/2 Ml Oral.Conc) 13 mg PO DAILY [facility] Last Admin: 05/21/25 11:23 Dose: 13 mg Documented By: LESLEE Co-signed By: GABY Comments: Ondansetron HCl (Ondansetron Hcl 4 Mg/2 Ml Vial) 4 mg IVPUSH Q8H PRN PRN Reason: Nausea and Vomiting Oxcarbazepine (Oxcarbazepine 150 Mg Tablet) 150 mg PO BID [facility] Last Admin: 05/21/25 08:55 Dose: 150 mg Documented By: LESLEE Polyethylene Glycol (Polyethylene Glycol 3350 17 Gm Powd.Pack) 17 gm PO DAILY PRN PRN Reason: Constipation Senna (Sennosides 8.6 Mg Tablet) 17.2 mg PO BEDTIME [facility] Last Admin: 05/20/25 21:59 Dose: 17.2 mg Documented By: TACO Sodium Chloride (0.9 % Sodium Chloride Flush 3 Ml Syringe) 3 ml IVFLUSH QSHIFT [facility] Last Admin: 05/21/25 09:00 Dose: Not Given Documented By: LESLEE Non-Admin Reason: IV Running Labs 05/21/25 06:17 05/21/25 06:17 Labs: Laboratory Results - last 24 hr 05/20/25 05/20/25 05/20/25 16:31 20:03 20:32 MCV MCH MCHC RDW Plt Count MPV Absolute Nucleated RBC Nucleated RBC % (auto) Estim Creat Clear Calc Estimated GFR POC Glucose 269 H 265 H Random Vancomycin 6.5 L 05/20/25 05/21/25 05/21/25 21:07 06:17 07:14 MCV 81.1 MCH 26.4 L MCHC 32.6 RDW 13.2 Plt Count 373 MPV 11.8 Absolute Nucleated RBC 0.000 Nucleated RBC % (auto) 0.0 Estim Creat Clear Calc 137.2 Estimated GFR > 60 POC Glucose 284 H 160 H Random Vancomycin 05/21/25 05/21/25 11:06 16:11 MCV MCH MCHC RDW Plt Count MPV Absolute Nucleated RBC Nucleated RBC % (auto) Estim Creat Clear Calc Estimated GFR POC Glucose 350 H* 326 H Random Vancomycin Microbiology Microbiology Results: Microbiology 05/19/25 18:12 Gram Stain - Final Arm Left Routine Culture - Preliminary Staphylococcus aureus Strep agalactiae (Grp B) 05/19/25 18:12 Gram Stain - Final Arm Routine Culture - Preliminary Staphylococcus aureus 05/19/25 18:12 Gram Stain - Final Arm Routine Culture - Preliminary Staphylococcus aureus Strep agalactiae (Grp B) 05/19/25 16:54 Blood Culture - Preliminary Blood - Venous Staphylococcus aureus 05/19/25 16:54 Blood Culture - Preliminary Blood - Venous Staphylococcus aureus Procedures Date of Service Date of Service: 05/21/25 Progress Note: A&P Assessment and plan (1) Abscess of forearm, left: Status: Acute Assessment and Plan: 44-year-old female IV drug use abuser injection sites of the bilateral arms with abscess areas opened up in the emergency room packed irrigated by myself yesterday dressings changed today and the areas looking much improved. Infectious Disease has seen made recommendations for IV antibiotic coverage- Staph aureus not MRSA Stop Clindamycin and Vancomycin. Kefzol for four weeks. I think at this point just doing dressing changes once a day would be appropriate with IV antibiotics as per medical team. This was discussed with the patient who understands and agrees. If something changes she has may need further in incision and drainage or debridements but today it looks much improved compared to yesterday. (2) Abscess of forearm, right: Status: Acute Time Spent With Patient Time: Total time managing care of this patient today ____ minutes. Quality Stroke Does the patient have a stroke diagnosis?: No Reason for No Anti-thrombotic by Day Two: Contraindicated VTE Prior VTE?: No VTE Risk Level:: Medical - moderate - high VTE Device Contraindication: N/A - Device Ordered VTE Drug Contraindication: Treatment Not Indicated
[2025-05-21] MEDS: 0.9 % Sodium Chloride Flush 3 ML SYRINGE IVFLUSH ×2 (16:53→19:36)
--- NOTE | 2025-05-21 17:41 | MHC.RECOVRN ---
TW met with the patient to discuss current substance use and concerns related to increased risk of substance use related problems. On approach pt was irritable, guarded, and dismissive. Visitor was present at bedside, however pt told TW, ?we can talk, but we have to make it fast?. Tw explained the interview could take place at a later time however pt declined.? Pt states she is 13mg of methadone because she was smoking crack/cocaine and had a cousin present who was also smoking fentanyl and the cousin ?kept switching their pipes?. She reports this went on for several weeks. She states she presented at [facility] after waking up with ?sweats, diarrhea, and vomiting? and was initiated on Methadone.? Discussed how substance use has impacted health, including negative impact on mental health and overall physical well being.? Discussed and provided written education and resources for harm reduction techniques including utilizing [employer] for sterile supplies and drug testing, harm reduction techniques such as not sharing needles or smoking paraphernalia,? utilizing a test shot when using a supply from a new supplier, and the importance of seeking medical help for wound care as well as education about the current drug supply and cutting agents used Provided pt with written resources including information on inpatient and outpatient treatment, harm reduction, [facility] [place], and pathways to recovery.?? Pt?s MOUD has been continued while admitted and pt reports she will return to [facility] upon discharge to continue dosing in the community. She declines further intervention or outpatient appt for treatment related to AUD at this time.? Pt was provided with TW?s contact information if questions or concerns arise which he denies at this time.? TW available as needed for? further support and resources relating to AUD.?
[2025-05-21 21:40] LABS: Glucose, Whole Blood 298 mg/dL (60-115)
[2025-05-21] MEDS: Insulin Glargine,Hum.rec.anlog 100 UNIT/ML 10 ML VIAL 40 UNIT SUBCUT (22:11)
[2025-05-22] VITALS (9 sets, daily range): BP systolic 122–135; BP diastolic 57–71; PULSE 67–82; RESP 16–20; TEMP 36.1–37.1; O2SAT 93–96
[2025-05-22 07:00] LABS: Creatinine Clr Calc Pharmacy 132.4; Estimated Glomerular Filt Rate > 60
[2025-05-22 07:54] LABS: Glucose, Whole Blood 328 mg/dL (60-115)
[2025-05-22 07:57] LABS: Hematocrit 33.0 % (37.0-47.0); Hemoglobin 10.6 g/dl (12.0-16.0); Mean Corpuscular HGB Conc 32.1 g/dl (31.0-35.0); Mean Corpuscular Hemoglobin 25.9 pg (27.0-33.0); Mean Corpuscular Volume 80.5 fL (80.0-98.0); NRBC Abs Auto 0.000 X10*3/uL (0.0-0.012); NRBC Pct Auto 0.0 /100WBC (0.0-0.2); PLT CLUMP 1; Red Blood Count 4.10 X10*6/uL (4.20-5.50)
[2025-05-22 07:58] LABS: White Blood Count 9.8 X10*3/uL (4.8-10.8)
[2025-05-22] MEDS: Fluticasone/Vilanterol 100/25 BLST.W.DEV 1 PUFF INHALE (08:04)
--- NOTE | 2025-05-22 08:14 | PM.PNGS ---
Subjective Subjective Date of Service: 05/22/25 Interval history: mostly pain in left elbow area. endorses an episode of feeling hot and sweaty last night. She is struggling with pain control. States that the doctors wont give her anything but tylenol for pain. She reports a methadone dose of 13mg daily, but this does not help her pain. She is a part of the program in [place]. Primarily using crack cocaine. Wants to leave Physical Exam Vital Signs: Vital Signs: Last Vital Signs Temp 97.1 F 05/22/25 07:59 Pulse 67 05/22/25 08:05 Resp 18 05/22/25 08:05 BP 135/62 05/22/25 07:59 Pulse Ox 96 05/22/25 07:59 O2 Del Method Room Air 05/22/25 07:59 O2 Flow Rate 2 05/21/25 15:32 BMI result Body Mass Index 33.7 Const: General: no acute distress; No comfortable Orientation/consciousness: patient oriented x3 Resp: Effort & Inspection: normal respiratory effort and able to speak in complete sentences Neuro: General: patient oriented x3 Extrem: Other: left cubital: 1 cm I&d site, packing in place, scant purulent discharge, about 0.5 cm tracking all soung. just laterally there was a small fluid collection that was not actively draining. there is moderate induration and erythema surroudnign this, very tender to palpation right cubital: 1 cm I&d sites, packing in place, scant purulent discharge about 1 cm of tracking. no additional fluid collections right wrist:1 cm I&d site, packing in place, scant purulent discharge. Objective Data Active Medications Acetaminophen (Acetaminophen 325 Mg Tablet) 650 mg PO Q6H PRN PRN Reason: Pain, Mild 1-3,fever,headache Albuterol/Ipratropium (Albuterol/Iprat 2.5/0.5mg 3 Ml Ampul.Neb) 3 ml INHALE Q4H PRN PRN Reason: Shortness of Breath/Wheezing Aripiprazole (Aripiprazole 20 Mg Tablet) 20 mg PO DAILY [facility] Last Admin: 05/21/25 08:55 Dose: 20 mg Documented By: LESLEE Atorvastatin Calcium (Atorvastatin Calcium 40 Mg Tablet) 40 mg PO DAILY [facility] Last Admin: 05/21/25 08:55 Dose: 40 mg Documented By: LESLEE Calcium Carbonate (Calcium Carbonate 750 Mg Tab.Chew) 750 mg PO Q4H PRN PRN Reason: Heartburn Clonazepam (Clonazepam 1 Mg Tablet) 1 mg PO BID PRN PRN Reason: Anxiety Last Admin: 05/21/25 19:34 Dose: 1 mg Documented By: PAM Dextrose (Dextrose 50 % 25 Gm/50 Ml Syringe) 25 gm IVPUSH Q15M PRN; Protocol PRN Reason: per Hypoglycemia Standing Ord. Dextrose (Dextrose 50 % 25 Gm/50 Ml Syringe) 25 gm IVPUSH Q15M PRN; Protocol PRN Reason: per Hypoglycemia Standing Ord. Diazepam (Diazepam 10 Mg/2 Ml Cartridge) 10 mg IVPUSH Q6H PRN PRN Reason: Opiate Withdrawal Last Admin: 05/20/25 22:11 Dose: 10 mg Documented By: BUSSIJAY Fluticasone/Vilanterol (Fluticasone/Vilanterol 100/25 Blst.W.Dev) 1 puff INHALE RDAILY [facility] Last Admin: 05/22/25 08:04 Dose: 1 puff Documented By: JULIEN Gabapentin (Gabapentin 300 Mg Capsule) 300 mg PO BID [facility] Last Admin: 05/21/25 19:34 Dose: 300 mg Documented By: PAM Glucose (Glucose Gel 15 Gm Gel..Gram.) 15 gm PO Q15M PRN; Protocol PRN Reason: per Hypoglycemia Standing Ord. Glucose (Glucose Gel 15 Gm Gel..Gram.) 15 gm PO Q15M PRN; Protocol PRN Reason: per Hypoglycemia Standing Ord. Cefazolin Sodium/Dextrose (Ancef) 2 gm in 50 mls @ 100 mls/hr IV Q8H [facility] Last Infusion: 05/22/25 03:57 Dose: Infused Documented By: PAM Ibuprofen (Ibuprofen 600 Mg Tablet) 600 mg PO Q6H PRN PRN Reason: arm pain Last Admin: 05/21/25 22:11 Dose: 600 mg Documented By: PAM Insulin Glargine (Insulin Glargine,Hum.Rec.Anlog 100 Unit/Ml 10 Ml Vial) 40 unit SUBCUT BEDTIME [facility] Last Admin: 05/21/25 22:11 Dose: 40 unit Documented By: APM Insulin Human Lispro (Insulin Lispro 100 Unit/Ml 3 Ml Vial) 0 unit SUBCUT QIDACHLg [facility]; Protocol Last Admin: 05/22/25 01:56 Dose: Not Given Documented By: PAM Non-Admin Reason: Duplicate Order Magnesium Hydroxide (Milk Of Magnesia 30 Ml Oral.Susp) 30 ml PO DAILY PRN PRN Reason: Constipation Melatonin (Melatonin 3 Mg Tablet) 6 mg PO BEDTIME PRN PRN Reason: Insomnia Methadone HCl (Methadone Hcl 20 Mg/2 Ml Oral.Conc) 13 mg PO DAILY [facility] Last Admin: 05/21/25 11:23 Dose: 13 mg Documented By: LESLEE Co-signed By: GABY Comments: Ondansetron HCl (Ondansetron Hcl 4 Mg/2 Ml Vial) 4 mg IVPUSH Q8H PRN PRN Reason: Nausea and Vomiting Oxcarbazepine (Oxcarbazepine 150 Mg Tablet) 150 mg PO BID [facility] Last Admin: 05/21/25 19:34 Dose: 150 mg Documented By: PAM Polyethylene Glycol (Polyethylene Glycol 3350 17 Gm Powd.Pack) 17 gm PO DAILY PRN PRN Reason: Constipation Senna (Sennosides 8.6 Mg Tablet) 17.2 mg PO BEDTIME [facility] Last Admin: 05/21/25 19:35 Dose: Not Given Documented By: PAM Non-Admin Reason: Patient Refused Sodium Chloride (0.9 % Sodium Chloride Flush 3 Ml Syringe) 3 ml IVFLUSH QSHIFT [facility] Last Admin: 05/21/25 19:36 Dose: 3 ml Documented By: PAM Labs 05/22/25 06:28 05/22/25 06:28 Labs: Laboratory Results - last 24 hr 05/21/25 05/21/25 05/21/25 11:06 16:11 20:02 MCV MCH MCHC RDW Estim Creat Clear Calc Estimated GFR POC Glucose 350 H* 326 H Random Vancomycin 2.2 L 05/21/25 05/22/25 05/22/25 21:36 06:28 07:46 MCV 80.5 MCH 25.9 L MCHC 32.1 RDW 13.2 Estim Creat Clear Calc 132.4 Estimated GFR > 60 POC Glucose 298 H 328 H Random Vancomycin Microbiology Microbiology Results: Microbiology 05/19/25 18:12 Gram Stain - Final Arm Left Routine Culture - Preliminary Staphylococcus aureus Strep agalactiae (Grp B) 05/19/25 18:12 Gram Stain - Final Arm Routine Culture - Preliminary Staphylococcus aureus 05/19/25 18:12 Gram Stain - Final Arm Routine Culture - Preliminary Staphylococcus aureus Strep agalactiae (Grp B) 05/19/25 16:54 Blood Culture - Preliminary Blood - Venous Staphylococcus aureus 05/19/25 16:54 Blood Culture - Preliminary Blood - Venous Staphylococcus aureus Procedures Date of Service Date of Service: 05/22/25 Progress Note: A&P Assessment and plan (1) IVDU (intravenous drug user): Status: Acute (2) Abscess of skin of right wrist: Status: Acute (3) Abscess of forearm, right: Status: Acute (4) Abscess of forearm, left: Status: Acute (5) Cellulitis: Status: Acute Plan 44 year old female with a hisotry of IVDU (cocaine), uncontrolled DM, followed for managment of bialteral forearm wounds s/p I&D in ED. She feels a little better but is still having pain in the left elbow area. She is also very frustrated about pain control, states she has only been given tylenol and her low dose of methadone. Feels like she may leave if its not controlled, I encouraged her to stay for continued treatment. Wounds appear okay, there is an area of concern in the left cubital are just lateral to the I&D site. It is very tender, there is a visiable fluid collection with surrounding erythema and edema. I probed the site to see if i would facilitate the drainage from this additional collection but was unsuccessful and limited do to her pain. She declined to have this opened up without and pain medication. Will try to premedicate and drain this afternoon. The other sites that have been opened up actually looks good, there is some swelling surrounding but less painful. I repacked these gently. Can continue with daily dressing changes. Continue IV abx glucose controll possible drainage of left cubital collection this afternoon would recommend addition of low dose narcotic, otherwise i fear patient will leave AMA Time Spent With Patient Time: Total time managing care of this patient today ____ minutes. Quality Stroke Does the patient have a stroke diagnosis?: No Reason for No Anti-thrombotic by Day Two: Contraindicated VTE Prior VTE?: No VTE Risk Level:: Medical - moderate - high VTE Device Contraindication: N/A - Device Ordered VTE Drug Contraindication: Treatment Not Indicated
[2025-05-22 08:35] LABS: HIV Num 1 0.08 S/CO (0.00-0.99); ~HepC Num1 12.84 S/CO (0.00-0.79); ~Hepatitis C Antibody Reactive (Nonreactive)
[2025-05-22] MEDS: 0.9 % Sodium Chloride Flush 3 ML SYRINGE IVFLUSH ×3 (08:42→19:31)
[2025-05-22] MEDS: methADONE HCl 20 MG/2 ML ORAL.CONC 13 MG PO (08:43)
[2025-05-22 09:02] LABS: Platelet Count 378 X10*3/uL (160-400)
[2025-05-22 11:33] LABS: Glucose, Whole Blood 433 mg/dL (60-115)
[2025-05-22] MEDS: Lidocaine HCl 2 % 20 ML VIAL 10 ML INFILTRATI (16:18)
[2025-05-22 16:35] LABS: Glucose, Whole Blood 333 mg/dL (60-115)
--- NOTE | 2025-05-22 16:43 | PM.PROC ---
Brief Operative Note Date of procedure: 05/22/25 Pre-op diagnosis: forearm abscess, bilateral Post-op diagnosis: same Procedure: Incision and drainage of right forearm and left cubital fossa. Verbal consent was obtained from the patient. She was premedicated with dilaudid for pain control. The areas were prepped with betadine. I generously infiltrated the surrounding area with 2% lidocaine. i used an 11 blade to open each fluid collection and was able to express the purulent fluid from each. I used a snap to break up and loculations in the cavity. The let cubital fossa area was very superficial and did not require packing. The right forearm had a larger cavity and thus was packed with 1/4 in packing. Both were dressed with fluff gauze and wrapped with kerlix. She tolerated the procedure well and there were no immediate complications. Anesthesia: local (2% lidocaine) Pathology: none sent Condition: stable
[2025-05-22] MEDS: Insulin Glargine,Hum.rec.anlog 100 UNIT/ML 10 ML VIAL 40 UNIT SUBCUT (19:31)
[2025-05-22 20:44] LABS: Glucose, Whole Blood 314 mg/dL (60-115)
[2025-05-23] VITALS: PULSE 73
[2025-05-23 02:56] VITALS: BP 131/78; PULSE 68; RESP 16; TEMP 36.6; O2SAT 97
[2025-05-23 07:27] LABS: Hematocrit 34.5 % (37.0-47.0); Hemoglobin 11.0 g/dl (12.0-16.0); Mean Corpuscular Volume 81.2 fL (80.0-98.0); Platelet Count 418 X10*3/uL (160-400); Red Blood Count 4.25 X10*6/uL (4.20-5.50)
[2025-05-23 08:00] VITALS: BP 131/68; PULSE 64; RESP 18; TEMP 36.2; O2SAT 93
[2025-05-23] MEDS: methADONE HCl 20 MG/2 ML ORAL.CONC 13 MG PO (08:11)
[2025-05-23] MEDS: 0.9 % Sodium Chloride Flush 3 ML SYRINGE IVFLUSH ×3 (08:14→20:02)
--- NOTE | 2025-05-23 09:11 | P.PNGS_ITS ---
Subjective Subjective Date of Service: 05/23/25 Interval history: Pain improved today. Denies fevers or chills. Overall feels much better Physical Exam 2 Vital Signs: Vital Signs: Last Vital Signs Temp 97.1 F 05/23/25 08:00 Pulse 64 05/23/25 08:00 Resp 18 05/23/25 08:00 BP 131/68 05/23/25 08:00 Pulse Ox 93 05/23/25 08:00 O2 Del Method Room Air 05/23/25 08:00 O2 Flow Rate 2 05/21/25 15:32 BMI result Body Mass Index 33.7 Const: General: comfortable and no acute distress O rientation/consciousness: patient oriented x3 Resp: Effort & Inspection: normal respiratory effort and able to speak in complete sentences Neuro: General: patient oriented x3 Extrem: Other: left cubital: 1 cm I&d site, packing in place, scant purulent discharge, about 0.5 cm tracking all soung. just laterally there was a small fluid collection that was not actively draining. there is moderate induration and erythema surroudnign this, very tender to palpation. Additional 0.5 cm incision site. scant seropurulent discharge, improvement in cellulitis and induration of the upper arm. right cubital: 1 cm I&d sites, packing in place, scant purulent discharge about 1 cm of tracking. no additional fluid collections right forearm/wrist:1 cm I&d site, packing in place, scant purulent discharge. Additional 1 cm incision site. Packing in place scant seropurulent discharge, improvement in cellulitis and induration. Objective Data Active Medications Acetaminophen (Acetaminophen 325 Mg Tablet) 650 mg PO Q6H PRN PRN Reason: Pain, Mild 1-3,fever,headache Albuterol/Ipratropium (Albuterol/Iprat 2.5/0.5mg 3 Ml Ampul.Neb) 3 ml INHALE Q4H PRN PRN Reason: Shortness of Breath/Wheezing Aripiprazole (Aripiprazole 20 Mg Tablet) 20 mg PO DAILY [facility] Last Admin: 05/23/25 08:10 Dose: 20 mg Documented By: TORIBIO Atorvastatin Calcium (Atorvastatin Calcium 40 Mg Tablet) 40 mg PO DAILY [facility] Last Admin: 05/23/25 08:10 Dose: 40 mg Documented By: TORIBIO Calcium Carbonate (Calcium Carbonate 750 Mg Tab.Chew) 750 mg PO Q4H PRN PRN Reason: Heartburn Clonazepam (Clonazepam 1 Mg Tablet) 1 mg PO BID PRN PRN Reason: Anxiety Last Admin: 05/23/25 08:11 Dose: 1 mg Documented By: TORIBIO Dextrose (Dextrose 50 % 25 Gm/50 Ml Syringe) 25 gm IVPUSH Q15M PRN; Protocol PRN Reason: per Hypoglycemia Standing Ord. Dextrose (Dextrose 50 % 25 Gm/50 Ml Syringe) 25 gm IVPUSH Q15M PRN; Protocol PRN Reason: per Hypoglycemia Standing Ord. Diazepam (Diazepam 10 Mg/2 Ml Cartridge) 10 mg IVPUSH Q6H PRN PRN Reason: Opiate Withdrawal Last Admin: 05/20/25 22:11 Dose: 10 mg Documented By: BUSSIEL Fluticasone/Vilanterol (Fluticasone/Vilanterol 100/25 Blst.W.Dev) 1 puff INHALE RDAILY [facility] Last Admin: 05/23/25 07:40 Dose: Not Given Documented By: JENARO Non-Admin Reason: Patient Refused Gabapentin (Gabapentin 300 Mg Capsule) 300 mg PO BID [facility] Last Admin: 05/23/25 08:10 Dose: 300 mg Documented By: TORIBIO Glucose (Glucose Gel 15 Gm Gel..Gram.) 15 gm PO Q15M PRN; Protocol PRN Reason: per Hypoglycemia Standing Ord. Glucose (Glucose Gel 15 Gm Gel..Gram.) 15 gm PO Q15M PRN; Protocol PRN Reason: per Hypoglycemia Standing Ord. Cefazolin Sodium/Dextrose (Ancef) 2 gm in 50 mls @ 100 mls/hr IV Q8H [facility] Last Infusion: 05/23/25 03:39 Dose: Infused Documented By: LAYLA Ibuprofen (Ibuprofen 600 Mg Tablet) 600 mg PO Q6H PRN PRN Reason: arm pain Last Admin: 05/22/25 19:30 Dose: 600 mg Documented By: ALEXIS Insulin Glargine (Insulin Glargine,Hum.Rec.Anlog 100 Unit/Ml 10 Ml Vial) 40 unit SUBCUT BEDTIME [facility] Last Admin: 05/22/25 19:31 Dose: 40 unit Documented By: ALEXIS Insulin Human Lispro (Insulin Lispro 100 Unit/Ml 3 Ml Vial) 0 unit SUBCUT QIDACHS [facility]; Protocol Last Admin: 05/23/25 08:11 Dose: 4 unit Documented By: TORIBIO Magnesium Hydroxide (Milk Of Magnesia 30 Ml Oral.Susp) 30 ml PO DAILY PRN PRN Reason: Constipation Melatonin (Melatonin 3 Mg Tablet) 6 mg PO BEDTIME PRN PRN Reason: Insomnia Methadone HCl (Methadone Hcl 20 Mg/2 Ml Oral.Conc) 13 mg PO DAILY [facility] Last Admin: 05/23/25 08:11 Dose: 13 mg Documented By: TORIBIO Co-signed By: WANDA Ondansetron HCl (Ondansetron Hcl 4 Mg/2 Ml Vial) 4 mg IVPUSH Q8H PRN PRN Reason: Nausea and Vomiting Oxcarbazepine (Oxcarbazepine 150 Mg Tablet) 150 mg PO BID [facility] Last Admin: 05/23/25 08:10 Dose: 150 mg Documented By: TORIBIO Polyethylene Glycol (Polyethylene Glycol 3350 17 Gm Powd.Pack) 17 gm PO DAILY PRN PRN Reason: Constipation Senna (Sennosides 8.6 Mg Tablet) 17.2 mg PO BEDTIME [facility] Last Admin: 05/22/25 19:34 Dose: Not Given Documented By: ALEXIS Non-Admin Reason: Patient Refused Sodium Chloride (0.9 % Sodium Chloride Flush 3 Ml Syringe) 3 ml IVFLUSH QSHIFT [facility] Last Admin: 05/23/25 08:14 Dose: 3 ml Documented By: TORIBIO Labs 05/23/25 05:52 05/23/25 05:52 Labs: Laboratory Results - last 24 hr 05/22/25 05/22/25 05/22/25 11:26 16:31 20:29 MCV MCH MCHC RDW Plt Count MPV Absolute Nucleated RBC Nucleated RBC % (auto) Estim Creat Clear Calc Estimated GFR POC Glucose 433 H* 333 H 314 H 05/23/25 05/23/25 05:52 07:24 MCV 81.2 MCH 25.9 L MCHC 31.9 RDW 13.3 Plt Count 418 H MPV 11.4 Absolute Nucleated RBC 0.070 H Nucleated RBC % (auto) 0.8 H Estim Creat Clear Calc 139.7 Estimated GFR > 60 POC Glucose 221 H Microbiology Microbiology Results: Microbiology 05/19/25 18:12 Gram Stain - Final Arm Routine Culture - Final Staphylococcus aureus Viridans streptococcus group 05/19/25 18:12 Gram Stain - Final Arm Routine Culture - Final Staphylococcus aureus Strep agalactiae (Grp B) Viridans streptococcus group 05/21/25 11:32 Blood Culture - Preliminary Blood - Venous No growth after 24 hours. 05/21/25 11:23 Blood Culture - Preliminary Blood - Venous No growth after 24 hours. 05/19/25 16:54 Blood Culture - Final Blood - Venous Staphylococcus aureus 05/19/25 16:54 Blood Culture - Final Blood - Venous Staphylococcus aureus 05/19/25 18:12 Gram Stain - Final Arm Left Routine Culture - Final Staphylococcus aureus Strep agalactiae (Grp B) Procedures Date of Service Date of Service: 05/23/25 Progress Note: A&P Assessment and plan (1) IVDU (intravenous drug user): Status: Acute (2) Abscess of skin of right wrist: Status: Acute (3) Abscess of forearm, right: Status: Acute (4) Abscess of forearm, left: Status: Acute (5) Cellulitis: Status: Acute Plan 44 year old female with a hisotry of IVDU (cocaine), uncontrolled DM, followed for managment of bialteral forearm wounds s/p I&D in ED. overall feels improved. Pain is much less. Denies fevers or chills Feels like she may leave if its not controlled, I encouraged her to stay for continued treatment. Wounds appear stable, the additional I and D sites appear improved today, improvement cellulitic changes. It is much less tender, there were no further fluid collections that need to be drained at this time. Nursing staff Can continue with daily dressing changes, discussed this with today's nurse. Would continue with packing of the incision sites while inpatient. Her sugars do remain very high we will need better glucose control to optimize wound healing. Continue IV abx glucose controll Time Spent With Patient Time: Total time managing care of this patient today ____ minutes. Quality Stroke Does the patient have a stroke diagnosis?: No Reason for No Anti-thrombotic by Day Two: Contraindicated VTE Prior VTE?: No VTE Risk Level:: Medical - moderate - high VTE Device Contraindication: N/A - Device Ordered VTE Drug Contraindication: Treatment Not Indicated
--- NOTE | 2025-05-23 10:26 | MHC.CM.PN ---
Addendum entered by Shakira Bell 05/23/25 10:30: CM met with Patient at bedside. She is in agreement with dc to [facility] for LT IV ABX and continued Methadone.CM will continue to follow. Original Note: Per MD in [facility], Patient needs a PICC for LT IV ABX. Patient has a history of IVDA and will likely require SNF placements for the IV ABX. CM will follow.
--- NOTE | 2025-05-23 10:54 | HO.PM.IMPN ---
Subjective Subjective Date of Service: 05/23/25 Interval History: Doing better, no new issues last blood culture negative at 25 s/p I&D of arms Physical Exam Vital Signs: Vital Signs: Last Vital Signs Temp 97.1 F 05/23/25 08:00 Pulse 64 05/23/25 08:00 Resp 18 05/23/25 08:00 BP 131/68 05/23/25 08:00 Pulse Ox 93 05/23/25 08:00 O2 Del Method Room Air 05/23/25 08:00 O2 Flow Rate 2 05/21/25 15:32 BMI result Body Mass Index 33.7 General: AO X 3, no acute distress Resp: CTA bilateral CVS: S1,S2,RRR GI: +BS, NT, no distention Skin: See pictures Neuro: motor grossly intact Psych: appropriate affect Objective Data Active Medications Acetaminophen (Acetaminophen 325 Mg Tablet) 650 mg PO Q6H PRN PRN Reason: Pain, Mild 1-3,fever,headache Albuterol/Ipratropium (Albuterol/Iprat 2.5/0.5mg 3 Ml Ampul.Neb) 3 ml INHALE Q4H PRN PRN Reason: Shortness of Breath/Wheezing Aripiprazole (Aripiprazole 20 Mg Tablet) 20 mg PO DAILY [facility] Last Admin: 05/23/25 08:10 Dose: 20 mg Documented By: TORIBIO Atorvastatin Calcium (Atorvastatin Calcium 40 Mg Tablet) 40 mg PO DAILY [facility] Last Admin: 05/23/25 08:10 Dose: 40 mg Documented By: TORIBIO Calcium Carbonate (Calcium Carbonate 750 Mg Tab.Chew) 750 mg PO Q4H PRN PRN Reason: Heartburn Clonazepam (Clonazepam 1 Mg Tablet) 1 mg PO BID PRN PRN Reason: Anxiety Last Admin: 05/23/25 08:11 Dose: 1 mg Documented By: TORIBIO Dextrose (Dextrose 50 % 25 Gm/50 Ml Syringe) 25 gm IVPUSH Q15M PRN; Protocol PRN Reason: per Hypoglycemia Standing Ord. Dextrose (Dextrose 50 % 25 Gm/50 Ml Syringe) 25 gm IVPUSH Q15M PRN; Protocol PRN Reason: per Hypoglycemia Standing Ord. Diazepam (Diazepam 10 Mg/2 Ml Cartridge) 10 mg IVPUSH Q6H PRN PRN Reason: Opiate Withdrawal Last Admin: 05/20/25 22:11 Dose: 10 mg Documented By: BUSSIEL Fluticasone/Vilanterol (Fluticasone/Vilanterol 100/ Blst.W.Dev) 1 puff INHALE RDAILY [facility] Last Admin: 05/23/25 07:40 Dose: Not Given Documented By: JENARO Non-Admin Reason: Patient Refused Gabapentin (Gabapentin 300 Mg Capsule) 300 mg PO BID [facility] Last Admin: 05/23/25 08:10 Dose: 300 mg Documented By: TORIBIO Glucose (Glucose Gel 15 Gm Gel..Gram.) 15 gm PO Q15M PRN; Protocol PRN Reason: per Hypoglycemia Standing Ord. Glucose (Glucose Gel 15 Gm Gel..Gram.) 15 gm PO Q15M PRN; Protocol PRN Reason: per Hypoglycemia Standing Ord. Cefazolin Sodium/Dextrose (Ancef) 2 gm in 50 mls @ 100 mls/hr IV Q8H [facility] Last Infusion: 05/23/25 03:39 Dose: Infused Documented By: LAYLA Ibuprofen (Ibuprofen 600 Mg Tablet) 600 mg PO Q6H PRN PRN Reason: arm pain Last Admin: 05/22/25 19:30 Dose: 600 mg Documented By: ALEXIS Insulin Glargine (Insulin Glargine,Hum.Rec.Anlog 100 Unit/Ml 10 Ml Vial) 40 unit SUBCUT BEDTIME [facility] Last Admin: 05/22/25 19:31 Dose: 40 unit Documented By: ALEXIS Insulin Human Lispro (Insulin Lispro 100 Unit/Ml 3 Ml Vial) 0 unit SUBCUT QIDACHS [facility]; Protocol Last Admin: 05/23/25 08:11 Dose: 4 unit Documented By: TORIBIO Magnesium Hydroxide (Milk Of Magnesia 30 Ml Oral.Susp) 30 ml PO DAILY PRN PRN Reason: Constipation Melatonin (Melatonin 3 Mg Tablet) 6 mg PO BEDTIME PRN PRN Reason: Insomnia Methadone HCl (Methadone Hcl 20 Mg/2 Ml Oral.Conc) 13 mg PO DAILY [facility] Last Admin: 05/23/25 08:11 Dose: 13 mg Documented By: TORIBIO Co-signed By: WANDA Ondansetron HCl (Ondansetron Hcl 4 Mg/2 Ml Vial) 4 mg IVPUSH Q8H PRN PRN Reason: Nausea and Vomiting Oxcarbazepine (Oxcarbazepine 150 Mg Tablet) 150 mg PO BID [facility] Last Admin: 05/23/25 08:10 Dose: 150 mg Documented By: TORIBIO Polyethylene Glycol (Polyethylene Glycol 3350 17 Gm Powd.Pack) 17 gm PO DAILY PRN PRN Reason: Constipation Senna (Sennosides 8.6 Mg Tablet) 17.2 mg PO BEDTIME [facility] Last Admin: 05/22/25 19:34 Dose: Not Given Documented By: ALEXIS Non-Admin Reason: Patient Refused Sodium Chloride (0.9 % Sodium Chloride Flush 3 Ml Syringe) 3 ml IVFLUSH QSHIFT [facility] Last Admin: 05/23/25 08:14 Dose: 3 ml Documented By: TORIBIO Labs 05/23/25 05:52 05/23/25 05:52 Labs: Laboratory Results - last 24 hr 05/22/25 05/22/25 05/22/25 11:26 16:31 20:29 MCV MCH MCHC RDW Plt Count MPV Absolute Nucleated RBC Nucleated RBC % (auto) Estim Creat Clear Calc Estimated GFR POC Glucose 433 H* 333 H 314 H 05/23/25 05/23/25 05:52 07:24 MCV 81.2 MCH 25.9 L MCHC 31.9 RDW 13.3 Plt Count 418 H MPV 11.4 Absolute Nucleated RBC 0.070 H Nucleated RBC % (auto) 0.8 H Estim Creat Clear Calc 139.7 Estimated GFR > 60 POC Glucose 221 H Microbiology Microbiology Results: Microbiology 05/19/25 18:12 Gram Stain - Final Arm Routine Culture - Final Staphylococcus aureus Viridans streptococcus group 05/19/25 18:12 Gram Stain - Final Arm Routine Culture - Final Staphylococcus aureus Strep agalactiae (Grp B) Viridans streptococcus group 05/21/25 11:32 Blood Culture - Preliminary Blood - Venous No growth after 24 hours. 05/21/25 11:23 Blood Culture - Preliminary Blood - Venous No growth after 24 hours. 05/19/25 16:54 Blood Culture - Final Blood - Venous Staphylococcus aureus 05/19/25 16:54 Blood Culture - Final Blood - Venous Staphylococcus aureus 05/19/25 18:12 Gram Stain - Final Arm Left Routine Culture - Final Staphylococcus aureus Strep agalactiae (Grp B) Assessment and Plan (1) Cellulitis: Status: Acute (2) Abscess of forearm, left: Status: Acute (3) Abscess of forearm, right: Status: Acute (4) Active intravenous drug use: Status: Acute (5) IVDU (intravenous drug user): Status: Acute Plan Pt is a 44 yo female with PMH IVDA last use 3 days ago, IDDM on Trulicity, Obesity, Bipolar D/O, schizophrenia, KEATON started methadone 2 weeks ago, A/V hallucinations, yeast infections, presents to ED with complaints of fever X2 days, highest 102, chills, nausea and intermittent vomiting with abscesses found on BUE's from IVDA. Admittd for bacteremia and abscesses of upper extremities L and R arm abscess with subcutaneous gas secondary IV drug use Staph aureus bacteremia wound culture= Strep viridan and Staph Aureus -Was on Vanco and Kefzol, now Kefzol alone -echo to rule IE -ID consult -S/p debridment by surgery -ultimately will need PICC for 4 to 6 weeks of IV Abx. Hyponatremia, resolved. Diabetes with Hyperglycemia, non compliant with meds, A1C =11 continue Lantus and humalgo, diabetic diet, education Bipolar Depression/ Schizophrenia/ Anxiety/ Auditory and visual Hallucinations Psychiatry consulted Pt denies suicidal or homicidal ideations, A/V hallucinations - presents manic/ anxious No 1:1 indicated currently Pt is homeless officially, can no longer live with father of her daughter Substance use disoerder Addiction med consult HLD Continue statin COPD/ Asthma Duo nebs prn No issues with hypoxia POX Q4H Anemia Iron panel and B12 pending Trend CBC H/H table, no indication for transfusion Obesity weight loss advised DVT prophylaxis: lovenox held due to possible procedure needed and I and D done in ED MED REC COMPLETED FULL CODE STATUS Quality Stroke Does the patient have a stroke diagnosis?: No Reason for No Anti-thrombotic by Day Two: Contraindicated VTE Prior VTE?: No VTE Risk Level:: Medical - moderate - high VTE Device Contraindication: N/A - Device Ordered VTE Drug Contraindication: Treatment Not Indicated
--- NOTE | 2025-05-23 10:57 | CA_ITS ---
Transthoracic Echocardiogram Patient (Last, First, Middle): DevanNovember, Gender: Female Date of : 1980 Age: 44 Procedure Date: 05/23/2025 Procedure Type: Transthoracic Echocardiogram Location: [facility] [place] Height: 160.02 cm Weight: 86.18 kg BSA: 1.89 m2 Heart Rate: 71 bpm BP: 131 / 68 mmHg Svp Operations: MANI Referring MD: Rajinder Knight MD Symptoms: bacteremia Study Quality: Adequate ECG Rhythm: Sinus Conclusions: - Normal left ventricular size, thickness, systolic function, and wall motion. Abnormal diastolic function is noted. Spectral Doppler is indicative of a pseudonormal filling pattern. E/E prime ratio is between 8 and 15 consistent with indeterminate filling pressures. - There is normal right ventricular systolic function. RV size at upper limit of normal. - The right atrium is mildly dilated. Findings Procedure Information The patient declines contrast. Left Ventricle Normal left ventricular size, thickness, systolic function, and wall motion. Abnormal diastolic function is noted. Spectral Doppler is indicative of a pseudonormal filling pattern. E/E prime ratio is between 8 and 15 consistent with indeterminate filling pressures. Right Ventricle There is normal right ventricular systolic function. RV size at upper limit of normal. Atria The left atrium is normal in size. The right atrium is mildly dilated. Aortic Valve Normal aortic valve structure and function. There is no aortic valve stenosis. There is no aortic valve regurgitation. Mitral Valve Normal mitral valve structure and function. There is no mitral valve regurgitation. There is no mitral valve stenosis. Pulmonic Valve The pulmonic valve is likely normal. Tricuspid Valve Normal tricuspid valve structure. There is no tricuspid valve regurgitation. Normal right atrial pressure. There is no evidence of pulmonary hypertension. Great Vessels All visible segments of the aorta are normal in size. Venous The inferior vena cava is normal in size and collapses greater than 50% with inspiration. Pericardium/Pleural There is no evidence of pericardial effusion. Prior Study Comparison No prior study available for comparison. Measurements 2D Linear Measurements IVSd: 0.94 0.6-0.9/0.6-1.0 cm LVIDd: 5.15 3.9-5.3/4.2-5.9 cm LVIDd Index: 2.72 2.4-3.2/2.2-3.1 cm/m2 LVIDs: 3.13 2.0-3.6 cm LVPWd: 0.71 0.7-1.1 cm LA Diam: 3.60 2.7-3.8/3.0-4.0 cm LAIDs Index: 1.90 1.5-2.3 cm/m2 LV Mass: 184.95 67-162/88-224 g LV Mass Index: 97.86 43-95/49-115 g/m2 LVOT Diam: 2.30 3.0+(-)1.3 cm 2D Systolic Function EF 4C: 61.90 >55% Mitral Valve MV Pk E: 0.91 MV PK A: 0.58 MV Decel Time: 234.00 E/A: 1.60 E'Lateral: 9.14 E'Medial: 7.18 E/E' Med: 12.70 E/E' Lat: 10.00 PHT: 69.00 MVA PHT: 3.19 Decel [place]: 3.89 Aortic Valve AoV Pk Bill: 1.45 AoV Pk Grad: 8.00 LUIS DANIEL: 3.19 LVOT LVOT Pk Bill: 1.13 LVOT Mn Bill: 0.75 LVOT VTI: 0.24 LVOT Pk Grad: 5.00 LVOT Mn Grad: 3.00 LVOT Diam: 2.30 LVOT Area: 4.15 Diastolic Function MV Pk E: 0.91 MV Pk A: 0.58 E/A: 1.60 E'Medial: 7.18 E/E' Med: 12.70 E' Laterial: 9.14 E/E' Lat: 10.00 Right Ventricle TAPSE (mm): 30.40 TVS' Bill: 14.60 Tricuspid Valve TR Pk Bill: 2.12 TR Pk Grad: 18.00 RA Press: 3.00 RVSP: 21.00 Great Vessels Aorta Sinus of Valsalva: 3.20 2.0-3.5 cm Ao Asc: 2.70 2.1-3.4 cm Pulmonary Veins Pulm Vein S/D 1.10 Pulmonary Valve PV Pk Bill: 0.92 Peak PV Grad: 3.00 Updated in Other Vendor System with Status of Final Nicolas Carvajal MD electronically signed on 05/24/2025 3:14:31 PM with status of Final
[2025-05-23 12:03] LABS: Glucose, Whole Blood 220 mg/dL (60-115)
--- NOTE | 2025-05-23 12:31 | P.PNID_ITS ---
Subjective Subjective Date of Service: 05/23/25 Critical Care Time (minutes): 15 Comment: She feels better,arms less swollen Objective Data Labs 05/23/25 05:52 05/23/25 05:52 Labs: Laboratory Results - last 24 hr 05/22/25 05/22/25 05/23/25 16:31 20:29 05:52 WBC 9.0 RBC 4.25 Hgb 11.0 L Hct 34.5 L MCV 81.2 MCH 25.9 L MCHC 31.9 RDW 13.3 Plt Count 418 H MPV 11.4 Absolute Nucleated RBC 0.070 H Nucleated RBC % (auto) 0.8 H Creatinine 0.54 Estim Creat Clear Calc 139.7 Estimated GFR > 60 POC Glucose 333 H 314 H 05/23/25 05/23/25 07:24 12:00 WBC RBC Hgb Hct MCV MCH MCHC RDW Plt Count MPV Absolute Nucleated RBC Nucleated RBC % (auto) Creatinine Estim Creat Clear Calc Estimated GFR POC Glucose 221 H 220 H Microbiology Microbiology Results: Microbiology 05/19/25 18:12 Arm Gram Stain - Final 05/19/25 18:12 Arm Routine Culture - Final Staphylococcus aureus Viridans streptococcus group 05/19/25 18:12 Arm Gram Stain - Final 05/19/25 18:12 Arm Routine Culture - Final Staphylococcus aureus Strep agalactiae (Grp B) Viridans streptococcus group 05/21/25 11:32 Blood - Venous Blood Culture - Preliminary No growth after 24 hours. 05/21/25 11:23 Blood - Venous Blood Culture - Preliminary No growth after 24 hours. 05/19/25 16:54 Blood - Venous Blood Culture - Final Staphylococcus aureus 05/19/25 16:54 Blood - Venous Blood Culture - Final Staphylococcus aureus 05/19/25 18:12 Arm Left Gram Stain - Final 05/19/25 18:12 Arm Left Routine Culture - Final Staphylococcus aureus Strep agalactiae (Grp B) Physical Exam 2 Vital Signs: Vital Signs: Last Vital Signs Temp 97.1 F 05/23/25 08:00 Pulse 64 05/23/25 08:00 Resp 18 05/23/25 08:00 BP 131/68 05/23/25 08:00 Pulse Ox 93 05/23/25 08:00 O2 Del Method Room Air 05/23/25 08:00 O2 Flow Rate 2 05/21/25 15:32 BMI result Body Mass Index 33.7 Const: General: cooperative HEENT: Head: Yes normal to inspection Face and sinus: Yes normal facial exam Mouth: Normal oral and palatal mucosa present Teeth and gingiva: d entition normal Eyes: General: appearance normal, both eyes and all related structures P upils: Equal, round and reactive pupils present Resp: Effort & Inspection: normal respiratory effort Cardio: Rate: regular rate Rhythm: regular rhythm GI: Palpation (GI): Soft to palpation and nontender : General: Yes no CVA tenderness Back/Spine/Pelvis: Back: no CVA tenderness Skin: General skin exam: no rashes or lesions noted Neuro: General: moves all extremities Cranial nerves: Yes Equal, round and reactive pupils present Extrem: Other: swelling arm area less,wrapped,redness less Psych: Appearance: grossly normal Assessment and Plan Assessment and plan (1) Active intravenous drug use: Status: Acute (2) MSSA bacteremia: Status: Acute (3) Cellulitis: Status: Acute Plan MSSA bacteremia ,clear on recheck so far. HIV negative and Hep C viral load pending. Kefzol for four weeks Check TTE Addiction management after discharge. Time Spent With Patient Time: Total time managing care of this patient today ____ minutes.
--- NOTE | 2025-05-23 12:52 | MHC.CM.PN ---
Patient has a [employer] 32.75 hours/week.
--- NOTE | 2025-05-23 14:34 | MHC.RECOVRN ---
T/W met with pt. in room 445 to offer support Pt alert and oriented. She reports good OUD management on 13mg of methadone. She is reporting 8/10pain in areas of wound and no routine pain management available. T/W conferenced with Jazmine Correa NP and she reached out to covering. Pt received orders for ATC PRN pain management. T/W informed pt. on this change Pt denies any other questions/concerns at this time. ACS Will continue to provide support
[2025-05-23 15:55] LABS: Glucose, Whole Blood 259 mg/dL (60-115)
[2025-05-23 16:00] VITALS: BP 135/63; PULSE 70; RESP 18; TEMP 36.2; O2SAT 96
[2025-05-23 19:21] VITALS: PULSE 75; RESP 16; TEMP 36.3; O2SAT 96
[2025-05-23] MEDS: Insulin Glargine,Hum.rec.anlog 100 UNIT/ML 10 ML VIAL 40 UNIT SUBCUT (20:01)
[2025-05-23 21:02] LABS: Glucose, Whole Blood 367 mg/dL (60-115)
[2025-05-24] VITALS: BP 150/72; PULSE 81; RESP 16; TEMP 36.2; O2SAT 95
[2025-05-24 04:00] VITALS: BP 130/63; PULSE 80; RESP 16; TEMP 36.2; O2SAT 95
[2025-05-24 07:42] VITALS: BP 133/61; PULSE 87; RESP 18; TEMP 37; O2SAT 94
[2025-05-24 07:53] LABS: Glucose, Whole Blood 243 mg/dL (60-115)
[2025-05-24] MEDS: Fluticasone/Vilanterol 100/25 BLST.W.DEV 1 PUFF INHALE (07:54)
[2025-05-24 07:55] VITALS: PULSE 90; RESP 18; O2SAT 97
[2025-05-24] MEDS: methADONE HCl 20 MG/2 ML ORAL.CONC 13 MG PO (08:15)
[2025-05-24] MEDS: 0.9 % Sodium Chloride Flush 3 ML SYRINGE IVFLUSH ×2 (08:20→21:21)
--- NOTE | 2025-05-24 08:21 | PM.PNGS ---
Subjective Subjective Date of Service: 05/24/25 Interval history: Reports some increased pain in the left elbow today continues to radiate to shoulder. Denies fevers or chills. Feels like her arms are less swollen Physical Exam Vital Signs: Vital Signs: Last Vital Signs Temp 98.6 F 05/24/25 07:42 Pulse 90 05/24/25 07:55 Resp 18 05/24/25 07:55 BP 133/61 05/24/25 07:42 Pulse Ox 94 05/24/25 07:42 O2 Del Method Room Air 05/24/25 07:42 O2 Flow Rate 2 05/21/25 15:32 BMI result Body Mass Index 33.7 Const: General: comfortable Orientation/consciousness: patient oriented x3 Resp: Effort & Inspection: normal respiratory effort and able to speak in complete sentences Neuro: General: patient oriented x3 Extrem: Other: left cubital: 1 cm I&d site, packing in place, scant purulent discharge. Remains open appears to be improving. Additional 0.5 cm incision site. Closed the now there was able to deroof with a Q-tip and express old dark blood. improvement in cellulitis and induration of the upper arm. Tender to palpation right cubital: 1 cm I&d sites, packing in place, scant purulent discharge about 1 cm of tracking. no additional fluid collections right forearm/wrist:1 cm I&d site, Additional 1 cm incision site. Minimal discharge appears closed at this time improvement in cellulitis Objective Data Active Medications Acetaminophen (Acetaminophen 325 Mg Tablet) 650 mg PO Q6H PRN PRN Reason: Pain, Mild 1-3,fever,headache Albuterol/Ipratropium (Albuterol/Iprat 2.5/0.5mg 3 Ml Ampul.Neb) 3 ml INHALE Q4H PRN PRN Reason: Shortness of Breath/Wheezing Aripiprazole (Aripiprazole 20 Mg Tablet) 20 mg PO DAILY [facility] Last Admin: 05/23/25 08:10 Dose: 20 mg Documented By: TORIBIO Atorvastatin Calcium (Atorvastatin Calcium 40 Mg Tablet) 40 mg PO DAILY [facility] Last Admin: 05/23/25 08:10 Dose: 40 mg Documented By: TORIBIO Calcium Carbonate (Calcium Carbonate 750 Mg Tab.Chew) 750 mg PO Q4H PRN PRN Reason: Heartburn Clonazepam (Clonazepam 1 Mg Tablet) 1 mg PO BID PRN PRN Reason: Anxiety Last Admin: 05/23/25 23:37 Dose: 1 mg Documented By: JOHNATHON Dextrose (Dextrose 50 % 25 Gm/50 Ml Syringe) 25 gm IVPUSH Q15M PRN; Protocol PRN Reason: per Hypoglycemia Standing Ord. Dextrose (Dextrose 50 % 25 Gm/50 Ml Syringe) 25 gm IVPUSH Q15M PRN; Protocol PRN Reason: per Hypoglycemia Standing Ord. Fluticasone/Vilanterol (Fluticasone/Vilanterol 100/25 Blst.W.Dev) 1 puff INHALE RDAILY [facility] Last Admin: 05/24/25 07:54 Dose: 1 puff Documented By: JENARO Gabapentin (Gabapentin 300 Mg Capsule) 300 mg PO BID [facility] Last Admin: 05/23/25 20:02 Dose: 300 mg Documented By: JOHNATHON Glucose (Glucose Gel 15 Gm Gel..Gram.) 15 gm PO Q15M PRN; Protocol PRN Reason: per Hypoglycemia Standing Ord. Glucose (Glucose Gel 15 Gm Gel..Gram.) 15 gm PO Q15M PRN; Protocol PRN Reason: per Hypoglycemia Standing Ord. Hydromorphone HCl (Hydromorphone Hcl 2 Mg Tablet) 4 mg PO Q4H PRN PRN Reason: Pain, Severe (Pain Scale 7-10) Last Admin: 05/23/25 20:02 Dose: 4 mg Documented By: JOHNATHON Cefazolin Sodium/Dextrose (Ancef) 2 gm in 50 mls @ 100 mls/hr IV Q8H [facility] Last Infusion: 05/24/25 04:08 Dose: Infused Documented By: JOHNATHON Ibuprofen (Ibuprofen 600 Mg Tablet) 600 mg PO Q6H PRN PRN Reason: arm pain Last Admin: 05/22/25 19:30 Dose: 600 mg Documented By: ALEXIS Insulin Glargine (Insulin Glargine,Hum.Rec.Anlog 100 Unit/Ml 10 Ml Vial) 40 unit SUBCUT BEDTIME [facility] Last Admin: 05/23/25 20:01 Dose: 40 unit Documented By: JOHNATHON Insulin Human Lispro (Insulin Lispro 100 Unit/Ml 3 Ml Vial) 0 unit SUBCUT QIDACHS [facility]; Protocol Last Admin: 05/23/25 21:10 Dose: 10 unit Documented By: JOHNATHON Magnesium Hydroxide (Milk Of Magnesia 30 Ml Oral.Susp) 30 ml PO DAILY PRN PRN Reason: Constipation Melatonin (Melatonin 3 Mg Tablet) 6 mg PO BEDTIME PRN PRN Reason: Insomnia Methadone HCl (Methadone Hcl 20 Mg/2 Ml Oral.Conc) 13 mg PO DAILY [facility] Last Admin: 05/23/25 08:11 Dose: 13 mg Documented By: TORIBIO Co-signed By: WANDA Ondansetron HCl (Ondansetron Hcl 4 Mg/2 Ml Vial) 4 mg IVPUSH Q8H PRN PRN Reason: Nausea and Vomiting Oxcarbazepine (Oxcarbazepine 150 Mg Tablet) 150 mg PO BID [facility] Last Admin: 05/23/25 20:02 Dose: 150 mg Documented By: JOHNATHON Polyethylene Glycol (Polyethylene Glycol 3350 17 Gm Powd.Pack) 17 gm PO DAILY PRN PRN Reason: Constipation Senna (Sennosides 8.6 Mg Tablet) 17.2 mg PO BEDTIME [facility] Last Admin: 05/23/25 20:02 Dose: Not Given Documented By: JOHNATHON Non-Admin Reason: Patient Refused Sodium Chloride (0.9 % Sodium Chloride Flush 3 Ml Syringe) 3 ml IVFLUSH QSHIFT [facility] Last Admin: 05/23/25 20:02 Dose: 3 ml Documented By: JOHNATHON Labs 05/23/25 05:52 05/23/25 05:52 Labs: Laboratory Results - last 24 hr 05/23/25 05/23/25 05/23/25 12:00 15:51 20:56 POC Glucose 220 H 259 H 367 H* 05/24/25 07:50 POC Glucose 243 H Microbiology Microbiology Results: Microbiology 05/21/25 11:32 Blood Culture - Preliminary Blood - Venous No growth after 48 hours. 05/21/25 11:23 Blood Culture - Preliminary Blood - Venous Prelim: GPC Gram Stain only 05/19/25 18:12 Gram Stain - Final Arm Routine Culture - Final Staphylococcus aureus Viridans streptococcus group 05/19/25 18:12 Gram Stain - Final Arm Routine Culture - Final Staphylococcus aureus Strep agalactiae (Grp B) Viridans streptococcus group Procedures Date of Service Date of Service: 05/24/25 Progress Note: A&P Assessment and plan (1) IVDU (intravenous drug user): Status: Acute (2) Abscess of skin of right wrist: Status: Acute (3) Abscess of forearm, right: Status: Acute (4) Abscess of forearm, left: Status: Acute (5) Cellulitis: Status: Acute (6) MSSA bacteremia: Status: Acute Plan 44 year old female with a hisotry of IVDU (cocaine), uncontrolled DM, followed for managment of bialteral forearm wounds s/p I&D in ED. initial blood cultures showing MSSA bacteremia. ID consult vascular pending Kefzol x4 weeks. overall feels some increased pain in the left elbow that radiates to the shoulder. Swelling has improved Denies fevers or chills Wounds appear stable, the additional I and D sites appear improved today, improvement cellulitic changes, edema. The additional I&D site of the left elbow was close today there was a small fluid collection so ID removed the wound was able to express some dark old blood. No purulence noted. The right wrist wounds appear closed at this point overall improved. this cubtial fossa does have two wounds That remain open, no purulence. wounds were dressed with fluff gauze and kerlix. Her sugars do remain very high we will need better glucose control to optimize wound healing. Continue IV abx glucose control daily wound care Time Spent With Patient Time: Total time managing care of this patient today ____ minutes. Quality Stroke Does the patient have a stroke diagnosis?: No Reason for No Anti-thrombotic by Day Two: Contraindicated VTE Prior VTE?: No VTE Risk Level:: Medical - moderate - high VTE Device Contraindication: N/A - Device Ordered VTE Drug Contraindication: Treatment Not Indicated
[2025-05-24 09:11] LABS: Hematocrit 34.0 % (37.0-47.0); Hemoglobin 11.0 g/dl (12.0-16.0); Mean Corpuscular HGB Conc 32.4 g/dl (31.0-35.0); Mean Corpuscular Hemoglobin 26.0 pg (27.0-33.0); Mean Corpuscular Volume 80.4 fL (80.0-98.0); NRBC Abs Auto 0.000 X10*3/uL (0.0-0.012); NRBC Pct Auto 0.0 /100WBC (0.0-0.2); Platelet Count 524 X10*3/uL (160-400); Red Blood Count 4.23 X10*6/uL (4.20-5.50); White Blood Count 11.5 X10*3/uL (4.8-10.8)
--- NOTE | 2025-05-24 09:12 | HO.PM.IMPN ---
Subjective Subjective Date of Service: 05/24/25 Interval History: Doing better, no new issues last blood culture positive before 48 repeat drawn today Physical Exam Vital Signs: Vital Signs: Last Vital Signs Temp 98.6 F 05/24/25 07:42 Pulse 90 05/24/25 07:55 Resp 18 05/24/25 07:55 BP 133/61 05/24/25 07:42 Pulse Ox 94 05/24/25 07:42 O2 Del Method Room Air 05/24/25 07:42 O2 Flow Rate 2 05/21/25 15:32 BMI result Body Mass Index 33.7 General: AO X 3, no acute distress Resp: CTA bilateral CVS: S1,S2,RRR GI: +BS, NT, no distention Skin: See pictures Neuro: motor grossly intact Psych: appropriate affect Objective Data Active Medications Acetaminophen (Acetaminophen 325 Mg Tablet) 650 mg PO Q6H PRN PRN Reason: Pain, Mild 1-3,fever,headache Albuterol/Ipratropium (Albuterol/Iprat 2.5/0.5mg 3 Ml Ampul.Neb) 3 ml INHALE Q4H PRN PRN Reason: Shortness of Breath/Wheezing Aripiprazole (Aripiprazole 20 Mg Tablet) 20 mg PO DAILY COUNTS INCLUDE 234 BEDS AT THE [facility] Last Admin: 05/24/25 08:15 Dose: 20 mg Documented By: TRUMAN Atorvastatin Calcium (Atorvastatin Calcium 40 Mg Tablet) 40 mg PO DAILY COUNTS INCLUDE 234 BEDS AT THE [facility] Last Admin: 05/24/25 08:15 Dose: 40 mg Documented By: TRUMAN Calcium Carbonate (Calcium Carbonate 750 Mg Tab.Chew) 750 mg PO Q4H PRN PRN Reason: Heartburn Clonazepam (Clonazepam 1 Mg Tablet) 1 mg PO BID PRN PRN Reason: Anxiety Last Admin: 05/23/25 23:37 Dose: 1 mg Documented By: JOHNATHON Dextrose (Dextrose 50 % 25 Gm/50 Ml Syringe) 25 gm IVPUSH Q15M PRN; Protocol PRN Reason: per Hypoglycemia Standing Ord. Dextrose (Dextrose 50 % 25 Gm/50 Ml Syringe) 25 gm IVPUSH Q15M PRN; Protocol PRN Reason: per Hypoglycemia Standing Ord. Fluticasone/Vilanterol (Fluticasone/Vilanterol 100/25 Blst.W.Dev) 1 puff INHALE RDAILY COUNTS INCLUDE 234 BEDS AT THE [facility] Last Admin: 05/24/25 07:54 Dose: 1 puff Documented By: JENARO Gabapentin (Gabapentin 300 Mg Capsule) 300 mg PO BID COUNTS INCLUDE 234 BEDS AT THE [facility] Last Admin: 05/24/25 08:15 Dose: 300 mg Documented By: TRUMAN Glucose (Glucose Gel 15 Gm Gel..Gram.) 15 gm PO Q15M PRN; Protocol PRN Reason: per Hypoglycemia Standing Ord. Glucose (Glucose Gel 15 Gm Gel..Gram.) 15 gm PO Q15M PRN; Protocol PRN Reason: per Hypoglycemia Standing Ord. Hydromorphone HCl (Hydromorphone Hcl 2 Mg Tablet) 4 mg PO Q4H PRN PRN Reason: Pain, Severe (Pain Scale 7-10) Last Admin: 05/24/25 08:14 Dose: 4 mg Documented By: TRUMAN Cefazolin Sodium/Dextrose (Ancef) 2 gm in 50 mls @ 100 mls/hr IV Q8H COUNTS INCLUDE 234 BEDS AT THE [facility] Last Infusion: 05/24/25 04:08 Dose: Infused Documented By: JOHNATHON Ibuprofen (Ibuprofen 600 Mg Tablet) 600 mg PO Q6H PRN PRN Reason: arm pain Last Admin: 05/22/25 19:30 Dose: 600 mg Documented By: ALEXIS Insulin Glargine (Insulin Glargine,Hum.Rec.Anlog 100 Unit/Ml 10 Ml Vial) 40 unit SUBCUT BEDTIME COUNTS INCLUDE 234 BEDS AT THE [facility] Last Admin: 05/23/25 20:01 Dose: 40 unit Documented By: JOHNATHON Insulin Human Lispro (Insulin Lispro 100 Unit/Ml 3 Ml Vial) 0 unit SUBCUT QIDACHS COUNTS INCLUDE 234 BEDS AT THE [facility]; Protocol Last Admin: 05/24/25 08:14 Dose: 4 unit Documented By: TRUMAN Magnesium Hydroxide (Milk Of Magnesia 30 Ml Oral.Susp) 30 ml PO DAILY PRN PRN Reason: Constipation Melatonin (Melatonin 3 Mg Tablet) 6 mg PO BEDTIME PRN PRN Reason: Insomnia Methadone HCl (Methadone Hcl 20 Mg/2 Ml Oral.Conc) 13 mg PO DAILY COUNTS INCLUDE 234 BEDS AT [facility] Last Admin: 05/24/25 08:15 Dose: 13 mg Documented By: TRUMAN Co-signed By: KATELIN Ondansetron HCl (Ondansetron Hcl 4 Mg/2 Ml Vial) 4 mg IVPUSH Q8H PRN PRN Reason: Nausea and Vomiting Oxcarbazepine (Oxcarbazepine 150 Mg Tablet) 150 mg PO BID COUNTS INCLUDE 234 BEDS AT THE [facility] Last Admin: 05/24/25 08:15 Dose: 150 mg Documented By: TRUMAN Polyethylene Glycol (Polyethylene Glycol 3350 17 Gm Powd.Pack) 17 gm PO DAILY PRN PRN Reason: Constipation Senna (Sennosides 8.6 Mg Tablet) 17.2 mg PO BEDTIME COUNTS INCLUDE 234 BEDS AT THE [facility] Last Admin: 05/23/25 20:02 Dose: Not Given Documented By: JOHNATHON Non-Admin Reason: Patient Refused Sodium Chloride (0.9 % Sodium Chloride Flush 3 Ml Syringe) 3 ml IVFLUSH QSHIFT COUNTS INCLUDE 234 BEDS AT THE [facility] Last Admin: 05/24/25 08:20 Dose: 3 ml Documented By: TRUMAN Labs 05/24/25 08:44 05/23/25 05:52 Labs: Laboratory Results - last 24 hr 05/23/25 05/23/25 05/23/25 12:00 15:51 20:56 MCV MCH MCHC RDW Plt Count MPV Absolute Nucleated RBC Nucleated RBC % (auto) Anion Gap Estim Creat Clear Calc Estimated GFR POC Glucose 220 H 259 H 367 H* Random Glucose Calcium 05/24/25 05/24/25 07:50 08:44 MCV 80.4 MCH 26.0 L MCHC 32.4 RDW 13.3 Plt Count 524 H D MPV 10.6 Absolute Nucleated RBC 0.000 Nucleated RBC % (auto) 0.0 Anion Gap Cancelled Estim Creat Clear Calc Cancelled Estimated GFR Cancelled POC Glucose 243 H Random Glucose Cancelled Calcium Cancelled Microbiology Microbiology Results: Microbiology 05/21/25 11:32 Blood Culture - Preliminary Blood - Venous No growth after 48 hours. 05/21/25 11:23 Blood Culture - Preliminary Blood - Venous Prelim: GPC Gram Stain only 05/19/25 18:12 Gram Stain - Final Arm Routine Culture - Final Staphylococcus aureus Viridans streptococcus group 05/19/25 18:12 Gram Stain - Final Arm Routine Culture - Final Staphylococcus aureus Strep agalactiae (Grp B) Viridans streptococcus group Assessment and Plan (1) Cellulitis: Status: Acute (2) Abscess of forearm, left: Status: Acute (3) Abscess of forearm, right: Status: Acute (4) Active intravenous drug use: Status: Acute (5) IVDU (intravenous drug user): Status: Acute Plan Pt is a 44 yo female with PMH IVDA last use 3 days ago, IDDM on Trulicity, Obesity, Bipolar D/O, schizophrenia, KEATON started methadone 2 weeks ago, A/V hallucinations, yeast infections, presents to ED with complaints of fever X2 days, highest 102, chills, nausea and intermittent vomiting with abscesses found on BUE's from IVDA. Admittd for bacteremia and abscesses of upper extremities tomas arm abscess with subcutaneous gas secondary IV drug use Staph aureus bacteremia wound culture= Strep viridan and Staph Aureus -Was on Vanco and Kefzol, now Kefzol alone -echo to rule IE -ID consult -S/p debridment by surgery -ultimately will need PICC for 4 to 6 weeks of IV Abx. Hyponatremia, resolved. Diabetes with Hyperglycemia, non compliant with meds, A1C =11 continue Lantus (increase to 45), and humalgo, diabetic diet, education Bipolar Depression/ Schizophrenia/ Anxiety/ Auditory and visual Hallucinations Psychiatry consulted Pt denies suicidal or homicidal ideations, A/V hallucinations - presents manic/ anxious Pt is homeless officially, can no longer live with father of her daughter Substance use disoerder Addiction med consult HLD Continue statin COPD/ Asthma Duo nebs prn No issues with hypoxia POX Q4H Anemia Iron panel and B12 pending Trend CBC H/H table, no indication for transfusion Obesity weight loss advised DVT prophylaxis: lovenox held due to possible procedure needed and I and D done in ED MED REC COMPLETED FULL CODE STATUS Quality Stroke Does the patient have a stroke diagnosis?: No Reason for No Anti-thrombotic by Day Two: Contraindicated VTE Prior VTE?: No VTE Risk Level:: Medical - moderate - high VTE Device Contraindication: N/A - Device Ordered VTE Drug Contraindication: Treatment Not Indicated
[2025-05-24 09:29] LABS: Anion Gap 13 (12-20); Blood Urea Nitrogen 14 mg/dL (9-16); Calcium 9.0 mg/dL (8.4-10.2); Carbon Dioxide 30 mmol/L (22-29); Chloride 98 mmol/L (96-108); Creatinine Clr Calc Pharmacy 119.8; Estimated Glomerular Filt Rate > 60; Potassium 4.3 mmol/L (3.3-5.1); Sodium 137 mmol/L (135-145)
[2025-05-24 11:46] LABS: Glucose, Whole Blood 269 mg/dL (60-115)
[2025-05-24 15:15] VITALS: BP 122/60; PULSE 84; RESP 17; TEMP 36.2; O2SAT 93
[2025-05-24 15:24] LABS: HCV Log PCR 4.28 Log IU/mL (NOT DETECTED); HepC Viral Load 18900 IU/mL (NOT DETECTED)
--- NOTE | 2025-05-24 15:44 | MHC.CM.PN ---
per rounds pt not ready for dc dc plan remains home
--- NOTE | 2025-05-24 15:47 | MHC.CM.PN ---
per rpunds pt still bacterimic ,picc canot be placed hcp filed [facility] workers in to see pt they forgot to bring the fredy which pt is agreeable to sign they will fax to office tomorrow
[2025-05-24 16:01] LABS: Glucose, Whole Blood 302 mg/dL (60-115)
--- NOTE | 2025-05-24 17:24 | MHC.RECOVRN ---
Tw checked in with pt in [id number] to assess pain management. On approach, pt was standing at her table, conversing with visitor, in no apparent distress. Pt reports I just took some pain meds, so I feel oK and rates pain 4/10. She denies further complaints or questions at this time. TW available as needed for support.
[2025-05-24 19:06] VITALS: BP 143/73; PULSE 74; RESP 16; TEMP 36.1; O2SAT 92
[2025-05-24 20:40] LABS: Glucose, Whole Blood 218 mg/dL (60-115)
[2025-05-24] MEDS: Insulin Glargine,Hum.rec.anlog 100 UNIT/ML 10 ML VIAL 45 UNIT SUBCUT (21:19)
[2025-05-25 03:16] VITALS: BP 121/62; PULSE 77; RESP 16; TEMP 36.1; O2SAT 96
[2025-05-25 07:02] LABS: Creatinine Clr Calc Pharmacy 127.9; Estimated Glomerular Filt Rate > 60
[2025-05-25 07:22] VITALS: BP 142/71; PULSE 70; RESP 18; TEMP 36.6; O2SAT 94
[2025-05-25 07:31] LABS: Glucose, Whole Blood 225 mg/dL (60-115)
[2025-05-25] MEDS: Fluticasone/Vilanterol 100/25 BLST.W.DEV 1 PUFF INHALE (07:50)
[2025-05-25 07:51] VITALS: PULSE 72; RESP 18; O2SAT 97
[2025-05-25] MEDS: methADONE HCl 20 MG/2 ML ORAL.CONC 13 MG PO (08:04)
[2025-05-25] MEDS: 0.9 % Sodium Chloride Flush 3 ML SYRINGE IVFLUSH ×3 (08:06→21:52)
--- NOTE | 2025-05-25 08:13 | P.PNGS_ITS ---
Subjective Subjective Date of Service: 05/25/25 Interval history: doing better today, pain in the arms has improved slightly. Denies fevers/chills. Plan was originally to transfer to [place] for continued abx treatment, she does not want to go that far from her child. considering sublocade injection to qualify to stay here. Physical Exam 2 Vital Signs: Vital Signs: Last Vital Signs Temp 97.8 F 05/25/25 07:22 Pulse 72 05/25/25 07:51 Resp 18 05/25/25 07:51 BP 142/71 H 05/25/25 07:22 Pulse Ox 94 05/25/25 07:22 O2 Del Method Room Air 05/25/25 07:22 O2 Flow Rate 2 05/21/25 15:32 BMI result Body Mass Index 33.7 Const: General: comfortable and no acute distress O rientation/consciousness: patient oriented x3 Resp: Effort & Inspection: normal respiratory effort and able to speak in complete sentences Neuro: General: patient oriented x3 Extrem: Other: left cubital: 1 cm I&d site, scant purulent discharge. Remains open appears to be improving. Additional 0.5 cm incision site. mildly tender to palpation. Resolutions of localized cellulitis, no further fluid collections right cubital: 1 cm I&d sites no additional fluid collections right forearm/wrist:1 cm I&d site, Additional 1 cm incision site. Minimal discharge appears closed at this time improvement in cellulitis Objective Data Active Medications Acetaminophen (Acetaminophen 325 Mg Tablet) 650 mg PO Q6H PRN PRN Reason: Pain, Mild 1-3,fever,headache Albuterol/Ipratropium (Albuterol/Iprat 2.5/0.5mg 3 Ml Ampul.Neb) 3 ml INHALE Q4H PRN PRN Reason: Shortness of Breath/Wheezing Aripiprazole (Aripiprazole 20 Mg Tablet) 20 mg PO DAILY [facility] Last Admin: 05/25/25 08:06 Dose: 20 mg Documented By: HALLE Atorvastatin Calcium (Atorvastatin Calcium 40 Mg Tablet) 40 mg PO DAILY [facility] Last Admin: 05/25/25 08:05 Dose: 40 mg Documented By: HALLE Calcium Carbonate (Calcium Carbonate 750 Mg Tab.Chew) 750 mg PO Q4H PRN PRN Reason: Heartburn Dextrose (Dextrose 50 % 25 Gm/50 Ml Syringe) 25 gm IVPUSH Q15M PRN; Protocol PRN Reason: per Hypoglycemia Standing Ord. Dextrose (Dextrose 50 % 25 Gm/50 Ml Syringe) 25 gm IVPUSH Q15M PRN; Protocol PRN Reason: per Hypoglycemia Standing Ord. Fluticasone/Vilanterol (Fluticasone/Vilanterol 100/25 Blst.W.Dev) 1 puff INHALE RDAILY [facility] Last Admin: 05/25/25 07:50 Dose: 1 puff Documented By: JEANRO Gabapentin (Gabapentin 300 Mg Capsule) 300 mg PO BID [facility] Last Admin: 05/25/25 08:05 Dose: 300 mg Documented By: HALLE Glucose (Glucose Gel 15 Gm Gel..Gram.) 15 gm PO Q15M PRN; Protocol PRN Reason: per Hypoglycemia Standing Ord. Glucose (Glucose Gel 15 Gm Gel..Gram.) 15 gm PO Q15M PRN; Protocol PRN Reason: per Hypoglycemia Standing Ord. Hydromorphone HCl (Hydromorphone Hcl 2 Mg Tablet) 4 mg PO Q4H PRN PRN Reason: Pain, Severe (Pain Scale 7-10) Last Admin: 05/24/25 21:16 Dose: 4 mg Documented By: AIDA Cefazolin Sodium/Dextrose (Ancef) 2 gm in 50 mls @ 100 mls/hr IV Q8H [facility] Last Infusion: 05/25/25 03:09 Dose: Infused Documented By: AIDA Ibuprofen (Ibuprofen 600 Mg Tablet) 600 mg PO Q6H PRN PRN Reason: arm pain Last Admin: 05/22/25 19:30 Dose: 600 mg Documented By: ALEXIS Insulin Glargine (Insulin Glargine,Hum.Rec.Anlog 100 Unit/Ml 10 Ml Vial) 45 unit SUBCUT BEDTIME [facility] Last Admin: 05/24/25 21:19 Dose: 45 unit Documented By: AIDA Insulin Human Lispro (Insulin Lispro 100 Unit/Ml 3 Ml Vial) 0 unit SUBCUT QIDACHS [facility]; Protocol Last Admin: 05/25/25 08:05 Dose: 4 unit Documented By: HALLE Magnesium Hydroxide (Milk Of Magnesia 30 Ml Oral.Susp) 30 ml PO DAILY PRN PRN Reason: Constipation Melatonin (Melatonin 3 Mg Tablet) 6 mg PO BEDTIME PRN PRN Reason: Insomnia Methadone HCl (Methadone Hcl 20 Mg/2 Ml Oral.Conc) 13 mg PO DAILY [facility] Last Admin: 05/25/25 08:04 Dose: 13 mg Documented By: HALLE Co-signed By: KATELIN Ondansetron HCl (Ondansetron Hcl 4 Mg/2 Ml Vial) 4 mg IVPUSH Q8H PRN PRN Reason: Nausea and Vomiting Oxcarbazepine (Oxcarbazepine 150 Mg Tablet) 150 mg PO BID [facility] Last Admin: 05/25/25 08:06 Dose: 150 mg Documented By: HALLE Polyethylene Glycol (Polyethylene Glycol 3350 17 Gm Powd.Pack) 17 gm PO DAILY PRN PRN Reason: Constipation Senna (Sennosides 8.6 Mg Tablet) 17.2 mg PO BEDTIME [facility] Last Admin: 05/24/25 21:17 Dose: Not Given Documented By: AIDA Non-Admin Reason: Patient Refused Sodium Chloride (0.9 % Sodium Chloride Flush 3 Ml Syringe) 3 ml IVFLUSH QSHIFT [facility] Last Admin: 05/25/25 08:06 Dose: 3 ml Documented By: HALLE Labs 05/24/25 08:44 05/25/25 05:45 Labs: Laboratory Results - last 24 hr 05/21/25 05/24/25 05/24/25 06:17 08:44 08:44 MCV 80.4 MCH 26.0 L MCHC 32.4 RDW 13.3 Plt Count 524 H D MPV 10.6 Absolute Nucleated RBC 0.000 Nucleated RBC % (auto) 0.0 Hold Purple Top Anion Gap 13 Cancelled Estim Creat Clear Calc 119.8 Estimated GFR POC Glucose Random Glucose Calcium Hep C Viral Load 33057 H Hep C Viral Load Log 4.28 H 05/24/25 05/24/25 05/24/25 08:44 08:44 08:44 MCV MCH MCHC RDW Plt Count MPV Absolute Nucleated RBC Nucleated RBC % (auto) Hold Purple Top Anion Gap Estim Creat Clear Calc Cancelled Estimated GFR > 60 Cancelled POC Glucose Random Glucose 293 H Cancelled Calcium 9.0 D Hep C Viral Load Hep C Viral Load Log 05/24/25 05/24/25 05/24/25 08:44 11:43 15:58 MCV MCH MCHC RDW Plt Count MPV Absolute Nucleated RBC Nucleated RBC % (auto) Hold Purple Top Anion Gap Estim Creat Clear Calc Estimated GFR POC Glucose 269 H 302 H Random Glucose Calcium Cancelled Hep C Viral Load Hep C Viral Load Log 05/24/25 05/25/25 05/25/25 20:37 05:45 07:25 MCV MCH MCHC RDW Plt Count MPV Absolute Nucleated RBC Nucleated RBC % (auto) Hold Purple Top SEE NOTE Anion Gap Estim Creat Clear Calc 127.9 Estimated GFR > 60 POC Glucose 218 H 225 H Random Glucose Calcium Hep C Viral Load Hep C Viral Load Log Microbiology Microbiology Results: Microbiology 05/21/25 11:32 Blood Culture - Preliminary Blood - Venous No growth after 48 hours. 05/21/25 11:23 Blood Culture - Final Blood - Venous Staphylococcus aureus Procedures Date of Service Date of Service: 05/25/25 Progress Note: A&P Assessment and plan (1) IVDU (intravenous drug user): Status: Acute (2) Abscess of skin of right wrist: Status: Acute (3) Abscess of forearm, right: Status: Acute (4) Abscess of forearm, left: Status: Acute (5) Cellulitis: Status: Acute (6) MSSA bacteremia: Status: Acute Plan 44 year old female with a hisotry of IVDU (cocaine), uncontrolled DM, followed for managment of bialteral forearm wounds s/p I&D in ED. initial blood cultures showing MSSA bacteremia. ID consult vascular recommending Kefzol x4 weeks. overall feels better today, pain is decreased Swelling has improved. Denies fevers or chills Wounds appear stable, the additional I and D sites appear improved today, improvement cellulitic changes, edema. sites are not actively draiing, appear closed at this time. No purulence of fluid collections noted. Instructed nursing staff that we can dress wounds with dry fluff gauze and kerlix. Her sugars do remain very high we will need better glucose control to optimize wound healing. Will continue to follow through admission care per medical team. Continue IV abx glucose control daily wound care repeat blood cultures pending Time Spent With Patient Time: Total time managing care of this patient today ____ minutes. Quality Stroke Does the patient have a stroke diagnosis?: No Reason for No Anti-thrombotic by Day Two: Contraindicated VTE Prior VTE?: No VTE Risk Level:: Medical - moderate - high VTE Device Contraindication: N/A - Device Ordered VTE Drug Contraindication: Treatment Not Indicated
--- NOTE | 2025-05-25 09:04 | P.PNIM_ITS ---
Subjective Subjective Date of Service: 05/25/25 Interval History: No fever, some pain in arms Physical Exam 2 Vital Signs: Vital Signs: Last Vital Signs Temp 97.8 F 05/25/25 07:22 Pulse 72 05/25/25 07:51 Resp 18 05/25/25 07:51 BP 142/71 H 05/25/25 07:22 Pulse Ox 94 05/25/25 07:22 O2 Del Method Room Air 05/25/25 07:22 O2 Flow Rate 2 05/21/25 15:32 BMI result Body Mass Index 33.7 General: AO X 3, no acute distress Resp: CTA bilateral CVS: S1,S2,RRR GI: +BS, NT, no distention Skin: See pictures Neuro: motor grossly intact Psych: appropriate affect Objective Data Active Medications Acetaminophen (Acetaminophen 325 Mg Tablet) 650 mg PO Q6H PRN PRN Reason: Pain, Mild 1-3,fever,headache Albuterol/Ipratropium (Albuterol/Iprat 2.5/0.5mg 3 Ml Ampul.Neb) 3 ml INHALE Q4H PRN PRN Reason: Shortness of Breath/Wheezing Aripiprazole (Aripiprazole 20 Mg Tablet) 20 mg PO DAILY [facility] Last Admin: 05/25/25 08:06 Dose: 20 mg Documented By: HALLE Atorvastatin Calcium (Atorvastatin Calcium 40 Mg Tablet) 40 mg PO DAILY [facility] Last Admin: 05/25/25 08:05 Dose: 40 mg Documented By: HALLE Calcium Carbonate (Calcium Carbonate 750 Mg Tab.Chew) 750 mg PO Q4H PRN PRN Reason: Heartburn Dextrose (Dextrose 50 % 25 Gm/50 Ml Syringe) 25 gm IVPUSH Q15M PRN; Protocol PRN Reason: per Hypoglycemia Standing Ord. Dextrose (Dextrose 50 % 25 Gm/50 Ml Syringe) 25 gm IVPUSH Q15M PRN; Protocol PRN Reason: per Hypoglycemia Standing Ord. Fluticasone/Vilanterol (Fluticasone/Vilanterol 100/25 Blst.W.Dev) 1 puff INHALE RDAILY [facility] Last Admin: 05/25/25 07:50 Dose: 1 puff Documented By: JENARO Gabapentin (Gabapentin 300 Mg Capsule) 300 mg PO BID [facility] Last Admin: 05/25/25 08:05 Dose: 300 mg Documented By: HALLE Glucose (Glucose Gel 15 Gm Gel..Gram.) 15 gm PO Q15M PRN; Protocol PRN Reason: per Hypoglycemia Standing Ord. Glucose (Glucose Gel 15 Gm Gel..Gram.) 15 gm PO Q15M PRN; Protocol PRN Reason: per Hypoglycemia Standing Ord. Hydromorphone HCl (Hydromorphone Hcl 2 Mg Tablet) 4 mg PO Q4H PRN PRN Reason: Pain, Severe (Pain Scale 7-10) Last Admin: 05/24/25 21:16 Dose: 4 mg Documented By: AIDA Cefazolin Sodium/Dextrose (Ancef) 2 gm in 50 mls @ 100 mls/hr IV Q8H [facility] Last Infusion: 05/25/25 03:09 Dose: Infused Documented By: AIDA Ibuprofen (Ibuprofen 600 Mg Tablet) 600 mg PO Q6H PRN PRN Reason: arm pain Last Admin: 05/22/25 19:30 Dose: 600 mg Documented By: ALEXIS Insulin Glargine (Insulin Glargine,Hum.Rec.Anlog 100 Unit/Ml 10 Ml Vial) 45 unit SUBCUT BEDTIME [facility] Last Admin: 05/24/25 21:19 Dose: 45 unit Documented By: AIDA Insulin Human Lispro (Insulin Lispro 100 Unit/Ml 3 Ml Vial) 0 unit SUBCUT QIDACHS [facility]; Protocol Last Admin: 05/25/25 08:05 Dose: 4 unit Documented By: HALLE Magnesium Hydroxide (Milk Of Magnesia 30 Ml Oral.Susp) 30 ml PO DAILY PRN PRN Reason: Constipation Melatonin (Melatonin 3 Mg Tablet) 6 mg PO BEDTIME PRN PRN Reason: Insomnia Methadone HCl (Methadone Hcl 20 Mg/2 Ml Oral.Conc) 13 mg PO DAILY [facility] Last Admin: 05/25/25 08:04 Dose: 13 mg Documented By: HALLE Co-signed By: KATELIN Ondansetron HCl (Ondansetron Hcl 4 Mg/2 Ml Vial) 4 mg IVPUSH Q8H PRN PRN Reason: Nausea and Vomiting Oxcarbazepine (Oxcarbazepine 150 Mg Tablet) 150 mg PO BID [facility] Last Admin: 05/25/25 08:06 Dose: 150 mg Documented By: HALLE Polyethylene Glycol (Polyethylene Glycol 3350 17 Gm Powd.Pack) 17 gm PO DAILY PRN PRN Reason: Constipation Senna (Sennosides 8.6 Mg Tablet) 17.2 mg PO BEDTIME [facility] Last Admin: 05/24/25 21:17 Dose: Not Given Documented By: AIDA Non-Admin Reason: Patient Refused Sodium Chloride (0.9 % Sodium Chloride Flush 3 Ml Syringe) 3 ml IVFLUSH QSHIFT [facility] Last Admin: 05/25/25 08:06 Dose: 3 ml Documented By: HALLE Labs 05/24/25 08:44 05/25/25 05:45 Labs: Laboratory Results - last 24 hr 05/21/25 05/24/25 05/24/25 06:17 08:44 08:44 MCV 80.4 MCH 26.0 L MCHC 32.4 RDW 13.3 Plt Count 524 H D MPV 10.6 Absolute Nucleated RBC 0.000 Nucleated RBC % (auto) 0.0 Hold Purple Top Anion Gap 13 Cancelled Estim Creat Clear Calc 119.8 Estimated GFR POC Glucose Random Glucose Calcium Hep C Viral Load 73041 H Hep C Viral Load Log 4.28 H 05/24/25 05/24/25 05/24/25 08:44 08:44 08:44 MCV MCH MCHC RDW Plt Count MPV Absolute Nucleated RBC Nucleated RBC % (auto) Hold Purple Top Anion Gap Estim Creat Clear Calc Cancelled Estimated GFR > 60 Cancelled POC Glucose Random Glucose 293 H Cancelled Calcium 9.0 D Hep C Viral Load Hep C Viral Load Log 05/24/25 05/24/25 05/24/25 08:44 11:43 15:58 MCV MCH MCHC RDW Plt Count MPV Absolute Nucleated RBC Nucleated RBC % (auto) Hold Purple Top Anion Gap Estim Creat Clear Calc Estimated GFR POC Glucose 269 H 302 H Random Glucose Calcium Cancelled Hep C Viral Load Hep C Viral Load Log 05/24/25 05/25/25 05/25/25 20:37 05:45 07:25 MCV MCH MCHC RDW Plt Count MPV Absolute Nucleated RBC Nucleated RBC % (auto) Hold Purple Top SEE NOTE Anion Gap Estim Creat Clear Calc 127.9 Estimated GFR > 60 POC Glucose 218 H 225 H Random Glucose Calcium Hep C Viral Load Hep C Viral Load Log Microbiology Microbiology Results: Microbiology 05/21/25 11:32 Blood Culture - Preliminary Blood - Venous No growth after 48 hours. 05/21/25 11:23 Blood Culture - Final Blood - Venous Staphylococcus aureus Assessment and Plan (1) Cellulitis: Status: Acute (2) Abscess of forearm, left: Status: Acute (3) Abscess of forearm, right: Status: Acute (4) Active intravenous drug use: Status: Acute (5) IVDU (intravenous drug user): Status: Acute Plan Pt is a 44 yo female with PMH IVDA last use 3 days ago, IDDM on Trulicity, Obesity, Bipolar D/O, schizophrenia, KEATON started methadone 2 weeks ago, A/V hallucinations, yeast infections, presents to ED with complaints of fever X2 days, highest 102, chills, nausea and intermittent vomiting with abscesses found on BUE's from IVDA. Admittd for bacteremia and abscesses of upper extremities tomas arm abscess with subcutaneous gas secondary IV drug use Staph aureus bacteremia wound culture= Strep viridan and Staph Aureus -Was on Vanco and Kefzol, now Kefzol alone -TTE negative for vegetation -ID recommends 4 weeks of Kefzol -S/p debridment by surgery -Picc line--when blood culture negative at 48 hrs Hyponatremia, resolved. Diabetes with Hyperglycemia, non compliant with meds, A1C =11, still uncontrolled FBS 225 today continue Lantus 45 at HS, add lantus 15 in AM, SSI, and diabetic diet Bipolar Depression/ Schizophrenia/ Anxiety/ Auditory and visual Hallucinations Pt denies suicidal or homicidal ideations, A/V hallucinations - presents manic/ anxious Pt is homeless officially, can no longer live with father of her daughter Substance use disoerder Addiction med consult HLD Continue statin COPD/ Asthma Duo nebs prn No issues with hypoxia POX Q4H Anemia Iron panel and B12 pending Trend CBC H/H table, no indication for transfusion Obesity weight loss advised DVT prophylaxis: lovenox held due to possible procedure needed and I and D done in ED MED REC COMPLETED FULL CODE STATUS Quality Stroke Does the patient have a stroke diagnosis?: No Reason for No Anti-thrombotic by Day Two: Contraindicated VTE Prior VTE?: No VTE Risk Level:: Medical - moderate - high VTE Device Contraindication: N/A - Device Ordered VTE Drug Contraindication: Treatment Not Indicated
[2025-05-25 09:28] LABS: Anion Gap 13 (12-20); Carbon Dioxide 31 mmol/L (22-29); Chloride 99 mmol/L (96-108); Magnesium 2.0 mg/dL (1.6-2.6); Potassium 4.3 mmol/L (3.3-5.1); Sodium 139 mmol/L (135-145)
[2025-05-25] MEDS: Insulin Glargine,Hum.rec.anlog 100 UNIT/ML 10 ML VIAL 15 UNIT SUBCUT (09:41)
[2025-05-25 11:11] LABS: Glucose, Whole Blood 266 mg/dL (60-115)
[2025-05-25 15:41] VITALS: BP 121/62; PULSE 80; RESP 18; TEMP 36.4; O2SAT 93
[2025-05-25 16:21] LABS: Glucose, Whole Blood 262 mg/dL (60-115)
[2025-05-25 19:29] VITALS: BP 142/67; PULSE 85; RESP 18; TEMP 36.6; O2SAT 92
[2025-05-25 21:15] LABS: Glucose, Whole Blood 224 mg/dL (60-115)
[2025-05-25] MEDS: Insulin Glargine,Hum.rec.anlog 100 UNIT/ML 10 ML VIAL 45 UNIT SUBCUT (21:51)
[2025-05-26 03:10] VITALS: BP 102/62; PULSE 64; RESP 16; TEMP 36.1; O2SAT 93
--- NOTE | 2025-05-26 05:59 | PC.NURSE ---
Pt seen on bed alert and oriented, ambu ad yohan in , refused bed alarm, pt claimed mild arm pain, tomas arm cellulitis area wrapped with kerlix CDI, pt requested for her Klonopin, Dr. Valdez was notified, meds given, slept fairly.
[2025-05-26 06:11] LABS: Creatinine Clr Calc Pharmacy 127.9; Estimated Glomerular Filt Rate > 60
[2025-05-26 07:12] LABS: Glucose, Whole Blood 176 mg/dL (60-115)
[2025-05-26 07:14] VITALS: BP 123/59; PULSE 70; RESP 16; TEMP 37.1; O2SAT 94
[2025-05-26 07:34] VITALS: PULSE 67; RESP 15; O2SAT 95
[2025-05-26] MEDS: Fluticasone/Vilanterol 100/25 BLST.W.DEV 1 PUFF INHALE (07:34)
[2025-05-26] MEDS: Insulin Glargine,Hum.rec.anlog 100 UNIT/ML 10 ML VIAL 15 UNIT SUBCUT (07:45)
[2025-05-26] MEDS: 0.9 % Sodium Chloride Flush 3 ML SYRINGE IVFLUSH ×2 (07:48→15:05)
[2025-05-26] MEDS: methADONE HCl 20 MG/2 ML ORAL.CONC 13 MG PO (07:48)
--- NOTE | 2025-05-26 09:05 | HO.PM.IMPN ---
Subjective Subjective Date of Service: 05/26/25 Interval History: No fever, no new issues Physical Exam Vital Signs: Vital Signs: Last Vital Signs Temp 98.7 F 05/26/25 07:14 Pulse 67 05/26/25 07:34 Resp 15 05/26/25 07:34 BP 123/59 L 05/26/25 07:14 Pulse Ox 94 05/26/25 07:14 O2 Del Method Room Air 05/26/25 07:14 O2 Flow Rate 2 05/21/25 15:32 BMI result Body Mass Index 33.7 General: AO X 3, no acute distress Resp: CTA bilateral CVS: S1,S2,RRR GI: +BS, NT, no distention Skin: See pictures Neuro: motor grossly intact Psych: appropriate affect Objective Data Active Medications Acetaminophen (Acetaminophen 325 Mg Tablet) 650 mg PO Q6H PRN PRN Reason: Pain, Mild 1-3,fever,headache Albuterol/Ipratropium (Albuterol/Iprat 2.5/0.5mg 3 Ml Ampul.Neb) 3 ml INHALE Q4H PRN PRN Reason: Shortness of Breath/Wheezing Aripiprazole (Aripiprazole 20 Mg Tablet) 20 mg PO DAILY [facility] Last Admin: 05/26/25 07:46 Dose: 20 mg Documented By: HALLE Atorvastatin Calcium (Atorvastatin Calcium 40 Mg Tablet) 40 mg PO DAILY [facility] Last Admin: 05/26/25 07:47 Dose: 40 mg Documented By: HALLE Calcium Carbonate (Calcium Carbonate 750 Mg Tab.Chew) 750 mg PO Q4H PRN PRN Reason: Heartburn Dextrose (Dextrose 50 % 25 Gm/50 Ml Syringe) 25 gm IVPUSH Q15M PRN; Protocol PRN Reason: per Hypoglycemia Standing Ord. Dextrose (Dextrose 50 % 25 Gm/50 Ml Syringe) 25 gm IVPUSH Q15M PRN; Protocol PRN Reason: per Hypoglycemia Standing Ord. Fluticasone/Vilanterol (Fluticasone/Vilanterol 100/25 Blst.W.Dev) 1 puff INHALE RDAILY [facility] Last Admin: 05/26/25 07:34 Dose: 1 puff Documented By: AMEE Gabapentin (Gabapentin 300 Mg Capsule) 300 mg PO BID [facility] Last Admin: 05/26/25 07:47 Dose: 300 mg Documented By: HALLE Glucose (Glucose Gel 15 Gm Gel..Gram.) 15 gm PO Q15M PRN; Protocol PRN Reason: per Hypoglycemia Standing Ord. Glucose (Glucose Gel 15 Gm Gel..Gram.) 15 gm PO Q15M PRN; Protocol PRN Reason: per Hypoglycemia Standing Ord. Hydromorphone HCl (Hydromorphone Hcl 2 Mg Tablet) 4 mg PO Q4H PRN PRN Reason: Pain, Severe (Pain Scale 7-10) Last Admin: 05/25/25 16:23 Dose: 4 mg Documented By: HALLE Cefazolin Sodium/Dextrose (Ancef) 2 gm in 50 mls @ 100 mls/hr IV Q8H [facility] Last Infusion: 05/26/25 03:40 Dose: Infused Documented By: LUNA Insulin Glargine (Insulin Glargine,Hum.Rec.Anlog 100 Unit/Ml 10 Ml Vial) 45 unit SUBCUT BEDTIME [facility] Last Admin: 05/25/25 21:51 Dose: 45 unit Documented By: LUNA Insulin Glargine (Insulin Glargine,Hum.Rec.Anlog 100 Unit/Ml 10 Ml Vial) 15 unit SUBCUT DAILY [facility] Last Admin: 05/26/25 07:45 Dose: 15 unit Documented By: HALLE Insulin Human Lispro (Insulin Lispro 100 Unit/Ml 3 Ml Vial) 0 unit SUBCUT QIDACHS [facility]; Protocol Last Admin: 05/26/25 07:45 Dose: 2 unit Documented By: HALLE Magnesium Hydroxide (Milk Of Magnesia 30 Ml Oral.Susp) 30 ml PO DAILY PRN PRN Reason: Constipation Melatonin (Melatonin 3 Mg Tablet) 6 mg PO BEDTIME PRN PRN Reason: Insomnia Methadone HCl (Methadone Hcl 20 Mg/2 Ml Oral.Conc) 13 mg PO DAILY [facility] Last Admin: 05/26/25 07:48 Dose: 13 mg Documented By: HALLE Co-signed By: PANTERA Ondansetron HCl (Ondansetron Hcl 4 Mg/2 Ml Vial) 4 mg IVPUSH Q8H PRN PRN Reason: Nausea and Vomiting Oxcarbazepine (Oxcarbazepine 150 Mg Tablet) 150 mg PO BID [facility] Last Admin: 05/26/25 07:47 Dose: 150 mg Documented By: HALLE Polyethylene Glycol (Polyethylene Glycol 3350 17 Gm Powd.Pack) 17 gm PO DAILY PRN PRN Reason: Constipation Senna (Sennosides 8.6 Mg Tablet) 17.2 mg PO BEDTIME [facility] Last Admin: 05/25/25 22:08 Dose: Not Given Documented By: LUNA Non-Admin Reason: Patient Refused Sodium Chloride (0.9 % Sodium Chloride Flush 3 Ml Syringe) 3 ml IVFLUSH QSHIFT [facility] Last Admin: 05/26/25 07:48 Dose: 3 ml Documented By: HALLE Labs 05/24/25 08:44 05/26/25 05:22 Labs: Laboratory Results - last 24 hr 05/25/25 05/25/25 05/25/25 05:45 11:07 16:17 Anion Gap 13 Estim Creat Clear Calc Estimated GFR POC Glucose 266 H 262 H Magnesium 2.0 05/25/25 05/26/25 05/26/25 21:03 05:22 07:09 Anion Gap Estim Creat Clear Calc 127.9 Estimated GFR > 60 POC Glucose 224 H 176 H Magnesium Microbiology Microbiology Results: Microbiology 05/24/25 12:49 Blood Culture - Preliminary Blood - Venous No growth after 24 hours. 05/24/25 08:44 Blood Culture - Preliminary Blood - Venous No growth after 24 hours. Assessment and Plan (1) Cellulitis: Status: Acute (2) Abscess of forearm, left: Status: Acute (3) Abscess of forearm, right: Status: Acute (4) Active intravenous drug use: Status: Acute (5) IVDU (intravenous drug user): Status: Acute Plan Pt is a 44 yo female with PMH IVDA last use 3 days ago, IDDM on Trulicity, Obesity, Bipolar D/O, schizophrenia, KEATON started methadone 2 weeks ago, A/V hallucinations, yeast infections, presents to ED with complaints of fever X2 days, highest 102, chills, nausea and intermittent vomiting with abscesses found on BUE's from IVDA. Admittd for bacteremia and abscesses of upper extremities tomas arm abscess with subcutaneous gas secondary IV drug use Staph aureus bacteremia wound culture= Strep viridan and Staph Aureus -Was on Vanco and Kefzol, now Kefzol alone -repeat culture negative at 24, -TTE negative for vegetation -ID recommends 4 weeks of Kefzol -S/p debridment by surgery -Picc line--when blood culture negative at 48 hrs HypOnatremia, resolved. Diabetes with Hyperglycemia, non compliant with meds, A1C =11, still uncontrolled FBS 176 continue Lantus 45 at HS, continue lantus 15 in AM, SSI, and diabetic diet Bipolar Depression/ Schizophrenia/ Anxiety/--no symptoms continue present meds Substance use disoerder Methadone per addiction med HLD Continue statin COPD/ Asthma Duo nebs prn No issues with hypoxia POX Q4H Anemia Iron panel and B12 pending Trend CBC H/H table, no indication for transfusion Obesity weight loss advised DVT prophylaxis: lovenox held due to possible procedure needed and I and D done in ED FULL CODE STATUS Quality Stroke Does the patient have a stroke diagnosis?: No Reason for No Anti-thrombotic by Day Two: Contraindicated VTE Prior VTE?: No VTE Risk Level:: Medical - moderate - high VTE Device Contraindication: N/A - Device Ordered VTE Drug Contraindication: Treatment Not Indicated
[2025-05-26 09:23] LABS: Anion Gap 17 (12-20); Carbon Dioxide 25 mmol/L (22-29); Chloride 101 mmol/L (96-108); Potassium 4.7 mmol/L (3.3-5.1); Sodium 138 mmol/L (135-145)
[2025-05-26 11:26] LABS: Glucose, Whole Blood 272 mg/dL (60-115)
--- NOTE | 2025-05-26 14:05 | MHC.CM.PN ---
pt still set for [facility] pt to get picc ?today working on guest dosing
[2025-05-26 15:41] VITALS: BP 131/80; PULSE 77; RESP 18; TEMP 36.3; O2SAT 97
[2025-05-26 16:31] LABS: Glucose, Whole Blood 201 mg/dL (60-115)
[2025-05-26 19:20] VITALS: BP 120/56; PULSE 79; RESP 18; TEMP 36.4; O2SAT 94
[2025-05-26 20:26] LABS: Glucose, Whole Blood 282 mg/dL (60-115)
[2025-05-26] MEDS: Insulin Glargine,Hum.rec.anlog 100 UNIT/ML 10 ML VIAL 45 UNIT SUBCUT (20:43)
[2025-05-27 02:58] VITALS: BP 104/51; PULSE 71; RESP 18; TEMP 36.4; O2SAT 96
[2025-05-27] MEDS: 0.9 % Sodium Chloride Flush 3 ML SYRINGE IVFLUSH ×4 (03:07→20:30)
[2025-05-27 07:13] VITALS: BP 111/56; PULSE 70; RESP 18; TEMP 36.9; O2SAT 95
[2025-05-27 07:22] LABS: Glucose, Whole Blood 199 mg/dL (60-115)
[2025-05-27] MEDS: Fluticasone/Vilanterol 100/25 BLST.W.DEV 1 PUFF INHALE (07:52)
[2025-05-27 07:53] VITALS: PULSE 70; RESP 18; O2SAT 95
--- NOTE | 2025-05-27 08:27 | P.PNGS_ITS ---
Subjective Subjective Date of Service: 05/27/25 Interval history: The patient feels wounds are improving with less pain today. Physical Exam 2 Vital Signs: Vital Signs: Last Vital Signs Temp 98.4 F 05/27/25 07:13 Pulse 70 05/27/25 07:53 Resp 18 05/27/25 07:53 BP 111/56 L 05/27/25 07:13 Pulse Ox 95 05/27/25 07:13 O2 Del Method Room Air 05/27/25 07:13 O2 Flow Rate 2 05/21/25 15:32 BMI result Body Mass Index 33.7 Const: General: no acute distress Nutritional Appearance: well nourished Orientation/consciousness: patient oriented x3 Resp: Effort & Inspection: normal respiratory effort, no audible wheezes, no cough and no respiratory distress Neuro: General: patient oriented x3 Extrem: Other: left cubital: No erythema and scant drainage noted incision and drainage site, no skin necrosis. right cubital: Incision and drainage site open and draining right forearm/wrist: Wounds clean with minimal discharge noted., no erythema Objective Data Active Medications Acetaminophen (Acetaminophen 325 Mg Tablet) 650 mg PO Q6H PRN PRN Reason: Pain, Mild 1-3,fever,headache Last Admin: 05/26/25 15:03 Dose: 650 mg Documented By: HALLE Aripiprazole (Aripiprazole 20 Mg Tablet) 20 mg PO DAILY [facility] Last Admin: 05/26/25 07:46 Dose: 20 mg Documented By: HALLE Atorvastatin Calcium (Atorvastatin Calcium 40 Mg Tablet) 40 mg PO DAILY [facility] Last Admin: 05/26/25 07:47 Dose: 40 mg Documented By: HALLE Calcium Carbonate (Calcium Carbonate 750 Mg Tab.Chew) 750 mg PO Q4H PRN PRN Reason: Heartburn Clonazepam (Clonazepam 1 Mg Tablet) 1 mg PO TID PRN PRN Reason: anxiety/restlessness Last Admin: 05/26/25 20:47 Dose: 1 mg Documented By: HELIO Dextrose (Dextrose 50 % 25 Gm/50 Ml Syringe) 25 gm IVPUSH Q15M PRN; Protocol PRN Reason: per Hypoglycemia Standing Ord. Dextrose (Dextrose 50 % 25 Gm/50 Ml Syringe) 25 gm IVPUSH Q15M PRN; Protocol PRN Reason: per Hypoglycemia Standing Ord. Fluticasone/Vilanterol (Fluticasone/Vilanterol 100/25 Blst.W.Dev) 1 puff INHALE RDAILY [facility] Last Admin: 05/27/25 07:52 Dose: 1 puff Documented By: GENO Gabapentin (Gabapentin 300 Mg Capsule) 300 mg PO BID [facility] Last Admin: 05/26/25 20:41 Dose: 300 mg Documented By: HELIO Glucose (Glucose Gel 15 Gm Gel..Gram.) 15 gm PO Q15M PRN; Protocol PRN Reason: per Hypoglycemia Standing Ord. Glucose (Glucose Gel 15 Gm Gel..Gram.) 15 gm PO Q15M PRN; Protocol PRN Reason: per Hypoglycemia Standing Ord. Hydromorphone HCl (Hydromorphone Hcl 2 Mg Tablet) 4 mg PO Q4H PRN PRN Reason: Pain, Severe (Pain Scale 7-10) Last Admin: 05/25/25 16:23 Dose: 4 mg Documented By: HALLE Cefazolin Sodium/Dextrose (Ancef) 2 gm in 50 mls @ 100 mls/hr IV Q8H [facility] Last Infusion: 05/27/25 03:33 Dose: Infused Documented By: ILYA Insulin Glargine (Insulin Glargine,Hum.Rec.Anlog 100 Unit/Ml 10 Ml Vial) 45 unit SUBCUT BEDTIME [facility] Last Admin: 05/26/25 20:43 Dose: 45 unit Documented By: HELIO Insulin Glargine (Insulin Glargine,Hum.Rec.Anlog 100 Unit/Ml 10 Ml Vial) 15 unit SUBCUT DAILY [facility] Last Admin: 05/26/25 07:45 Dose: 15 unit Documented By: HALLE Insulin Human Lispro (Insulin Lispro 100 Unit/Ml 3 Ml Vial) 0 unit SUBCUT QIDACHS [facility]; Protocol Last Admin: 05/26/25 20:42 Dose: 6 unit Documented By: HELIO Magnesium Hydroxide (Milk Of Magnesia 30 Ml Oral.Susp) 30 ml PO DAILY PRN PRN Reason: Constipation Melatonin (Melatonin 3 Mg Tablet) 6 mg PO BEDTIME PRN PRN Reason: Insomnia Methadone HCl (Methadone Hcl 20 Mg/2 Ml Oral.Conc) 13 mg PO DAILY [facility] Last Admin: 05/26/25 07:48 Dose: 13 mg Documented By: HALLE Co-signed By: PANTERA Ondansetron HCl (Ondansetron Hcl 4 Mg/2 Ml Vial) 4 mg IVPUSH Q8H PRN PRN Reason: Nausea and Vomiting Oxcarbazepine (Oxcarbazepine 150 Mg Tablet) 150 mg PO BID [facility] Last Admin: 05/26/25 20:41 Dose: 150 mg Documented By: HELIO Polyethylene Glycol (Polyethylene Glycol 3350 17 Gm Powd.Pack) 17 gm PO DAILY PRN PRN Reason: Constipation Senna (Sennosides 8.6 Mg Tablet) 17.2 mg PO BEDTIME [facility] Last Admin: 05/26/25 20:42 Dose: Not Given Documented By: HELIO Non-Admin Reason: Patient Refused Sodium Chloride (0.9 % Sodium Chloride Flush 3 Ml Syringe) 3 ml IVFLUSH QSHIFT [facility] Last Admin: 05/27/25 03:07 Dose: 3 ml Documented By: ILYA Labs 05/24/25 08:44 05/26/25 05:22 Labs: Laboratory Results - last 24 hr 05/26/25 05/26/25 05/26/25 05:22 11:23 16:27 Anion Gap 17 POC Glucose 272 H 201 H 05/26/25 05/27/25 20:17 07:17 Anion Gap POC Glucose 282 H 199 H Microbiology Microbiology Results: Microbiology 05/24/25 12:49 Blood Culture - Preliminary Blood - Venous No growth after 48 hours. 05/21/25 11:32 Blood Culture - Final Blood - Venous No growth after 5 days. 05/24/25 08:44 Blood Culture - Preliminary Blood - Venous No growth after 48 hours. Procedures Date of Service Date of Service: 05/27/25 Progress Note: A&P Assessment and plan (1) IVDU (intravenous drug user): Status: Acute (2) Abscess of skin of right wrist: Status: Acute (3) Abscess of forearm, right: Status: Acute (4) Abscess of forearm, left: Status: Acute (5) Cellulitis: Status: Acute (6) MSSA bacteremia: Status: Acute Plan 44-year-old female patient, IVDU, bilateral forearm infection status post incision and drainage in ED. Overall wounds are improving. Patient awaiting PICC line placement. Continue with local wound care, IV antibiotics. Time Spent With Patient Time: Total time managing care of this patient today ____ minutes. Quality Stroke Does the patient have a stroke diagnosis?: No Reason for No Anti-thrombotic by Day Two: Contraindicated VTE Prior VTE?: No VTE Risk Level:: Medical - moderate - high VTE Device Contraindication: N/A - Device Ordered VTE Drug Contraindication: Treatment Not Indicated
--- NOTE | 2025-05-27 08:57 | HO.PM.IMPN ---
Subjective Subjective Date of Service: 05/27/25 Interval History: No issues, no fever, last blood culture negative x 48 hrs Physical Exam Vital Signs: Vital Signs: Last Vital Signs Temp 98.4 F 05/27/25 07:13 Pulse 70 05/27/25 07:53 Resp 18 05/27/25 07:53 BP 111/56 L 05/27/25 07:13 Pulse Ox 95 05/27/25 07:13 O2 Del Method Room Air 05/27/25 07:13 O2 Flow Rate 2 05/21/25 15:32 BMI result Body Mass Index 33.7 General: AO X 3, no acute distress Resp: CTA bilateral CVS: S1,S2,RRR GI: +BS, NT, no distention Skin: See pictures Neuro: motor grossly intact Psych: appropriate affect Objective Data Active Medications Acetaminophen (Acetaminophen 325 Mg Tablet) 650 mg PO Q6H PRN PRN Reason: Pain, Mild 1-3,fever,headache Last Admin: 05/26/25 15:03 Dose: 650 mg Documented By: HALLE Aripiprazole (Aripiprazole 20 Mg Tablet) 20 mg PO DAILY [facility] Last Admin: 05/26/25 07:46 Dose: 20 mg Documented By: AHLLE Atorvastatin Calcium (Atorvastatin Calcium 40 Mg Tablet) 40 mg PO DAILY [facility] Last Admin: 05/26/25 07:47 Dose: 40 mg Documented By: HALLE Calcium Carbonate (Calcium Carbonate 750 Mg Tab.Chew) 750 mg PO Q4H PRN PRN Reason: Heartburn Clonazepam (Clonazepam 1 Mg Tablet) 1 mg PO TID PRN PRN Reason: anxiety/restlessness Last Admin: 05/26/25 20:47 Dose: 1 mg Documented By: HELIO Dextrose (Dextrose 50 % 25 Gm/50 Ml Syringe) 25 gm IVPUSH Q15M PRN; Protocol PRN Reason: per Hypoglycemia Standing Ord. Dextrose (Dextrose 50 % 25 Gm/50 Ml Syringe) 25 gm IVPUSH Q15M PRN; Protocol PRN Reason: per Hypoglycemia Standing Ord. Fluticasone/Vilanterol (Fluticasone/Vilanterol 100/25 Blst.W.Dev) 1 puff INHALE RDAILY [facility] Last Admin: 05/27/25 07:52 Dose: 1 puff Documented By: GENO Gabapentin (Gabapentin 300 Mg Capsule) 300 mg PO BID [facility] Last Admin: 05/26/25 20:41 Dose: 300 mg Documented By: HELIO Glucose (Glucose Gel 15 Gm Gel..Gram.) 15 gm PO Q15M PRN; Protocol PRN Reason: per Hypoglycemia Standing Ord. Glucose (Glucose Gel 15 Gm Gel..Gram.) 15 gm PO Q15M PRN; Protocol PRN Reason: per Hypoglycemia Standing Ord. Hydromorphone HCl (Hydromorphone Hcl 2 Mg Tablet) 4 mg PO Q4H PRN PRN Reason: Pain, Severe (Pain Scale 7-10) Last Admin: 05/25/25 16:23 Dose: 4 mg Documented By: HALLE Cefazolin Sodium/Dextrose (Ancef) 2 gm in 50 mls @ 100 mls/hr IV Q8H [facility] Last Infusion: 05/27/25 03:33 Dose: Infused Documented By: ILYA Insulin Glargine (Insulin Glargine,Hum.Rec.Anlog 100 Unit/Ml 10 Ml Vial) 45 unit SUBCUT BEDTIME [facility] Last Admin: 05/26/25 20:43 Dose: 45 unit Documented By: HELIO Insulin Glargine (Insulin Glargine,Hum.Rec.Anlog 100 Unit/Ml 10 Ml Vial) 15 unit SUBCUT DAILY [facility] Last Admin: 05/26/25 07:45 Dose: 15 unit Documented By: HALLE Insulin Human Lispro (Insulin Lispro 100 Unit/Ml 3 Ml Vial) 0 unit SUBCUT QIDACHS [facility]; Protocol Last Admin: 05/26/25 20:42 Dose: 6 unit Documented By: HELIO Magnesium Hydroxide (Milk Of Magnesia 30 Ml Oral.Susp) 30 ml PO DAILY PRN PRN Reason: Constipation Melatonin (Melatonin 3 Mg Tablet) 6 mg PO BEDTIME PRN PRN Reason: Insomnia Methadone HCl (Methadone Hcl 20 Mg/2 Ml Oral.Conc) 13 mg PO DAILY [facility] Last Admin: 05/26/25 07:48 Dose: 13 mg Documented By: HALLE Co-signed By: PANTERA Ondansetron HCl (Ondansetron Hcl 4 Mg/2 Ml Vial) 4 mg IVPUSH Q8H PRN PRN Reason: Nausea and Vomiting Oxcarbazepine (Oxcarbazepine 150 Mg Tablet) 150 mg PO BID [facility] Last Admin: 05/26/25 20:41 Dose: 150 mg Documented By: HELIO Polyethylene Glycol (Polyethylene Glycol 3350 17 Gm Powd.Pack) 17 gm PO DAILY PRN PRN Reason: Constipation Senna (Sennosides 8.6 Mg Tablet) 17.2 mg PO BEDTIME [facility] Last Admin: 05/26/25 20:42 Dose: Not Given Documented By: HELIO Non-Admin Reason: Patient Refused Sodium Chloride (0.9 % Sodium Chloride Flush 3 Ml Syringe) 3 ml IVFLUSH QSHIFT [facility] Last Admin: 05/27/25 03:07 Dose: 3 ml Documented By: ILYA Labs 05/24/25 08:44 05/26/25 05:22 Labs: Laboratory Results - last 24 hr 05/26/25 05/26/25 05/26/25 05:22 11:23 16:27 Anion Gap 17 POC Glucose 272 H 201 H 05/26/25 05/27/25 20:17 07:17 Anion Gap POC Glucose 282 H 199 H Microbiology Microbiology Results: Microbiology 05/24/25 12:49 Blood Culture - Preliminary Blood - Venous No growth after 48 hours. 05/21/25 11:32 Blood Culture - Final Blood - Venous No growth after 5 days. 05/24/25 08:44 Blood Culture - Preliminary Blood - Venous No growth after 48 hours. Assessment and Plan (1) Cellulitis: Status: Acute (2) Abscess of forearm, left: Status: Acute (3) Abscess of forearm, right: Status: Acute (4) Active intravenous drug use: Status: Acute (5) IVDU (intravenous drug user): Status: Acute Plan Pt is a 44 yo female with PMH IVDA last use 3 days ago, IDDM on Trulicity, Obesity, Bipolar D/O, schizophrenia, [place]AT[place] started methadone 2 weeks ago, A/V hallucinations, yeast infections, presents to ED with complaints of fever X2 days, highest 102, chills, nausea and intermittent vomiting with abscesses found on BUE's from IVDA. Admittd for bacteremia and abscesses of upper extremities tomas arm abscess with subcutaneous gas secondary IV drug use Staph aureus bacteremia wound culture= Strep viridan and Staph Aureus -Was on Vanco and Kefzol, now Kefzol alone -repeat culture negative at 24, -TTE negative for vegetation -ID recommends 4 weeks of Kefzol -S/p debridment by surgery -Picc line--when blood culture negative at 48 hrs HypOnatremia, resolved. Diabetes with Hyperglycemia, non compliant with meds, A1C =11, still uncontrolled FBS 176 continue Lantus 45 at HS, continue lantus 15 in AM, SSI, and diabetic diet Bipolar Depression/ Schizophrenia/ Anxiety/--no symptoms continue present meds Substance use disoerder Methadone per addiction med HLD Continue statin COPD/ Asthma Duo nebs prn No issues with hypoxia POX Q4H Anemia Iron panel and B12 pending Trend CBC H/H table, no indication for transfusion Obesity weight loss advised DVT prophylaxis: lovenox held due to possible procedure needed and I and D done in ED FULL CODE STATUS Quality Stroke Does the patient have a stroke diagnosis?: No Reason for No Anti-thrombotic by Day Two: Contraindicated VTE Prior VTE?: No VTE Risk Level:: Medical - moderate - high VTE Device Contraindication: N/A - Device Ordered VTE Drug Contraindication: Treatment Not Indicated
[2025-05-27] MEDS: Insulin Glargine,Hum.rec.anlog 100 UNIT/ML 10 ML VIAL 15 UNIT SUBCUT (09:09)
[2025-05-27] MEDS: methADONE HCl 20 MG/2 ML ORAL.CONC 13 MG PO (09:11)
[2025-05-27 12:05] LABS: Glucose, Whole Blood 215 mg/dL (60-115)
[2025-05-27 15:35] VITALS: BP 113/60; PULSE 90; RESP 18; TEMP 37; O2SAT 96
[2025-05-27 16:27] LABS: Glucose, Whole Blood 362 mg/dL (60-115)
[2025-05-27 19:13] VITALS: BP 108/58; PULSE 94; RESP 20; TEMP 37.1; O2SAT 92
[2025-05-27 20:12] LABS: Glucose, Whole Blood 236 mg/dL (60-115)
[2025-05-27] MEDS: Insulin Glargine,Hum.rec.anlog 100 UNIT/ML 10 ML VIAL 45 UNIT SUBCUT (20:29)
[2025-05-28 02:48] VITALS: BP 110/53; PULSE 73; RESP 16; TEMP 36.1; O2SAT 95
[2025-05-28 07:21] VITALS: BP 120/59; PULSE 69; RESP 18; TEMP 36.8; O2SAT 95
[2025-05-28 07:41] VITALS: PULSE 69; RESP 18; O2SAT 96
[2025-05-28] MEDS: Fluticasone/Vilanterol 100/25 BLST.W.DEV 1 PUFF INHALE (07:41)
[2025-05-28 07:43] LABS: Glucose, Whole Blood 198 mg/dL (60-115)
[2025-05-28] MEDS: methADONE HCl 20 MG/2 ML ORAL.CONC 13 MG PO (07:55)
[2025-05-28] MEDS: Insulin Glargine,Hum.rec.anlog 100 UNIT/ML 10 ML VIAL 15 UNIT SUBCUT (07:56)
[2025-05-28] MEDS: 0.9 % Sodium Chloride Flush 3 ML SYRINGE IVFLUSH ×3 (08:00→21:34)
--- NOTE | 2025-05-28 10:09 | HO.PM.IMPN ---
Subjective Subjective Date of Service: 05/29/25 Interval History: Doing well, no fever, no other complaint Physical Exam Vital Signs: Vital Signs: Last Vital Signs Temp 98.2 F 05/28/25 07:21 Pulse 69 05/28/25 07:41 Resp 18 05/28/25 07:41 BP 120/59 L 05/28/25 07:21 Pulse Ox 95 05/28/25 07:21 O2 Del Method Room Air 05/28/25 07:21 O2 Flow Rate 2 05/21/25 15:32 BMI result Body Mass Index 33.7 General: AO X 3, no acute distress Resp: CTA bilateral CVS: S1,S2,RRR GI: +BS, NT, no distention Skin: scabs on arms Neuro: motor grossly intact Psych: appropriate affect Objective Data Active Medications Acetaminophen (Acetaminophen 325 Mg Tablet) 650 mg PO Q6H PRN PRN Reason: Pain, Mild 1-3,fever,headache Last Admin: 05/26/25 15:03 Dose: 650 mg Documented By: HALLE Aripiprazole (Aripiprazole 20 Mg Tablet) 20 mg PO DAILY [facility] Last Admin: 05/28/25 07:55 Dose: 20 mg Documented By: DARLENE Atorvastatin Calcium (Atorvastatin Calcium 40 Mg Tablet) 40 mg PO DAILY [facility] Last Admin: 05/28/25 07:55 Dose: 40 mg Documented By: DARLENE Calcium Carbonate (Calcium Carbonate 750 Mg Tab.Chew) 750 mg PO Q4H PRN PRN Reason: Heartburn Clonazepam (Clonazepam 1 Mg Tablet) 1 mg PO TID PRN PRN Reason: anxiety/restlessness Last Admin: 05/28/25 07:58 Dose: 1 mg Documented By: DARLENE Dextrose (Dextrose 50 % 25 Gm/50 Ml Syringe) 25 gm IVPUSH Q15M PRN; Protocol PRN Reason: per Hypoglycemia Standing Ord. Dextrose (Dextrose 50 % 25 Gm/50 Ml Syringe) 25 gm IVPUSH Q15M PRN; Protocol PRN Reason: per Hypoglycemia Standing Ord. Fluticasone/Vilanterol (Fluticasone/Vilanterol 100/25 Blst.W.Dev) 1 puff INHALE RDAILY [facility] Last Admin: 05/28/25 07:41 Dose: 1 puff Documented By: JULIEN Gabapentin (Gabapentin 300 Mg Capsule) 300 mg PO BID [facility] Last Admin: 05/28/25 07:55 Dose: 300 mg Documented By: DARLENE Glucose (Glucose Gel 15 Gm Gel..Gram.) 15 gm PO Q15M PRN; Protocol PRN Reason: per Hypoglycemia Standing Ord. Glucose (Glucose Gel 15 Gm Gel..Gram.) 15 gm PO Q15M PRN; Protocol PRN Reason: per Hypoglycemia Standing Ord. Hydromorphone HCl (Hydromorphone Hcl 2 Mg Tablet) 4 mg PO Q4H PRN PRN Reason: Pain, Severe (Pain Scale 7-10) Last Admin: 05/25/25 16:23 Dose: 4 mg Documented By: HALLE Cefazolin Sodium/Dextrose (Ancef) 2 gm in 50 mls @ 100 mls/hr IV Q8H [facility] Last Infusion: 05/28/25 03:17 Dose: Infused Documented By: ILYA Insulin Glargine (Insulin Glargine,Hum.Rec.Anlog 100 Unit/Ml 10 Ml Vial) 45 unit SUBCUT BEDTIME [facility] Last Admin: 05/27/25 20:29 Dose: 45 unit Documented By: ILYA Insulin Glargine (Insulin Glargine,Hum.Rec.Anlog 100 Unit/Ml 10 Ml Vial) 15 unit SUBCUT DAILY [facility] Last Admin: 05/28/25 07:56 Dose: 15 unit Documented By: DARLENE Insulin Human Lispro (Insulin Lispro 100 Unit/Ml 3 Ml Vial) 0 unit SUBCUT QIDACHS [facility]; Protocol Last Admin: 05/28/25 07:56 Dose: 2 unit Documented By: DARLENE Magnesium Hydroxide (Milk Of Magnesia 30 Ml Oral.Susp) 30 ml PO DAILY PRN PRN Reason: Constipation Melatonin (Melatonin 3 Mg Tablet) 6 mg PO BEDTIME PRN PRN Reason: Insomnia Methadone HCl (Methadone Hcl 20 Mg/2 Ml Oral.Conc) 13 mg PO DAILY [facility] Last Admin: 05/28/25 07:55 Dose: 13 mg Documented By: DARLENE Co-signed By: JAY Ondansetron HCl (Ondansetron Hcl 4 Mg/2 Ml Vial) 4 mg IVPUSH Q8H PRN PRN Reason: Nausea and Vomiting Oxcarbazepine (Oxcarbazepine 150 Mg Tablet) 150 mg PO BID [facility] Last Admin: 05/28/25 07:55 Dose: 150 mg Documented By: DARLENE Polyethylene Glycol (Polyethylene Glycol 3350 17 Gm Powd.Pack) 17 gm PO DAILY PRN PRN Reason: Constipation Senna (Sennosides 8.6 Mg Tablet) 17.2 mg PO BEDTIME [facility] Last Admin: 05/27/25 20:31 Dose: Not Given Documented By: ILYA Non-Admin Reason: Patient Refused Sodium Chloride (0.9 % Sodium Chloride Flush 3 Ml Syringe) 3 ml IVFLUSH QSHIFT [facility] Last Admin: 05/28/25 08:00 Dose: 3 ml Documented By: DARLENE Labs 05/29/25 05:17 05/30/25 05:57 Labs: Laboratory Results - last 24 hr 05/27/25 05/27/25 05/27/25 11:58 16:24 20:08 POC Glucose 215 H 362 H* 236 H 05/28/25 07:26 POC Glucose 198 H Microbiology Microbiology Results: Microbiology 05/24/25 12:49 Blood Culture - Preliminary Blood - Venous No growth after 48 hours. 05/21/25 11:32 Blood Culture - Final Blood - Venous No growth after 5 days. 05/24/25 08:44 Blood Culture - Preliminary Blood - Venous No growth after 48 hours. Assessment and Plan (1) Cellulitis: Status: Acute (2) Abscess of forearm, left: Status: Acute (3) Abscess of forearm, right: Status: Acute (4) Active intravenous drug use: Status: Acute (5) IVDU (intravenous drug user): Status: Acute Plan Pt is a 44 yo female with PMH IVDA last use 3 days ago, IDDM on Trulicity, Obesity, Bipolar D/O, schizophrenia, KEATON started methadone 2 weeks ago, A/V hallucinations, yeast infections, presents to ED with complaints of fever X2 days, highest 102, chills, nausea and intermittent vomiting with abscesses found on BUE's from IVDA. Admittd for bacteremia and abscesses of upper extremities tomas arm abscess with subcutaneous gas secondary IV drug use Staph aureus bacteremia wound culture= Strep viridan and Staph Aureus -Was on Vanco and Kefzol, now Kefzol alone -repeat culture negative at 48 hrs -TTE negative for vegetation -ID recommends 4 weeks of Kefzol -S/p debridment by surgery -because of wounds on arms, will get Hick man rather a PICC to avoid infection HypOnatremia, resolved. Diabetes with Hyperglycemia, non compliant with meds, A1C =11, still uncontrolled FBS 176 continue Lantus 45 at HS, continue lantus 15 in AM, SSI, and diabetic diet Bipolar Depression/ Schizophrenia/ Anxiety/--no symptoms continue present meds Substance use disoerder Methadone per addiction med HLD Continue statin COPD/ Asthma Duo nebs prn No issues with hypoxia POX Q4H Anemia Iron panel and B12 pending Trend CBC H/H table, no indication for transfusion Obesity weight loss advised DVT prophylaxis: has been ambulating, FULL CODE STATUS Quality Stroke Does the patient have a stroke diagnosis?: No Reason for No Anti-thrombotic by Day Two: Contraindicated VTE Prior VTE?: No VTE Risk Level:: Medical - moderate - high VTE Device Contraindication: N/A - Device Ordered VTE Drug Contraindication: Treatment Not Indicated
[2025-05-28 11:35] LABS: Glucose, Whole Blood 170 mg/dL (60-115)
[2025-05-28 15:04] VITALS: BP 105/52; PULSE 83; RESP 16; TEMP 36.6; O2SAT 94
[2025-05-28 16:40] LABS: Glucose, Whole Blood 399 mg/dL (60-115)
--- NOTE | 2025-05-28 16:56 | PC.NURSE ---
Patient's POC at 1630 read 399, patient noncompliant with dietary recommendations. Patient stated family had brought food from home, and admits to eating doughnut. Provider notified.
[2025-05-28 20:00] VITALS: BP 136/86; PULSE 92; RESP 18; TEMP 36.1; O2SAT 95
[2025-05-28] MEDS: Insulin Glargine,Hum.rec.anlog 100 UNIT/ML 10 ML VIAL 45 UNIT SUBCUT (21:33)
[2025-05-28 21:37] LABS: Glucose, Whole Blood 263 mg/dL (60-115)
--- NOTE | 2025-05-29 01:40 | PC.NURSE ---
Patient refusing bed alarm. Educated on safety precautions.
[2025-05-29 04:00] VITALS: BP 98/55; PULSE 73; RESP 18; TEMP 36.3; O2SAT 95
[2025-05-29 06:05] LABS: Creatinine Clr Calc Pharmacy 119.8; Estimated Glomerular Filt Rate > 60
[2025-05-29] MEDS: Fluticasone/Vilanterol 100/25 BLST.W.DEV 1 PUFF INHALE (07:32)
[2025-05-29 07:33] VITALS: PULSE 89; RESP 18; O2SAT 96
[2025-05-29 07:49] LABS: MANUAL DIFF FLAG NO
[2025-05-29 07:53] VITALS: BP 117/57; PULSE 82; RESP 18; TEMP 36.2; O2SAT 94
[2025-05-29 07:54] LABS: Hematocrit 36.7 % (37.0-47.0); Hemoglobin 11.8 g/dl (12.0-16.0); Imm Gran Abs Auto 0.14 X10*3/uL (0.00-0.03); Imm Gran Pct Auto 1.7 % (0.0-0.4); Lymphocytes Absolute Auto 2.7 X10*3/uL (1.2-4.9); Mean Corpuscular HGB Conc 32.2 g/dl (31.0-35.0); Mean Corpuscular Hemoglobin 26.8 pg (27.0-33.0); Mean Corpuscular Volume 83.2 fL (80.0-98.0); NRBC Abs Auto 0.000 X10*3/uL (0.0-0.012); NRBC Pct Auto 0.0 /100WBC (0.0-0.2); Platelet Count 465 X10*3/uL (160-400); Red Blood Count 4.41 X10*6/uL (4.20-5.50); White Blood Count 8.0 X10*3/uL (4.8-10.8)
[2025-05-29 07:58] LABS: Anion Gap 12 (12-20); Carbon Dioxide 27 mmol/L (22-29); Chloride 103 mmol/L (96-108); Potassium 4.1 mmol/L (3.3-5.1); Sodium 138 mmol/L (135-145)
[2025-05-29] MEDS: methADONE HCl 20 MG/2 ML ORAL.CONC 13 MG PO (08:01)
[2025-05-29] MEDS: Insulin Glargine,Hum.rec.anlog 100 UNIT/ML 10 ML VIAL 15 UNIT SUBCUT (08:01)
[2025-05-29] MEDS: 0.9 % Sodium Chloride Flush 3 ML SYRINGE IVFLUSH ×3 (08:01→20:54)
[2025-05-29 08:05] LABS: Glucose, Whole Blood 200 mg/dL (60-115)
--- NOTE | 2025-05-29 08:10 | P.PNIM_ITS ---
Subjective Subjective Date of Service: 05/29/25 Interval History: No new issues Physical Exam 2 Vital Signs: Vital Signs: Last Vital Signs Temp 97.1 F 05/29/25 07:53 Pulse 82 05/29/25 07:53 Resp 18 05/29/25 07:53 BP 117/57 L 05/29/25 07:53 Pulse Ox 94 05/29/25 07:53 O2 Del Method Room Air 05/29/25 07:53 O2 Flow Rate 2 05/21/25 15:32 BMI result Body Mass Index 33.7 General: AO X 3, no acute distress Resp: CTA bilateral CVS: S1,S2,RRR GI: +BS, NT, no distention Skin: Neuro: motor grossly intact Psych: appropriate affect Objective Data Active Medications Acetaminophen (Acetaminophen 325 Mg Tablet) 650 mg PO Q6H PRN PRN Reason: Pain, Mild 1-3,fever,headache Last Admin: 05/29/25 08:04 Dose: 650 mg Documented By: PAMELA Aripiprazole (Aripiprazole 20 Mg Tablet) 20 mg PO DAILY [facility] Last Admin: 05/29/25 08:01 Dose: 20 mg Documented By: PAMELA Atorvastatin Calcium (Atorvastatin Calcium 40 Mg Tablet) 40 mg PO DAILY [facility] Last Admin: 05/29/25 08:00 Dose: 40 mg Documented By: PAMELA Calcium Carbonate (Calcium Carbonate 750 Mg Tab.Chew) 750 mg PO Q4H PRN PRN Reason: Heartburn Clonazepam (Clonazepam 1 Mg Tablet) 1 mg PO TID PRN PRN Reason: anxiety/restlessness Last Admin: 05/29/25 08:04 Dose: 1 mg Documented By: PAMELA Dextrose (Dextrose 50 % 25 Gm/50 Ml Syringe) 25 gm IVPUSH Q15M PRN; Protocol PRN Reason: per Hypoglycemia Standing Ord. Dextrose (Dextrose 50 % 25 Gm/50 Ml Syringe) 25 gm IVPUSH Q15M PRN; Protocol PRN Reason: per Hypoglycemia Standing Ord. Enoxaparin Sodium (Enoxaparin Sodium 40 Mg/0.4 Ml Syringe) 40 mg SUBCUT Q24H [facility] Last Admin: 05/28/25 10:40 Dose: 40 mg Documented By: DOBROFanny Fluticasone/Vilanterol (Fluticasone/Vilanterol 100/25 Blst.W.Dev) 1 puff INHALE RDAILY [facility] Last Admin: 05/29/25 07:32 Dose: 1 puff Documented By: JENARO Gabapentin (Gabapentin 300 Mg Capsule) 300 mg PO BID [facility] Last Admin: 05/29/25 08:01 Dose: 300 mg Documented By: PAMELA Glucose (Glucose Gel 15 Gm Gel..Gram.) 15 gm PO Q15M PRN; Protocol PRN Reason: per Hypoglycemia Standing Ord. Glucose (Glucose Gel 15 Gm Gel..Gram.) 15 gm PO Q15M PRN; Protocol PRN Reason: per Hypoglycemia Standing Ord. Cefazolin Sodium/Dextrose (Ancef) 2 gm in 50 mls @ 100 mls/hr IV Q8H [facility] Last Infusion: 05/29/25 03:29 Dose: Infused Documented By: TACO Insulin Glargine (Insulin Glargine,Hum.Rec.Anlog 100 Unit/Ml 10 Ml Vial) 45 unit SUBCUT BEDTIME [facility] Last Admin: 05/28/25 21:33 Dose: 45 unit Documented By: TACO Insulin Glargine (Insulin Glargine,Hum.Rec.Anlog 100 Unit/Ml 10 Ml Vial) 20 unit SUBCUT DAILY [facility] Insulin Human Lispro (Insulin Lispro 100 Unit/Ml 3 Ml Vial) 0 unit SUBCUT QIDACHS [facility]; Protocol Last Admin: 05/29/25 08:01 Dose: 4 unit Documented By: PAMELA Magnesium Hydroxide (Milk Of Magnesia 30 Ml Oral.Susp) 30 ml PO DAILY PRN PRN Reason: Constipation Melatonin (Melatonin 3 Mg Tablet) 6 mg PO BEDTIME PRN PRN Reason: Insomnia Last Admin: 05/28/25 21:32 Dose: 6 mg Documented By: TACO Methadone HCl (Methadone Hcl 20 Mg/2 Ml Oral.Conc) 13 mg PO DAILY [facility] Last Admin: 05/29/25 08:01 Dose: 13 mg Documented By: PAMELA Co-signed By: VIJAYA Ondansetron HCl (Ondansetron Hcl 4 Mg/2 Ml Vial) 4 mg IVPUSH Q8H PRN PRN Reason: Nausea and Vomiting Oxcarbazepine (Oxcarbazepine 150 Mg Tablet) 150 mg PO BID [facility] Last Admin: 05/29/25 08:01 Dose: 150 mg Documented By: PAMELA Polyethylene Glycol (Polyethylene Glycol 3350 17 Gm Powd.Pack) 17 gm PO DAILY PRN PRN Reason: Constipation Senna (Sennosides 8.6 Mg Tablet) 17.2 mg PO BEDTIME [facility] Last Admin: 05/28/25 21:32 Dose: Not Given Documented By: TACO Non-Admin Reason: Patient Refused Sodium Chloride (0.9 % Sodium Chloride Flush 3 Ml Syringe) 3 ml IVFLUSH QSHIFT [facility] Last Admin: 05/29/25 08:01 Dose: 3 ml Documented By: PAMELA Labs 05/29/25 05:17 05/29/25 05:17 Labs: Laboratory Results - last 24 hr 05/28/25 05/28/25 05/28/25 11:26 16:26 21:27 MCV MCH MCHC RDW Plt Count MPV Immature Gran % (Auto) Neut % (Auto) Lymph % (Auto) [place] % (Auto) Eos % (Auto) Baso % (Auto) Lymph # (Auto) [place] # (Auto) Eos # (Auto) Baso # (Auto) Abs Immat Gran (auto) Absolute Neuts (auto) Absolute Nucleated RBC Nucleated RBC % (auto) Hold Purple Top Anion Gap Estim Creat Clear Calc Estimated GFR POC Glucose 170 H 399 H* 263 H 05/29/25 05/29/25 05:17 07:52 MCV 83.2 MCH 26.8 L MCHC 32.2 RDW 13.7 Plt Count 465 H MPV 10.2 Immature Gran % (Auto) 1.7 H Neut % (Auto) 52.7 Lymph % (Auto) 33.5 [place] % (Auto) 8.1 Eos % (Auto) 3.1 Baso % (Auto) 0.9 Lymph # (Auto) 2.7 [place] # (Auto) 0.7 Eos # (Auto) 0.3 Baso # (Auto) 0.1 Abs Immat Gran (auto) 0.14 H Absolute Neuts (auto) 4.2 Absolute Nucleated RBC 0.000 Nucleated RBC % (auto) 0.0 Hold Purple Top SEE NOTE Anion Gap 12 Estim Creat Clear Calc 119.8 Estimated GFR > 60 POC Glucose 200 H Microbiology Microbiology Results: Microbiology 05/24/25 12:49 Blood Culture - Preliminary Blood - Venous No growth after 48 hours. 05/21/25 11:32 Blood Culture - Final Blood - Venous No growth after 5 days. 05/24/25 08:44 Blood Culture - Preliminary Blood - Venous No growth after 48 hours. Assessment and Plan (1) Cellulitis: Status: Acute (2) Abscess of forearm, left: Status: Acute (3) Abscess of forearm, right: Status: Acute (4) Active intravenous drug use: Status: Acute (5) IVDU (intravenous drug user): Status: Acute Plan Pt is a 44 yo female with PMH IVDA last use 3 days ago, IDDM on Trulicity, Obesity, Bipolar D/O, schizophrenia, KEATON started methadone 2 weeks ago, A/V hallucinations, yeast infections, presents to ED with complaints of fever X2 days, highest 102, chills, nausea and intermittent vomiting with abscesses found on BUE's from IVDA. Admittd for bacteremia and abscesses of upper extremities tomas arm abscess with subcutaneous gas secondary IV drug use Staph aureus bacteremia wound culture= Strep viridan and Staph Aureus -Was on Vanco and Kefzol, now Kefzol alone -repeat culture negative at 48 hrs -TTE negative for vegetation -ID recommends 4 weeks of Kefzol -S/p debridment by surgery -Picc line today Diabetes with Hyperglycemia, non compliant with meds, A1C =11, still uncontrolled FBS over 200 continue Lantus 45 at HS, continue lantus 20 in AM, SSI, and diabetic diet Bipolar Depression/ Schizophrenia/ Anxiety/--no symptoms continue present meds Substance use disoerder Methadone per addiction med HLD Continue statin COPD/ Asthma Duo nebs prn No issues with hypoxia POX Q4H Anemia Iron panel and B12 pending Trend CBC H/H table, no indication for transfusion Obesity weight loss advised DVT prophylaxis: has been ambulating, Dispo: Will need to go to SNF for completion of IV antibiotics FULL CODE STATUS Quality Stroke Does the patient have a stroke diagnosis?: No Reason for No Anti-thrombotic by Day Two: Contraindicated VTE Prior VTE?: No VTE Risk Level:: Medical - moderate - high VTE Device Contraindication: N/A - Device Ordered VTE Drug Contraindication: Treatment Not Indicated
--- NOTE | 2025-05-29 11:16 | MHC.CM.PN ---
PT AWAITING HENRY AND SUBSEQUENT STR PLACEMENT FOR IV ABX CM SPOKE TO REHANA AT [facility], HE IS WORKING ON PTS GUEST DOSING AT [facility] IN [place] HE CONFIRMED HE WILL REQUEST PTS GUEST DOSING START TOMORROW [facility] DAT IS COMPLETING THE PASRR PT CAN DC TO SNF TODAY, ONCE LINE IS PLACED AND REPORT AVAILABLE SHE WILL NEED BLS TRANSPORT
[2025-05-29 11:34] LABS: Glucose, Whole Blood 271 mg/dL (60-115)
[2025-05-29 15:26] VITALS: BP 110/62; PULSE 84; RESP 14; TEMP 36.6; O2SAT 95
[2025-05-29 16:09] LABS: Glucose, Whole Blood 337 mg/dL (60-115)
[2025-05-29 19:31] VITALS: BP 138/79; PULSE 80; RESP 16; TEMP 36.3; O2SAT 98
[2025-05-29 20:25] LABS: Glucose, Whole Blood 296 mg/dL (60-115)
[2025-05-29] MEDS: Insulin Glargine,Hum.rec.anlog 100 UNIT/ML 10 ML VIAL 45 UNIT SUBCUT (21:05)
[2025-05-30] VITALS (12 sets, daily range): BP systolic 91–146; BP diastolic 50–71; PULSE 72–88; RESP 13–18; TEMP 36.1–36.6; O2SAT 93–98
[2025-05-30 06:41] LABS: Creatinine Clr Calc Pharmacy 139.7; Estimated Glomerular Filt Rate > 60
[2025-05-30 07:29] LABS: Glucose, Whole Blood 166 mg/dL (60-115)
[2025-05-30] MEDS: Fluticasone/Vilanterol 100/25 BLST.W.DEV 1 PUFF INHALE (07:46)
--- NOTE | 2025-05-30 08:26 | MHC.CM.PN ---
CM SPOKE TO MAO [phone] X [phone] AT [facility] IN [place] SHE CONFIRMS SHE HAS ALL OF PTS GUEST DOSING DOCUMENTS, HOWEVER SINCE SHE DID NOT DC YESTERDAY, THEY WILL NEED AN UPDATED START DATE LETTER EMAIL SENT TO REHANA ISLAS AT [facility] REQUESTING UPDATED START DATE BE SENT. PT CAN DC TODAY ONCE LINE IS IN PLACE, SHE WILL DC TO [facility]
[2025-05-30] MEDS: Insulin Glargine,Hum.rec.anlog 100 UNIT/ML 10 ML VIAL 20 UNIT SUBCUT (08:34)
[2025-05-30] MEDS: methADONE HCl 20 MG/2 ML ORAL.CONC 13 MG PO (08:35)
[2025-05-30] MEDS: 0.9 % Sodium Chloride Flush 3 ML SYRINGE IVFLUSH ×3 (08:39→21:31)
--- NOTE | 2025-05-30 09:58 | PM.DS ---
DS: Providers Provider Date of Service: 05/30/25 Date of admission: 05/19/25 19:12 Date of discharge: 05/30/25 Primary care physician: Brent Vides DO, MD Consults: 05/19/25 19:56 Consult to General Surgery Routine Consulting Provider: [facility] General Surgeons Reason for consultation: B abscesses related to IVDA, sub cu gas on R, CT pending 05/19/25 19:57 Addiction Medicine Provider Routine Consulting Provider: Addiction Covering Reason for consultation: IVDA, on methadone 2 weeks, asking for help Has provider been notified: No Consult to Infectious Diseases Routine Consulting Provider: [facility] Infectious Disease Center Reason for consultation: B arm abscesses from IVDA 05/19/25 19:58 Consult to Psychiatry Routine Consulting Provider: [facility] Psych Covering Reason for consultation: in for IVDA Abscess B arms, psychiatric symp uncontrolled Has provider been notified: No DS: Diagnosis Discharge Diagnosis (1) Cellulitis: Status: Acute (2) Abscess of forearm, left: Status: Acute (3) Abscess of forearm, right: Status: Acute (4) Active intravenous drug use: Status: Acute (5) IVDU (intravenous drug user): Status: Acute DS: Summary Hospital Course Hospital Course: Admission HPI: Chief Complaint: wound abscesses Pt is a 44 yo female with PMH IVDA last use 3 days ago, IDDM on Trulicity, Obesity, Biopolar D/O, schizophrenia, KEATON started methadone 2 weeks ago, A/V hallucinations, yeast infections, presents to ED with complaints of fever X2 days, highest 102, chills, nausea and intermittent vomting with abscesses noted on BUE's from IVDA. Pt also states she has been incontinent of urine and stool at times. Pt denies any diarrhea today. Pt beleives that fragments from needles may have broken off in her arms. Pt told ED provder she tried to drain the abscess on her right wrist and left arm by sticking it with a needle multiple times.Pt reporting she is hungry. Pt appears anxious, unable to sit still but is alert and orientated X3, able to protect her airway. Hemodynamics stable, temp down to 100 F. Pt currently denies any chest pain, SOB at rest, abd pain or lower leg pain. Pt started methadone 13 mgs 2 weeks ago with clinic on [facility]. Pt injected cocaine, last time was this past Thursday. Pt was not sure if the cocaine was laced with something else. Pt denies hx of endocarditis, surgical intervention for abscess or wounds related to IVDA int he past. Pt has been clean for 9 years but due to stress with her daughter's father, pt began using again. Pt lives with psychiatric issues and overall is requesting help with detox, inpatient care for drug use. Pt is not suicidal today. Pt denies A/V hallucinations today. Pt does state she has not been compliant with her medication regimen for diabetes and mental health. Pt is not sure when she last took Trulicity but denies any issues with constipation or bowel problems. Work up in ED included I and D of B abscesses with cultures pending, 2 on the right and one on the left. All abscesses are packed currently with guaze. Xrays of B arms note subcutaneous gas R arm only. CT scan pending of both arms to rule out necrotizing fascitis. BC X2 pending. UA pending. Echo pending. HCG pending. Pt started on Zosyn and Vancomycin and CLindamycin added.Pt has leukocytosis of 16.4, ESR 104, CRP 24.64, LA 1.4 and mildly elevated LFTs AST 38, ALT 37, H/H stable .3. Pt also received 10 u Reg insulin and IVF for hyperglycemia without evidence of DKA/ HHS as AG is closed and Biarcb is WNL. Pt has Valium for COWS. Hospital course: Pt is a 44 yo female with PMH IVDA last use 3 days ago, IDDM on Trulicity, Obesity, Bipolar D/O, schizophrenia, KEATON started methadone 2 weeks ago, A/V hallucinations, yeast infections, presents to ED with complaints of fever X2 days, highest 102, chills, nausea and intermittent vomiting with abscesses found on BUE's from IVDA. Admittd for bacteremia and abscesses of upper extremities, hospital course complicated hyperglycemia. hospital course by problems Sepsis, abscess of arms, bacteremia The patient presented with bilateral arm abscesses with subcutaneous gas secondary to intravenous drug use and underwent surgical debridement. Blood cultures grew Staphylococcus aureus, while wound cultures grew both Streptococcus viridans and Staphylococcus aureus. The patient was initially started on vancomycin and cefazolin (Kefzol), but therapy was later narrowed to cefazolin alone. A repeat blood culture from 05/21 was positive in 1 out of 2 bottles for Staphylococcus aureus, but subsequent cultures from 05/24 have remained negative for more than 48 hours. Transthoracic echocardiogram (TTE) was negative for vegetations. Infectious Disease recommends a total of 4 weeks of cefazolin, with the course ending on June 21. Due to the presence of wounds on the arms, a PICC line is being avoided; instead, a Street catheter will be placed for post-discharge IV antibiotic administration. Diabetes with hyperglycemia The patient has diabetes with significant hyperglycemia and a history of noncompliance with medications. Her most recent A1C is 11%, and her blood sugars have consistently ranged from the 300s to 400s. At home, she was taking Lantus 40 units at bedtime; this has been adjusted to 45 units at bedtime, with an additional 20 units added in the morning to improve glycemic control. She has demonstrated dietary indiscretion and has received education regarding appropriate dietary choices. The plan is to continue Lantus 45 units at bedtime, Lantus 20 units in the morning, sliding scale insulin, and a diabetic diet. Bipolar Depression/ Schizophrenia/ Anxiety/--no symptoms continue present meds Substance use disoerder. continue Methadone 13 mg daily, was seen and counceled by the addiction team HLD Continue statin COPD/ Asthma Duo nebs prn Anemia, stable Obesity weight loss advised Dispo: To short term rehab Physical Exam Vital Signs: Vital Signs: Last Vital Signs Temp 97.0 F 05/30/25 07:21 Pulse 81 05/30/25 07:46 Resp 18 05/30/25 07:46 BP 106/71 05/30/25 07:21 Pulse Ox 97 05/30/25 07:21 O2 Del Method Room Air 05/30/25 07:21 O2 Flow Rate 2 05/21/25 15:32 BMI result Body Mass Index 33.7 DS: Data Data Completed and Pending Completed studies during hospitalization [Text1]: Procedures Drainage of Inguinal Skin, External Approach (02/22/24) Drainage of Left Lower Arm Subcutaneous Tissue and Fascia, Open Approach (02/22/24) Drainage of Left Wrist Region, Open Approach (10/11/24) Drainage of Right Lower Arm Subcutaneous Tissue and Fascia, Open Approach (02/22/24) Excision of Left Upper Extremity, Open Approach (10/11/24) Excision of Right Breast, Open Approach (10/11/24) Labs on day of discharge: Laboratory Results - last 24 hr 05/29/25 05/29/25 05/29/25 11:31 16:06 20:14 Creatinine Estim Creat Clear Calc Estimated GFR POC Glucose 271 H 337 H 296 H 05/30/25 05/30/25 05:57 07:20 Creatinine 0.54 Estim Creat Clear Calc 139.7 Estimated GFR > 60 POC Glucose 166 H Discharge Plan Discharge Anticipated Discharge Date/Time: 05/30/25 10:18 Patient Disposition: Xfer [facility] Referrals: [facility] [Outside] - 1 Week Physician,None [Physician, Medical] - 1 Week Discharge Medications: No Action fluticasone furoate-vilanterol [Breo Ellipta] 100-25 mcg/dose blister with device 1 ea inhalation DAILY insulin glargine [Lantus Solostar U-100 Insulin] 100 unit/mL (3 mL) insulin pen 40 unit SUBCUT BEDTIME Trulicity 1.5 mg/0.5 mL pen injector 1.5 mg subcut SA methadone [Methadone Intensol] 10 mg/mL Concentrate 13 mg PO DAILY clonazepam 1 mg Tablet 1 mg PO BID PRN (Reason: Anxiety) oxcarbazepine 150 mg Tablet 150 mg PO BID atorvastatin 40 mg Tablet 40 mg PO DAILY aripiprazole 20 mg Tablet 20 mg PO DAILY gabapentin 300 mg capsule 300 mg PO BID tizanidine 4 mg tablet 4 mg PO TID PRN (Reason: Back Pain) albuterol sulfate 90 mcg/actuation HFA aerosol inhaler 1 puff inhalation TID PRN (Reason: Wheezing) Diet: Advance to usual diet Activity on Discharge: As tolerated Stand Alone Forms: Patient Portal Discharge page Print Language: Citizen Of [place]
[2025-05-30 11:46] LABS: Glucose, Whole Blood 111 mg/dL (60-115)
--- NOTE | 2025-05-30 14:42 | HO.PM.IMPN ---
Subjective Subjective Date of Service: 05/30/25 Interval History: No new issues wating for ins authorization for dc, got street cath today Physical Exam Vital Signs: Vital Signs: Last Vital Signs Temp 97.0 F 05/30/25 07:21 Pulse 74 05/30/25 11:05 Resp 14 05/30/25 11:05 BP 103/64 05/30/25 11:05 Pulse Ox 97 05/30/25 11:05 O2 Del Method Room Air 05/30/25 11:05 O2 Flow Rate 2 05/30/25 10:55 BMI result Body Mass Index 33.7 General: AO X 3, no acute distress Resp: CTA bilateral CVS: S1,S2,RRR GI: +BS, NT, no distention Skin: Neuro: motor grossly intact Psych: appropriate affect Extrem: Other: left cubital: No erythema and scant drainage noted incision and drainage site, no skin necrosis. right cubital: Incision and drainage site open and draining right forearm/wrist: Wounds clean with minimal discharge noted., no erythema Objective Data Active Medications Acetaminophen (Acetaminophen 325 Mg Tablet) 650 mg PO Q6H PRN PRN Reason: Pain, Mild 1-3,fever,headache Last Admin: 05/29/25 08:04 Dose: 650 mg Documented By: PAMELA Aripiprazole (Aripiprazole 20 Mg Tablet) 20 mg PO DAILY [facility] Last Admin: 05/30/25 08:33 Dose: 20 mg Documented By: ELLY Atorvastatin Calcium (Atorvastatin Calcium 40 Mg Tablet) 40 mg PO DAILY [facility] Last Admin: 05/30/25 08:33 Dose: 40 mg Documented By: ELLY Calcium Carbonate (Calcium Carbonate 750 Mg Tab.Chew) 750 mg PO Q4H PRN PRN Reason: Heartburn Clonazepam (Clonazepam 1 Mg Tablet) 1 mg PO TID PRN PRN Reason: anxiety/restlessness Last Admin: 05/30/25 08:42 Dose: 1 mg Documented By: ELLY Dextrose (Dextrose 50 % 25 Gm/50 Ml Syringe) 25 gm IVPUSH Q15M PRN; Protocol PRN Reason: per Hypoglycemia Standing Ord. Dextrose (Dextrose 50 % 25 Gm/50 Ml Syringe) 25 gm IVPUSH Q15M PRN; Protocol PRN Reason: per Hypoglycemia Standing Ord. Enoxaparin Sodium (Enoxaparin Sodium 40 Mg/0.4 Ml Syringe) 40 mg SUBCUT Q24H [facility] Last Admin: 05/30/25 11:31 Dose: 40 mg Documented By: ELLY Fluticasone/Vilanterol (Fluticasone/Vilanterol 100/ Blst.W.Dev) 1 puff INHALE RDAILY [facility] Last Admin: 05/30/25 07:46 Dose: 1 puff Documented By: JULIEN Gabapentin (Gabapentin 300 Mg Capsule) 300 mg PO BID [facility] Last Admin: 05/30/25 08:33 Dose: 300 mg Documented By: ELLY Glucose (Glucose Gel 15 Gm Gel..Gram.) 15 gm PO Q15M PRN; Protocol PRN Reason: per Hypoglycemia Standing Ord. Glucose (Glucose Gel 15 Gm Gel..Gram.) 15 gm PO Q15M PRN; Protocol PRN Reason: per Hypoglycemia Standing Ord. Cefazolin Sodium/Dextrose (Ancef) 2 gm in 50 mls @ 100 mls/hr IV Q8H [facility] Last Infusion: 05/30/25 12:09 Dose: Infused Documented By: ELLY Insulin Glargine (Insulin Glargine,Hum.Rec.Anlog 100 Unit/Ml 10 Ml Vial) 45 unit SUBCUT BEDTIME [facility] Last Admin: 05/29/25 21:05 Dose: 45 unit Documented By: MILAD Insulin Glargine (Insulin Glargine,Hum.Rec.Anlog 100 Unit/Ml 10 Ml Vial) 20 unit SUBCUT DAILY [facility] Last Admin: 05/30/25 08:34 Dose: 20 unit Documented By: ELLY Insulin Human Lispro (Insulin Lispro 100 Unit/Ml 3 Ml Vial) 0 unit SUBCUT QIDACHS [facility]; Protocol Last Admin: 05/30/25 11:52 Dose: Not Given Documented By: ELLY Non-Admin Reason: No Insulin Coverage Magnesium Hydroxide (Milk Of Magnesia 30 Ml Oral.Susp) 30 ml PO DAILY PRN PRN Reason: Constipation Melatonin (Melatonin 3 Mg Tablet) 6 mg PO BEDTIME PRN PRN Reason: Insomnia Last Admin: 05/29/25 22:02 Dose: 6 mg Documented By: MILAD Methadone HCl (Methadone Hcl 20 Mg/2 Ml Oral.Conc) 13 mg PO DAILY [facility] Last Admin: 05/30/25 08:35 Dose: 13 mg Documented By: ELLY Co-signed By: HOWARD Ondansetron HCl (Ondansetron Hcl 4 Mg/2 Ml Vial) 4 mg IVPUSH Q8H PRN PRN Reason: Nausea and Vomiting Oxcarbazepine (Oxcarbazepine 150 Mg Tablet) 150 mg PO BID [facility] Last Admin: 05/30/25 08:33 Dose: 150 mg Documented By: ELLY Polyethylene Glycol (Polyethylene Glycol 3350 17 Gm Powd.Pack) 17 gm PO DAILY PRN PRN Reason: Constipation Senna (Sennosides 8.6 Mg Tablet) 17.2 mg PO BEDTIME [facility] Last Admin: 05/29/25 20:59 Dose: Not Given Documented By: MILAD Non-Admin Reason: Patient Refused Sodium Chloride (0.9 % Sodium Chloride Flush 3 Ml Syringe) 3 ml IVFLUSH QSHIFT [facility] Last Admin: 05/30/25 08:39 Dose: 3 ml Documented By: ELLY Labs 05/29/25 05:17 05/30/25 05:57 Labs: Laboratory Results - last 24 hr 05/29/25 05/29/25 05/30/25 16:06 20:14 05:57 Estim Creat Clear Calc 139.7 Estimated GFR > 60 POC Glucose 337 H 296 H 05/30/25 05/30/25 07:20 11:44 Estim Creat Clear Calc Estimated GFR POC Glucose 166 H 111 Microbiology Microbiology Results: Microbiology 05/24/25 12:49 Blood Culture - Final Blood - Venous No growth after 5 days. 05/24/25 08:44 Blood Culture - Final Blood - Venous No growth after 5 days. Assessment and Plan (1) Cellulitis: Status: Acute (2) Abscess of forearm, left: Status: Acute (3) Abscess of forearm, right: Status: Acute (4) Active intravenous drug use: Status: Acute (5) IVDU (intravenous drug user): Status: Acute Plan Pt is a 44 yo female with PMH IVDA last use 3 days ago, IDDM on Trulicity, Obesity, Bipolar D/O, schizophrenia, KEATON started methadone 2 weeks ago, A/V hallucinations, yeast infections, presents to ED with complaints of fever X2 days, highest 102, chills, nausea and intermittent vomiting with abscesses found on BUE's from IVDA. Admittd for bacteremia and abscesses of upper extremities tomas arm abscess with subcutaneous gas secondary IV drug use Staph aureus bacteremia wound culture= Strep viridan and Staph Aureus -Was on Vanco and Kefzol, now Kefzol alone -repeat culture negative at 48 hrs -TTE negative for vegetation -ID recommends 4 weeks of Kefzol -S/p debridment by surgery -Street cath today Diabetes with Hyperglycemia, non compliant with meds, A1C =11, still uncontrolled FBS over 200 continue Lantus 45 at HS, continue lantus 20 in AM, SSI, and diabetic diet Bipolar Depression/ Schizophrenia/ Anxiety/--no symptoms continue present meds Substance use disoerder Methadone per addiction med HLD Continue statin COPD/ Asthma Duo nebs prn No issues with hypoxia POX Q4H Anemia Iron panel and B12 pending Trend CBC H/H table, no indication for transfusion Obesity weight loss advised DVT prophylaxis: has been ambulating, Dispo: Will need to go to SNF for completion of IV antibiotics, pending insurance authorization FULL CODE STATUS Quality Stroke Does the patient have a stroke diagnosis?: No Reason for No Anti-thrombotic by Day Two: Contraindicated VTE Prior VTE?: No VTE Risk Level:: Medical - moderate - high VTE Device Contraindication: N/A - Device Ordered VTE Drug Contraindication: Treatment Not Indicated
[2025-05-30 16:12] LABS: Glucose, Whole Blood 233 mg/dL (60-115)
[2025-05-30 21:20] LABS: Glucose, Whole Blood 258 mg/dL (60-115)
[2025-05-30] MEDS: Insulin Glargine,Hum.rec.anlog 100 UNIT/ML 10 ML VIAL 45 UNIT SUBCUT (21:29)
[2025-05-31 04:00] VITALS: BP 99/51; PULSE 66; RESP 18; TEMP 35.7; O2SAT 95
[2025-05-31 06:39] LABS: Creatinine Clr Calc Pharmacy 145.1; Estimated Glomerular Filt Rate > 60
[2025-05-31 07:32] VITALS: BP 117/78; PULSE 66; RESP 18; TEMP 36.6; O2SAT 94
[2025-05-31 07:51] LABS: Glucose, Whole Blood 185 mg/dL (60-115)
[2025-05-31] MEDS: Fluticasone/Vilanterol 100/25 BLST.W.DEV 1 PUFF INHALE (08:05)
[2025-05-31 08:06] VITALS: PULSE 66; RESP 18; O2SAT 96
[2025-05-31] MEDS: Insulin Glargine,Hum.rec.anlog 100 UNIT/ML 10 ML VIAL 20 UNIT SUBCUT (08:09)
[2025-05-31] MEDS: methADONE HCl 20 MG/2 ML ORAL.CONC 13 MG PO (08:10)
[2025-05-31] MEDS: 0.9 % Sodium Chloride Flush 3 ML SYRINGE IVFLUSH (08:13)
[2025-05-31 11:34] LABS: Glucose, Whole Blood 262 mg/dL (60-115)
--- NOTE | 2025-05-31 12:21 | P.DS_ITS ---
DS: Providers Provider Date of Service: 05/31/25 Date of admission: 05/19/25 19:12 Date of discharge: 05/31/25 Primary care physician: Brent Vides DO, MD Consults: 05/19/25 19:56 Consult to General Surgery Routine Consulting Provider: [facility] General Surgeons Reason for consultation: B abscesses related to IVDA, sub cu gas on R, CT pending 05/19/25 19:57 Addiction Medicine Provider Routine Consulting Provider: Addiction Covering Reason for consultation: IVDA, on methadone 2 weeks, asking for help Has provider been notified: No Consult to Infectious Diseases Routine Consulting Provider: [facility] Infectious Disease Center Reason for consultation: B arm abscesses from IVDA 05/19/25 19:58 Consult to Psychiatry Routine Consulting Provider: [facility] Psych Covering Reason for consultation: in for IVDA Abscess B arms, psychiatric symp uncontrolled Has provider been notified: No Attending physician on discharge: Simon Bower Discharging clinician: Simon Bower DS: Diagnosis Discharge Diagnosis (1) Cellulitis: Status: Acute (2) Abscess of forearm, left: Status: Acute (3) Abscess of forearm, right: Status: Acute (4) Active intravenous drug use: Status: Acute (5) IVDU (intravenous drug user): Status: Acute DS: Summary Hospital Course Hospital Course: Admission HPI: Chief Complaint: wound abscesses Pt is a 44 yo female with PMH IVDA last use 3 days ago, IDDM on Trulicity, Obesity, Biopolar D/O, schizophrenia, KEATON started methadone 2 weeks ago, A/V hallucinations, yeast infections, presents to ED with complaints of fever X2 days, highest 102, chills, nausea and intermittent vomting with abscesses noted on BUE's from IVDA. Pt also states she has been incontinent of urine and stool at times. Pt denies any diarrhea today. Pt beleives that fragments from needles may have broken off in her arms. Pt told ED provder she tried to drain the abscess on her right wrist and left arm by sticking it with a needle multiple times.Pt reporting she is hungry. Pt appears anxious, unable to sit still but is alert and orientated X3, able to protect her airway. Hemodynamics stable, temp down to 100 F. Pt currently denies any chest pain, SOB at rest, abd pain or lower leg pain. Pt started methadone 13 mgs 2 weeks ago with clinic on [facility]. Pt injected cocaine, last time was this past Thursday. Pt was not sure if the cocaine was laced with something else. Pt denies hx of endocarditis, surgical intervention for abscess or wounds related to IVDA int he past. Pt has been clean for 9 years but due to stress with her daughter's father, pt began using again. Pt lives with psychiatric issues and overall is requesting help with detox, inpatient care for drug use. Pt is not suicidal today. Pt denies A/V hallucinations today. Pt does state she has not been compliant with her medication regimen for diabetes and mental health. Pt is not sure when she last took Trulicity but denies any issues with constipation or bowel problems. Work up in ED included I and D of B abscesses with cultures pending, 2 on the right and one on the left. All abscesses are packed currently with guaze. Xrays of B arms note subcutaneous gas R arm only. CT scan pending of both arms to rule out necrotizing fascitis. BC X2 pending. UA pending. Echo pending. HCG pending. Pt started on Zosyn and Vancomycin and CLindamycin added.Pt has leukocytosis of 16.4, ESR 104, CRP 24.64, LA 1.4 and mildly elevated LFTs AST 38, ALT 37, H/H stable .3. Pt also received 10 u Reg insulin and IVF for hyperglycemia without evidence of DKA/ HHS as AG is closed and Biarcb is WNL. Pt has Valium for COWS. Hospital course: Pt is a 44 yo female with PMH IVDA last use 3 days ago, IDDM on Trulicity, Obesity, Bipolar D/O, schizophrenia, KEATON started methadone 2 weeks ago, A/V hallucinations, yeast infections, presents to ED with complaints of fever X2 days, highest 102, chills, nausea and intermittent vomiting with abscesses found on BUE's from IVDA. Admittd for bacteremia and abscesses of upper extremities, hospital course complicated hyperglycemia. hospital course by problems: as per chart review:Sepsis, abscess of arms, bacteremia:presented with bilateral arm abscesses with subcutaneous gas secondary to intravenous drug use and underwent surgical debridement. Blood cultures grew Staphylococcus aureus, while wound cultures grew both Streptococcus viridans and Staphylococcus aureus. The patient was initially started on vancomycin and cefazolin (Kefzol), but therapy was later narrowed to cefazolin alone. A repeat blood culture from 05/21 was positive in 1 out of 2 bottles for Staphylococcus aureus, but subsequent cultures from 05/24 have remained negative for more than 48 hours. Transthoracic echocardiogram (TTE) was negative for vegetations. Infectious Disease recommends a total of 4 weeks of cefazolin, with the course ending on June 21. Due to the presence of wounds on the arms, a PICC line is being avoided; instead, a Street catheter will be placed for post-discharge IV antibiotic administration. Diabetes with hyperglycemia and a history of noncompliance with medications. Her most recent A1C is 11%, and her blood sugars have consistently ranged from the 300s to 400s. At home, she was taking Lantus 40 units at bedtime; this has been adjusted to 45 units at bedtime, with an additional 20 units added in the morning to improve glycemic control. She has demonstrated dietary indiscretion and has received education regarding appropriate dietary choices. continue Lantus 45 units at bedtime, Lantus 20 units in the morning, sliding scale insulin, and a diabetic diet. Bipolar Depression/ Schizophrenia/ Anxiety--no symptoms continue present meds Substance use disoerder. continue Methadone 13 mg daily, was seen and counceled by the addiction team HLD Continue statin COPD/ Asthma Duo nebs prn Anemia, stable Obesity weight loss advised plan: complete 4 weeks of cefazolin, with the course ending on June 21. moniter cbc,cmp qweekly. adjusted Lantus 45 units at bedtime, Lantus 20 units in the morning. patient will benefit from less than 30 days rehab stay. Above management discussed with the patient in detail length she understand and in agreement with the above plan, time spent 45 minute, all questions answered, staff was present during conversation. Time Attestation Total time managing care of this patient today: 45 mintues. Discharge Coordination Time (in mins): 45 min Quality: Safe Use of Opioids Does Pt have an Active Cancer Diagnosis on the Problem List?: No Quality: Stroke Does the patient have a stroke diagnosis?: No Physical Exam Exam: Exam: General: AO X 3, no acute distress Resp: CTA bilateral CVS: S1,S2,RRR GI: +BS, NT, no distention Skin: left cubital: No erythema or drainage noted incision and drainage site, no skin necrosis. right cubital: Incision and drainage site open and mimimum draining right forearm/wrist: Wounds clean with minimal discharge noted, no erythema Neuro: motor grossly intact Psych: appropriate affect Vital Signs: Vital Signs: Last Vital Signs Temp 97.8 F 05/31/25 07:32 Pulse 66 05/31/25 08:06 Resp 18 05/31/25 08:06 BP 117/78 05/31/25 07:32 Pulse Ox 94 05/31/25 07:32 O2 Del Method Room Air 05/31/25 07:32 O2 Flow Rate 2 05/30/25 10:55 BMI result Body Mass Index 33.7 DS: Data Data Completed and Pending Completed studies during hospitalization [Text1]: Procedures Drainage of Inguinal Skin, External Approach (02/22/24) Drainage of Left Lower Arm Subcutaneous Tissue and Fascia, Open Approach (02/22/24) Drainage of Left Wrist Region, Open Approach (10/11/24) Drainage of Right Lower Arm Subcutaneous Tissue and Fascia, Open Approach (02/22/24) Excision of Left Upper Extremity, Open Approach (10/11/24) Excision of Right Breast, Open Approach (10/11/24) Labs on day of discharge: Laboratory Results - last 24 hr 05/30/25 05/30/25 05/31/25 16:05 21:11 06:05 Hold Purple Top SEE NOTE Creatinine 0.52 Estim Creat Clear Calc 145.1 Estimated GFR > 60 POC Glucose 233 H 258 H 05/31/25 05/31/25 07:34 11:30 Hold Purple Top Creatinine Estim Creat Clear Calc Estimated GFR POC Glucose 185 H 262 H Additional Comments Additional comments: left arm ct : Impression: Subcutaneous gas and skin thickening or cellulitic changes in the distal soft tissues near the elbow. Superficial subcutaneous soft tissue defect of the lateral elbow with mild adjacent subcutaneous gas. right arm:Impression: Unremarkable CT of the right humerus.Cellulitic changes noted near the antecubital fossa, described on CT of the forearm. IR/IR cvc insert central tunnel IMPRESSION: Successful fluoroscopy and ultrasound-guided placement of a right Street catheter with its tip in distal SVC Discharge Plan Discharge Anticipated Discharge Date/Time: 05/30/25 10:18 Patient Disposition: [facility] Discharge Diagnosis: Sepsis, bacteremia, abscesses of the skin, diabetes with hyperglycemia, active IV drug use Referrals: [facility] & [facility] [Outside] - 1 Week Physician,None [Physician, Medical] - 1 Week Discharge Medications: New insulin glargine [Lantus U-100 Insulin] 100 unit/mL Solution 20 unit subcut DAILY Qty: 10 0RF insulin lispro [Admelog U-100 Insulin lispro] 100 unit/mL Solution See Protocol subcut QIDACHS Qty: 10 0RF Protocol: Insulin Correction Scale Less than or equal to 110 ---- Give (units): 0 111 to 150 Give (units): 0 151 to 200 Give (units): 2 201 to 250 Give (units): 4 251 to 300 Give (units): 6 301 to 350 Give (units): 8 Greater than 350 Give (units): 10 Call MD if Blood Glucose > : 350 Rx Instructions: BG <111 0 units, 111-150 - 0 units, 151-200 2 units, 201-250 4 units, 251-300 6 units, 301-350 8 units, >350 10 units cefazolin 1 gram recon soln 2 g IV Q8H Qty: 69 0RF ibuprofen 400 mg Tablet 400 mg PO Q6H PRN (Reason: Pain, Severe (Pain Scale 7-10)) Qty: 20 0RF Continued fluticasone furoate-vilanterol [Breo Ellipta] 100-25 mcg/dose blister with device 1 ea inhalation DAILY methadone [Methadone Intensol] 10 mg/mL Concentrate 13 mg PO DAILY oxcarbazepine 150 mg Tablet 150 mg PO BID atorvastatin 40 mg Tablet 40 mg PO DAILY aripiprazole 20 mg Tablet 20 mg PO DAILY gabapentin 300 mg capsule 300 mg PO BID clonazepam 1 mg Tablet 1 mg PO BID PRN (Reason: Anxiety) Qty: 14 0RF tizanidine 4 mg tablet 4 mg PO TID PRN (Reason: Back Pain) albuterol sulfate 90 mcg/actuation HFA aerosol inhaler 1 puff inhalation TID PRN (Reason: Wheezing) Changed insulin glargine [Lantus Solostar U-100 Insulin] 100 unit/mL (3 mL) insulin pen 45 unit SUBCUT BEDTIME Qty: 15 0RF Discontinued Trulicity 1.5 mg/0.5 mL pen injector 1.5 mg subcut SA Discharge Orders: Discharge Order (Routine); Ordered 05/31/25 Ordered By: Simon Bower Diet: Advance to usual diet Activity on Discharge: As tolerated Stand Alone Forms: Patient Portal Discharge page Print Language: French Care Plan Goals: Recovery from sepsis due to Staph aureus bacteremia and stroke very then when infection. Health Concerns: Sepsis, bacteremia, wound infection/abscess, IV drug use, diabetes with hyperglycemia. Plan of Treatment: IV Kefzol 2 g every 8 hours for 23 days for total of 4 weeks to treat sepsis and bacteremia, has a Street catheter for this Check BMP, CBC LFTs routinely weekly on Mondays while on the antibiotics Please note that the patient was on Lantus 40 units at bedtime at home [facility] has not been compliant. During hospitalization we have been treating her with Lantus 45 units at bedtime and 20 units in the morning. Her sugar is much better control when discharged from the SNF if she is willing to go back to [facility] a.m. Lantus may be able to be discontinued Assessment: See above
[2025-05-31 13:50] LABS: Bacterial Vaginosis PCR NEGATIVE (Negative); Candida Group PCR NOT DETECTED (Not Detect); Candida glab krusei PCR DETECTED (Not Detect); Trichomonas vaginalis PCR NOT DETECTED (Not Detect)
--- NOTE | 2025-06-16 14:03 | PM.EVENT ---
Documented by User: John Peters NP 06/16/25 14:06 Event Note Date of Service: 06/16/25 Event Note: Pt finished antibiotics and need r chest rondon removed. Consent obtained. Right chest sterilely prepped. 1% lidocaine administered at the entry site. Blunt dissection performed with hemostats. Cuff freed and catheter removed. Hemostasis achieved immediately. Sterile dressing applied and pt tolerated well. Discharge at ED provider discretion. Time Spent With Patient Time: Total time managing care of this patient today 20__ minutes. Documented by User: Dwain Chin MD 06/21/25 15:25 Event Note Date of Service: 06/21/25
--- NOTE | 2025-06-20 15:12 | P.CDIM_ITS ---
PROVIDER RESPONSE TEXT: To clarify, the appropriate diagnosis supported by the clinical indicators: I&D right wrist: skin and subcutaneous tissue QUERY TEXT: PHYSICIAN'S DOCUMENTATION REQUEST Date of Query: 06/20/2025 12:04 PM EDT Patient Name: Devan Liss Admit Date: 05/19/2025 Dear Dimitry Jacobo PA-C, RETROSPECTIVE QUERY A review of the medical record indicates additional documentation may be needed. Please review below and update the documentation accordingly. Clinical Indicators: Surgery progress notes mention I&D on 05/22/25 - Right wrist: 1 cm I&D site. Packing in place, scant purulent discharge. Could you provide, in the Progress Notes, further clarification regarding the Depth of the I&D performed on 05/22/25: I&D right wrist skin, subcutaneous, fascia etc. Other specifics to the I&D and depth, if known please specify Other (explain) Clinically unable to determine (explain) Thank you, Donna Ojeda, CCS, CDIS Use of terms such as suspected, likely, concern for, or probable (associated with a specific diagnosis that is being evaluated, monitored, or treated as if it exists) are acceptable and can be coded in the inpatient setting, when documented at the time of discharge. Please use your independent medical judgment in providing your response. THIS QUERY IS PART OF THE PERMANENT MEDICAL RECORD
--- NOTE | 2025-06-20 15:12 | P.CDIM_ITS ---
PROVIDER RESPONSE TEXT: To clarify, the appropriate diagnosis supported by the clinical indicators: I&D left cubital fossa (forearm): skin and subcutaneous tissue QUERY TEXT: PHYSICIAN'S DOCUMENTATION REQUEST Date of Query: 06/20/2025 11:58 AM EDT Patient Name: Liss Hartman Admit Date: 05/19/2025 Dear Dimitry Jacobo PA-C, RETROSPECTIVE QUERY A review of the medical record indicates additional documentation may be needed. Please review below and update the documentation accordingly. Clinical Indicators: Surgery procedure note dated 05/22/25- Incision and drainage I used an 11 blade to open each fluid collection and was able to express the purulent fluid from each. The left cubital fossa area was very superficial and did not require packing. Dressed with fluff gauze and wrapped with kerlix. Could you provide, in the Progress Notes, further clarification regarding the Depth of the I&D performed on 05/22/25? I&D left cubital fossa (forearm) skin, subcutaneous, muscles, ligament, bursa etc. Other specifics to the I&D and depth if known please specify Other (explain) Clinically unable to determine (explain) Thank you, Donna Ojeda, CCS, CDIS Use of terms such as suspected, likely, concern for, or probable (associated with a specific diagnosis that is being evaluated, monitored, or treated as if it exists) are acceptable and can be coded in the inpatient setting, when documented at the time of discharge. Please use your independent medical judgment in providing your response. THIS QUERY IS PART OF THE PERMANENT MEDICAL RECORD
--- NOTE | 2025-06-20 15:12 | P.CDIM_ITS ---
PROVIDER RESPONSE TEXT: To clarify, the appropriate diagnosis supported by the clinical indicators: I&D right forearm: skin and subcutaneous tissue QUERY TEXT: PHYSICIAN'S DOCUMENTATION REQUEST Date of Query: 06/20/2025 11:52 AM EDT Patient Name: Devan Liss Admit Date: 05/19/2025 Dear Dimitry Jacobo PA-C, RETROSPECTIVE QUERY A review of the medical record indicates additional documentation may be needed. Please review below and update the documentation accordingly. Clinical Indicators: Surgery procedure note 05/22/25 - Incision and Drainage. Right forearm I used an 11 blade to open each fluid collection and express the purulent fluid from each. The right forearm had a larger cavity and thus was packed with 1/4 in packing. Wrapped with Kerlix. Could you provide, in the Progress Notes, further clarification regarding the Depth of the I&D performed: I&D right forearm skin, subcutaneous, muscles, ligament, fascia etc. Other specifics to the I&D please specify Other (explain) Clinically unable to determine (explain) Thank you, Donna Ojeda, CCS, CDIS Use of terms such as suspected, likely, concern for, or probable (associated with a specific diagnosis that is being evaluated, monitored, or treated as if it exists) are acceptable and can be coded in the inpatient setting, when documented at the time of discharge. Please use your independent medical judgment in providing your response. THIS QUERY IS PART OF THE PERMANENT MEDICAL RECORD
== END 2025-05-31 14:47 | disposition skilled nursing facility (03) | DRG 580 ==
LOC: HO.ED 15:33 → HO.EDOVER 19:17 → HO.IMC 20:55 → HO.S3 05-24 05:21
PROVIDERS: Internal Medicine; Radiology Diagnostic Radiology; Admitting Provider Nurse Practitioner Family; Emergency Provider Emergency Medicine Emergency Medical Services; PCP Internal Medicine; Visit Provider Internal Medicine
PROC: 0JH63XZ Insertion of Tunneled Vascular Access Device into Chest Subcutaneous Tissue and Fascia, Percutaneous Approach (ICD-10-PCS; principal; 2025-05-30 10:30)
DX: L02.414 Cutaneous abscess of left upper limb (principal); E87.1 Hypo-osmolality and hyponatremia; F11.20 Opioid dependence, uncomplicated; Z59.02 Unsheltered homelessness; L02.413 Cutaneous abscess of right upper limb; E11.65 Type 2 diabetes mellitus with hyperglycemia; E11.42 Type 2 diabetes mellitus with diabetic polyneuropathy; E78.5 Hyperlipidemia, unspecified; J44.9 Chronic obstructive pulmonary disease, unspecified; D64.9 Anemia, unspecified; E66.9 Obesity, unspecified; F41.9 Anxiety disorder, unspecified; F20.9 Schizophrenia, unspecified; B95.61 Methicillin susceptible Staphylococcus aureus infection as the cause of diseases classified elsewhere; Z71.3 Dietary counseling and surveillance; Z68.33 Body mass index [BMI] 33.0-33.9, adult; Z91.148 Patient's other noncompliance with medication regimen for other reason; Z87.891 Personal history of nicotine dependence; Z79.4 Long term (current) use of insulin; Z79.51 Long term (current) use of inhaled steroids; Z79.899 Other long term (current) drug therapy
CPT/HCPCS: 36415; 36558; 73060; 73090; 73201; 76937; 80048; 80051; 80053; 80202; 80307; 81001; 81025; 81515; 82550; 82565; 82607; 82947; 83036; 83540; 83605; 83690; 83735; 83930; 83935; 84300; 85025; 85027; 85652; 85730; 86140; 86803; 87040; 87070; 87077; 87147; 87186; 87205; 87389; 87522; 93005; 93306; 94640; 99152; 99153; 99285; C1751; C1769; J0690; J0736; J1171; J1642; J1644; J1650; J1885; J2003; J2250; J2405; J2543; J3010; J3360; J3373; J3374; Q9957; Q9967; S9485

== ENCOUNTER → 2025-05-19 18:19 | Outpatient (BNV) | payer OTHER, SELFPAY | PROVIDERS: Admitting Provider Nurse Practitioner Family; Emergency Provider Emergency Medicine Emergency Medical Services; Visit Provider Radiology Diagnostic Radiology | DX: L03.113 Cellulitis of right upper limb (principal); L03.114 Cellulitis of left upper limb | CPT/HCPCS: 73060; 73090 ==

== ENCOUNTER 2025-05-19 19:12 | Outpatient (BNV) | payer OTHER, SELFPAY | END 2025-05-23 10:57 | PROVIDERS: Admitting Provider Nurse Practitioner Family; Emergency Provider Emergency Medicine Emergency Medical Services; Visit Provider Internal Medicine Cardiovascular Disease | DX: I51.7 Cardiomegaly (principal); I51.89 Other ill-defined heart diseases | CPT/HCPCS: 93306 ==

== ENCOUNTER 2025-05-19 19:12 | Outpatient (BNV) | payer OTHER, SELFPAY | END 2025-05-19 21:21 | PROVIDERS: Admitting Provider Nurse Practitioner Family; Emergency Provider Emergency Medicine Emergency Medical Services; Visit Provider Internal Medicine | DX: L02.413 Cutaneous abscess of right upper limb (principal); L02.414 Cutaneous abscess of left upper limb | CPT/HCPCS: 93010 ==

== ENCOUNTER 2025-05-19 19:12 | Outpatient (BNV) | payer OTHER, SELFPAY | END 2025-05-30 10:30 | PROVIDERS: Admitting Provider Nurse Practitioner Family; Emergency Provider Emergency Medicine Emergency Medical Services; PCP Internal Medicine; Visit Provider Radiology Diagnostic Radiology | DX: Z45.2 Encounter for adjustment and management of vascular access device (principal) | CPT/HCPCS: 36558; 76937 ==

== ENCOUNTER → 2025-05-19 19:12 | Outpatient (BNV) | payer OTHER, SELFPAY | PROVIDERS: Admitting Provider Nurse Practitioner Family; Emergency Provider Emergency Medicine Emergency Medical Services; Visit Provider Nurse Practitioner Family | DX: L03.90 Cellulitis, unspecified (principal); L02.414 Cutaneous abscess of left upper limb; L02.413 Cutaneous abscess of right upper limb; F19.90 Other psychoactive substance use, unspecified, uncomplicated | CPT/HCPCS: 99223; 99232 ==

== ENCOUNTER → 2025-05-19 19:12 | Outpatient (BNV) | payer OTHER, SELFPAY | PROVIDERS: Admitting Provider Nurse Practitioner Family; Emergency Provider Emergency Medicine Emergency Medical Services; Visit Provider Internal Medicine | DX: F19.90 Other psychoactive substance use, unspecified, uncomplicated (principal); R78.81 Bacteremia; B95.61 Methicillin susceptible Staphylococcus aureus infection as the cause of diseases classified elsewhere; L03.90 Cellulitis, unspecified | CPT/HCPCS: 99232 ==

== ENCOUNTER → 2025-05-19 19:12 | Outpatient (BNV) | payer OTHER, SELFPAY | PROVIDERS: Admitting Provider Nurse Practitioner Family; Emergency Provider Emergency Medicine Emergency Medical Services; Visit Provider Psychiatry & Neurology Psychiatry | DX: F20.9 Schizophrenia, unspecified (principal); F19.90 Other psychoactive substance use, unspecified, uncomplicated | CPT/HCPCS: 99222 ==

== ENCOUNTER → 2025-05-19 19:12 | Outpatient (BNV) | payer OTHER, SELFPAY | PROVIDERS: Admitting Provider Nurse Practitioner Family; Emergency Provider Emergency Medicine Emergency Medical Services; Visit Provider Surgery | DX: L02.414 Cutaneous abscess of left upper limb (principal); L02.413 Cutaneous abscess of right upper limb | CPT/HCPCS: 99232 ==

== ENCOUNTER 2025-06-15 15:22 | Emergency (ER) | payer OTHER, SELFPAY ==
--- NOTE | ~2025-06-15 | XR_ITS ---
EXAMINATION: XR CHEST CLINICAL INFORMATION: catheter evaluation COMPARISON: None available. TECHNIQUE: 2 views of the chest were obtained. FINDINGS: Devices/Tubes/Lines: Right catheter in place with tip projecting at the expected level of the distal superior vena cava. Lungs: No focal consolidation. No evidence of pulmonary edema. Pleura: No pleural effusion or pneumothorax. Heart/Mediastinum: Cardiomediastinal silhouette is within normal limits. Bones/Soft Tissues: No acute findings. XR/XR chest 2V IMPRESSION: Tip of the right catheter projects at the expected location of the distal superior vena cava. Electronically signed by: Lyndsey Russo MD 06/15/2025 05:03 PM EDT
--- OUTSIDE RECORDS SUMMARY | 2025-06-15 11:18 | XMS_ITS | Encounter Summary ---
Author Organization [facility] Address [address] [place] [address] Care Team Providers Care Mixer Operator Tablets Name Role Phone Ref, Has No Pcp Or Primary Care Provider Unavail able Reason for Visit * Reason Comments Vascular Access Problem Encounter Details Date Type Department Care Team (Late st Contact Info) Description 06/15/2025 11:18 AM EDT - 06/15/2025 12:47 PM EDT Emergency [facility] Emergency Department [address] [place], [place] [id number] Guillermo Clifford MD [address] [place] [id number] [address] catheter dysfunction, initial encounter (Primary Dx) Discharge Disposition: Short Term[facility] () Social History Tobacco Use Types Packs/Day Years Used Date Smoking Tobacco: Never Assessed Comments Unknown Sex and Gender Information Value Date Recorded Sex Assigned at Female 06/15/2025 11:05 AM EDT Legal Sex Female 11:03 AM EDT Gender Identity Not on file Sexual Orientation Not on file documented as of this encounter Last Filed Vital Signs Vital Sign Reading Time Taken Comments Blood Pressure 126/89 06/15/2025 11:05 AM EDT Pulse 95 06/15/2025 11:05 AM EDT Temperature 36.4 C (97.6 F) 06/15/2025 11:05 AM EDT Respiratory Rate 18 06/15/2025 11:05 AM EDT Oxygen Saturation 98% 06/15/2025 11:05 AM EDT Inhaled Oxygen Concentration - - Weight 86.2 kg (190 lb) 06/15/2025 11:05 AM EDT Height 160 cm (5' 3 ) 06/15/2025 11:05 AM EDT Body Mass Index 33.66 06/15/2025 11:05 AM EDT documented in this encounter Discharge Instructions * Discharge Instructions* Guillermo Clifford MD - 06/15/2025 12:24 PM EDT Please present directly to the [facility] ER. We have spoken with the PA Della arias. The removal we need to be scheduled through interventional radiology. We offered you transfer via ambulance however he preferred to go by private vehicle. Return to the ED if you have any chest pain difficulty breathing fevers or any other concerns. documented in this encounter ED Notes * Guillermo Clifford MD - 06/15/2025 11:03 AM EDT History HPI: Chief Complaint Patient presents with Vascular Access Problem 44-year-old female history of prior substance abuse [facility]. She reports that the nurse practitioner at this facility tried to remove her Street catheter but was unable to do so. I confirmed with the nurse practitioner at [facility]. Brittanie says that she did not try to remove the catheter and thought it would be better performed at hospital. She tells me that Liss wanted to sign out AGAINST MEDICAL ADVICE though she was scheduled to be discharged yesterday. João confirms that she finished her antibiotics 3 days ago. Liss denies any chest pain difficulty breathing fevers lightheadedness dizziness drainage from the wound or any other concerns. The catheter was placed at [facility] over 1 week ago. Patient History No past medical history on file. No past surgical history on file. No family history on file. Sexuality and Gender Identity Sexuality Legal Information Legal first name: November Legal last name: Devan Legal sex: Female Gender Identity Patient's sex assigned at : Female Organ Inventory Organs the patient currently has: Organs present at or expected at to develop: Organs surgically enhanced or constructed: Organs hormonally enhanced or developed: breasts cervix ovaries uterus vagina penis prostate testes Review of Systems Review of Systems Constitutional: Negative for chills and fever. HENT: Negative for rhinorrhea and sore throat. Eyes: Negative for photophobia and pain. Respiratory: Negative for cough, chest tightness and shortness of breath. Cardiovascular: Negative for chest pain and leg swelling. Gastrointestinal: Negative for abdominal pain, diarrhea and vomiting. Endocrine: Negative for polydipsia, polyphagia and polyuria. Genitourinary: Negative for dysuria and flank pain. Musculoskeletal: Negative for back pain and myalgias. Neurological: Negative for dizziness and headaches. Physical Exam Physical Exam ED Triage Vitals [06/15/25 1105] Temp Heart Rate Resp BP SpO2 36.4 ??C (97.6 ??F) 95 18 126/89 98 % Temp Source Heart Rate Source Patient Position BP Location Set FiO2 (O2%) Tympanic Pulse Oximeter Sitting Left arm -- Physical Exam Vitals and nursing note reviewed. Constitutional: General: She is not in acute distress. Appearance: Normal appearance. Comments: Chronically ill-appearing middle-age woman in acute distress awake alert interactive and nontoxic HENT: Head: Normocephalic and atraumatic. Right Ear: External ear normal. Left Ear: External ear normal. Nose: Nose normal. No congestion or rhinorrhea. Mouth/Throat: Mouth: Mucous membranes are moist. Eyes: Conjunctiva/sclera: Conjunctivae normal. Cardiovascular: Rate and Rhythm: Normal rate and regular rhythm. Heart sounds: Normal heart sounds. No murmur heard. Comments: Right upper chest catheter is clean dry intact no erythema no drainage Pulmonary: Effort: Pulmonary effort is normal. Breath sounds: Normal breath sounds. No wheezing. Abdominal: Palpations: Abdomen is soft. Tenderness: There is no abdominal tenderness. There is no guarding or rebound. Musculoskeletal: General: No swelling. Normal range of motion. Cervical back: Normal range of motion and neck supple. Skin: General: Skin is warm and dry. Neurological: Mental Status: She is alert and oriented to person, place, and time. Gait: Gait normal. Psychiatric: Mood and Affect: Mood normal. Behavior: Behavior normal. Medical Decision Making and ED Course Assessment and Plan: 44-year-old female history of prior substance abuse presents as transfer from [facility]. She reports that the nurse practitioner at this facility tried to remove her Street catheter but was unable to do so. I confirmed with the nurse practitioner at [facility]. Brittanie says that she did not try to remove the catheter and thought it would be betterperformed at hospital. She tells me that Liss wanted to sign out AGAINST MEDICAL ADVICE though shewas scheduled to be discharged yesterday. João confirms that she finished her antibiotics 3 days ago. Liss denies any chest pain difficulty breathing fevers lightheadedness dizziness drainage from the wound or any other concerns. The catheter was placed at [facility] over 1 week ago. Liss confirms that she wants to go directly to [facility]. Initially she eloped prior to my evaluation and has a friend waiting for her to take her directly there. She tells me that she wants to get the catheter removed there because that is where it was placed as well as she has things there that she wishes to retrieve. The Tegaderm was removed. Gentle steady pressure was applied however catheter was not mobile. Dressing was then reapplied. I spoke to our interventional radiologist who does not feel comfortable attempting remove this catheter and recommends transfer to the physicians who placed it. At 12:20 PM I spoke with Della Pablo who accepts for transfer. Ambulance transport was offeredhowever she prefers to go by private vehicle. Strict return precautions were discussed. November Devan : 1980 CSN: [id number] Guillermo Clifford MD 06/15/25 1231 documented in this encounter Miscellaneous Notes * Emergency Department Information Exchange - [facility] - [place] [facility] - 06/15/2025 11:05 AM EDT [facility] NOTIFICATION 06/15/2025 11:03 DEVAN LISS Chemo : 1980 [facility]'s patient encounter information: MRN:?[id number] Account Number:?[id number] Billing Account Number:?[id number] Criteria Met History of Sepsis Dx Security and Safety No Security Events were found. ED Care Guidelines There are currently no ED Care Guidelines for this patient. Please check your facility's medical records system. Flags History of Sepsis - Patient has received a diagnosis of Sepsis from an acute or post-acute setting.Apply appropriate clinical planning practices; to learn more visit cdc.gov/sepsis/clinicaltools / Attributed By: [employer] / Attributed On: 05/26/2025 Prescription Drug Data No Prescription Drug Data was found. E.D. Visit Count (12 mo.) Facility Visits [facility] 2 [facility] 1 [facility] 1 Total 4 Note: Visits indicate total known visits. Recent Emergency Department Visit Summary Date Facility [facility] State Type Diagnoses or Chief Complaint Jun 15, 2025 [facility] Luis [place] Emergency Pic Line Problem Oct 16, 2024 Anna Qiu [place] Emergency Cutaneous abscess of left upper limb Oct 11, 2024 Anna Qiu [place] Emergency Chief Complaint: High blood sugar, abscess Oct 02, 2024 [facility] Singh Sanchez. [facility] Emergency 1. Pain in right foot Recent Inpatient Visit Summary Date Facility [facility] Type Diagnoses or Chief Complaint May 19, 2025 Anna Qiu [place] Medical Surgical Schizophrenia, unspecified Cutaneous abscess of right upper limb Sepsis, unspecified organism Cutaneous abscess of left upper limb Methicillin susceptible Staphylococcus aureus infection as the cause of diseases classified elsewhere Bacteremia Cellulitis, unspecified Other psychoactive substance use, unspecified, uncomplicated Oct 11, 2024 Anna Qiu [place] Medical Surgical Hyperglycemia, unspecified Cutaneous abscess of left upper limb Care Team Provider Specialty Phone Fax Service Dates MARVIN CAMPBELL MD Internal Medicine Current KEN TSE D.O. Internal Medicine Current [facility] This patient has registered at the [facility] Emergency Department For more information visit: [email or web address] PLEASE NOTE: 1. Any care recommendations and other clinical information are provided as guidelines or for historical purposes only, and providers should exercise their own clinical judgment when providing care. 2. You may only use this information for purposes of treatment, payment or health care operations activities, and subject to the limitations of applicable [employer] Policies. 3. You should consult directly with the organization that provided a care guideline or other clinical history with any questions about additional information or accuracy or completeness of information provided. ? 2024 [employer] - www.[employer] documented in this encounter Plan of Treatment Not on file documented as of this encounter Visit Diagnoses Diagnosis Street catheter dysfunction, initial encounter- Primary documented in this encounter Care Teams Mixer Operator Tablets Relationship Specialty Start Date End Date Ref, Has No Pcp Or DO NOT EDIT THIS RECORD VIA PROVIDER ON THE FLY PCP - General Amortization Schedule Clerk 06/15/25 documented as of this encounter
[2025-06-15 15:43] VITALS: BP 132/75; PULSE 126; RESP 20; TEMP 36.5; O2SAT 95; BMI 33.0
--- NOTE | 2025-06-15 16:07 | ED_ITS ---
HPI - General Adult General Chief complaint: General Medical Stated complaint: removal of port Time Seen by Provider: 06/15/25 16:05 Source: patient and EMS Mode of arrival: EMS Limitations: no limitations History of Present Illness ED Provider: Tatiana Ortiz PA-C HPI narrative: Patient is a 44 year old assigned female at with a history of anxiety, bipolar disorder, DM, and bacteremia secondary to gram-positive bacteria for which she had a Rondon line placed in the right chest for continued IV ABX presenting to the emergency department today requesting removal of the Rondon l ine. Patient states that the rehab she was in attempted to remove it, failed. States that she went to [facility] ED where they attempted to removed it and failed. Patient states that she has come here to have it removed since it was placed here. Patient states that she has completed her ABX course and it is ready to come out. Patient denies any other complaints at this time. Related Data Home Medications ?Medication ?Instructions ?Recorded ?Confirmed albuterol sulfate 90 mcg/actuation 1 puff inhalation T ID PRN Wheezing 02/22/24 0 05/19/25 aerosol inhaler tizanidine 4 mg tablet 4 mg PO TID PRN Back Pain 05/19/25 fluticasone furoate 100 1 ea inhalation DAILY 05/19/25 mcg-vilanterol 25 mcg/dose inhalation powder (Breo Ellipta) aripiprazole 20 mg tablet 20 mg PO DAILY 05/19/2505/01 atorvastatin 40 mg tablet 40 mg PO DAILY 05/19/2505/01 gabapentin 300 mg capsule 300 mg PO BID 05/19/2505/19 methadone 10 mg/mL oral 13 mg PO DAILY 05/19/2505/02 concentrate (Methadone Intensol) oxcarbazepine 150 mg tablet 150 mg PO BID 05/19/25 Previous Rx's ?Medication ?Instructions ?Recorded cefazolin 1 gram solution for 2 g IV Q8H #69 ea injection clonazepam 1 mg tablet 1 mg PO BID PRN Anxiety #14 tabs 05/30/25 insulin glargine 100 unit/mL (3 45 unit (0.45 mL) subc ut BEDTIME 05/30/25 mL) subcutaneous pen (Lantus #15 mL Solostar U-100 Insulin) insulin glargine 100 unit/mL 20 unit (0.2 mL) subcut D AILY #10 05/30/25 subcutaneous solution (Lantus mL U-100 Insulin) insulin lispro 100 unit/mL See Protocol subcut QIDACHS #10 mL 05/30/25 subcutaneous solution (Admelog U-100 Insulin lispro) ibuprofen 400 mg tablet 400 mg PO Q6H PRN Pain, Jayla re 05/31/25 (Pain Scale 7-10) #20 tabs Allergies Allergy/AdvReac Type Severity Reaction Status Date / Time divalproex sodium (From Allergy Severe ANAPHYLAXIS Verified 06/15/25 15:43 Depakote) hydrocodone (HYDROCODONE) Allergy Severe HIVES Verified 06/15/25 15:43 tramadol Allergy Unknown rash Verified 06/15/25 15:43 acetaminophen (From Vicodin) Allergy Anaphylaxis Verified 06/15/25 15:43 From Ultram Allergy Intermediate ITCHING Uncoded 05/19/25 15:06 PEANUT BUTTER Allergy Unknown ANAPHYLAXIS Uncoded 05/19/25 15:06 Review of Systems Constitutional: Constitutional: Reports as per HPI Eyes: Eyes: Reports as per HPI ENT: Reports as per HPI Cardiovascular: Cardiovascular: Reports as per HPI Respiratory: Respiratory: Reports as per HPI Gastrointestinal: Gastrointestinal: Reports as per HPI Genitourinary: Genitourinary: Reports as per HPI Musculoskeletal: Musculoskeletal: Reports as per HPI Integumentary/Breasts: Skin/Breast: Reports as per HPI Neurologic: Reports as per HPI Psychiatric: Psychiatric: Reports as per HPI Endocrine: Endocrine: Reports as per HPI Hematologic/Lymphatic: Hematologic/Lymphatic: Reports as per HPI Allergic/Immunologic: Allergic/Immunologic: Reports as per HPI PMF Past Medical History Attestation statement: The following information was validated with the patient. Source: old records reviewed and nursing notes reviewed Medical History IVDU (intravenous drug user) MSSA bacteremia Sepsis Obesity Anxiety Bipolar 1 disorder with moderate morenita Schizophrenia Paranoia Asthma Hyperlipidemia Type 2 diabetes mellitus Surgical History Hx of section Social History Social History Household Members: None Housing: House Are you a primary career services assistant to a significant other at home: No Do you presently have visiting nurse or other home services: No Alcohol intake: former Comment: patient refusing bed alarm Patient Tobacco Use Status: Former Tobacco user Smoked in Last 30 Days: No e-Cigarette/Vaping Use: Currently Using Use of substances other than those prescribed or required for medical reasons: No Substance Use Type: Crack/Cocaine and Marijuana Advance Directives: No Advance Directives Information Provided: Yes Do you have a plan to hurt others: No Plan Patient : No service: No Sexual orientation: Straight/Heterosexual Physical Exam ED Vital Signs: Vital Signs - 24 hr 06/15/25 15:43 Temperature 97.7 F Pulse Rate 126 H Respiratory Rate 20 Blood Pressure 132/75 Pulse Oximetry 95 Oxygen Delivery Method Room Air BMI result Body Mass Index 33.0 Const General: cooperative, no acute distress, alert and awake Nutritional Appearance: well nourished Orientation/consciousness: patient oriented x3 HENMT Head: Yes normal to inspection and Yes atraumatic Ears: hearing grossly normal bilaterally and external ears normal General nose exam: Normal external nose present, no nasal discharge noted and no epistaxis Face and sinus: Yes normal facial exam, No abrasion and No laceration Mouth: Normal oral and palatal mucosa present, no drooling and no muffled voice Eyes General: appearance normal, both eyes and all related structures Periorbital: periorbital findings normal Eyelids: Yes eyelids normal Conjunctivae: conjunctivae normal Pupils: Equal, round and reactive pupils present EOM: EOMs intact bilaterally Neck Neck: Yes normal visual inspection and Yes full ROM Chest Other: Rondon catheter in place to the right superior chest - no evidence of surrounding erythema or discharge from the site Resp Effort & Inspection: normal respiratory effort and able to speak in complete sentences Neuro General: patient oriented x3, moves all extremities and CN's II-XI intact bilaterally Cranial nerves: Yes Equal, round and reactive pupils present Cognition (Neuro): normal cognition Extrem General: Yes normal to inspection, Yes full ROM and Yes capillary refill normal Psych Appearance: grossly normal Mental Status: mental status grossly normal Affect: normal affect Attitude: cooperative Thought process: Normal thought process present Thought content: Normal thought content present Insight: Good insight present (Psych) Medical Decision Making Medical Decision Making MDM Narrative: Patient is a 44 year old assigned female at with a history of anxiety, bipolar disorder, DM, and bacteremia secondary to gram-positive bacteria for which she had a Rondon line placed in the right chest for continued IV ABX presenting to the emergency department today requesting removal of the Rondon line. Patient's physical exam was as noted in the physical exam portion of this note and showed a rondon device appropriately installed in her right chest. Patient's chest x-ray showed an appropriately settled catheter. Patient had the line placed here at [facility] by Dr. George on 05/30/2025. I spoke with the IR team, specifically EVERARDO Lopez, who came down and removed the line at the bedside - without incident. Patient tolerated the procedure well. I explained my physical exam findings as well as all test results to the patient. I answered all questions asked by the patient. I stressed the importance of the patient taking her medication as directed (either prescribed or as the over the counter packaging recommends). I stressed the importance of the patient following up with her primary care provider. I stressed the importance of the patient returning to the emergency department immediately if her symptoms were to worsen or if she were to develop any dizziness, shortness of breath, difficulty breathing, chest pain, blurry vision, loss of vision, nausea, vomiting, abdominal pain, fever, chills, back pain, or any other complaints. Patient verbalized agreement and understanding with this treatment plan and discharge. Differential Diagnosis Differential Diagnoses: The differential diagnosis associated with the presentation includes Rondon removal Admission/Observation Consideration of admission/observation: Escalation of care including admission/observation considered Patient would have been admitted to the hospital had her work up had any findings where hospital admission was appropriate and her clinical presentation warranted hospital admission. Independent Interpretation I performed an independent interpretation of an: Plain X-Ray Interpretation: My interpretation is in agreement with the radiologist's impression of this imaging study. Reason for Exam: catheter evaluation EXAMINATION: XR CHEST CLINICAL INFORMATION: catheter evaluation COMPARISON: None available. TECHNIQUE: 2 views of the chest were obtained. FINDINGS: Devices/Tubes/Lines: Right catheter in place with tip projecting at the expected level of the distal superior vena cava. Lungs: No focal consolidation. No evidence of pulmonary edema. Pleura: No pleural effusion or pneumothorax. Heart/Mediastinum: Cardiomediastinal silhouette is within normal limits. Bones/Soft Tissues: No acute findings. XR/XR chest 2V IMPRESSION: Tip of the right catheter projects at the expected location of the distal superior vena cava. Electronically signed by: Lyndsey Russo MD 06/15/2025 05:03 PM EDT RP Dictated By: Lyndsey Russo MD Signed By: Electronically signed by Lyndsey Russo MD 06/15/25 3898 Radiology Impression Discussion of test interpretation with radiology: I have reviewed the radiologist's reading. Discharge Plan Discharge Clinical Impression: PIC line (peripherally inserted central catheter) removal Patient Disposition: Home, Self-Care Instructions: Removal of a Central Line, PICC, or Midline Catheter (ED) Additional Instructions: Your line was removed without incident. IF you are prescribed home medications and/or you are taking over the counter medications at home - it is very important you continue to do so as prescribed / directed unless told otherwise. Follow up with a primary care provider. Return to the emergency department immediately if your symptoms worsen or if you develop any numbness, tingling, dizziness, shortness of breath, difficulty breathing, chest pain, blurry vision, loss of vision, nausea, vomiting, abdominal pain, fever, chills, back pain, or any other complaints. If you do not have a primary care provider - call any of the below numbers to establish and follow up with a primary care provider. [facility] Primary Care ([place]) [phone] [place] [address], [address] [facility] Primary Care ([address] [place] [address]) [phone], [address] [place], [address] [facility] Primary Care ([address] [facility]) [phone] [place] [address], [address] [place], [address] [facility] Primary Care ([place]) [phone] [place] [address], [address] [place], [address] [facility] Family Medicine [phone] [place] [address], [address] Please see the information below about our Patient Portal. If you are not yet enrolled in the [facility] Patient Portal, you will receive an enrollment email invitation following your visit to any [facility] setting. You may also self-enroll in the Patient Portal by visiting our website: [email or web address] The following information is required to access the Patient Portal: - Your [facility] Medical Record Number - Your personal home email address (must match what is in your electronic medical record, Registration staff can assist with this) - Name - Date of Capabilities of the Patient Portal: - Message some providers - View upcoming appointments - Access your health summary, medical history, and visit history - View current conditions and allergies - View procedure and lab results - View your medications, including guidelines, side effects, and precautions - Complete pre-appointment questionnaires requested by your provider - Ready summary reports of your office visits and procedures To access the Patient Portal Mobile [employer], follow these directions: - Search [employer] in the [employer] Store or Google BetterWorks Store - Download the [employer] - Search for [facility] - Enter your login/password Prescriptions: No Action fluticasone furoate-vilanterol [Breo Ellipta] 100-25 mcg/dose blister with device 1 ea inhalation DAILY methadone [Methadone Intensol] 10 mg/mL Concentrate 13 mg PO DAILY oxcarbazepine 150 mg Tablet 150 mg PO BID atorvastatin 40 mg Tablet 40 mg PO DAILY aripiprazole 20 mg Tablet 20 mg PO DAILY gabapentin 300 mg capsule 300 mg PO BID insulin glargine [Lantus U-100 Insulin] 100 unit/mL Solution 20 unit subcut DAILY Qty: 10 0RF insulin lispro [Admelog U-100 Insulin lispro] 100 unit/mL Solution See Protocol subcut QIDACHS Qty: 10 0RF Protocol: Insulin Correction Scale Less than or equal to 110 ---- Give (units): 0 111 to 150 Give (units): 0 151 to 200 Give (units): 2 201 to 250 Give (units): 4 251 to 300 Give (units): 6 301 to 350 Give (units): 8 Greater than 350 Give (units): 10 Call MD if Blood Glucose > : 350 Rx Instructions: BG <111 0 units, 111-150 - 0 units, 151-200 2 units, 201-250 4 units, 251-300 6 units, 301-350 8 units, >350 10 units cefazolin 1 gram recon soln 2 g IV Q8H Qty: 69 0RF clonazepam 1 mg Tablet 1 mg PO BID PRN (Reason: Anxiety) Qty: 14 0RF insulin glargine [Lantus Solostar U-100 Insulin] 100 unit/mL (3 mL) insulin pen 45 unit SUBCUT BEDTIME Qty: 15 0RF ibuprofen 400 mg Tablet 400 mg PO Q6H PRN (Reason: Pain, Severe (Pain Scale 7-10)) Qty: 20 0RF tizanidine 4 mg tablet 4 mg PO TID PRN (Reason: Back Pain) albuterol sulfate 90 mcg/actuation HFA aerosol inhaler 1 puff inhalation TID PRN (Reason: Wheezing) Print Language: Bulgarian
[2025-06-15 18:00] VITALS: BP 130/82; PULSE 86; RESP 18; TEMP 36.7; O2SAT 99
[2025-06-15] MEDS: Lidocaine HCl 1 % MPF 5 ML VIAL 15 ML SUBCUT (18:17)
[2025-06-15 18:24] VITALS: BP 130/82; PULSE 86; RESP 18; TEMP 36.7; O2SAT 99
--- OUTSIDE RECORDS SUMMARY | 2025-06-15 19:34 | XMS_ITS | Clinical Summary ---
Author Organization [facility] Address [address] [place] [phone] Phone Care Team Providers Care Cigarette Lighter Repairer Name Role Phone Brent Vides DO Primary Care Provider [phone] Allergies Active Allergy Reactions Criticality Noted Date [...] VACCINE (#1) 2025 COVID-19 VACCINE ( - 2024-2 6 season) 2025 HEPATITIS A VACCINES Aged Out [...] Devices Not on file Insurance [id number] Care Teams Cigarette Lighter Repairer Relationship Specialty Start Date End Date Brent Vides DO [address] [place] [id number] PCP - General Internal Medicine 01/21/24 Additional Source Comments The information contained in this document represents components of the legal health record. It is not the complete legal health record.[facility]
--- OUTSIDE RECORDS SUMMARY | 2025-06-15 19:34 | XMS_ITS ---
Author Organization [facility] Care Team Providers Care Traffic Maintenance Supervisor Name Role Phone Ladi Yang Unavailable Unavailable Samantha Lynne Unavailable Unavailable Allergies and adverse reactions Code CodeSystem Substance Reaction Severity StartDate Concern Status 309478562 SNOMED CT Depakote Anaphylaxis (code- 86789387, SNOMED CT) Moderate 05/31/2025 active 5489 RXNORM HYDROcodone Urticaria (code - 382745842, SNOMED CT) Moderate 05/31/[address] Peanut Butter Anaphylaxis (code- 19750443, SNOMED CT) Moderate 05/31/2025 active 59805 RXNORM traMADol Eruption (code- 879415310, SNOMED CT) Moderate 05/31/2025 active Care Team Name Role Address Phone Organization Dates Ladi Yang PCP [address], [address], [facility] (Office): [facility] 05/31/2025 - 06/15/2025 Samantha Lynne [address] [facility], [place], [address], [facility] (Office): [facility] 05/31/2025 - 06/15/2025 Imaging Narrative Note Date Imaging Narrative No te 06/03/2025 XRAY CHEST 2 VIEWSee NoteFINDINGS: Frontal and lateral views are submitted. The lungs are without infiltrate, atelectasis or effusion. There is no pneumothorax. There is no pulmonary vascular congestion or edema. The heart size is normal. The mediastinal contours are within normal limits. The remaining osseous structures and soft tissues are without acute abnormality. The right central line tip is in the superior vena cava.CONCLUSION: No acute cardiopulmonary disease.ELECTRONICALLY SIGNED BY KERWIN TOMLIN M.D. 06/03/2025 10:54:08 AM EDT.Reason for Study: Z45.1 ENCOUNTER FOR ADJUSTMENT AND MANAGEMENT OF INFUSION PUMPPrincipal Result Pan Washer Hand: KERWIN TOMLIN ([id number])Senior Risk Manager: SANDRO SETH ([facility])Casino Floor Walker Senior Risk Manager: TO [place] Encounter Type Code Code System Description Performer Discharge Disposition Service Delivery Location Date Ambulatory Encounter CPT Code = [id number] Morbid obesity [facility] Address: [address] [place] [address], [address] [place] [address]. 05/31 Ambulatory Encounter CPT Code = [id number] Generalized anxiety disorder [facility] Address: [address] [place] [address], [address] [place] [address]. 05/31 Ambulatory Encounter CPT Code = [id number] Bipolar I disorder, most recent episode hypomanic [facility] Address: [address] [place] [address], [address] [place] [address]. 05/31 Ambulatory Encounter CPT Code = [id number] Sepsis caused by methicillin resistant Staphylococcus aureus [facility] Address: [address] [place] [address], [address] [place] [address]. 05/31 Ambulatory Encounter CPT Code = [id number] Mild intermittent asthma [facility] Address: [address] [place] [address], [address] [place] [address]. 05/31 Ambulatory Encounter CPT Code = [id number] Type 2 diabetes mellitus without complication [facility] Address: [address] [place] [address], [address] [place] [address]. 05/31 Ambulatory Encounter CPT Code = [id number] Hyperlipidemia Amandaarnie Laughlin [facility] Address: [address] [place] [address], [address] [place] [address]. 05/31 Ambulatory Encounter CPT Code = [id number] Abscess of upper limb Amandaarnie Laughlin [facility] Address: [address] [place] [address], [address] [place] [address]. 05/31 Ambulatory Encounter CPT Code = [id number] Disorganized schizophrenia [facility] Address: [address] [place] [address], [address] [place] [address]. 05/31 Ambulatory Encounter CPT Code = [id number] [facility] Address: [address] [place] [address], [address] [place] [address]. 05/31 Ambulatory Encounter CPT Code = [id number] Chronic pain due to injury Amandaarnie Laughlin [facility] Address: [address] [place] [address], [address] [place] [address]. 05/31 Ambulatory Encounter CPT Code = [id number] Opioid-induced organic mental disorder Amandaarnie Laughlin [facility] Address: [address] [place] [address], [address] [place] [address]. 05/31 Goals Section Goals Description Status Target Date Liss will consume adequate energy to maintain weight at 191 lbs +/- 6 lbs through next review date Active 08/31/2025 Liss will consume an averag e of 75% food/beverage at meals through next review date Active 08/31/2025 Liss will maintain hydratio n status as evidenced by no signs or symptoms of dehydration through next review date Active 08/31 Liss will not have signs or symptoms of high or low blood sugar through next review date Active 08/31/2025 Assessment of Needs Active 08/31/2025 CPR will be initiated in acc ordance with facility policies and procedures. Active 08/31/2025 No drug/alcohol use while re siding in the facility Active 08/31/2025 No inappropriate, disruptive or abusive behaviors directed at staff, family or other residents through review date: Active 08/31/2025 Participation in activities of Interest Active 08/31/2025 Prevent overdose Active 08/31/2025 Remains free of complication s of diabetes and /or s/s of hyper/hypoglycemia x___90__days. Active 08/31/2025 Res will be discharged to ap propriate setting with appropriate services when able. Active 08/31/2025 Resident will be able to coper hand e with issues that trigger anxiety until next review Active 08/31/2025 Resident will be free from s igns and symptoms of adverse effects of psychotropic drug use through next review date Active 08/2025 Resident will be free of adv erse effects of medication until next review Active 08/31/2025 Resident will develop positive relationship with other Active 08/31/2025 Resident will follow simple instruction until next review. Active 08/31/2025 Resident will have a soft, formed BM every 1-3 d ays Active 08/31/2025 Resident will have improved skin integrity as evident by signs and symptoms of healing. Active 08/31/2025 Resident will have no s/s of acute resp distress unrelieved by medications as ordered x 90_ days Active 08/31/2025 Resident will not sustain a fall related injury by utilizing fall precautions through next review date. Active 08/31/2025 Resident will pace activitie s to prevent episodes of dyspnea and fatigue x 90_ days Active 08/31/2025 Resident will remain free fr om adverse reactions to medication x___90 days Active 08/31/2025 Resident will remain oriente d to person, place and time until next review. Active 08/31/2025 Should remain free of inf at IV site x___90____ days Active 08/31/2025 Will be free from signs and symptoms of active infection in _90_ days Active 08/31/2025 Will discuss feelings of sad ness, loss, or frustration with staff or family Active 08/31/2025 Will exhibit acceptable beha vior as evidenced by no drugs/alcohol hidden in room or brought to resident by visitors Active 08/31/2025 Will exhibit decreased sympt oms of depression/anxiety as evidenced by engaging in conversation with others daily Active 08/31/19 26 Wound will be free of infection. Active 08/31/2025 Immunizations Immunization Status Vaccine Details Vaccine Code CodeSystem Date Notes Tdap (Tetanus/ Diptheria) completed created date: 06/08/2025 administer ed date: 02/25/2022 SARS-COV-2 (COVID-19) completed Step 2 of Multi-step created date: 06/08/2025 SARS-COV-2 (COVID-19) completed Step 2 of Multi-step created date: 06/08/2025 SARS-COV-2 (COVID-19) completed Step 2 of Multi-step created date: 06/08/2025 SARS-COV-2 (COVID-19) completed Step 1 of Multi-step with next step required created date: 06/08/2025 administer ed date: 08/25/2021 SARS-COV-2 (COVID-19) completed Step 1 of Multi-step with next step required created date: 06/08/2025 administer ed date: 01/25/2021 SARS-COV-2 (COVID-19) completed Step 1 of Multi-step with next step required created date: 06/08/2025 administer ed date: 01/04/2021 Hepatitis A - Adult dose completed hepatitis A vaccine, adult dosage 52 CVX created date: 06/08/2025 administer ed date: 06/03/2019 Hepatitis A - Adult dose completed hepatitis A vaccine, adult dosage 52 CVX created date: 06/08/2025 administer ed date: 11/30/2018 TST-PPD intradermal completed tuberculin skin test; purified protein derivative solution, intradermal Given 0.1 ml intradermally 96 CVX created date: 06/01/2025 consent date: 06/01/2025 administer ed date: 06/01/2025 Educated by on 06/01/2025 PENDING RESULTS Medications Section Medication Name Status Code CodeSystem Dose Route Frequency Admin Type Sig Text Start Date End Date Indication Insulin Glargine Subcutaneou s Solution 100 UNIT/ML active 18861 1 RXNORM 45 unit Subcut aneous at bedtime Routin e Injec t 45 unit subcu taneo usly at bedti me relat ed to TYPE 2 DIABE NITESH CONTRERAS WITHO UT COMPL ICATI ONS (E11. 9) 2024 - - Methadose Oral Concentrate 10 MG/ML active 51465 9 RXNORM 1.3 ml Oral in the morning Routin e Give 1.3 ml by mouth in the [facility] relat ed to OPIOI D USE, UNSPE CIFIE D, UNCOM PLICA DONNA (F11. 90) Give 1.3 ML for total dose = 13 mg by mouth daily . 2024 - - Ibuprofen Oral Tablet 400 MG active 5 RXNORM 1 table t Oral as needed PRN Give 1 table t by mouth every 6 hours as neede d for Pain 2024 - Pain Atorvastati n Calcium Oral Tablet 40 MG active 12535 1 RXNORM 1 table t Oral at bedtime Routin e Give 1 table t by mouth at bedti nd relat ed to HYPER LIPID EMIA, UNSPE CIFIE D (E78. 5) 2024 - - Insulin Glargine Subcutaneou s Solution 100 UNIT/ML active 08549 1 RXNORM 20 unit Subcut aneous in the morning Routin e Injec t 20 unit subcu taneo usly in the [facility] relat ed to TYPE 2 DIABE NITESH CONTRERAS WITHO UT COMPL ICATI ONS (E11. 9) 2024 - - Insulin Lispro Injection Solution 100 UNIT/ML active 22877 0 RXNORM n/a n/a Subcut aneous before meals and at bedtime Routin e Injec t as per slidi ng scale : if 70 - 150 = 0 No insul in; 151 - 200 = 2 Give 2 units ; 201 - 250 = 4 Give 4 units ; 251 - 300 = 6 Give 6 units ; 301 - 350 = 8 Give 8 units ; 351 - 999 = 10 Give 10 units and notif y , subcu taneo usly befor e meals and at bedti nd relat ed to TYPE 2 DIABE NITESH CONTRERAS WITHO UT COMPL ICATI ONS (E11. 9) 2024 - - Acetaminoph en Suppository 650 MG active 3 RXNORM 1 suppo sitor y Rectal as needed PRN Inser t 1 suppo sitor y recta lly every 6 hours as neede d for Gener al Disco mfort , Temp Temp of 101 or Above * Max 3G per 24 Hours 2024 - General Discomfort, Temp Acetaminoph en Tablet 325 MG active 83119 2 RXNORM 2 table t Oral as needed PRN Give 2 table t by mouth every 6 hours as neede d for Pain - give 650mg total dose - N OT TO EXCEE D 3 GMS APAP / 24 HOURS AND Give 2 table t by mouth every 6 hours as neede d for [place] ratur e - give 650mg total dose - N OT TO EXCEE D 3 GMS APAP / 24 HOURS 2024 - Pain 92466 2 RXNORM 2 table t Oral as needed PRN Give 2 table t by mouth every 6 hours as neede d for Pain - give 650mg total dose - N OT TO EXCEE D 3 GMS APAP / 24 HOURS AND Give 2 table t by mouth every 6 hours as neede d for [place] ratur e - give 650mg total dose - N OT TO EXCEE D 3 GMS APAP / 24 HOURS 2024 - Elevated Temperature Naloxone HCl Liquid 4 MG/0.1ML active 41744 59 RXNORM 1 appli catio n in nostri l as needed PRN 1 appli catio n in nostr il as neede d for Opioi d Induc ed Respi rator y Depre ssion If resp. rate less than 6 per min and opioi d depre ssion suspe cted, rever se w/[place] can A dmini ster 4mg/0 .1ml Nalox one/N arcan intra nasal ly in 1 nostr il W ait 3 minut es. If no respo nse or slow to respo nd, repea t 4mg/0 .1ml in other nostr il C all 911 2024 - Opioid Induced Respiratory Depression Gabapentin Oral Capsule 300 MG active 75059 1 RXNORM 1 capsu le Oral two times a day Routin e Give 1 capsu le by mouth two times a day relat ed to CHRON IC PAIN DUE TO TRAUM A (G89. 21) 2024 - - Cefepime HCl Intravenous Solution 2 GM/100ML aborted 08046 88 RXNORM 2 gram Intrav enous every 8 hours Routin e Use 2 gram intra venou sly every 8 hours relat ed to SEPSI S DUE TO METHI CILLI N RESIS TANT STAPH YLOCO CCUS AUREU S (A41. 02) for 23 Days 05/31 - Albuterol Sulfate HFA Inhalation Aerosol Solution 108 (90 Base) MCG/ACT active 99385 2 RXNORM 2 puff Inhala tion as needed PRN 2 puff inhal e orall y every 8 hours as neede d for Short ness of Breat h 2024 - Shortness of Breath ceFAZolin Sodium Intravenous Solution Prefilled Syringe 2 GM/10ML aborted 2 gram Intrav enous every 8 hours Routin e Use 2 gram intra venou sly every 8 hours relat ed to SEPSI S DUE TO METHI CILLI N RESIS TANT STAPH YLOCO CCUS AUREU S (A41. 02) for 23 Days 06/13 - ARIPiprazol e Oral Tablet 20 MG active 90207 3 RXNORM 1 table t Oral in the morning Routin e Give 1 table t by mouth in the morni ng relat ed to BIPOL AR DISOR OLIVIA, CURRE NT EPISO DE HYPOM ANIC (F31. 0) 2024 - - OXcarbazepi ne Oral Tablet 150 MG active 87792 6 RXNORM 1 table t Oral two times a day Routin e Give 1 table t by mouth two times a day relat ed to BIPOL AR DISOR OLIVIA, CURRE NT EPISO DE HYPOM ANIC (F31. 0) 2024 - - Tubersol Intradermal Solution aborted 0.1 ml Intrad ermal every day shift Routin e Injec t 0.1 ml intra derma lly every day shift for Scree shayy for 1 Day (Step 1- GIVE) TST/P PD (a) Injec t 0.1ml intra derma l D ocume nt in immun tab of resid ent chart . 06/01 Screening Tubersol Intradermal Solution aborted 0.1 ml Intrad ermal every day shift Routin e Injec t 0.1 ml intra derma lly every day shift for Scree shayy for 1 Day (TB STEP 2)TST /PPD (c) Injec t 0.1ml intra derma l 7 days post step 1 S chedu le start date 7 days after resul t read from step 1 Docum ent in immun tab of resid ent chart . 06/01 Screening Milk of Magnesia Suspension 400 MG/5ML active 63998 7 RXNORM 30 ml Oral as needed PRN Give 30 ml by mouth as neede d for Const ipati on; Use 1st - Give 30 mL by mouth as neede d for const ipati on 2024 - Constipatio n; Bisacodyl Suppository 10 MG active 9 RXNORM 1 suppo sitor y Rectal as needed PRN Inser t 1 suppo sitor y recta lly as neede d for Const ipati on Step 2-Ins ert 1 supp. recta lly once daily if milk of magne serene is ineff ectiv e 2024 - Constipatio n Fleet Enema Enema 7-19 GM/118ML active 60002 5 RXNORM 1 appli catio n Rectal as needed PRN Inser t 1 appli catio n recta lly as neede d for Const ipati on Admin ister if Bisac odyl ineff ectiv e. [facility] FLEET ENEMA IS INEFF ECTIV E 2024 - Constipatio n Insta-Gluco se Oral Gel 77.4 % active 41672 22 RXNORM 24 gram Oral as needed PRN Give 24 gram by mouth as neede d for Blood Sugar <60 mg/dl and abril rgic but arous able Reche ck blood sugar every 15 minut es until blood sugar is great er than 70 - Notif y MD for blood sugar less than 60. 2024 - Blood Sugar <60 mg/dl and lethargic but arousable Glucagon Emergency Injection Kit 1 MG active 1 mg Intram uscula r as needed PRN Injec t 1 mg intra muscu larly as neede d for Blood Sugar < 60 mg/dl , sympt omati c, and unres ponsi ve Prepa re Gluca phil per manuf actur er's guide lines , inclu ding disso lving in dilue nt as necnatasha gifford, prior to admin istra tion. Reche ck blood sugar every 15 minut es until blood sugar is great er than 70 - Notif y MD for blood sugar less than 60. 2024 - Blood Sugar < 60 mg/dl, symptomatic , and unresponsiv e tiZANidine HCl Oral Tablet 4 MG active 02854 3 RXNORM 1 table t Oral as needed PRN Give 1 table t by mouth every 8 hours as neede d for muscl e spasm s 2024 - muscle spasms clonazePAM Oral Tablet 1 MG active 93764 8 RXNORM 1 table t Oral as needed PRN Give 1 table t by mouth every 12 hours as neede d for Anxie ty 2024 - Anxiety Fluticasone Furoate-Tiburcio anterol Inhalation Aerosol Powder Breath Activated 100-25 MCG/ACT active 54162 99 RXNORM 1 inhal ation Inhala tion in the morning Routin e 1 inhal ation inhal e orall y in the [facility] relat ed to MILD INTER MITTE NT ASTHM A, UNCOM PLICA DONNA (J45. 20) 2024 - - Tubersol Intradermal Solution complet ed 0.1 ml Intrad ermal every day shift Routin e Injec t 0.1 ml intra derma lly every day shift for Scree shayy for 1 Day (Step 1- GIVE) TST/P PD (a) Injec t 0.1ml intra derma l D ocume nt in immun tab of resid ent chart . 06/02 Screening Senna Oral Tablet 8.6 MG active 2 table t Oral one time a day Routin e Give 2 table t by mouth one time a day for const ipati on 2024 - constipatio n Polyethylen e Glycol Powder active 17 gram Oral one time a day Routin e Give 17 gram by mouth one time a day for const ipati on 2024 - constipatio n Insurance Providers Plan of Treatment Section Lab Tests Test Code Code System Name Date 06/12/2025 Interventions Intervention Code Code System Display Name Proposed D ate Problems Problem # Description Date of onset Resolved Date Code CodeSystem Concern Status 1 BIPOLAR DISORDER, CURRENT EPISODE HYPOMANIC 05/31/[address] active 2 CHRONIC PAIN DUE TO TRAUMA 05/31/[address] active 3 CUTANEOUS ABSCESS OF RIGHT UPPER LIMB 05/31/[address] active 4 DISORGANIZED SCHIZOPHRENIA 05/31/[address] active 5 GENERALIZED ANXIETY DISORDER 05/31/[address] active 6 HYPERLIPIDEMIA, UNSPECIFIED 05/31/[address] active 7 MILD INTERMITTENT ASTHMA, UNCOMPLICATED 05/31/[address] active 8 MORBID (SEVERE) OBESITY DUE TO EXCESS CALORIES 05/31/[address] active 9 OPIOID USE, UNSPECIFIED, UNCOMPLICATED 05/31/[address] active 10 PARANOID SCHIZOPHRENIA 05/31/[address] active 11 SEPSIS DUE TO METHICILLIN RESISTANT STAPHYLOCOCCUS AUREUS 05/31/[address] active 12 TYPE 2 DIABETES MELLITUS WITHOUT COMPLICATIONS 05/31/[address] active Reason for Referral No Reasons for Referral Entered Diagnostic Results Laboratory Test Results Code Code System Date Test Observation Result Interpretation Reference Range Status Notes LP783 9-6 LOINC 06/09 Lipid Panel / Folate (Folic Acid) / TSH (3rd Generat ion) / Vitamin B12 / T4, Free / Vitamin D 25 Hydroxy Complete d Result for: COOKIE November ( [birth year] 83, F) 123-9 9999- 9 LOINC 06/09 FOLA1 Value: 6.9 Units: ng/mL Normal >5.8 Final 29775 -8 LOINC 06/09 TSH Value: 2.76 Units: u[IU]/m L Normal 0.34 - 5.60 Final 123-9 9999- 9 LOINC 06/09 B12B Value: 380 Units: pg/mL Normal 180 - 914 Final 3024- 7 LOINC 06/09 FT4 Value: 0.62 Units: ng/dL Low 0.74 - 1.50 Final LP783 9-6 LOINC 06/09 Lipid Panel Complete d Result for: SEVENLarisa November ( [birth year] 83, F) 123-9 9999- 9 LOINC 06/[address] Value: 144 Units: mg/dL Normal 100 - 200 Final 2571- 8 LOINC 06/09 TRIGLYCERIDE Value: 77 Units: mg/dL Normal 0 - 200 Final 2085- 9 LOINC 06/[address] Value: 73 Units: mg/dL Normal 35 - 97 Final 123-9 9999- 9 LOINC 06/09 LDL, CALCULATED Value: 56 Units: mg/dL Normal 0 - 100 Final Result derived from Omi Morrison ce: https:/ /[facility].nlm. nih.gov /articl es/PMC2 327544/ 123-9 9999- 9 LOINC 06/09 CHOL/HDL RISK FACTOR CT - Normal 0.0 - 4.4 Final LP783 9-6 LOINC 06/09 Vitamin D 25 Hydroxy Complete d Result for: ROBINNovember ( [birth year] 83, F) 123-9 9999- 9 LOINC 06/09 V25OH Value: 13 Units: ng/ml Low 30 - 100 Final 123-9 9999- 9 LOINC 06/09 Vitamin D 25 Hydroxy - Normal Final LP783 9-6 LOINC 06/10 Hemoglo bin A1C / Complet e Blood Count (CBC) Without Differe ntial / Compreh ensive Metabol ic Panel (CMP) Complete d Result for: ROBINNovember ( [birth year] 83, F) 123-9 9999- 9 LOINC 06/09 A1C Value: 10.7 Units: % High 4.8 - 5.6 Final Results repeate d LP783 9-6 LOINC 06/10 Complet e Blood Count (CBC) Without Differe ntial Complete d Result for: SEVENNovember ( [birth year] 83, F) 123-9 9999- 9 LOINC 06/09 WBC Value: 8.1 Units: K/uL Normal 4.8 - 10.8 Final 789-8 LOINC 06/09 RBC Value: 4.73 Units: M/uL Normal 4.00 - 5.10 Final 718-7 LOINC 06/09 HGB Value: 12.8 Units: g/dL Normal 12.1 - 15.7 Final 4544- 3 LOINC 06/09 HCT Value: 37.7 Units: % Normal 35.0 - 45.0 Final 787-2 [facility] 06/09 MCV Value: 79.8 Units: fL Normal 78.0 - 102.0 Final 785-6 [facility] 06/09 MCH Value: 27.0 Units: pg Normal 26.0 - 34.0 Final 786-4 [facility] 06/09 MCHC Value: 33.8 Units: g/dL Normal 30.0 - 37.0 Final 123-9 9999- 9 [facility] 06/09 RDW-SD Value: 42.4 Units: fL Normal 37.0 - 51.0 Final 123-9 9 [facility] 06/09 RDW-CV Value: 14.9 Units: % Normal 11.0 - 16.0 Final 777-3 [facility] 06/09 PLATELET COUNT Value: 343.0 Units: K/uL Normal 150.0 - 400.0 Final 123-9 9999- 9 [facility] 06/09 MPV Value: 9.1 Units: fL Normal 7.2 - 10.3 Final LP783 9-6 [facility] 06/10 Compreh ensive Metabol ic Panel (CMP) Complete d Result for: COOKIE November ( [birth year] 83, F) 1751- 7 [facility] 06/09 ALBUMIN Value: 4.5 Units: g/dL Normal 3.2 - 5.2 Final 6768- 6 [facility] 06/09 ALK PHOS Value: 99 Units: U/L Normal 35 - 105 Final 54952 -6 [facility] 06/09 CALCIUM Value: 9.7 Units: mg/dL Normal 8.4 - 10.2 Final 3094- 0 [facility] 06/09 BUN Value: 14 Units: mg/dL Normal 6 - 20 Final 2160- 0 [facility] 06/09 CREATININE Value: 0.43 Units: mg/dL Low 0.70 - 1.50 Final 2345- 7 [facility] 06/09 GLUCOSE Value: 241 Units: mg/dL High 70 - 120 Final 123-9 9999- 9 [facility] 06/09 TOTAL PROTEIN Value: 7.7 Units: g/dL Normal 6.4 - 8.3 Final 2951- 2 [facility] 06/09 SODIUM Value: 134 Units: mmol/L Normal 133 - 145 Final 2823- 3 [facility] 06/09 POTASSIUM Value: 4.8 Units: mmol/L Normal 3.3 - 5.1 Final 5- 0 [facility] 06/09 CHLORIDE Value: 98 Units: mmol/L Normal 96 - 108 Final 123-9998- [facility] 06/09 CO2 Value: 26 Units: mmol/L Normal 22 - 33 Final 123- [facility] 06/09 ALT (SGPT) Value: 40 Units: U/L High 0 - 31 Final 192- 8 [facility] 06/09 AST (SGOT) Value: 37 Units: U/L High 0 - 31 Final - [facility] 06/09 BILIRUBIN TOTAL Value: 0.3 Units: mg/dL Normal 0.0 - 1.2 Final - [facility] 06/09 eGFR Value: 124 Units: mL/min/ {1.73_m 2} Normal >=90 Final Interpr etation of eGFR: ------- ------- ------- ------- ------- ------- ------- ------- ------- ------- 90 or more Normal Stage 1 (if protein uria) 60-89 Mildly Reduced Stage 2 30-59 Moderat akanksha Reduced Stage 3 15-29 Severel y Reduced Stage 4 <15 Kidney Failure Stage 5 Referen ce: http:// nkdep.n ih.gov/ profess ionals/ index.h tm 123-9 9998- [facility] 06/09 Comprehensive Metabolic Panel (CMP) - Normal Final LP783 9- [facility] 06/14 Complet e Blood Count (CBC) Without Differe ntial Complete d Result for: COOKIE November ( [birth year] 83, F) 123-9 9998- 9 [facility] 06/14 WBC Value: 8.6 Units: K/uL Normal 4.8 - 10.8 Final 789-8 [facility] 06/14 RBC Value: 4.83 Units: M/uL Normal 4.00 - 5.10 Final 718-7 [facility] [facility] 06/14 HGB Value: 12.9 Units: g/dL Normal 12.1 - 15.7 Final 4544- 3 [facility] 06/14 HCT Value: 38.6 Units: % Normal 35.0 - 45.0 Final 787-2 [facility] 06/14 MCV Value: 79.9 Units: fL Normal 78.0 - 102.0 Final 785-6 [facility] 06/14 MCH Value: 26.7 Units: pg Normal 26.0 - 34.0 Final 786-4 [facility] 06/14 MCHC Value: 33.4 Units: g/dL Normal 30.0 - 37.0 Final 123-9 9999- 9 [facility] 06/14 RDW-SD Value: 43.3 Units: fL Normal 37.0 - 51.0 Final 123-9 9999- 9 [facility] 06/14 RDW-CV Value: 15.3 Units: % Normal 11.0 - 16.0 Final 777-3 [facility] 06/14 PLATELET COUNT Value: 318.0 Units: K/uL Normal 150.0 - 400.0 Final 123-9 9999- 9 [facility] 06/14 MPV Value: 9.2 Units: fL Normal 7.2 - 10.3 Final 123-9 9999- 9 [facility] 06/14 Complete Blood Count (CBC) Without Differential - Normal Final Radiology Test Results Code Code System Date Test Procedure Status Notes 77808-6 [facility] 06/03/2025 XRAY CHEST 2 VIEW Completed Result for: November ( 1980, F) 09270-7 [facility] 06/03/2025 XRAY CHEST 2 VIEW Final XRAY CHEST 2 VIEWSee NoteFINDINGS: Frontal and lateral views are submitted. The lungs are without infiltrate, atelectasis or effusion. There is no pneumothorax. There is no pulmonary vascular congestion or edema. The heart size is normal. The mediastinal contours are within normal limits. The remaining osseous structures and soft tissues are without acute abnormality. The right central line tip is in the superior vena cava.CONCLUSION: No acute cardiopulmonary disease.ELECTRONICAL LY SIGNED BY KERWIN TOMLIN M.D. 06/03/2025 10:54:08 AM EDT.Reason for Study: Z45.1 ENCOUNTER FOR ADJUSTMENT AND MANAGEMENT OF INFUSION PUMPPrincipal Result Pan Washer Hand: KERWIN TOMLIN ([id number])Technici an: SANDRO SETH ([facility])Transcript ion Senior Risk Manager: TO Social History Social History Observation Description Start Date End Date Code Code System Current Smoking Status Tobacco smoking consumption unknown 383158336 SNOMED CT Sex Assigned At Female 1980 56876-1 [facility] Gender Identity Sexual Orientation Vital Signs Code Code System Vitals Name Values and Units Timing Information 03725-8 [facility] Pain Level Value=0.0 06/15/2025 2339-0 [facility] Blood Sugar Kbfwm=026.0 Units=mg/dL 06/15/2025 9279-1 [facility] Respiratory Rate Value=18.0 Units=/m in 06/14/2025 8462-4 [facility] Blood Pressure-Diastolic Value=74 Un its=mmHg 06/14/2025 8480-6 [facility] Blood Pressure-Systolic Jdago=626 Un its=mmHg 06/14/2025 8310-5 [facility] Body Temperature Value=97.2 Units= F 06/14/2025 8867-4 [facility] Heart rate Value=99.0 Units=/min 89347-9 [facility] O2 % BldC Oximetry Value=96.0 Units= % 06/14/2025 50304-3 LOINC Weight Irmev=567.7 Units=Lbs 8302-2 [facility] Height Value=63.0 Units=Inches 06/01/2025
--- OUTSIDE RECORDS SUMMARY | 2025-06-15 19:34 | XMS_ITS | Clinical Summary ---
Author Organization [facility] Address [address] [place] [address] Care Team Providers Care Clinical Education Academic Coordinator Name Role Phone Ref, Has No Pcp Or Primary Care Provider Unavail able Allergies Active Allergy Reactions Criticality Noted Date Comments Divalproex Delirium 06/15/2025 Peanut Anaphylaxis High 06/15/2025 Active Problems No known active problems Encounters Date Type Department Care Team Description 06/15/2025 11:18 AM EDT - 06/15/2025 12:47 PM EDT Emergency [facility] Emergency Department [address] [place], [place] [id number] Guillermo Clifford MD Hickman catheter dysfunction, initial encounter (Primary Dx) Discharge Disposition: Short Term/Acute Care [facility] (02) from Last 3 Months Social History Tobacco Use Types Packs/Day Years Used Date Smoking Tobacco: Never Assessed Comments Unknown Sex and Gender Information Value Date Recorded Sex Assigned at Female 06/15/2025 11:05 AM EDT Legal Sex Female 11:03 AM EDT Gender Identity Not on file Sexual Orientation Not on file Last Filed [...] Mass Index 33.66 06/15/2025 11:05 AM EDT Plan of Treatment Health Maintenance Due Date Last Done Comments Cervical Cancer Screening 1980 HIV Screening 1980 HPV and Pap Smear 1981 Hepatitis C Screening 1981 Pap Smear 1981 Varicella Vaccines (1 of 2 - 13+ 2-dose series) 1994 Hepatitis B Vaccines (1 of 3 - 19+ 3-dose series) 2000 DTaP,Tdap,and Td Vaccines (1 - Tdap) 2003 Diabetes Screening 2016 Mammogram 2021 Alcohol/Substance Use Screening 08/31/2024 Depression Screening and Follow-Up 08/31/2024 Social Drivers of Health Judy ual Screening 08/31/2024 COVID-19 Vaccine (1 - 2024-2 6 season) 2025 Influenza Vaccine (#1) 2025 RSV Vaccine (60+ years old a nd patients) (1 - 1-dose 75+ series) 2056 Pneumococcal Vaccine: Pediat nora (0-5 Years) and At-Risk Patients (6-50 Years) Aged Out No longer eligible b ased on patient's age to complete this topic Insurance [facility] Care Teams Clinical Education Academic Coordinator Relationship Specialty Start Date End Date Ref, Has No Pcp Or DO NOT EDIT THIS RECORD VIA PROVIDER ON THE FLY PCP - General Wire Loop Machine Operator 06/15/25
--- OUTSIDE RECORDS SUMMARY | 2025-06-15 19:34 | XMS_ITS ---
Author Organization [facility] Care Team Providers Care Title One Teacher Name Role Phone Ladi Yang Unavailable Unavailable Samantha Lynne Unavailable Unavailable Allergies and adverse reactions Code CodeSystem Substance Reaction Severity StartDate Concern Status [id number] SNOMED CT Depakote Anaphylaxis (code- 71968329, SNOMED CT) Moderate 05/31/2025 active 5489 RXNORM HYDROcodone Urticaria (code - 968757447, SNOMED CT) Moderate 05/31/[address] Peanut Butter Anaphylaxis (code- 42076667, SNOMED CT) Moderate 05/31/2025 active 14152 RXNORM traMADol Eruption (code- 966586553, SNOMED CT) Moderate 05/31/2025 active Care Team Name Role Address Phone Organization Dates Ladi Yang PCP [address] [facility] [address], [address], [facility] (Office): [facility] 05/31/2025 - present Samantha Lynne [address] [facility] [address], [place], [address], [facility] (Office): [facility] 05/31/2025 - present Imaging Narrative Note Date Imaging Narrative No [...] ADJUSTMENT AND MANAGEMENT OF INFUSION PUMPPrincipal Result Material Handler 1St Shift: KERWIN TOMLIN ([id number])Appliance Service Technician: SANDRO SETH ([facility])Animal Pathologist Appliance Service Technician: TO [place] Encounter Type Code Code System Description Performer Discharge Disposition Service Delivery Location Date Ambulatory Encounter CPT Code = [id number] Morbid obesity [facility] Address: [address] [place] [address]. 05/31 Ambulatory Encounter CPT Code = [id number] Generalized anxiety disorder [facility] Address: [address] [place] [address]. 05/31 Ambulatory Encounter CPT Code = [id number] Bipolar I disorder, most recent episode hypomanic [facility] Address: [address] [place] [address], [address] [place] [address]. 05/31 Ambulatory Encounter CPT Code = [id number] Sepsis caused by methicillin resistant Staphylococcus aureus [facility] Address: [address] [place] [address], [address] [place] [address]. 05/31 Ambulatory Encounter CPT Code = [id number] Mild intermittent asthma [facility] Address: [address] [place] [address], [address] [place] [address]. 05/31 Ambulatory Encounter CPT Code = [id number] Type 2 diabetes mellitus without complication [facility] Address: [address] [place] [address]. 05/31 Ambulatory Encounter CPT Code = [id number] Hyperlipidemia Amandaarnie Laughlin [facility] Address: [address] [place] [address], [address] [place] [address]. 05/31 Ambulatory Encounter CPT Code = [id number] Abscess of upper limb Amandaarnie Laughlin [facility] Address: [address] [place] [address], [address] [place] [address]. 05/31 Ambulatory Encounter CPT Code = [address] Disorganized schizophrenia Amandaarnie Laughlin [facility] Address: [address] [place] [address], [address] [place] [address]. 05/31 Ambulatory Encounter CPT Code = [address] Paranoid schizophrenia Amandaarnie Laughlin [facility] Address: [address] [place] [address], [address] [place] [address]. 05/31 Ambulatory Encounter CPT Code = [id number] Chronic pain due to injury Amandaarnie Laughlin [facility] Address: [address] [place] [address], [address] [place] [address]. 05/31 Ambulatory Encounter CPT Code = [id number] Opioid-induced organic mental disorder Amandaarnie Laughlin [facility] Address: [address] [place] [address], [address] [place] [address]. 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 Active [...] Glargine Subcutaneou s Solution 100 UNIT/ML active 59278 1 RXNORM 45 unit Subcut aneous at bedtime Routin e Injec t 45 unit subcu taneo usly at bedti me relat ed to TYPE 2 DIABE NITESH MELLI TUS WITHO UT COMPL ICATI ONS (E11. 9) 2024 - - Methadose Oral Concentrate 10 MG/ML active 29620 9 RXNORM 1.3 ml Oral in the morning Routin e Give 1.3 [facility] OPIOI D USE, UNSPE CIFIE [...] n Calcium Oral Tablet 40 MG active 57556 1 RXNORM 1 table t Oral at bedtime Routin e Give 1 table [facility] to HYPER LIPID EMIA, UNSPE CIFIE D (E78. 5) 2024 - - Insulin Glargine Subcutaneou s Solution 100 UNIT/ML active 12395 1 RXNORM 20 unit Subcut aneous in the morning Routin e Injec t 20 unit subcu taneo usly in the [facility] relat ed to TYPE 2 DIABE NITESH CONTRERAS WITHO UT COMPL ICATI ONS (E11. 9) 2024 - - Insulin Lispro Injection Solution 100 UNIT/ML active 76346 0 RXNORM n/a n/a Subcut aneous before [...] usly befor e meals and at bedti wa relat ed to TYPE 2 DIABE NITESH [...] Temp Acetaminoph en Tablet 325 MG active 67933 2 RXNORM 2 table t Oral as needed PRN Give 2 table t by mouth every 6 hours as neede d for Pain - give 650mg total dose - N OT TO EXCEE D 3 GMS APAP / 24 HOURS AND Give 2 table t by mouth every 6 hours as neede d for [place] ratur e - give 650mg total dose - N OT TO EXCEE D 3 GMS APAP / 24 HOURS 2024 - Pain 79669 2 RXNORM 2 table t Oral as needed PRN Give 2 table t by mouth every 6 hours as neede d for Pain - give 650mg total dose - N OT TO EXCEE D 3 GMS APAP / 24 HOURS AND Give 2 table t by mouth every 6 hours as neede d for [place] ratur e - give 650mg total dose - N OT TO EXCEE D 3 GMS APAP / 24 HOURS 2024 - Elevated Temperature Naloxone HCl Liquid 4 MG/0.1ML active 97717 59 RXNORM 1 appli catio n in [...] Depression Gabapentin Oral Capsule 300 MG active 19658 1 RXNORM 1 capsu le Oral two times a day Routin e Give 1 capsu le by mouth two times a day relat ed to CHRON IC PAIN DUE TO TRAUM A (G89. 21) 2024 - - Cefepime HCl Intravenous Solution 2 GM/100ML aborted 66006 64 RXNORM 2 gram Intrav enous every 8 hours Routin e Use 2 gram intra venou sly every 8 hours relat ed to SEPSI S DUE TO METHI CILLI N RESIS TANT STAPH YLOCO CCUS AUREU S (A41. 02) for 23 Days 05/31 - Albuterol Sulfate HFA Inhalation Aerosol Solution 108 (90 Base) MCG/ACT active 73824 2 RXNORM 2 puff Inhala tion as [...] ARIPiprazol e Oral Tablet 20 MG active 04923 3 RXNORM 1 table t Oral in the morning Routin e Give 1 table t by mouth in the morni ng relat ed to BIPOL AR DISOR OLIVIA, CURRE NT EPISO DE HYPOM ANIC (F31. 0) 2024 - - OXcarbazepi ne Oral Tablet 150 MG active 07293 6 RXNORM 1 table t Oral two [...] Milk of Magnesia Suspension 400 MG/5ML active 75735 7 RXNORM 30 ml Oral as needed [...] n Fleet Enema Enema 7-19 GM/118ML active 90122 5 RXNORM 1 appli catio n Rectal as needed PRN Inser t 1 appli catio n recta lly as neede d for Const ipati on Admin ister if Bisac odyl ineff ectiv e. CALL MD FOR FURTH ER ORDER S IF FLEET ENEMA IS INEFF ECTIV E 2024 - Constipatio n Insta-Gluco se Oral Gel 77.4 % active 82612 22 RXNORM 24 gram Oral as needed [...] tiZANidine HCl Oral Tablet 4 MG active 19215 3 RXNORM 1 table t Oral as needed PRN Give 1 table t by mouth every 8 hours as neede d for muscl e spasm s 2024 - muscle spasms clonazePAM Oral Tablet 1 MG active 76534 8 RXNORM 1 table t Oral as needed PRN Give 1 table t by mouth every 12 hours as neede d for Anxie ty 2024 - Anxiety Fluticasone Furoate-Tiburcio anterol Inhalation Aerosol Powder Breath Activated 100-25 MCG/ACT active 29226 99 RXNORM 1 inhal ation Inhala tion in the morning Routin e 1 inhal ation inhal e [facility]all [facility] to MILD INTER MITTE NT ASTHM [...] 1 BIPOLAR DISORDER, CURRENT EPISODE HYPOMANIC 05/31/[address] active 2 CHRONIC PAIN DUE TO TRAUMA 05/31/[address] active 3 CUTANEOUS ABSCESS OF RIGHT UPPER LIMB 05/31/[address] active 4 DISORGANIZED SCHIZOPHRENIA 05/31/[address] active 5 GENERALIZED ANXIETY DISORDER 05/31/[address] active 6 HYPERLIPIDEMIA, UNSPECIFIED 05/31/[address] active 7 MILD INTERMITTENT ASTHMA, UNCOMPLICATED 05/31/[address] active 8 MORBID (SEVERE) OBESITY DUE TO EXCESS CALORIES 05/31/[address] active 9 OPIOID USE, UNSPECIFIED, UNCOMPLICATED 05/31/[address] active 10 PARANOID SCHIZOPHRENIA 05/31/[address] active 11 SEPSIS DUE TO METHICILLIN RESISTANT STAPHYLOCOCCUS AUREUS 05/31/[address] active 12 TYPE 2 DIABETES MELLITUS WITHOUT COMPLICATIONS 05/31/[address] active Reason for Referral No [...] Value: 6.9 Units: ng/mL Normal >5.8 Final 68968 -8 LOINC 06/09 TSH Value: 2.76 Units: u[IU]/m L Normal 0.34 - 5.60 Final 123-9 9999- 9 LOINC 06/09 B12B Value: 380 Units: pg/mL Normal 180 - 914 Final 3024- 7 LOINC 06/09 FT4 Value: 0.62 Units: ng/dL Low 0.74 - 1.50 Final LP783 9-6 LOINC 06/09 Lipid Panel Complete d Result for: COOKIE LuxNovember ( [birth year] 83, F) 123-9 9999- 9 LOINC 06/[address] Value: 144 Units: mg/dL Normal 100 - 200 Final 2571- 8 LOINC 06/09 TRIGLYCERIDE Value: 77 Units: mg/dL Normal 0 - 200 Final 2084- 9 LOINC 06/[address] Value: 73 Units: mg/dL Normal 35 - 97 Final 123-9 9999- 9 LOINC 06/09 LDL, CALCULATED Value: 56 Units: mg/dL Normal 0 - 100 Final Result derived from Omi Morrison ce: https:/ /pmc.[facility].nlm. nih.gov /articl es/PMC2 956108/ 123-9 9999- 9 LOINC 06/09 CHOL/HDL RISK FACTOR CT - Normal 0.0 - 4.4 Final LP783 9-6 LOINC 06/09 Vitamin D 25 Hydroxy Complete d Result for: November ( [birth year] 83, F) 123-9 9999- 9 LOINC 06/09 V25OH Value: 13 Units: ng/ml Low 30 - 100 Final 123-9 9- 9 LOINC 06/09 Vitamin D 25 Hydroxy - Normal Final LP783 9-6 LOINC 06/10 Hemoglo bin A1C / Complet e Blood Count (CBC) Without Differe ntial / Compreh ensive Metabol ic Panel (CMP) Complete d Result for: November ( [birth year] 83, F) 123-9 9999- [...] % Normal 35.0 - 45.0 Final 787-2 [facility] 06/09 MCV Value: 79.8 Units: fL Normal 78.0 - 102.0 Final 785-6 [facility] 06/09 MCH Value: 27.0 Units: pg Normal 26.0 - 34.0 Final 786-4 [facility] 06/09 MCHC Value: 33.8 Units: g/dL Normal 30.0 - 37.0 Final 123-9 9999- 9 [facility] 06/09 RDW-SD Value: 42.4 Units: fL Normal 37.0 - 51.0 Final 123-9 9999- 9 [facility] 06/09 RDW-CV Value: 14.9 Units: % Normal 11.0 - 16.0 Final 777-3 [facility] 06/09 PLATELET COUNT Value: 343.0 Units: K/uL Normal 150.0 - 400.0 Final 123-9 9999- 9 [facility] 06/09 MPV Value: 9.1 Units: fL Normal 7.2 - 10.3 Final LP783 9-6 [facility] 06/10 Compreh ensive Metabol ic Panel (CMP) Complete d Result for: SEVENNovember ( [birth year] 83, F) 1751- 7 [facility] 06/09 ALBUMIN Value: 4.5 Units: g/dL Normal 3.2 - 5.2 Final 6768- 6 [facility] 06/09 ALK PHOS Value: 99 Units: U/L Normal 35 - 105 Final 38223 -6 [facility] 06/09 CALCIUM Value: 9.7 Units: mg/dL Normal 8.4 - 10.2 Final 3094- 0 [facility] 06/09 BUN Value: 14 Units: mg/dL Normal 6 - 20 Final 2160- 0 [facility] 06/09 CREATININE Value: 0.43 Units: mg/dL Low 0.70 - 1.50 Final 2345- 7 [facility] 06/09 GLUCOSE Value: 241 Units: mg/dL High 70 - 120 Final 123-9 9999- 9 [facility] 06/09 TOTAL PROTEIN Value: 7.7 Units: g/dL Normal 6.4 - 8.3 Final 2951- 2 [facility] 06/09 SODIUM Value: 134 Units: mmol/L Normal 133 - 145 Final 2823- 3 [facility] 06/09 POTASSIUM Value: 4.8 Units: mmol/L Normal 3.3 - 5.1 Final 2074- 0 [facility] 06/09 CHLORIDE Value: 98 Units: mmol/L Normal 96 - 108 Final 123-9998- 9 [facility] 06/09 CO2 Value: 26 Units: mmol/L Normal 22 - 33 Final 123-9998- [facility] 06/09 ALT (SGPT) Value: 40 Units: U/L High 0 - 31 Final [facility] 06/09 AST (SGOT) Value: 37 Units: U/L High 0 - 31 Final - [facility] 06/09 BILIRUBIN TOTAL Value: 0.3 Units: mg/dL Normal 0.0 - 1.2 Final - [facility] 06/09 eGFR Value: 124 Units: mL/min/ {1.73_m [...] nkdep.n ih.gov/ profess ionals/ index.h tm 123-9 9- 9 [facility] 06/09 Comprehensive Metabolic Panel (CMP) - Normal Final LP783 9- [facility] 06/14 Complet e Blood Count (CBC) Without Differe ntial Complete d Result for: SEVENLarisa YNovember ( [birth year] 83, F) 123-9 9999- 9 [facility] 06/14 WBC Value: 8.6 Units: K/uL Normal 4.8 - 10.8 Final 789-8 [facility] 06/14 RBC Value: 4.83 Units: M/uL Normal 4.00 - 5.10 Final 718-7 [facility] 06/14 HGB Value: 12.9 Units: g/dL Normal 12.1 - 15.7 Final 4544- 3 [facility] 06/14 HCT Value: 38.6 Units: % Normal 35.0 - 45.0 Final 787-2 [facility] 06/14 MCV Value: 79.9 Units: fL Normal 78.0 - 102.0 Final 785-6 [facility] 06/14 MCH Value: 26.7 Units: pg Normal 26.0 - 34.0 Final 786-4 [facility] 06/14 MCHC Value: 33.4 Units: g/dL Normal 30.0 - 37.0 Final 123-9 9999- 9 [facility] 06/14 RDW-SD Value: 43.3 Units: fL Normal 37.0 - 51.0 Final 123-9 9999 9 [facility] 06/14 RDW-CV Value: 15.3 Units: % Normal 11.0 - 16.0 Final 777-3 [facility] 06/14 PLATELET COUNT Value: 318.0 Units: K/uL Normal 150.0 - 400.0 Final 123-9 9999- 9 [facility] 06/14 MPV Value: 9.2 Units: fL Normal 7.2 - 10.3 Final 123-9 9999- 9 [facility] 06/14 Complete Blood Count (CBC) Without Differential - Normal Final Radiology Test Results Code Code System Date Test Procedure Status Notes 12575-3 [facility] 06/03/2025 XRAY CHEST 2 VIEW Completed Result for: November ( 1980, F) 86444-6 [facility] 06/03/2025 XRAY CHEST 2 VIEW Final XRAY [...] ADJUSTMENT AND MANAGEMENT OF INFUSION PUMPPrincipal Result Material Handler 1St Shift: KERWIN TOMLIN ([id number])Technici an: SANDRO SETH ([facility])Transcript ion Appliance Service Technician: TO Social History Social History Observation Description Start Date End Date Code Code System Current Smoking Status Tobacco smoking consumption unknown 327652478 SNOMED CT Sex Assigned At Female 1980 81771-9 [facility] Gender Identity Sexual Orientation Vital Signs Code Code System Vitals Name Values and Units Timing Information 04866-1 [facility] Pain Level Value=0.0 06/15/2025 2339-0 [facility] Blood Sugar Obfqe=015.0 Units=mg/dL 06/15/2025 9279-1 [facility] Respiratory Rate Value=18.0 Units=/m in 06/14/2025 8462-4 [facility] Blood Pressure-Diastolic Value=74 Un its=mmHg 06/14/2025 8480-6 [facility] Blood Pressure-Systolic Kogjc=583 Un its=mmHg 06/14/2025 8310-5 [facility] Body Temperature Value=97.2 Units= F 06/14/2025 8867-4 [facility] Heart rate Value=99.0 Units=/min 49066-0 [facility] O2 % BldC Oximetry Value=96.0 Units= % 06/14/2025 39342-7 LOINC Weight Cpzao=940.7 Units=Lbs 8302-2 [facility] Height Value=63.0 Units=Inches 06/01/2025
--- OUTSIDE RECORDS SUMMARY | 2025-06-15 19:34 | XMS_ITS | Clinical Summary ---
Author Organization [facility] ity Address [address] [place] [address] Care Team Providers Care Huller Operator Name Role Phone Shaq Quinones MD Primary [...] Cervical Cancer Screening: P ap Smear 2002 HPV Vaccines (1 - 3-dose SCD M series) 2008 HIV Screening 08/02/2022 Hepatitis C Screening 08/02/2022 Social Influencers of Health Screening 08/02/2022 Depression Screening 08/31/2024 COVID-19 Vaccine (2023-2 5 season) 2025 Influenza Vaccine (#1) 2025 RSV Immunization Adult Patie nts (1 - 1-dose 75+ series) 2056 HIB Vaccines Aged Out No longer eligi [...] age to complete this topic Care Teams Huller Operator Relationship Specialty Start Date End Date Shaq Quinones MD [address] [place] [address] Dr [address] [place], [place] PCP - General 04/13/08
== END 2025-06-15 18:25 | disposition home or self-care (01) ==
PROVIDERS: Emergency Provider Emergency Medicine
DX: Z45.2 Encounter for adjustment and management of vascular access device (principal); Z79.899 Other long term (current) drug therapy
CPT/HCPCS: 71046; 99284; J2003

== ENCOUNTER → 2025-06-15 16:39 | Outpatient (BNV) | payer OTHER, SELFPAY | PROVIDERS: Emergency Provider Emergency Medicine; Visit Provider Radiology Body Imaging | DX: Z46.82 Encounter for fitting and adjustment of non-vascular catheter (principal); Z95.9 Presence of cardiac and vascular implant and graft, unspecified | CPT/HCPCS: 71046 ==

== ENCOUNTER 2025-07-11 09:02 | Outpatient (AMB) | payer OTHER, SELFPAY ==
[2025-07-11 09:18] VITALS: BP 138/92; PULSE 118; TEMP 36.2; O2SAT 98; BMI 30.6
--- NOTE | 2025-07-11 09:18 | A.OFFPC_ITS ---
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 Allergies divalproex sodium (From Depakote) Allergy (Severe, Verified 07/11/25 09:21) ANAPHYLAXIS hydrocodone (HYDROCODONE) Allergy (Severe, Verified 07/11/25 09:21) HIVES tramadol Allergy (Unknown, Verified 07/11/25 09:21) rash acetaminophen (From Vicodin) Allergy (Verified 07/11/25 09:21) Anaphylaxis From Ultram Allergy (Intermediate, Uncoded 07/11/25 09:21) ITCHING PEANUT BUTTER Allergy (Unknown, Uncoded 07/11/25 09:21) ANAPHYLAXIS Medication List - Last Reconciled 07/11/25 by Baudilio Sheldon MD albuterol sulfate 90 mcg/actuation 1 puff inhalation TID PRN aripiprazole 20 mg PO DAILY atorvastatin 40 mg PO DAILY clonazepam 1 mg PO BID PRN fluticasone furoate-vilanterol 100-25 mcg/dose (Breo Ellipta) 1 ea inhalation DAILY gabapentin 300 mg PO BID hydroxyzine HCl 25 - 50 mg PO BEDTIME PRN ibuprofen 400 mg PO Q6H PRN insulin glargine (Lantus U-100 Insulin) 20 units (0.2 mL) subcut DAILY insulin glargine (Lantus Solostar U-100 Insulin) 45 units (0.45 mL) subcut BEDTIME insulin lispro (Admelog U-100 Insulin lispro) See Protocol units subcut QIDACHS tizanidine 4 mg PO TID PRN Tobacco use date assessed: 07/11/25 Dental Screening Dental Screen Date: 07/11/25 Did you have a dental visit in the last 12 months?: No Did you have a dental problem in the last 6 months where you did not have access to dental care?: No Was dental information given to patient?: Patient has dentist HPI HPI Comments History of Present Illness Details 44 yo F with PMH of DM, IVDU, bipolar, S UD on suboxon, yeast infection, HLD, who is presenting to [facility] care. The patient follows with psych who prescribed her Abilify, Hydroxyzine and Clonazepam. However, she expressed unsatisfactory with her current psychiatrist. She was admitted to the hospital from 05/19/2025 until 05/31/2025 for left arm abcess for which she was treated with IV antibiotics. The patient follows with addiction clinic and has been on suboxon. She has been without her medications for diabetes and hyperlipidemia for the last month. The patient has a history of diabetes and has been on Trulicity for approximately four years, which she finds effective. She notes her blood sugar has been high since running out of medication. The patient reports a history of Hepatitis C, for which she believed she was treated years ago. However, she was recently found to have a positive viral load, of which she was unaware. [facility] Medical History IVDU (intravenous drug user) MSSA bacteremia Sepsis Obesity Anxiety Bipolar 1 disorder with moderate morenita Schizophrenia Paranoia Asthma Hyperlipidemia Type 2 diabetes mellitus Surgical History Hx of section Social History Household Members: None Housing: House Are you a primary career development coordinator/teacher to a significant other at home: No Do you presently have visiting nurse or other home services: No Alcohol intake: former Comment: patient refusing bed alarm Patient Tobacco Use Status: Former Tobacco user e-Cigarette/Vaping Use: Currently Using Substance Use Type: Crack/Cocaine and Marijuana service: No Current occupational status: disabled Sexual orientation: Straight/Heterosexual Cognitive needs: No Hearing needs: No Vision needs: Yes Questionnaire PHQ-9 Over the last 2 weeks, how often have you been bothered by any of the following problems? 1. Little interest or pleasure in doing things: not at all 2. Feeling down, depressed, or hopeless: not at all 3. Trouble falling or staying asleep, or sleeping too much: not at all 4. Feeling tired or having little energy: not at all 5. Poor appetite or overeating: several days 6. Feeling bad about yourself - or that you are a failure or have let yourself or your family down: not at all 7. Trouble concentrating on things, such as reading the newspaper or watching television: not at all 8. Moving or speaking so slowly that other people could have noticed. Or the opposite - being so fidgety or restless that you have been moving around a lot more than usual: not at all 9. Thoughts that you would be better off or of hurting yourself in some way: not at all Total score: 1 Source: Developed by Drs. Matt Brooks, Maribel De Leon, Shelton Bowden and colleagues, with an educational abner from [employer]. Thrive Questionnaire Date Thrive assessed: 05/20/25 I am a: Patient What is your living situation today?: I have a steady place to live Within the past 12 months, did the food you bought not last and you didn't have the money to get more?: Never true Within the past 12 months, did you worry whether your food would run out before you got money to buy more?: Never true Do you have trouble paying for medicines?: No Do you have trouble getting transportation to medical appointments?: I choose not to answer this question Do you have trouble paying your heating and electricity bill?: No Do you have trouble taking care of your child, family member or friend?: No Do you have trouble with day-to-day activities such as bathing, preparing meals, shopping, managing finances, etc.?: Yes Are you currently unemployed and looking for a job?: No Are you interested in more education?: No Please select the resources that you would like help with: None Currently or been in a relationship where the following occur: I choose not to answer THRIVE Score: 0 AUDIT C Alcohol Use Questionnaire (AUDIT-C) 1. How often do you have a drink containing alcohol?: Never 3. How often do you have six or more drinks on one occasion?: Never Total Score: 0 CHICO-7 AMB Questionnaire CHICO-7 Date CHICO - 7 assessed: 07/11/25 Feeling nervous, anxious, or on edge: 3 = Nearly every day Not being able to stop or control worryin = Several days Worrying too much about different things: 1 = Several days Trouble relaxin = Several days Being so restless that it is hard to sit still: 1 = Several days Becoming easily annoyed or irritable: 1 = Several days Feeling afraid as if something awful might happen: 0 = Not at all Total CHICO-7 score (0-4 normal; 5-9 mild; 10-14 moderate; 15-21 severe): 8 Source: Developed by Drs. Matt Brooks, Maribel De Leon, Shelton Bowden and colleagues, with an educational abner from [employer]. CHICO-7 Assessment Billing CHICO-7 Assessment Tool: CHICO-7 Assessment 41335 Review of Systems Const Details: As per HPI. Physical exam (Primary Care) Vital Signs: Last Vital Signs Temp 97.1 F 07/11/25 09:18 Pulse 118 H 07/11/25 09:18 BP 138/92 H 07/11/25 09:18 Pulse Ox 98 07/11/25 09:18 Oxygen Delivery Method Room Air 07/11/25 09:18 BMI result Body Mass Index 30.6 Tobacco/Smoking Status: Tobacco use Status Tobacco use date assessed 07/11/25 07/11/25 09:24 Patient Tobacco Use Status Former Tobacco user 07/11/25 09:24 e-Cigarette/Vaping Use Currently Using 07/11/25 09:24 PHQ-9: PHQ-9 Score PHQ-9: Total score 1 07/11/25 09:24 Thrive Assessment: Date of Thrive Assessment Date Thrive assessed 05/20/25 07/11/25 09:24 Currently or been in a relationship where the following occur: I choose not to answer Const Other: Pertinent findings are in BOLD GENERAL APPEARANCE NAD, activity normal for age, well developed/ well nourished, no cyanosis, pallor, or diaphoresis. EYES lids/conjunctiva normal. EARS/NOSE/THROAT Mucous membranes moist, nares normal, lips/teeth normal uvula midline without oral pharyngeal erythema, exudate or swelling TMs normal bilaterally. No lymphangitis/lymphedema. HEAD/NECK normocephalic atraumatic, no facial trauma, neck is supple. RESPIRATORY respiratory effort normal, speaks in full sentences, no tripod position, no accessory muscle use. Lungs clear to auscultation without rhonchi, wheezes, rales CARDIAC Regular rate and rhythm, no edema. ABDOMINAL Soft, ND/NT. No evidence of fluid wave. No pulsatile masses on exam, rebound tenderness, Norris sign or pain over Mcburney's point. MUSCLES/EXTREMITIES No abnormal range of motion, no swelling. SKIN Warm, pink and dry. No rashes, dermatoses, petechiae or lesions. NEUROLOGICAL Speech is clear and appropriate. Normal level of consciousness. Gait and coordination are normal. 5/5 strength in all extremities. PSYCH Normal mood and affect. Judgement/competence is appropriate Coding Level of Care Code New Pt Level 4 (71047) Diagnoses Uncontrolled type 2 diabetes mellitus with hyperglycemia E11.65 Healthcare maintenance Z00.00 Bipolar 1 disorder with moderate morenita F31.12 Chronic hepatitis C without hepatic coma B18.2 Viral hepatitis chronicity: chronic Hepatic coma status: without hepatic coma Generalized pain R52 Additional Codes CHICO-7 Assessment Billing - CHICO-7 Assessment Tool: CHICO-7 Assessment 10273 ([id number]) Time Spent (min) 45 Assessment & Plan Assessment & Plan (1) Uncontrolled type 2 diabetes mellitus with hyperglycemia: Code(s): E11.65 - Type 2 diabetes mellitus with hyperglycemia Category: Medical Plan: - The patient has been without her diabetes medications for one month and reports high blood glucose. - Starting Munjaro 2.5 mg weekly for one month with three refills. - The patient was advised that the dose may need to be increased in the future and that insurance may not cover the medication, though it is indicated due to her high A1c. - Prescribed insulin glargine 45 units. - Prescribed short-acting insulin lispro. - Colleen 2 sensor ordered. - Placed a referral to endocrinology for ongoing management. - Placed a referral to podiatry for yearly diabetic foot examinations. (2) Healthcare maintenance: Code(s): Z00.00 - Encounter for general adult medical examination without abnormal findings Category: Medical Plan: We will address Healthcare maintenance stuff next visit. (3) Bipolar 1 disorder with moderate morenita: Code(s): F31.12 - Bipolar disorder, current episode manic without psychotic features, moderate Category: Medical Plan: Follows with psychiatry for Clonazepam, hydroxyzine and Abilify. She report unstatisfaction with her current psychiatrist so referral to a new psychiatrist was placed. (4) Hepatitis C infection: Code(s): B19.20 - Unspecified viral hepatitis C without hepatic coma Category: Medical Qualifiers: Viral hepatitis chronicity: chronic Hepatic coma status: without hepatic coma Qualified Code(s): B18.2 - Chronic viral hepatitis C Plan: - The patient has a history of Hepatitis C and was unaware of a recent positive viral load. - A referral will be placed to a warp dyeing tender for management. - Labs were ordered to check liver function. (5) Generalized pain: Code(s): R52 - Pain, unspecified Category: Medical Plan: - The patient reports chronic knee pain. - Gabapentin will not be prescribed as she reports it is ineffective. Plan I started the patient on Munjaro as Trulicity was not helpful in the past. We will start with a 2.5 mg dose for one month with three refills, and we may need to increase the dose later. I informed the patient about a recent positive viral load for hepatitis C, of which she was unaware, and explained the need for a referral to a GI specialist for management. We also discussed referrals for endocrinology and podiatry for comprehensive diabetes care. We agreed not to restart gabapentin as she reported it was not effective for her pain. I advised her to complete the ordered labs, preferably fasting, and to schedule a follow-up appointment in one month to review the results and monitor her progress on the new medication regimen. Orders: Orders Complete Blood Count no Diff Today Z00.00 - Encounter for general adult medical examination without abnormal findings Comprehensive Met. Panel Today Z00.00 - Encounter for general adult medical examination without abnormal findings Vitamin B12 and Folate Today D64.9 - Anemia, unspecified, Z00.00 - Encounter for general adult medical examination without abnormal findings Hemoglobin A1c Today Z00.00 - Encounter for general adult medical examination without abnormal findings Lipid Panel Today Z00.00 - Encounter for general adult medical examination without abnormal findings Vitamin D 25-OH Total Today Z00.00 - Encounter for general adult medical examination without abnormal findings TSH reflex Free T4 Today Z00.00 - Encounter for general adult medical examination without abnormal findings Microalbumin, Random (w Creat) Today E11.9 - Type 2 diabetes mellitus without complications Referrals Gastroenterology Referral B19.20 - Unspecified viral hepatitis C without hepatic coma Podiatry Referral E11.65 - Type 2 diabetes mellitus with hyperglycemia Endocrinology Referral E11.65 - Type 2 diabetes mellitus with hyperglycemia Psychiatry Referral F31.12 - Bipolar disorder, current episode manic without psychotic features, moderate Medications: New atorvastatin 40 mg PO DAILY 90 tabs 3RF insulin glargine (Lantus U-100 Insulin) 45 units (0.45 mL) subcut QPM 10 mL 3RF insulin lispro (Humalog KwikPen (U-100) Insulin) subcutaneously 4 times a day; 71-119 No additional insulin. 120-150 2 units. 151-200 4 units. 201-250 6 units. 251-300 8 units. 301-350 10 units. Greater than 351 12 units 15 mL 3RF blood-glucose sensor (FreeStyle Colleen 2 Plus Sensor device) As directed 1 ea 3RF tirzepatide (Mounjaro) for 4 weeks 2.5 mg (0.5 mL) subcut QWEEK 2 mL 3RF [Colleen light sensor] As directed 1 ea 5RF fluticasone furoate-vilanterol 100-25 mcg/dose (Breo Ellipta) No substitute. 1 inh inhalation DAILY 60 ea 3RF
--- OUTSIDE RECORDS SUMMARY | 2025-07-11 09:39 | XMS_ITS | Clinical Summary ---
Author Organization [facility] Address [address] [place] [address] Care Team Providers Care Pruner Name Role Phone Ref, Has No Pcp Or Primary Care Provider Unavail able Allergies Active Allergy Reactions Criticality Noted Date Comments Divalproex Delirium 06/15/2025 Peanut Anaphylaxis High 06/15/2025 Active Problems No known active problems Encounters Date Type Department Care Team Description 06/15/2025 11:18 AM EDT - 06/15/2025 12:47 PM EDT Emergency [facility] Emergency Department [address] [place], [place] [id number] Guillermo Clifford MD Hickman catheter dysfunction, initial encounter (Primary Dx) Discharge Disposition: Short Term/Acute Care [facility] (02) from Last 3 Months Social [...] 6 season) 2025 Influenza Vaccine (#1) 2025 Pneumococcal Vaccine: Pediat nora (0-5 Years) and At-Risk Patients (6-50 Years) Aged Out No longer eligible b ased on patient's age to complete this topic [place] [address] [address] [id number] Care Teams Pruner Relationship Specialty Start Date End Date Ref, Has No Pcp Or DO NOT EDIT THIS RECORD VIA PROVIDER ON THE FLY PCP - General Residential Property Consultant 06/15/25
--- OUTSIDE RECORDS SUMMARY | 2025-07-11 09:39 | XMS_ITS | Clinical Summary ---
Author Organization [facility] ity Address [address] [place] [address] Care Team Providers Care Numerical Control Nesting Operator Name Role Phone Shaq Quinones MD [...] Screening 08/02/2022 Depression Screening 08/31/2024 COVID-19 Vaccine ( - 2024-2 6 season) 2025 Influenza Vaccine [...] age to complete this topic Care Teams Numerical Control Nesting Operator Relationship Specialty Start Date End Date Shaq Quinones MD [address] [place] [address] [address] [place], [place] PCP - General 04/13/08
--- OUTSIDE RECORDS SUMMARY | 2025-07-11 09:39 | XMS_ITS | Clinical Summary ---
Author Organization [facility] Address [address] [place] [id number] Phone Care Team Providers Care Osteopathic Medicine Teacher Name Role Phone Brent Vides DO Primary Care Provider [phone] Allergies Active Allergy Reactions Criticality Noted Date [...] Devices Not on file Insurance [id number] Care Teams Osteopathic Medicine Teacher Relationship Specialty Start Date End Date Brent Vides DO [address] [place] [id number] PCP - General Internal Medicine 01/21/24 Additional Source Comments The information contained in this document represents components of the legal health record. It is not the complete legal health record.[facility]
== END 2025-07-11 10:07 | disposition home or self-care (01) ==
PROVIDERS: PCP Internal Medicine; Visit Provider Internal Medicine
DX: E11.65 Type 2 diabetes mellitus with hyperglycemia (principal); Z00.00 Encounter for general adult medical examination without abnormal findings; F31.12 Bipolar disorder, current episode manic without psychotic features, moderate; B18.2 Chronic viral hepatitis C; R52 Pain, unspecified

== ENCOUNTER → 2025-07-11 09:02 | Outpatient (BNVA) | payer OTHER, SELFPAY | PROVIDERS: PCP Internal Medicine; Visit Provider Internal Medicine | DX: Z00.00 Encounter for general adult medical examination without abnormal findings (principal); E11.65 Type 2 diabetes mellitus with hyperglycemia; F31.12 Bipolar disorder, current episode manic without psychotic features, moderate; B18.2 Chronic viral hepatitis C; R52 Pain, unspecified | CPT/HCPCS: 96127; 99202 ==